=== PATIENT | female | born 1935 | race Caucasian/White ===

== ENCOUNTER → 2018-01-15 10:45 | Outpatient (CLI) | payer MEDICARE, OTHER, SELFPAY ==
[2018-01-15 12:43] LABS: Appearance Urine UA CLEAR; Bilirubin Urine UA NEGATIVE (NEGATIVE); Color Urine UA YELLOW; Glucose Urine UA NEGATIVE (Normal); Ketones Urine UA NEGATIVE (NEGATIVE); Leukocyte Esterase Urine UA TRACE (NEGATIVE); Nitrite Urine UA Negative (Negative); Occult Blood Urine UA 3+ (Negative); Protein Urine UA TRACE (Negative); Urobilinogen Urine UA 0.2 E.U./dL (0.2); pH Urine UA 6.5 (4.5-8.0)
[2018-01-15 13:06] LABS: Bacteria Urine Occasional (0-1); Culture Indicated Urine Specimen Cultured; RBC Urine 5-10/HPF (0-5/HPF); Squamous Epithelial Cell Urine 1-5 /HPF; WBC Urine 5-10/HPF (0-5/HPF)
[2018-01-15 13:07] LABS: Hyaline Casts Urine 0-1/LPF
== END ==
PROVIDERS: Visit Provider Internal Medicine
DX: R30.0 Dysuria (principal)
CPT/HCPCS: 81003; 81015; 87086

== ENCOUNTER → 2018-01-16 14:10 | Outpatient (CLI) | payer MEDICARE, OTHER, SELFPAY ==
[2018-01-16 16:00] LABS: Cholesterol 152 mg/dL (140-199); HDL Cholesterol 81 mg/dL (40-60); LDL Cholesterol Calculated 48 mg/dL (<100); Triglycerides 115 mg/dL (35-150)
== END ==
PROVIDERS: PCP Internal Medicine; Visit Provider Internal Medicine
DX: E78.00 Pure hypercholesterolemia, unspecified (principal)
CPT/HCPCS: 36415; 80061

== ENCOUNTER → 2018-01-23 13:24 | Outpatient (CLI) | payer MEDICARE, OTHER, SELFPAY ==
[2018-01-23 16:35] LABS: Bacteria Urine None Seen
[2018-01-23 16:45] LABS: Appearance Urine UA SL CLOUDY; Bilirubin Urine UA NEGATIVE (NEGATIVE); Color Urine UA RED; Glucose Urine UA NEGATIVE (Normal); Ketones Urine UA NEGATIVE (NEGATIVE); Leukocyte Esterase Urine UA TRACE (NEGATIVE); Nitrite Urine UA Negative (Negative); Occult Blood Urine UA 3+ (Negative); Protein Urine UA 2+ (Negative); Urobilinogen Urine UA 0.2 E.U./dL (0.2); pH Urine UA 6.5 (4.5-8.0)
[2018-01-23 16:49] LABS: Culture Indicated Urine Cult Not Indicated; RBC Urine >100/HPF (0-5/HPF); Squamous Epithelial Cell Urine 5-10 /HPF; WBC Urine 1-5/HPF (0-5/HPF)
== END ==
PROVIDERS: PCP Internal Medicine; Visit Provider Internal Medicine
DX: R31.9 Hematuria, unspecified (principal)
CPT/HCPCS: 81001

== ENCOUNTER → 2018-02-20 11:47 | Outpatient (CLI) | payer MEDICARE, OTHER, SELFPAY ==
[2018-02-20 12:55] LABS: Blood Urea Nitrogen 16 mg/dL (7-17); Estimated Glomerular Filt Rate 53.3 mL/min (>60)
== END ==
PROVIDERS: PCP Internal Medicine; Visit Provider Physician Assistant
DX: R31.0 Gross hematuria (principal)
CPT/HCPCS: 36415; 82565; 84520

== ENCOUNTER → 2018-02-27 11:31 | Outpatient (CLI) | payer MEDICARE, OTHER, SELFPAY ==
--- NOTE | 2018-02-27 | DI.CT.S_ITS ---
PROCEDURE: CT ABDOMEN PELVIS WO/W CON INDICATIONS: PAINLESS GROSS HEMATURIA TECHNIQUE: Optional 5 mm thick noncontrast images acquired from the diaphragm to the symphysis pubis. After the administration of intravenous contrast, 5 mm thick images acquired from the diaphragm to the symphysis pubis after a 10-minute delay. 2 mm thick coronal and sagittal reformats were then performed of the kidneys and ureters. For radiation dose reduction, the following was used: automated exposure control, adjustment of mA and/or kV according to patient size. COMPARISON: None. FINDINGS: Image quality: Excellent. Lung bases: Lung bases are clear. Heart size is normal. Urinary system: The kidneys are asymmetric in size, without hydronephrosis or nephrolithiasis on pre-contrast images but with a right kidney diminutive in size when compared to the normal size of the left kidney. Several renal cortical cysts are noted. No urothelial mass lesion involving either kidney is present.. No perinephric fat stranding. There is normal bilateral renal enhancement. Renal calyces appear normal in morphology when filled with contrast. Opacified portions of both ureters demonstrate normal caliber. Bladder wall thickness is normal. No calcified bladder stones. Other solid organs: Liver is normal in size and enhancement. Gallbladder contains at least one small centrally lucent calculus but no inflammation of the gallbladder or evidence of biliary obstruction is present.. Biliary system is non dilated. Pancreas enhances normally. Spleen is normal in size and enhancement. No adrenal nodules. The appearances of the ureters are normal bilaterally. Peritoneum and bowel: Bowel loops demonstrate normal wall thickness and caliber. No free fluid or air. Nodes and vessels: No retroperitoneal or mesenteric adenopathy by size criteria. Aorta and inferior vena cava are normal in size. Abdominal wall: No ventral hernias. Pelvis: No pathologic free pelvic fluid. No inguinal hernias are found. Note is made of a malignant appearing mass involving the right anterior lateral border with a region of mural thickening and increased enhancement when compared to the normal bladder wall elsewhere. This is present over a 5.9 cm AP dimension with a transverse dimension generally of 1.7 cm and a craniocaudad dimension of up to 6.8 cm. There is a margin of this mass that appears to have extended into the adjacent perivesicular, tracking to the right obturator internus musculature (please refer to series 3 image 159 where a preserved fat plane does not separate the mass from the anterior obturator internus musculature. On the right at the margin of the bifurcation of the inferior aspect of the right common iliac artery and vein there is a mildly prominent lymph node measuring up to 8 mm transverse and 1.3 cm AP with hyperemia when compared to the less enhancing pelvic musculature nearby (series 3 image 118) Bones: No suspicious bony lesions. No vertebral body compression fractures. IMPRESSION: 1. Malignant appearing mass lesion at the right anterolateral bladder wall measuring up to 5.9 x 6.8 x 1.7 cm. A smaller component of this mass appears to have invaded through the bladder wall and into the perivesicular extraperitoneal fat, progressing rightward to the inner border of the right obturator internus muscle anteriorly. 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 2. No distant metastatic disease is found that there is a single 8 x 13 mm lymph node that is hyperenhancing, located at the posterior border of the right common iliac artery and vein bifurcation, with enhancement above that expected for abnormal lymph node. Nuclear medicine PET CT scanning may be warranted to assist in establishing the presence of yoli metastatic disease. 3. Chronic atrophy of the right kidney which is diminutive in relationship to the normal appearance on the left. Dictated by: Jared Cantor M.D. on 02/27/2018 at 13:21 Approved by: Jared Cantor M.D. on 02/27/2018 at 13:37
== END ==
PROVIDERS: PCP Internal Medicine; Visit Provider Physician Assistant
DX: R31.0 Gross hematuria (principal); N32.9 Bladder disorder, unspecified; N26.1 Atrophy of kidney (terminal)
CPT/HCPCS: 74178; Q9967

== ENCOUNTER 2018-03-29 16:08 | Emergency (ER) | payer MEDICARE, OTHER, SELFPAY ==
[2018-03-29 16:15] VITALS: BP 124/80; PULSE 73; RESP 16; TEMP 35.8; O2SAT 99; BMI 20.7
--- NOTE | 2018-03-29 16:29 | ED_ITS ---
HPI - Female Genitourinary <RINA Mcdonnell - Last Filed: 03/29/18 22:23> General Chief complaint: Urogenital-Female Stated complaint: HAS BLADDER CANCER HAS PAIN/NOT PEEING WELL Time Seen by Provider: 03/29/18 16:28 Source: patient Mode of arrival: ambulatory Limitations: no limitations History of Present Illness HPI Narrative: 82-year-old female states has of bladder cancer and is currently awaiting surgery by Urology next week. She states that she has some bladder pain earlier today and has now resolved. She denies any burning with urination she denies any hematuria. Her symptoms have resolved since that started earlier today. She feels like she has inability to empty her bladder. Positive p.o. intake. No fevers or chills. She denies any other concerns or complaints. Related Data Home Medications Medication Instructions Recorded Confirmed aspirin 81 mg PO BID #0 03/20/11 03/29/18 atorvastatin 10 mg PO QPM 03/29/18 03/29/18 calcitriol 1 cap PO MOWEFR 03/29/18 03/29/18 diazepam 1 dose PO PRN PRN 03/29/18 03/29/18 Previous Rx's Medication Instructions Recorded amlodipine [Norvasc] 5 mg PO QDAY #90 tab 10/30/17 levothyroxine [Levoxyl] 0.088 mg PO QDAY #90 tab 10/30/17 metoprolol tartrate 50 mg PO BID #180 tab 10/30/17 hydrocodone-acetaminophen [[employer]] 1 tab PO Q4-6H PRN #10 tab 03/29/18 nitrofurantoin monohyd/m-cryst 100 mg PO Q12H #14 cap 03/29/18 [Macrobid] Allergies Allergy/AdvReac Type Severity Reaction Status Date / Time lisinopril [LISINOPRIL] Allergy Unknown Verified 01/16/18 13:30 Sulfa (Sulfonamide Allergy Unknown Verified 01/16/18 13:30 Antibiotics) [SULFA (SULFONAMIDE ANTIBIOTICS)] sertraline AdvReac Intermediate Diarrhea Uncoded 01/30/18 12:06 Review of Systems <RINA Mcdonnell - Last Filed: 03/29/18 22:23> Constitutional Denies chills, Denies fever(s), Denies lethargy and Denies weakness Eyes Denies change in vision, Denies eye discharge, Denies irritation and Denies loss of vision ENT Ears, Nose, Mouth, and Throat: Denies change in voice, Denies neck pain and Denies sore throat Cardiovascular Denies chest pain, Denies irregular heart rhythm, Denies lightheadedness, Denies palpitations, Denies dyspnea, Denies dyspnea on exertion and Denies orthopnea Respiratory Denies cough, Denies dyspnea, Denies dyspnea on exertion and Denies wheezing Gastrointestinal Gastrointestinal: Denies abdominal pain, Denies change in bowel habits, Denies diarrhea, Denies nausea and Denies vomiting Genitourinary Comments: Bladder pain Musculoskeletal Denies neck pain Integumentary/Breasts Denies pruritus, Denies erythema, Denies rash and Denies wounds Neurologic Denies confusion, Denies loss of vision and Denies weakness Psychiatric Denies anxiety, Denies confusion, Denies depression, Denies homicidal ideation and Denies suicidal ideation Endocrine Denies palpitations Hematologic/Lymphatic Denies easy bruising Allergic/Immunologic Denies wheezing Exam <RINA Mcdonnell - Last Filed: 03/29/18 22:23> Initial Vital Signs Initial Vital Signs: Vital Signs Temperature 96.5 F L 03/29/18 16:15 Pulse Rate 73 03/29/18 16:15 Respiratory Rate 16 03/29/18 16:15 Blood Pressure 124/80 H 03/29/18 16:15 Pulse Oximetry 99 03/29/18 16:15 Const General: cooperative and well developed Nutritional Appearance: well nourished Orientation: alert, awake, oriented x3 and not confused [facility] Mouth: oral mucosae normal and moist mucous membranes Eyes Conjunctivae: conjunctivae normal Sclera: sclerae normal Pupils: PERRL EOM: EOM intact bilaterally Resp Effort & Inspection: normal respiratory effort, able to speak in complete sentences, no respiratory distress and no use of accessory muscles Auscultation: clear to auscultation bilaterally, no rales, no rhonchi and no wheezes Cardio Rate: regular rate Rhythm: regular rhythm Heart Sounds: no click, no gallops, no murmurs and no rubs Pulses: normal peripheral pulses GI Inspection: non-distended Palpation: soft, no hepatosplenomegaly, No guarding, No pulsatile mass and No tender Auscultation: normal bowel sounds General: No CVA tenderness Skin General: no rashes or lesions noted, No jaundice and No petechiae Neuro General: alert, oriented x3, gait normal and no focal motor deficits Speech: speech normal <Christiano Beyer MD - Last Filed: 03/31/18 07:36> Initial Vital Signs Initial Vital Signs: Vital Signs Temperature 96.5 F L 03/29/18 16:15 Pulse Rate 73 03/29/18 16:15 Respiratory Rate 16 03/29/18 16:15 Blood Pressure 124/80 H 03/29/18 16:15 Pulse Oximetry 99 03/29/18 16:15 Course <RINA Mcdonnell - Last Filed: 03/29/18 22:23> Orders Ordered: Discontinued Medications Hydrocodone Bitart/Acetaminophen ([employer] 5/325) 1 tab PO NOW ONE Stop: 03/29/18 17:25 Last Admin: 03/29/18 17:33 Dose: 1 tab Vital Signs - 8 hr 03/29/18 16:15 03/29/18 17:58 Temperature 96.5 F L 98.0 F Pulse Rate 73 54 L Respiratory Rate 16 16 Blood Pressure 124/80 H Blood Pressure [Left Arm] 108/64 Pulse Oximetry 99 95 <Christiano Beyer MD - Last Filed: 03/31/18 07:36> Orders Ordered: Discontinued Medications Hydrocodone Bitart/Acetaminophen ([employer] 5/325) 1 tab PO NOW ONE Stop: 03/29/18 17:25 Last Admin: 03/29/18 17:33 Dose: 1 tab Vital Signs - 8 hr 03/29/18 16:15 03/29/18 17:58 Temperature 96.5 F L 98.0 F Pulse Rate 73 54 L Respiratory Rate 16 16 Blood Pressure 124/80 H Blood Pressure [Left Arm] 108/64 Pulse Oximetry 99 95 MDM - Female Genitourinary <RINA Mcdonnell - Last Filed: 03/29/18 22:23> Lab Data Lab Results 03/29/18 Range/Units 17:25 Urine RBC 1-5/hpf D (0-5/HPF) Urine WBC 30-100/hpf H (0-5/HPF) Ur Squamous Epith Cells 1-5 /hpf Urine Bacteria Moderate (10-30) H (None) Ur Culture Indicated? Specimen cultured Micro UA Comment Not Reportable MDM Narrative Medical decision making narrative: Bladder scan showed 200-300 mL inside the bladder. Patient was able to urinate and give urine sample. Urine sample shows that she has urinary tract infection. She is placed on Macrobid. She is to follow up with Urology next week as scheduled. Patient request pain medications to treat her bladder pain is secondary to bladder cancer. Small amount of [employer] is prescribed for pain. Return emergency room for any worsening symptoms. <Christiano Beyer MD - Last Filed: 03/31/18 07:36> Lab Data Lab Results 03/29/18 Range/Units 17:25 Urine RBC 1-5/hpf D (0-5/HPF) Urine WBC 30-100/hpf H (0-5/HPF) Ur Squamous Epith Cells 1-5 /hpf Urine Bacteria Moderate (10-30) H (None) Ur Culture Indicated? Specimen cultured Micro UA Comment Not Reportable Discharge Plan Departure Patient Disposition: Home Clinical Impression: Urinary tract infection Discharge Date/Time: 03/29/18 18:01 Interventions: ED Discharge Assessment Last Done: 03/29/18 18:01 Instructions: DI for Urinary Tract Infection (UTI) Activity Restrictions/Additional Instructions: Urinalysis indicates urinary tract infection. Urine placed on antibiotic called Macrobid use as directed. Follow up with Urology next week as scheduled. Return emergency room for any worsening symptoms. Small amount of [employer] is prescribed for bladder pain use as directed. No driving while on the [employer]. Return emergency room for any worsening symptoms. Prescriptions: New hydrocodone-acetaminophen [[employer]] 5-325 mg tablet 1 tab PO Q4-6H PRN (Reason: pain) Qty: 10 RF: 0 nitrofurantoin monohyd/m-cryst [Macrobid] 100 mg capsule 100 mg PO Q12H Qty: 14 RF: 0 No Action aspirin 81 MG tablet,delayed release (DR/EC) 81 mg PO BID Qty: 0 RF: 0 metoprolol tartrate 50 MG tablet 50 mg PO BID Qty: 180 RF: 3 amlodipine [Norvasc] 5 MG tablet 5 mg PO QDAY Qty: 90 RF: 3 levothyroxine [Levoxyl] 88 MCG tablet 0.088 mg PO QDAY Qty: 90 RF: 3 calcitriol 0.25 mcg capsule 1 cap PO MOWEFR RF: 0 diazepam 10 mg Tablet 1 dose PO PRN PRN (Reason: Anxiety) RF: 0 atorvastatin 10 mg tablet 10 mg PO QPM RF: 0 Referrals: Syd Frazier MD [Primary Care Provider] - <Christiano Beyer MD - Last Filed: 03/31/18 07:36> Sign Out Provider Sign Out Attestation: The PA/POSTAL CLERK functioned independently for the care of this pt, I was available, but not asked to participate in care. I am unable to determine appropriateness of management without personally examining the pt.
[2018-03-29] MEDS: HYDROCODONE/ACET 5/325 TABLET 1 TAB PO (17:33)
[2018-03-29 17:40] LABS: RBC Urine 1-5/HPF (0-5/HPF)
[2018-03-29 17:41] LABS: Bacteria Urine Moderate (10-30); Culture Indicated Urine Specimen Cultured; Squamous Epithelial Cell Urine 1-5 /HPF; WBC Urine 30-100/HPF (0-5/HPF)
[2018-03-29 17:58] VITALS: BP 108/64; PULSE 54; RESP 16; TEMP 36.7; O2SAT 95
== END 2018-03-29 18:01 | disposition home or self-care (01) ==
PROVIDERS: Emergency Provider Nurse Practitioner Family; PCP Internal Medicine
DX: N39.0 Urinary tract infection, site not specified (principal)
CPT/HCPCS: 51798; 81003; 81015; 87086; 99283

== ENCOUNTER → 2018-08-27 09:58 | Outpatient (CLI) | payer MEDICARE, OTHER, SELFPAY ==
--- NOTE | 2018-08-27 10:01 | DI.CT.S_ITS ---
PROCEDURE: CT CHEST ABD PEL WO CON INDICATIONS: Restaging bladder cancer TECHNIQUE: After the administration of oral contrast, 5 mm thick sections acquired from the lung apices to the symphysis pubis. 5 mm thick coronal and sagittal reformats acquired, with additional 7 mm coronal MIP reformats through the lungs. For radiation dose reduction, the following was used: automated exposure control, adjustment of mA and/or kV according to patient size. COMPARISON: [facility], CT, CT ABDOMEN PELVIS WO/W CON, 02/27/2018, 11:44. FINDINGS: Image quality: Excellent. CHEST: Lungs and pleura: Mild to moderate centrilobular emphysema is seen. 5 x 3 mm nodular density with mildly spiculated margin is seen in lateral aspect of right upper lobe series 4 image 20. Biapical scarring is seen. Faint 2 mm nodular density is noted in lateral aspect of right middle lobe series 4 image 27 faint 3 mm nodular density is seen in anterior aspect of left upper lobe series 4 image 22. Linear scarring/atelectasis are seen scattered in the periphery of bilateral upper lung ferrer. No acute pulmonary opacities. No pleural effusions or pneumothorax. Central and peripheral airways are patent are normal in caliber. Mediastinum: Heart size is normal. No pericardial effusion. No mediastinal adenopathy by CT size criteria. Thoracic aorta and central pulmonary arteries are normal in size. Esophagus is normal in caliber. There is a small hiatal hernia. Chest wall: No axillary or supraclavicular adenopathy by size criteria. Thyroid gland is within normal limits. ABDOMEN: Solid organs: Liver is normal in size. Gallbladder contains a small calcified stone. No gallbladder wall thickening or pericholecystic fluid.. Pancreas is normal in contours. Spleen is normal in size. No adrenal nodules. Left kidney is normal in size. Atrophic appearing right kidney is seen with suggestion of a 1.6 cm right renal cyst. No obstructing renal stone hydronephrosis. No perinephric fluid collection. Peritoneum and bowel: Small and large bowel loops are normal in caliber and wall thickness. No free fluid or air. Nodes and vessels: No retroperitoneal or mesenteric adenopathy by size criteria. Aorta and inferior vena cava are normal in size. Small lymph nodes are seen in the right lower quadrant mesentery measures up to 6 mm in short axis diameter. Miscellaneous: No ventral hernias. PELVIS: Genitourinary: Compared to previous study, there is interval increase in size of patient's known mass lesion involving right anterior lateral bladder wall, now measures up to 6.8 x 6.6 x 3 cm in its largest craniocaudal, AP and transverse dimensions compared to 6.8 x 5.9 x 1.7 cm in size on previous study. There is suggestion of small amount of central hypodensity and may indicate tumor necrosis. Mild wall thickening involving rest of urinary bladder is seen. There is suggestion of extension of the above-mentioned mass into adjacent perivesicular space with possible involvement of right obturator internus muscle unchanged from previous study. Miscellaneous: No inguinal hernias or adenopathy. Previously described prominent lymph nodes near bifurcation of the inferior right common iliac artery is again seen, now measures 7 x 15 mm in size compared to 8 x 13 mm in size on previous study. Bones: No suspicious bony lesions. No vertebral body compression fractures. Degenerative disc disease throughout lower thoracic and lumbar spine is seen. IMPRESSION: 1. 5 x 3 mm ill-defined nodular density with mildly spiculated margins involving lateral aspect of right upper lobe is seen concerning for a small metastatic lung nodule. Tiny 2 mm right middle lobe nodule and faint 3 mm nodular density in anterior aspect of left upper lobe. Scarring/atelectasis scattered in periphery of bilateral lung ferrer. No pleural effusion or pneumothorax. 2. Interval increase in size of patient's known lobulated malignant appearing right anterior lateral bladder wall mass now measures 6.8 x 6.6 x 3 cm in size with suggestion of small area of central tumor necrosis. There is perivesicular extension possibly involving right obturator internus muscle. 3. Mildly prominent right common iliac lymph node as above, not significantly changed from prior study. No other area of lymphadenopathy is seen in chest, abdomen or pelvis. 4. Cholelithiasis. No CT evidence of acute cholecystitis. Chronic appearing atrophic right kidney with right renal cyst. Dictated by: Thierry Perez M.D. on 08/27/2018 at 13:49 Approved by: Thierry Perez M.D. on 08/27/2018 at 14:09
== END ==
PROVIDERS: PCP Student in an Organized Health Care Education/Training Program
DX: C67.9 Malignant neoplasm of bladder, unspecified (principal); R91.8 Other nonspecific abnormal finding of lung field; K80.80 Other cholelithiasis without obstruction; N28.1 Cyst of kidney, acquired
CPT/HCPCS: 71250; 74176

== ENCOUNTER 2018-11-15 12:55 | Inpatient (IN) | payer MEDICARE, OTHER, SELFPAY ==
[2018-11-15] VITALS (11 sets, daily range): BP systolic 111–161; BP diastolic 40–101; PULSE 53–86; RESP 14–23; TEMP 36.3–36.7; O2SAT 96–100; BMI 19.1
--- NOTE | 2018-11-15 12:56 | DI.RAD.S_ITS ---
PROCEDURE: XR CHEST 1V INDICATIONS: word salad, concern for cva TECHNIQUE: One view of the chest was acquired. COMPARISON: [facility], , CHEST 1 VIEW, 04/11/2015, 2:57. FINDINGS: Surgical changes and devices: None. Lungs and pleura: Lungs are clear. No pleural effusions or pneumothorax. Mediastinum: Mediastinal contours appear normal. Heart size is normal. Bones and chest wall: Chronic left seventh and eighth rib fractures noted. No suspicious bony lesions. Overlying soft tissues appear unremarkable. IMPRESSION: No acute cardiopulmonary disease process. Dictated by: Stacie Jeter MD, PhD on 11/15/2018 at 13:21 Approved by: Stacie Jeter MD, PhD on 11/15/2018 at 13:23
--- NOTE | 2018-11-15 12:56 | DI.CT.S_ITS ---
PROCEDURE: CT HEAD/BRAIN WO CON INDICATIONS: word salad, possible tpa candidate CODE STROKE TECHNIQUE: Noncontrast 4.5 mm thick angled axial sections acquired from the foramen magnum to the vertex, with coronal and sagittal reformats. For radiation dose reduction, the following was used: automated exposure control, adjustment of mA and/or kV according to patient size. COMPARISON: None. FINDINGS: Image quality: Excellent. CSF spaces: Basal cisterns are patent. No extra-axial fluid collections. The ventricles are symmetric in size and shape. Brain: No intracranial bleeds or masses. There is cerebral volume loss for age, with resultant ventricular and sulcal prominence. There are periventricular and deep white matter chronic small vessel ischemic changes. There is intracranial internal carotid artery atherosclerosis. Skull and face: Calvarium and visualized facial bones appear intact, without suspicious lesions. Sinuses: Visualized sinuses and mastoids are clear. IMPRESSION: No CT evidence of acute intracranial pathology. Age-appropriate atrophy and mild to moderate periventricular white matter microangiopathic changes. Dictated by: Thierry Perez M.D. on 11/15/2018 at 13:08 Approved by: Thierry Perez M.D. on 11/15/2018 at 13:09
--- NOTE | 2018-11-15 12:57 | DI.CT.S_ITS ---
PROCEDURE: CT ANGIO HEAD AND NECK INDICATIONS: DIFFICULTY SPEAKING TECHNIQUE: Pre-contrast 4.5 mm thick sections acquired from the foramen magnum to the vertex. After the administration of intravenous contrast, 1 mm thick sections acquired from the aortic arch through the [place]. Post-contrast 4.5 mm thick sections then re-acquired from the foramen magnum to the vertex. 3-dimensional dkqjbah-omufpuhby-xblqovhegh (MIP) and/or volume rendering reformats were acquired of the central intracranial vasculature and neck separately. COMPARISON: None. FINDINGS: Image quality: Excellent. BRAIN: CSF spaces: Ventricles are normal in size and shape. Basal cisterns are patent. No extra-axial fluid collections. Brain: No midline shift. No intracranial bleeds or masses. Age-appropriate cerebral and cerebellar cortical atrophy and mild to moderate bilateral periventricular white matter chronic ischemic microangiopathic changes are seen. Romero-white matter interface appears intact. No area of abnormal contrast enhancement is noted. Skull and face: Calvarium and facial bones appear intact, without suspicious lesions. Orbits appear normal. Sinuses: Sinuses and mastoids are clear. HEAD CT ANGIOGRAPHY: Anterior circulation: Intracranial internal carotid arteries are normal in size and flow. The flow within the paired anterior cerebral arteries is normal and symmetric. The flow within the middle cerebral arteries is normal and symmetric. The anterior communicating artery is seen. No aneurysms are seen. Posterior circulation: Visualized portions of the vertebral arteries demonstrate normal caliber, and join to form a normal appearing basilar artery. Flow within the posterior cerebral arteries is normal and symmetric. No aneurysms are seen. NECK CT ANGIOGRAPHY: Carotid system: The great vessels demonstrate a conventional anatomy as they arise from the aortic arch. The origins of the common carotid arteries appear patent. The common carotid arteries demonstrate normal caliber and courses. The bifurcation regions are both widely patent. The internal carotid arteries demonstrate normal calibers and courses. Posterior circulation: The origins of the vertebral arteries both appear widely patent. The more superior extracranial portions of both vertebral arteries also demonstrate normal courses and calibers. They join to form a normal appearing basilar artery. Soft tissues: Visualized neck soft tissues demonstrate no suspicious abnormalities. Bones: No suspicious bony lesions. Visualized cervical spine appears normally aligned. IMPRESSION: 1. No CT evidence of acute intracranial pathology. No area of abnormal contrast enhancement. Age-appropriate atrophy and mild to moderate periventricular white matter microangiopathic changes. 2. No hemodynamically significant stenosis or aneurysm is seen in the intracranial circulation. 3. No hemodynamically significant stenosis is seen in bilateral neck arteries. Any quantitative measurements of stenosis were performed using NASCET criteria. Dictated by: Thierry Perez M.D. on 11/15/2018 at 13:36 Approved by: Thierry Perez M.D. on 11/15/2018 at 13:47
[2018-11-15 13:09] LABS: Add Manual Diff / Slide Review NO; Basophils Absolute Auto 100 /uL (0-100); Basophils Percent Auto 0.6 % (0-2); Eosinophils Absolute Auto 600 /uL (0-450); Eosinophils Percent Auto 5.2 % (2-4); Hematocrit 37.3 % (36-46); Hemoglobin 11.9 g/dL (12.0-16.0); Lymphocytes Absolute Auto 1600 /uL (1100-4500); Lymphocytes Percent Auto 13.4 % (25-40); Mean Corpuscular Hemoglobin 29.2 PG (26-34); Mean Corpuscular Volume 91.1 fL (80-100); Monocytes Absolute Auto 1000 /uL (0-900); Monocytes Percent Auto 8.7 % (3-14); Neutrophils Absolute Auto 8400 /uL (1500-7000); Neutrophils Percent Auto 72.1 % (50-75); Platelet Count 474 X10^3/uL (150-400); Red Blood Cell Count 4.09 X10^6/uL (4.0-5.2); Red Cell Distribution Width 14.8 % (11.6-14.8); White Blood Cell Count 11.7 X10^3/uL (4.5-11.0)
--- NOTE | 2018-11-15 13:15 | ED_ITS ---
HPI - Neuro Symptoms/Deficit General Chief Complaint: Neuro Symptoms/Deficit Stated Complaint: CVA Time Seen by Provider: 11/15/18 12:56 Source: patient and EMS Mode of arrival: EMS Limitations: no limitations History of Present Illness HPI Narrative: This is an 83-year-old female [facility] complaint of difficulty with speech/word salad and reading comprehension. Patient states that she was fine this morning, she did not notice any issues until she tried to read the newspaper and she did not understand the cartoons. She states that she was fine until then per EMS there were some workers at the house working on her roof and they noticed something seemed but were not sure, patient's friend came over. Patient states they were there at about 9:00 a.m. this morning and that was also per the report from EMS. Patient is having difficulty with some of her words particularly when she tries to read or repeat words back to you. She also has some trouble with comprehension, she had difficulty naming pictures on the stroke scale as well as some difficulty with the words and sentences. Patient denies any headache, she denies any vision change, she denies any chest pain, shortness of breath, abdominal pain or any nausea, vomiting GI or other urinary symptoms. she states she is being treated for bladder cancer, she takes blood pressure as well as cholesterol medication. She takes 81 mg aspirin which she states she took today. She also takes thyroid medication. On Anticoagulants: Yes (asa) Related Data Home Medications Medication Instructions Recorded Confirmed aspirin 81 mg PO DAILY #0 03/20/11 11/15/18 calcitriol 1 cap PO MOWEFR 03/29/18 11/15/18 Previous Rx's Medication Instructions Recorded atorvastatin 10 mg tablet 10 mg PO QPM #90 tab 10/03/18 levothyroxine 100 mcg tablet 100 mcg PO QDAY #90 tab 10/03/18 metoprolol tartrate 75 mg tablet 75 mg PO BID #180 tab 10/03/18 Allergies Allergy/AdvReac Type Severity Reaction Status Date / Time lisinopril [LISINOPRIL] Allergy Severe Swelling Verified 11/15/18 13:51 of Lip/Tongue/Throat Sulfa (Sulfonamide Allergy Intermediate Rash Verified 11/15/18 13:51 Antibiotics) [SULFA (SULFONAMIDE ANTIBIOTICS)] sertraline AdvReac Intermediate Diarrhea Verified 11/15/18 13:51 Review of Systems Review of Systems ROS Unobtainable: All systems reviewed & are unremarkable except as noted in HPI and below Constitutional Denies chills, Denies fever(s), Denies lethargy and Denies weakness ENT Ears, Nose, Mouth, and Throat: Denies dizziness Cardiovascular Denies chest pain, Denies syncope, Denies irregular heart rhythm, Denies lightheadedness, Denies palpitations, Denies dyspnea, Denies dyspnea on exertion and Denies orthopnea Respiratory Denies cough, Denies dyspnea, Denies dyspnea on exertion and Denies wheezing Gastrointestinal Gastrointestinal: Denies abdominal pain, Denies change in bowel habits, Denies diarrhea, Denies nausea and Denies vomiting Genitourinary Denies hematuria, Denies urinary frequency, Denies dysuria, Denies flank pain and Denies urinary urgency Musculoskeletal Denies abnormal gait, Denies muscle weakness, Denies numbness and Denies ting ling Integumentary/Breasts Denies rash Neurologic Denies abnormal movements, Reports abnormal speech, Denies abnormal gait, Denies confusion, Denies dizziness, Denies syncope, Denies focal weakness, Denies numbness, Denies other visual disturbances, Denies tingling and Denies weakness Psychiatric Denies confusion Endocrine Denies palpitations Allergic/Immunologic Denies wheezing FOR[facility]LY [facility] Medical History CAD (coronary artery disease) (Chronic 2013) Hypertension (Chronic) Drug-induced anaphylaxis (Resolved 2013) Kidney failure (Resolved 2014) Non-STEMI (non-ST elevated myocardial infarction) (Resolved 2013) Ovarian cancer (Resolved 2002) Thyroid cancer (Resolved 1997) Surgical History History of thyroidectomy (Resolved 1997) Status post hysterectomy with oophorectomy (Resolved 2002) Family History (Updated 05/06/18 @ 15:43 by Tricia Forrest) Other Breast cancer Ovarian cancer Social History Smoking Status: Current every day smoker alcohol intake: current Family History Other Breast cancer Ovarian cancer Social History (Updated 11/15/18 @ 13:25 by Princess C Mank, DO) household members: none Smoking Status: Current every day smoker alcohol intake: current substance use type: does not use Exam Narrative Exam Narrative: GEN: Thin, well-appearing elderly female, alert and oriented x 2, patient appears to be in mild distress. HEENT: Atraumatic, pupils are equal round reactive to light, extraocular movements are intact, nares are clear, TMs are clear with no fluid, there is no conjunctival pallor. Throat is clear without any exudates, erythema, tonsillar enlargement or uvular deviation, no facial droop. HEART: Regular rate and rhythm without murmur, clicks, rubs. pulses are equal in upper and lower extremities LUNGS:Lungs clear to auscultation, no wheezes, rales, crackles, chest moves symmetrically ABD:bowel sounds normal, soft, non-tender, no guarding, rebound, rigidity, no masses noted, no hepatosplenomegaly MSCL: Non-tender, no muscle atrophy, muscles strength 5/5 upper and lower extremities, full range of motion, normal gait NEURO:CN 2-12 intact, sensation normal, reflexes 2/4 upper and lower extremities. finger nose finger test normal on left, kept touching lips instead of nose on right, heel albert test normal, aphasia, dysarthria, difficulty with word-finding intermittently, patient also has difficulty with pictures and description of pictures on the stroke scale as well as reading some of the sentences. Initial Vital Signs Initial Vital Signs: Vital Signs Temperature 97.7 F 11/15/18 13:07 Pulse Rate 75 11/15/18 13:07 Respiratory Rate 23 11/15/18 13:07 Blood Pressure 149/72 H 11/15/18 13:07 Pulse Oximetry 100 11/15/18 13:07 Scores NIH Stroke Scale Level of Conciousness: Alert, keenly responsive Ask month/age: Answers neither question correctly, aphasic, stuporous, coma Open/close eyes, close hand: Performs both tasks correctly Best gaze horizontal: Normal Visual ferrer: No visual loss Facial palsy: Normal symetrical movement Left arm drift: No drift for full 10 sec Right arm drift: No drift for full 10 sec Left leg drift: No drift for full 10 sec Right leg drift: No drift for full 10 sec Limb ataxia: Present in one limb Sensory on face/arms/legs: Normal, no sensory loss Best language: Mild to moderate, slurs some words Dysarthria: Mild to mod,some slurring Extinction or inattention: No abnormality Total NIH Stroke scale score: 5 Course Orders Ordered: ED Orders 11/15/18 12:56 CT head/brain wo con Stat XR chest 1V Stat EKG-12 Lead Stat 11/15/18 12:57 CT angio head and neck Stat 11/15/18 13:05 Basic Metabolic Panel Stat Complete Blood Count AUTO DIFF Stat Partial Thromboplastin Time Stat Prothrombin Time INR Stat Troponin I Stat 11/15/18 14:28 Urine Drug Screen, Rapid Stat 11/15/18 14:35 Urine Culture Stat Urine Microscopic Stat 11/15/18 15:27 MR stroke Stat 11/15/18 15:42 Education, smoking cessation ONGOING 11/15/18 15:45 Consult to Discharge Planning Routine Consult to Occupational Therapy Evaluate & Treat Consult to Physical Therapy Evaluate & Treat Consult to Speech Therapy Evaluate & Treat 11/15/18 16:00 Hemoglobin A1C % Routine Lipid Panel Routine Magnesium Routine Acetaminophen (Tylenol) 650 mg PO Q6H PRN PRN Reason: As Needed for Fever/Mild Pain Calcium Carbonate (Tums) 1,000 mg PO Q4H PRN PRN Reason: Dyspepsia Heparin Sodium (Porcine) (Heparin) 5,000 unit SUBCUT BID RABIA Sodium Chloride (Normal Saline 0.9%) 1,000 mls @ 150 mls/hr IV CONT RABIA Last Infusion: 11/15/18 16:00 Dose: 0 mls/hr Admin: 11/15/18 13:24 Dose: 150 mls/hr Sodium Chloride (Normal Saline 0.9%) 1,000 mls @ 100 mls/hr IV CONT RABIA Last Admin: 11/15/18 16:19 Dose: 100 mls/hr Ondansetron HCl (Zofran) 4 mg IV Q8H PRN PRN Reason: Nausea And Vomiting Sennosides (Senna) 17.2 mg PO BEDTIME PRN PRN Reason: Constipation Discontinued Medications Aspirin (Aspirin Chew) 243 mg PO NOW ONE Stop: 11/15/18 13:18 Last Admin: 11/15/18 13:24 Dose: 243 mg Vital Signs - 8 hr 11/15/18 13:07 11/15/18 13:14 11/15/18 13:30 Temperature 97.7 F Pulse Rate 75 71 59 L Respiratory Rate 23 14 16 Blood Pressure 149/72 H Blood Pressure [Right Arm] 129/101 H 113/74 Pulse Oximetry 100 100 100 11/15/18 15:23 11/15/18 15:33 11/15/18 16:20 Temperature Pulse Rate 53 L 55 L 54 L Respiratory Rate 22 15 16 Blood Pressure Blood Pressure [Right Arm] 114/57 L 111/40 L 131/74 Pulse Oximetry 98 100 99 11/15/18 16:22 Temperature 97.3 F L Pulse Rate 86 Respiratory Rate 16 Blood Pressure 122/76 Blood Pressure [Right Arm] Pulse Oximetry 100 MDM - Neuro Symptoms/Deficit Lab Data Attestation: I reviewed the patient's lab results. Result diagrams: 11/15/18 13:05 11/15/18 13:05 Lab Results 11/15/18 11/15/18 11/15/18 Range/Units 13:05 13:05 13:05 WBC 11.7 H (4.5-11.0) X10^3/uL RBC 4.09 (4.0-5.2) X10^6/uL Hgb 11.9 L (12.0-16.0) g/dL Hct 37.3 (36-46) % MCV 91.1 (80-100) fL MCH 29.2 (26-34) PG MCHC 32.0 (30-36) % RDW 14.8 (11.6-14.8) % Plt Count 474 H (150-400) X10^3/uL Neut % (Auto) 72.1 (50-75) % Lymph % (Auto) 13.4 L (25-40) % [place] % (Auto) 8.7 (3-14) % Eos % (Auto) 5.2 H (2-4) % Baso % (Auto) 0.6 (0-2) % Neut # (Auto) 8400 H (9636-1255) /uL Lymph # (Auto) 1600 (7448-1878) /uL [place] # (Auto) 1000 H (0-900) /uL Eos # (Auto) 600 H (0-450) /uL Baso # (Auto) 100 (0-100) /uL PT 11.8 (10.1-12.7) SECONDS INR 1.0 (0.9-1.3) APTT 21 L (26.4-36.2) SECONDS Sodium 135 L (137-145) mmol/L Potassium 4.1 (3.4-5.1) mmol/L Chloride 99 (98-107) mmol/L Carbon Dioxide 26 (22-32) mmol/L BUN 18 H (7-17) mg/dL Creatinine 1.10 H (0.52-1.04) mg/dL Estimated GFR 47.7 L (>60) mL/min BUN/Creatinine Ratio 16.4 (6-22) Glucose 136 H (80-110) mg/dL Hemoglobin A1c (4.0-6.0) % Calcium 8.5 (8.4-10.2) mg/dL Magnesium (1.6-2.3) mg/dL Troponin I < 0.012 (0.01-0.034) ng/mL Triglycerides (35-150) mg/dL Cholesterol (140-199) mg/dL LDL Cholesterol, Calc (<100) mg/dL HDL Cholesterol (40-60) mg/dL Urine RBC (0-5/HPF) Urine WBC (0-5/HPF) Ur Squamous Epith Cells Amorphous Sediment Urine Bacteria (None) Urine Mucus (Negative) Ur Culture Indicated? Urine Opiates Screen (Negative) Ur Oxycodone Screen (Negative) Urine Methadone Screen (Negative) Ur Barbiturates Screen (Negative) U Tricyclic Antidepress (Negative) Ur Phencyclidine Scrn (Negative) Ur Amphetamines Screen (Negative) U Methamphetamines Scrn (Negative) Ur MDMA Scrn (Ecstasy) (Negative) U Benzodiazepines Scrn (Negative) Urine Cocaine Screen (Negative) U Marijuana (THC) Screen (Negative) 11/15/18 11/15/18 11/15/18 Range/Units 14:28 14:35 16:00 WBC (4.5-11.0) X10^3/uL RBC (4.0-5.2) X10^6/uL Hgb (12.0-16.0) g/dL Hct (36-46) % MCV (80-100) fL MCH (26-34) PG MCHC (30-36) % RDW (11.6-14.8) % Plt Count (150-400) X10^3/uL Neut % (Auto) (50-75) % Lymph % (Auto) (25-40) % [place] % (Auto) (3-14) % Eos % (Auto) (2-4) % Baso % (Auto) (0-2) % Neut # (Auto) (5191-1363) /uL Lymph # (Auto) (1275-3988) /uL [place] # (Auto) (0-900) /uL Eos # (Auto) (0-450) /uL Baso # (Auto) (0-100) /uL PT (10.1-12.7) SECONDS INR (0.9-1.3) APTT (26.4-36.2) SECONDS Sodium (137-145) mmol/L Potassium (3.4-5.1) mmol/L Chloride (98-107) mmol/L Carbon Dioxide (22-32) mmol/L BUN (7-17) mg/dL Creatinine (0.52-1.04) mg/dL Estimated GFR (>60) mL/min BUN/Creatinine Ratio (6-22) Glucose (80-110) mg/dL Hemoglobin A1c 5.6 (4.0-6.0) % Calcium (8.4-10.2) mg/dL Magnesium (1.6-2.3) mg/dL Troponin I (0.01-0.034) ng/mL Triglycerides (35-150) mg/dL Cholesterol (140-199) mg/dL LDL Cholesterol, Calc (<100) mg/dL HDL Cholesterol (40-60) mg/dL Urine RBC 1-5/hpf (0-5/HPF) Urine WBC >100/hpf H (0-5/HPF) Ur Squamous Epith Cells 0-1 /hpf Amorphous Sediment 1+ Urine Bacteria Moderate (10-30) H (None) Urine Mucus 2+ H (Negative) Ur Culture Indicated? Specimen cultured Urine Opiates Screen Negative (Negative) Ur Oxycodone Screen Negative (Negative) Urine Methadone Screen Negative (Negative) Ur Barbiturates Screen Negative (Negative) U Tricyclic Antidepress Negative (Negative) Ur Phencyclidine Scrn Negative (Negative) Ur Amphetamines Screen Negative (Negative) U Methamphetamines Scrn Negative (Negative) Ur MDMA Scrn (Ecstasy) Negative (Negative) U Benzodiazepines Scrn Positive H (Negative) Urine Cocaine Screen Negative (Negative) U Marijuana (THC) Screen Negative (Negative) 11/15/18 Range/Units 16:00 WBC (4.5-11.0) X10^3/uL RBC (4.0-5.2) X10^6/uL Hgb (12.0-16.0) g/dL Hct (36-46) % MCV (80-100) fL MCH (26-34) PG MCHC (30-36) % RDW (11.6-14.8) % Plt Count (150-400) X10^3/uL Neut % (Auto) (50-75) % Lymph % (Auto) (25-40) % [place] % (Auto) (3-14) % Eos % (Auto) (2-4) % Baso % (Auto) (0-2) % Neut # (Auto) (7858-6080) /uL Lymph # (Auto) (9744-8574) /uL [place] # (Auto) (0-900) /uL Eos # (Auto) (0-450) /uL Baso # (Auto) (0-100) /uL PT (10.1-12.7) SECONDS INR (0.9-1.3) APTT (26.4-36.2) SECONDS Sodium (137-145) mmol/L Potassium (3.4-5.1) mmol/L Chloride (98-107) mmol/L Carbon Dioxide (22-32) mmol/L BUN (7-17) mg/dL Creatinine (0.52-1.04) mg/dL Estimated GFR (>60) mL/min BUN/Creatinine Ratio (6-22) Glucose (80-110) mg/dL Hemoglobin A1c (4.0-6.0) % Calcium (8.4-10.2) mg/dL Magnesium 2.1 (1.6-2.3) mg/dL Troponin I (0.01-0.034) ng/mL Triglycerides 127 (35-150) mg/dL Cholesterol 137 L (140-199) mg/dL LDL Cholesterol, Calc 60 (<100) mg/dL HDL Cholesterol 52 (40-60) mg/dL Urine RBC (0-5/HPF) Urine WBC (0-5/HPF) Ur Squamous Epith Cells Amorphous Sediment Urine Bacteria (None) Urine Mucus (Negative) Ur Culture Indicated? Urine Opiates Screen (Negative) Ur Oxycodone Screen (Negative) Urine Methadone Screen (Negative) Ur Barbiturates Screen (Negative) U Tricyclic Antidepress (Negative) Ur Phencyclidine Scrn (Negative) Ur Amphetamines Screen (Negative) U Methamphetamines Scrn (Negative) Ur MDMA Scrn (Ecstasy) (Negative) U Benzodiazepines Scrn (Negative) Urine Cocaine Screen (Negative) U Marijuana (THC) Screen (Negative) Point of Care Testing Glucose POC 106 Urine Dip Bedside Urine Glucose Negative Bedside Urine Bilirubin - Negative Bedside Urine Ketone - Negative Urine Specific Ruby 1.010 Bedside Urine Occult Blood +++ Bedside Urine pH 7.0 Bedside Urine Protein + 30 Bedside Urine Urobilinogen - Negative Bedside Urine Nitrite - Negative Bedside Urine Leukocytes +++ [address] scan - head: Radiologist's impression: Isaac Mccarthy 83 F 1935 [place] [address] CT Scan Report Signed Patient: Isaac Mccarthy MMR#: [id number] : [id number]:[id number] Age/Sex: 83 / FDate of Service: 11/15/18 Loc: ED Accession Number: [id number] Procedure: CT head/brain wo con Ordering Provider: Princess Olguin D.O. PROCEDURE: CT HEAD/BRAIN WO CON INDICATIONS: word salad, possible tpa candidate CODE STROKE TECHNIQUE: Noncontrast 4.5 mm thick angled axial sections acquired from the foramen magnum to the vertex, with coronal and sagittal reformats. For radiation dose reduction, the following was used: automated exposure control, adjustment of mA and/or kV according to patient size. COMPARISON: None. FINDINGS: Image quality: Excellent. CSF spaces: Basal cisterns are patent. No extra-axial fluid collections. The ventricles are symmetric in size and shape. Brain: No intracranial bleeds or masses. There is cerebral volume loss for age, with resultant ventricular and sulcal prominence. There are periventricular and deep white matter chronic small vessel ischemic changes. There is intracranial internal carotid artery atherosclerosis. Skull and face: Calvarium and visualized facial bones appear intact, without suspicious lesions. Sinuses: Visualized sinuses and mastoids are clear. IMPRESSION: No CT evidence of acute intracranial pathology. Age-appropriate atrophy and mild to moderate periventricular white matter microangiopathic changes. Dictated by: Thierry Perez M.D. on 11/15/2018 at 13:08 Approved by: Thierry Perez M.D. on 11/15/2018 at 13:09 Angio head/neck: Radiologist's impression: Isaac Mccarthy 83 F [address] [address] [address] Scan Report Signed Patient: Isaac Mccarthy [facility]#: [id number] : [id number]:[id number] Age/Sex: 83 / FDate of Service: 11/15/18 Loc: ED Accession Number: [id number] Procedure: CT angio head and neck Ordering Provider: Princess Olguin D.O. PROCEDURE: CT ANGIO HEAD AND NECK INDICATIONS: DIFFICULTY SPEAKING TECHNIQUE: Pre-contrast 4.5 mm thick sections acquired from the foramen magnum to the vertex. After the administration of intravenous contrast, 1 mm thick sections acquired from the aortic arch through the [place] of [place]. Post-contrast 4.5 mm thick sections then re- acquired from the foramen magnum to the vertex. 3-dimensional maximum-intensity- projection (MIP) and/or volume rendering reformats were acquired of the central intracranial vasculature and neck separately. COMPARISON: None. FINDINGS: Image quality: Excellent. BRAIN: CSF spaces: Ventricles are normal in size and shape. Basal cisterns are patent. No extra-axial fluid collections. Brain: No midline shift. No intracranial bleeds or masses. Age-appropriate cerebral and cerebellar cortical atrophy and mild to moderate bilateral periventricular white matter chronic ischemic microangiopathic changes are seen. Romero-white matter interface appears intact. No area of abnormal contrast enhancement is noted. Skull and face: Calvarium and facial bones appear intact, without suspicious lesions. Orbits appear normal. Sinuses: Sinuses and mastoids are clear. HEAD CT ANGIOGRAPHY: Anterior circulation: Intracranial internal carotid arteries are normal in size and flow. The flow within the paired anterior cerebral arteries is normal and symmetric. The flow within the middle cerebral arteries is normal and symmetric. The anterior communicating artery is seen. No aneurysms are seen. Posterior circulation: Visualized portions of the vertebral arteries demonstrate normal caliber, and join to form a normal appearing basilar artery. Flow within the posterior cerebral arteries is normal and symmetric. No aneurysms are seen. NECK CT ANGIOGRAPHY: Carotid system: The great vessels demonstrate a conventional anatomy as they arise from the aortic arch. The origins of the common carotid arteries appear patent. The common carotid arteries demonstrate normal caliber and courses. The bifurcation regions are both widely patent. The internal carotid arteries demonstrate normal calibers and courses. Posterior circulation: The origins of the vertebral arteries both appear widely patent. The more superior extracranial portions of both vertebral arteries also demonstrate normal courses and calibers. They join to form a normal appearing basilar artery. Soft tissues: Visualized neck soft tissues demonstrate no suspicious abnormalities. Bones: No suspicious bony lesions. Visualized cervical spine appears normally aligned. IMPRESSION: 1. No CT evidence of acute intracranial pathology. No area of abnormal contrast enhancement. Age-appropriate atrophy and mild to moderate periventricular white matter microangiopathic changes. 2. No hemodynamically significant stenosis or aneurysm is seen in the intracranial circulation. 3. No hemodynamically significant stenosis is seen in bilateral neck arteries. Any quantitative measurements of stenosis were performed using NASCET criteria. Dictated by: Thierry Perez M.D. on 11/15/2018 at 13:36 Approved by: Thierry Perez M.D. on 11/15/2018 at 13:47 Chest x-ray: Radiologist's impression: Isaac Mccarthy 83 F 1935 [place] [address] XRay Report Signed Patient: Isaac Mccarthy [facility]#: [id number] : 1935cct:[id number] Age/Sex: 83 / FDate of Service: 11/15/18 Loc: ED Accession Number: [id number] Procedure: XR chest 1V Ordering Provider: Princess Olguin D.O. PROCEDURE: XR CHEST 1V INDICATIONS: word salad, concern for cva TECHNIQUE: One view of the chest was acquired. COMPARISON: [facility], , CHEST 1 VIEW, 04/11/2015, 2:57. FINDINGS: Surgical changes and devices: None. Lungs and pleura: Lungs are clear. No pleural effusions or pneumothorax. Mediastinum: Mediastinal contours appear normal. Heart size is normal. Bones and chest wall: Chronic left seventh and eighth rib fractures noted. No suspicious bony lesions. Overlying soft tissues appear unremarkable. IMPRESSION: No acute cardiopulmonary disease process. Dictated by: Stacie Jeter MD, PhD on 11/15/2018 at 13:21 Approved by: Stacie Jeter MD, PhD on 11/15/2018 at 13:23 ECG Data Attestation: I personally reviewed and interpreted this ECG as follows: Interpretation: Sinus rhythm rate of 69 P are 143 QRS 81 and QTC of 386. No ST elevation or depression. MDM Narrative Medical decision making narrative: Patient's timeline for onset is a little bit fuzzy and not clear. Per patient and EMS they are very deferring answers and patient is not able to really give me a good onset. I did speak with Neurology through tele Stroke they felt that tPA was not appropriate an 83-year-old female at the potentially the 4 and 1/2 hour milly with a unclear onset. We did discuss obtaining CTA which patient is at this time on if there is a large vessel occlusion for recontact. Patient only had 181 mg aspirin today so was given 3 additional. Lab work is pending, EKG shows no acute findings. Initial head CT was called back to be negative by Radiology. Chest x-ray does not show any acute process. CTA does not show any acute changes that would be appropriate for intervention. Patient's lab work shows a mild anemia which appears stable slightly elevated white count at 11.7, chemistry is 135, BUN slightly elevated 18 although this appears consistent with past visits and creatinine is 1.1 which also appears at baseline. Glucose is 136 serum and troponin is less than 0.012. The patient's urine shows some blood, +leukocyte esterase. Patient has known bladder cancer which may be from blood leukocyte esterase is unclear sent for urine culture. Updated patient and her daughter who is at bedside. Patient continues to have some aphasia and dysarthria in the room. Spoke with Dr. Juarez, accepts for CVA. Asks for inpatient. Discharge Plan Departure Patient Disposition: Admitted As Inpatient Clinical Impression: Acute CVA (cerebrovascular accident) Discharge Date/Time: 11/15/18 16:20 Interventions: ED Discharge Assessment Last Done: 11/15/18 16:06 Admit Date/Time: 11/15/18 15:39 Admit Provider: Cheri Juarez
--- NOTE | 2018-11-15 13:17 | PC.NURSE ---
CT Angio head
[2018-11-15 13:19] LABS: Prothrombin Time 11.8 SECONDS (10.1-12.7)
[2018-11-15 13:22] LABS: PTT Partial Thromboplastin Tim 21 SECONDS (26.4-36.2)
[2018-11-15 13:23] LABS: BUN Creatinine Ratio 16.4 (6-22); Blood Urea Nitrogen 18 mg/dL (7-17); Calcium 8.5 mg/dL (8.4-10.2); Carbon Dioxide 26 mmol/L (22-32); Chloride 99 mmol/L (98-107); Estimated Glomerular Filt Rate 47.7 mL/min (>60); Glucose 136 mg/dL (80-110); HEMOLYSIS < 15 (0-50); Potassium 4.1 mmol/L (3.4-5.1); Sodium 135 mmol/L (137-145)
[2018-11-15] MEDS: SODIUM CHLORIDE 0.9% 1,000 ML 150 ML IV (13:24)
[2018-11-15] MEDS: ASPIRIN 81 MG TAB 243 MG PO (13:24)
[2018-11-15 13:35] LABS: Troponin I < 0.012 ng/mL (0.01-0.034)
[2018-11-15 14:38] LABS: Urine Amphetamines Negative (Negative); Urine Barbiturates Negative (Negative); Urine Benzodiazepines Positive (Negative); Urine Cocaine Negative (Negative); Urine MDMA Negative (Negative); Urine Methadone Negative (Negative); Urine Methamphetamines Negative (Negative); Urine Morphine/Opi cutoff 2000 Negative (Negative); Urine Oxycodone Negative (Negative); Urine Phencyclidine Negative (Negative); Urine Tetrahydrocannabinol Negative (Negative); Urine Tricyclic Antidepressant Negative (Negative)
--- NOTE | 2018-11-15 14:47 | CM.SWNOTE ---
ED DOCUMENT SCANNER Note DOCUMENT SCANNER met briefly with both pt and dtr to check on coping and support needs. Pt is also an Oncology patient, followed by Dr. Downs. Pt appears alert, calm, still having residual difficulty with word finding and slow processing. She has no other complaints, and states that nothing abnormal occurred prior to noticing the changes in her mentation earlier today. Dtr is at bedside. Pt will have both PT/Speech consults prior to being cleared for discharge. No social work discharge needs identified at this time.
[2018-11-15 15:12] LABS: Amorphous Sediment Urine 1+; Bacteria Urine Moderate (10-30); Culture Indicated Urine Specimen Cultured; Mucus Urine 2+ (Negative); RBC Urine 1-5/HPF (0-5/HPF); Squamous Epithelial Cell Urine 0-1 /HPF; WBC Urine >100/HPF (0-5/HPF)
--- NOTE | 2018-11-15 15:27 | DI.MRI.S_ITS ---
PROCEDURE: MR STROKE Pre- and post-contrast brain MRI, non-contrast brain MR angiogram, pre- and postcontrast neck MR angiogram INDICATIONS: aphasia, dysarthria, ataxia finger TECHNIQUE: Brain: Noncontrast axial T1 spin echo, axial T2 fast spin echo, sagittal and axial FLAIR, coronal T2 fast spin echo, axial gradient echo, axial diffusion and ADC through the brain. After the administration of contrast, axial 3D VIBE of the cranial vasculature and brain. Brain MRA: Non-contrast 3-D time of flight MR angiogram, with multiple csfgqek-zpnjcqqkj-ejnokojmqi (MIP) reformats performed. Neck MRA: Axial and sagittal TruFISP through the neck. Coronal dynamic MR angiogram during administration of contrast in the arterial and venous phases, with 3-dimenstional gnweepb-runtezwsm-rhxoeqiwto (MIP) reformats constructed from subtraction images. COMPARISON: None. FINDINGS: Image quality: Excellent. BRAIN: CSF spaces: Ventricles are normal in size and shape. Basal cisterns are patent. No extra-axial fluid collections. Brain: No intracranial bleeds or mass effects. Scattered small white matter signal changes, probably represent chronic microvascular ischemic disease, versus statistically less likely demyelination or other infectious, inflammatory, neurodegenerative etiology, technically nonspecific. Acute left temporoparietal infarct. Brainstem appears normal. Normal intravascular flow voids are present. No abnormal intracranial enhancement. Skull and face: Calvarial marrow signal is normal. Orbits appear normal. Sinuses: Sinuses and mastoids are clear. BRAIN MR ANGIOGRAM: Anterior circulation: Intracranial internal carotid arteries are normal in size and enhancement. The flow within the paired anterior cerebral arteries is normal and symmetric. The flow within the middle cerebral arteries is normal and symmetric. The anterior communicating artery is seen. No stenoses, occlusions, or aneurysms. Posterior circulation: Dominant left vertebral artery. There is hypoplasia/diffuse narrowing of the distal right V4 segment. Normal appearing basilar artery. origin of the left posterior cerebral artery. The flow within the posterior cerebral arteries is normal and symmetric. No stenoses, occlusions, or aneurysms. NECK MR ANGIOGRAM: Carotids: Great vessels demonstrate a conventional anatomy as they arise from the aortic arch. High-grade stenosis at the origin of the right common carotid artery. The bifurcation regions appear normal bilaterally. The internal carotid arteries demonstrate normal course and caliber. Posterior circulation: The origins of the vertebral arteries are not well-visualized bilaterally although likely patent. The Dominant left vertebral artery. Narrowed appearance/hypoplasia of the distal right vertebral artery. Normal appearing basilar artery. Miscellaneous: Subclavian arteries appear patent. Pre-contrast images through the neck show no soft tissue abnormalities. IMPRESSION: BRAIN MRI: Acute left temporoparietal ischemia Diffuse small white matter signal changes, probably represent chronic microvascular ischemic disease, versus statistically less likely demyelination or other infectious, inflammatory, neurodegenerative etiology, technically nonspecific. BRAIN MR ANGIOGRAM: No focal ICA stenosis or occlusion NECK MR ANGIOGRAM: Dominant left vertebral artery. Narrowed appearance of the distal right vertebral artery could be hypoplasia versus atherosclerotic narrowing. High-grade focal stenosis at the origin of the right common carotid artery. Dictated by: Phil Carrasco M.D. on 11/16/2018 at 11:49 Approved by: Phil Carrasco M.D. on 11/16/2018 at 12:09
[2018-11-15 16:09] LABS: Cholesterol 137 mg/dL (140-199); HDL Cholesterol 52 mg/dL (40-60); LDL Cholesterol Calculated 60 mg/dL (<100); Magnesium 2.1 mg/dL (1.6-2.3); Triglycerides 127 mg/dL (35-150)
[2018-11-15 16:17] LABS: Hemoglobin A1C% w Est Avg Glu 5.6 % (4.0-6.0)
[2018-11-15] MEDS: SODIUM CHLORIDE 0.9% 1,000 ML 100 ML IV (16:19)
--- NOTE | 2018-11-15 18:53 | P.HP_ITS ---
History of Present Illness Date Patient Seen: 11/15/18 Chief complaint: CVA Narrative: Isaac Mccarthy is an 83-year-old female with a past medical history significant for hypertension, hyperlipidemia, current smoker, BRCA gene with previous ovarian cancer status post total hysterectomy with BSO and chemotherapy for 2 years at [facility] thought to be in remission, thyroid cancer status post thyroidectomy and radioiodine ablation, and current bladder cancer on immunotherapy who presented for abrupt onset word salad, trouble word finding and dysarthria. The patient reports she was in her normal state of health this morning when she was visiting with a friend and developed word salad, trouble word finding and dysarthria around 10:30 a.m. She called her daughter who called a friend to go to her house. Her friend called EMS around noon. The patient was seen in the ER and tele neuro evaluation performed. Patient deemed not a tPA candidate as onset of symptoms is somewhat unclear. The patient has no hist ory of CVA. She has had no other CVA symptoms including blurred vision/double vision, weakness, ataxia, facial droop except tripped. She continues to have some expressive aphasia/word-finding difficulty, dysarthria with slight slurring of speech and mild word salad at times. CTA head and neck did not demonstrate any acute pathology or significant stenosis. Patient was admitted for CVA and further management. Patient History Medical History (Updated 11/15/18 @ 20:01 by Cheri Juarez DO) Bladder cancer (Acute) Hyperlipidemia (Acute) Secondary hypothyroidism (Acute) Tobacco dependence (Acute) CAD (coronary artery disease) (Chronic 2013) Hypertension (Chronic) Drug-induced anaphylaxis (Resolved 2013) Kidney failure (Resolved 2014) Non-STEMI (non-ST elevated myocardial infarction) (Resolved 2013) Ovarian cancer (Resolved 2002) Thyroid cancer (Resolved 1997) Surgical History (Updated 11/15/18 @ 20:01 by Cheri Juarez DO) S/P appy (Acute) History of thyroidectomy (Resolved 1997) Status post hysterectomy with oophorectomy (Resolved 2002) Family History (Updated 11/15/18 @ 20:03 by Cheri Juarez DO) Mother Ovarian cancer Breast cancer Father Heart attack Daughter Breast cancer Daughter Breast cancer Social History (Updated 11/15/18 @ 13:25 by Princess C Mank, DO) household members: none Smoking Status: Current every day smoker alcohol intake: current substance use type: does not use Family & Social History Safety & Behavioral: Feels Safe in Current Yes Environment Been Physically Hurt or No Threatened By a Person Tobacco & Substance use: Smoking Status Current every day smoker, 6 cig/day. Pack year history 55+ years. alcohol intake current alcohol intake frequency a few times a week Substance Use Type does not use Meds Home Medications Medication Instructions Recorded Confirmed Type aspirin 81 mg PO DAILY #0 03/20/11 11/15/18 History calcitriol 1 cap PO MOWEFR 03/29/18 11/15/18 History atorvastatin 10 mg tablet 10 mg PO QPM #90 tab 10/03/18 11/15/18 Rx levothyroxine 100 mcg tablet 100 mcg PO QDAY #90 tab 10/03/18 11/15/18 Rx metoprolol tartrate 75 mg tablet 75 mg PO BID #180 tab 10/03/18 11/15/18 Rx Allergies Allergy/AdvReac Type Severity Reaction Status Date / Time lisinopril [LISINOPRIL] Allergy Severe Swelling Verified 11/15/18 13:51 of Lip/Tongue/Throat Sulfa (Sulfonamide Allergy Intermediate Rash Verified 11/15/18 13:51 Antibiotics) [SULFA (SULFONAMIDE ANTIBIOTICS)] sertraline AdvReac Intermediate Diarrhea Verified 11/15/18 13:51 Review of Systems Review of Systems A 10 system comprehensive review of systems was conducted with the patient and found to be negative except as above in the History of Present Illness. Exam Vital Signs (past 8 hours): - 11/15/18 13:07 11/15/18 13:14 11/15/18 13:30 Temperature 97.7 F Pulse Rate 75 71 59 L Respiratory Rate 23 14 16 Blood Pressure 149/72 H Blood Pressure [Right Arm] 129/101 H 113/74 Pulse Oximetry 100 100 100 11/15/18 15:23 11/15/18 15:33 11/15/18 16:20 Temperature Pulse Rate 53 L 55 L 54 L Respiratory Rate 22 15 16 Blood Pressure Blood Pressure [Right Arm] 114/57 L 111/40 L 131/74 Pulse Oximetry 98 100 99 11/15/18 16:22 Temperature 97.3 F L Pulse Rate 86 Respiratory Rate 16 Blood Pressure 122/76 Blood Pressure [Right Arm] Pulse Oximetry 100 Oxygen Delivery Method Room Air Narrative Exam Narrative: General: Elderly thin female lying in bed and in no acute distress, well- developed, well-nourished, appropriately interactive. HEENT: Normocephalic, atraumatic. External ears without defect. Pupils equal, round, and reactive to light. Anicteric sclerae, moist conjunctivae, and no lid lag. Oropharynx free of erythema and cobble stoning with moist mucosa. Neck: Supple with full range of motion. No jugular venous distension. No bruits. No lymphadenopathy or thyromegaly. Cardiovascular: Heart sounds distant but appears to be regular rate and rhythm without murmurs, rubs, or gallops appreciated Pulmonary: Clear to auscultation bilaterally without crackles, wheezes, or rhonchi. Normal respiratory effort with no use of accessory muscles. Abdomen: Soft, bowel sounds present, scaphoid, nontender, nondistended. No hepatosplenomegaly or masses appreciated. Extremities: No clubbing, cyanosis, or edema. Skin: Normal temperature, turgor, and texture; no rash, ulcers, or subcutaneous nodules appreciated. Neurological: Dysarthria, word finding difficulty/mild expressive aphasia, mild word salad, finger to nose demonstrated mild ataxia with right hand. Psychiatric: Normal mood and affect. Alert and oriented to person, place, and time. Objective Labs Result Diagrams: 11/15/18 13:05 11/15/18 13:05 Labs: Laboratory Results - last 24 hr 11/15/18 11/15/18 11/15/18 13:05 13:05 13:05 WBC 11.7 H RBC 4.09 Hgb 11.9 L Hct 37.3 MCV 91.1 MCH 29.2 MCHC 32.0 RDW 14.8 Plt Count 474 H Neut % (Auto) 72.1 Lymph % (Auto) 13.4 L [place] % (Auto) 8.7 Eos % (Auto) 5.2 H Baso % (Auto) 0.6 Neut # (Auto) 8400 H Lymph # (Auto) 1600 [place] # (Auto) 1000 H Eos # (Auto) 600 H Baso # (Auto) 100 PT 11.8 INR 1.0 APTT 21 L Sodium 135 L Potassium 4.1 Chloride 99 Carbon Dioxide 26 BUN 18 H Creatinine 1.10 H Estimated GFR 47.7 L BUN/Creatinine Ratio 16.4 Glucose 136 H Hemoglobin A1c Calcium 8.5 Magnesium Troponin I < 0.012 Triglycerides Cholesterol LDL Cholesterol, Calc HDL Cholesterol Urine RBC Urine WBC Ur Squamous Epith Cells Amorphous Sediment Urine Bacteria Urine Mucus Ur Culture Indicated? Urine Opiates Screen Ur Oxycodone Screen Urine Methadone Screen Ur Barbiturates Screen U Tricyclic Antidepress Ur Phencyclidine Scrn Ur Amphetamines Screen U Methamphetamines Scrn Ur MDMA Scrn (Ecstasy) U Benzodiazepines Scrn Urine Cocaine Screen U Marijuana (THC) Screen 11/15/18 11/15/18 11/15/18 14:28 14:35 16:00 WBC RBC Hgb Hct MCV MCH MCHC RDW Plt Count Neut % (Auto) Lymph % (Auto) [place] % (Auto) Eos % (Auto) Baso % (Auto) Neut # (Auto) Lymph # (Auto) [place] # (Auto) Eos # (Auto) Baso # (Auto) PT INR APTT Sodium Potassium Chloride Carbon Dioxide BUN Creatinine Estimated GFR BUN/Creatinine Ratio Glucose Hemoglobin A1c 5.6 Calcium Magnesium Troponin I Triglycerides Cholesterol LDL Cholesterol, Calc HDL Cholesterol Urine RBC 1-5/hpf Urine WBC >100/hpf H Ur Squamous Epith Cells 0-1 /hpf Amorphous Sediment 1+ Urine Bacteria Moderate (10-30) H Urine Mucus 2+ H Ur Culture Indicated? Specimen cultured Urine Opiates Screen Negative Ur Oxycodone Screen Negative Urine Methadone Screen Negative Ur Barbiturates Screen Negative U Tricyclic Antidepress Negative Ur Phencyclidine Scrn Negative Ur Amphetamines Screen Negative U Methamphetamines Scrn Negative Ur MDMA Scrn (Ecstasy) Negative U Benzodiazepines Scrn Positive H Urine Cocaine Screen Negative U Marijuana (THC) Screen Negative 11/15/18 16:00 WBC RBC Hgb Hct MCV MCH MCHC RDW Plt Count Neut % (Auto) Lymph % (Auto) [place] % (Auto) Eos % (Auto) Baso % (Auto) Neut # (Auto) Lymph # (Auto) [place] # (Auto) Eos # (Auto) Baso # (Auto) PT INR APTT Sodium Potassium Chloride Carbon Dioxide BUN Creatinine Estimated GFR BUN/Creatinine Ratio Glucose Hemoglobin A1c Calcium Magnesium 2.1 Troponin I Triglycerides 127 Cholesterol 137 L LDL Cholesterol, Calc 60 HDL Cholesterol 52 Urine RBC Urine WBC Ur Squamous Epith Cells Amorphous Sediment Urine Bacteria Urine Mucus Ur Culture Indicated? Urine Opiates Screen Ur Oxycodone Screen Urine Methadone Screen Ur Barbiturates Screen U Tricyclic Antidepress Ur Phencyclidine Scrn Ur Amphetamines Screen U Methamphetamines Scrn Ur MDMA Scrn (Ecstasy) U Benzodiazepines Scrn Urine Cocaine Screen U Marijuana (THC) Screen Assessment & Plan Assessment & Plan narrative: Isaac Mccarthy is an 83-year-old female with a past medical history significant for hypertension, hyperlipidemia, current smoker, BRCA gene with previous ovarian cancer status post total hysterectomy with BSO and chemotherapy for 2 years at [facility] thought to be in remission, thyroid cancer status post thyroidectomy and radioiodine ablation, and current bladder cancer on immunotherapy who presented for abrupt onset word salad, trouble word finding and dysarthria. 1. Acute CVA, present on admission. Active. -Patient presented with abrupt onset word salad, dysarthria and expressive aphasia. No other focal neurological deficits. -Patient has significant cardiovascular risk factors which include: Current smoker, hypertension, hyperlipidemia, several cancers and currently active bladder cancer, and family history. -Patient is on aspirin 81 mg daily. Continue aspirin 81 mg daily and added Plavix 75 mg daily. Increased atorvastatin from 10 mg to 40 mg daily at bedtime. No history of prior CVA or blood clots. -Initial NIH score 5. Patient not a tPA candidate as time of onset was unclear. Continue NIH score every 4 hours. -CTA head and neck did not demonstrate any significant stenosis or acute pathology. -Continue to monitor closely on telemetry. Patient reports history of palpitations for most of her life. -Allow for permissive hypertension. Ordered labetalol 10 mg every 4 hours for hypertension with SBP >220 and DBP > 110. -Continue IV fluids at 100 mL/hr to optimize cerebral perfusion. -Ordered PT/OT/ST evaluation and treatment, pending. -Ordered MR stroke protocol, pending. 2. Possible acute UTI, present on admission. Active. -Patient has history of recurrent UTI. Do not feel neurological symptoms are secondary to UTI. -Urinalysis grossly positive with urine culture pending. -Did not start empiric antibiotics pending identification and sensitivities. 3. Bladder cancer, chronic, present on admission. Presumed stable. -Patient followed by Dr. Downs and Dr. Zacarias of Oncology and Urology respectively. -Patient is currently on immunotherapy with Keytruda every 3 weeks just completed dose #8 on 11/13. 4. Hypertension, chronic, present on admission. Stable. -Hold blood pressure medication metoprolol tartrate 75 mg twice daily for first 24 hours to allow for permissive hypertension as above. -Ordered labetalol 10 mg every 4 hours for hypertension with SBP >220 and DBP> 110 as above. 5. Hyperlipidemia, chronic, present on admission. Stable. -Ordered lipid panel, pending. -Increased atorvastatin from 10 mg to 40 mg daily at bedtime as above. 6. Secondary hypothyroidism, chronic, present on admission. Stable. -Ordered TSH, pending. -Continue levothyroxine 100 mcg daily. 7. Tobacco dependence, present on admission. Active. -Counseled patient extensively on smoking cessation. -Will provide patient with Nicoderm patch if needed. She declined for now. DVT prophylaxis: Heparin and SCDs Code status: DNR/DNI Patient is admitted under inpatient status with expected length of stay greater than 2 midnights due to severity of presenting symptoms, risk of adverse event, and complexity of treatment plan.
--- NOTE | 2018-11-15 19:55 | PC.NURSE ---
Admission/Evening Shift Note- Patient arrived to room via stretcher form ER [id number]. Admission questions yessi, home medications reviews, and physical assessment done. Patient Oriented to bed and bed controls,room, bathroom, lights, menu, phone, and call dunaway/tv remote. Patient having some difficulty finding words and occasional word salad. Safety measures in place. call dunaway and phone within reach. bed alarm activated. Will continue to monitor.
[2018-11-15] MEDS: HEPARIN 5,000 UNIT/ML VIAL 5000 UNIT SUBCUT (20:11)
[2018-11-15] MEDS: SENNOSIDES 8.6 MG TABLET 17.2 MG PO (20:11)
[2018-11-15] MEDS: ATORVASTATIN 20 MG TABLET 40 MG PO (20:45)
[2018-11-16] VITALS (7 sets, daily range): BP systolic 125–147; BP diastolic 66–78; PULSE 60–78; RESP 14–17; TEMP 36.5–36.6; O2SAT 94–100
[2018-11-16] MEDS: SODIUM CHLORIDE 0.9% 1,000 ML 100 ML IV ×2 (02:55→14:39)
--- NOTE | 2018-11-16 04:50 | PC.NURSE ---
Shift note: Received pt from evening shift. Pt able to make needs know, uses call light appropriately, bed alarm on for safety, pt has mild slurring, occasional word salad, and word finding difficulties. NIH scale of 3, pt has no noted weakness or deficits to either side, limited to speech capabilities. Pt up to use toilet frequently during shift with incontinence of bladder and bowel when pt cannot get to toilet in time. Pt had 5 episodes of stooling in a 35 minute period that went from soft to watery per INSULATION BLOWER report. POLYETHYLENE COMBINER notified and stool sample ordered, INSULATION BLOWER notified of stool sample needs.
[2018-11-16] MEDS: LEVOTHYROXINE 100 MCG TABLET PO (06:01)
[2018-11-16 06:30] LABS: Add Manual Diff / Slide Review NO; Basophils Absolute Auto 100 /uL (0-100); Basophils Percent Auto 1.1 % (0-2); Eosinophils Absolute Auto 500 /uL (0-450); Eosinophils Percent Auto 6.1 % (2-4); Hematocrit 32.8 % (36-46); Hemoglobin 10.7 g/dL (12.0-16.0); Lymphocytes Absolute Auto 1200 /uL (1100-4500); Lymphocytes Percent Auto 13.9 % (25-40); Mean Corpuscular HGB Conc 32.5 % (30-36); Mean Corpuscular Hemoglobin 29.5 PG (26-34); Mean Corpuscular Volume 90.6 fL (80-100); Monocytes Absolute Auto 800 /uL (0-900); Monocytes Percent Auto 9.1 % (3-14); Neutrophils Absolute Auto 6000 /uL (1500-7000); Neutrophils Percent Auto 69.8 % (50-75); Platelet Count 412 X10^3/uL (150-400); Red Blood Cell Count 3.62 X10^6/uL (4.0-5.2); Red Cell Distribution Width 14.5 % (11.6-14.8); White Blood Cell Count 8.6 X10^3/uL (4.5-11.0)
[2018-11-16 07:04] LABS: Procalcitonin < 0.05 ng/mL (<0.5)
[2018-11-16 07:14] LABS: Thyroid Stimulating Hormone 1.74 uIU/mL (0.47-4.68)
--- NOTE | 2018-11-16 08:10 | PC.NURSE ---
Addendum entered by Katelin Navarro R.N. 11/16/18 14:54: Pt updated on POC and test results from Dr Lorenzo. one more night on tele and Pt will likely d/c in Am. No further stooling, smear to brief x2, not enough forsample. Original Note: Addendum entered by Katelin Navarro R.N. 11/16/18 12:45: Pt down to MRI, returned in w/c without complaints. Up to chair and Libbey from speech into evaluate Pt. Echo completed @ 1245. Up in bed for meal. Original Note: AM shift note Pt is a/o x4, making needs known, insistant of independence at home and expreses desire to work on d/c planning. Speech with slight slur, Pt takes a slight delay at times for word finding. Able to correct speech when misspeaking during assessment. Dim and clear lungs, Spo2 97% RA. BA active, calling appropriately. No stools so far this shift.
--- NOTE | 2018-11-16 09:57 | PM.PN.1 ---
Subjective Date Patient Seen: 11/16/18 Interval history: She is seen today to follow-up her hypothyroidism, aphasia, right carotid artery stenosis, left temporoparietal ischemia. Her MRI shows the area of stroke. She is already on Plavix and aspirin. She presented outside the tPA window. Her aphasia is much improved today. Speech therapy is coming in to work with her. Exam Vital Signs (past 8 hours): - 11/16/18 03:56 11/16/18 07:53 Temperature 97.7 F 97.9 F Pulse Rate 67 78 Respiratory Rate 16 16 Blood Pressure 147/78 H 125/66 Pulse Oximetry 99 99 Oxygen Delivery Method Room Air Oxygen Flow Rate 0 Narrative Exam Narrative: She is alert and oriented x3. She can communicate clearly with only occasional word searching. She tells me that she lives alone in her house but her daughter will be moving in with her soon. She is concerned about the contrast she may receive with the MRI scan. Heart is regular rate and rhythm without murmur. Lungs are clear to auscultation bilaterally. Extremities have no ankle edema. Babinski's are downgoing bilaterally. There is no lateralizing deficit. Cranial nerves 2-12 tested intact. balance and gait are not tested. Objective Imaging MRI - head: Radiologist's impression: IMPRESSION: BRAIN MRI: Acute left temporoparietal ischemia Diffuse small white matter signal changes, probably represent chronic microvascular ischemic disease, versus statistically less likely demyelination or other infectious, inflammatory, neurodegenerative etiology, technically nonspecific. BRAIN MR ANGIOGRAM: No focal ICA stenosis or occlusion NECK MR ANGIOGRAM: Dominant left vertebral artery. Narrowed appearance of the distal right vertebral artery could be hypoplasia versus atherosclerotic narrowing. High-grade focal stenosis at the origin of the right common carotid artery. Dictated by: Phil Carrasco M.D. on 11/16/2018 at 11:49 Labs Result Diagrams: 11/16/18 06:20 11/15/18 13:05 Labs: Laboratory Results - last 24 hr 11/15/18 11/15/18 11/15/18 13:05 13:05 13:05 WBC 11.7 H RBC 4.09 Hgb 11.9 L Hct 37.3 MCV 91.1 MCH 29.2 MCHC 32.0 RDW 14.8 Plt Count 474 H Neut % (Auto) 72.1 Lymph % (Auto) 13.4 L [place] % (Auto) 8.7 Eos % (Auto) 5.2 H Baso % (Auto) 0.6 Neut # (Auto) 8400 H Lymph # (Auto) 1600 [place] # (Auto) 1000 H Eos # (Auto) 600 H Baso # (Auto) 100 PT 11.8 INR 1.0 APTT 21 L Sodium 135 L Potassium 4.1 Chloride 99 Carbon Dioxide 26 BUN 18 H Creatinine 1.10 H Estimated GFR 47.7 L BUN/Creatinine Ratio 16.4 Glucose 136 H Hemoglobin A1c Calcium 8.5 Magnesium Troponin I < 0.012 Triglycerides Cholesterol LDL Cholesterol, Calc HDL Cholesterol Procalcitonin TSH Urine RBC Urine WBC Ur Squamous Epith Cells Amorphous Sediment Urine Bacteria Urine Mucus Ur Culture Indicated? Urine Opiates Screen Ur Oxycodone Screen Urine Methadone Screen Ur Barbiturates Screen U Tricyclic Antidepress Ur Phencyclidine Scrn Ur Amphetamines Screen U Methamphetamines Scrn Ur MDMA Scrn (Ecstasy) U Benzodiazepines Scrn Urine Cocaine Screen U Marijuana (THC) Screen 11/15/18 11/15/18 11/15/18 14:28 14:35 16:00 WBC RBC Hgb Hct MCV MCH MCHC RDW Plt Count Neut % (Auto) Lymph % (Auto) [place] % (Auto) Eos % (Auto) Baso % (Auto) Neut # (Auto) Lymph # (Auto) [place] # (Auto) Eos # (Auto) Baso # (Auto) PT INR APTT Sodium Potassium Chloride Carbon Dioxide BUN Creatinine Estimated GFR BUN/Creatinine Ratio Glucose Hemoglobin A1c 5.6 Calcium Magnesium Troponin I Triglycerides Cholesterol LDL Cholesterol, Calc HDL Cholesterol Procalcitonin TSH Urine RBC 1-5/hpf Urine WBC >100/hpf H Ur Squamous Epith Cells 0-1 /hpf Amorphous Sediment 1+ Urine Bacteria Moderate (10-30) H Urine Mucus 2+ H Ur Culture Indicated? Specimen cultured Urine Opiates Screen Negative Ur Oxycodone Screen Negative Urine Methadone Screen Negative Ur Barbiturates Screen Negative U Tricyclic Antidepress Negative Ur Phencyclidine Scrn Negative Ur Amphetamines Screen Negative U Methamphetamines Scrn Negative Ur MDMA Scrn (Ecstasy) Negative U Benzodiazepines Scrn Positive H Urine Cocaine Screen Negative U Marijuana (THC) Screen Negative 11/15/18 11/16/18 11/16/18 16:00 06:20 06:20 WBC 8.6 RBC 3.62 L Hgb 10.7 L Hct 32.8 L MCV 90.6 MCH 29.5 MCHC 32.5 RDW 14.5 Plt Count 412 H Neut % (Auto) 69.8 Lymph % (Auto) 13.9 L [place] % (Auto) 9.1 Eos % (Auto) 6.1 H Baso % (Auto) 1.1 Neut # (Auto) 6000 Lymph # (Auto) 1200 [place] # (Auto) 800 Eos # (Auto) 500 H Baso # (Auto) 100 PT INR APTT Sodium Potassium Chloride Carbon Dioxide BUN Creatinine Estimated GFR BUN/Creatinine Ratio Glucose Hemoglobin A1c Calcium Magnesium 2.1 Troponin I Triglycerides 127 Cholesterol 137 L LDL Cholesterol, Calc 60 HDL Cholesterol 52 Procalcitonin TSH 1.74 D Urine RBC Urine WBC Ur Squamous Epith Cells Amorphous Sediment Urine Bacteria Urine Mucus Ur Culture Indicated? Urine Opiates Screen Ur Oxycodone Screen Urine Methadone Screen Ur Barbiturates Screen U Tricyclic Antidepress Ur Phencyclidine Scrn Ur Amphetamines Screen U Methamphetamines Scrn Ur MDMA Scrn (Ecstasy) U Benzodiazepines Scrn Urine Cocaine Screen U Marijuana (THC) Screen 11/16/18 06:20 WBC RBC Hgb Hct MCV MCH MCHC RDW Plt Count Neut % (Auto) Lymph % (Auto) [place] % (Auto) Eos % (Auto) Baso % (Auto) Neut # (Auto) Lymph # (Auto) [place] # (Auto) Eos # (Auto) Baso # (Auto) PT INR APTT Sodium Potassium Chloride Carbon Dioxide BUN Creatinine Estimated GFR BUN/Creatinine Ratio Glucose Hemoglobin A1c Calcium Magnesium Troponin I Triglycerides Cholesterol LDL Cholesterol, Calc HDL Cholesterol Procalcitonin < 0.05 TSH Urine RBC Urine WBC Ur Squamous Epith Cells Amorphous Sediment Urine Bacteria Urine Mucus Ur Culture Indicated? Urine Opiates Screen Ur Oxycodone Screen Urine Methadone Screen Ur Barbiturates Screen U Tricyclic Antidepress Ur Phencyclidine Scrn Ur Amphetamines Screen U Methamphetamines Scrn Ur MDMA Scrn (Ecstasy) U Benzodiazepines Scrn Urine Cocaine Screen U Marijuana (THC) Screen Assessment & Plan Assessment & Plan narrative: Acute Left TemporoParietalCVA, present on admission. Active. -Patient presented with abrupt onset word salad, dysarthria and expressive aphasia. No other focal neurological deficits. -Patient has significant cardiovascular risk factors which include: Current smoker, hypertension, hyperlipidemia, several cancers and currently active bladder cancer, and family history. -Patient is on aspirin 81 mg daily. Continued aspirin 81 mg daily and added Plavix 75 mg daily on admission. Increased atorvastatin from 10 mg to 40 mg daily at bedtime. No history of prior CVA or blood clots. -Initial NIH score 5. Patient not a tPA candidate as time of onset was unclear. Continue NIH score every 4 hours. -CTA head and neck did not demonstrate any significant stenosis or acute pathology. MRI, however, did show high-grade stenosis at the right common carotid artery, not matching the location of the stroke on the left side. -Continue to monitor closely on telemetry without any reported a rhythm is so far. Patient reports history of palpitations for most of her life. -Allow for permissive hypertension. Labetalol 10 mg every 4 hours for hypertension with SBP >220 and DBP > 110. -Continue IV fluids at 100 mL/hr to optimize cerebral perfusion. -ST evaluation and treatment, pending. -echocardiogram pending Possible acute UTI, present on admission. Active. -Patient has history of recurrent UTI. Do not feel neurological symptoms are secondary to UTI. -Urinalysis grossly positive with urine culture pending. -Did not start empiric antibiotics pending identification and sensitivities for this probable asymptomatic bacteriuria. Right Carotid Stenosis -this is on the contralateral side to her stroke and is likely unrelated. -recommend vascular consult as an outpatient. Bladder cancer, chronic, present on admission. Presumed stable. -Patient followed by Dr. Downs and Dr. Zacarias of Oncology and Urology respectively. -Patient is currently on immunotherapy with Keytruda every 3 weeks just completed dose #8 on 11/13. Hypertension, chronic, present on admission. Stable. -Hold blood pressure medication metoprolol tartrate 75 mg twice daily for first 24 hours to allow for permissive hypertension as above. -Ordered labetalol 10 mg every 4 hours for hypertension with SBP >220 and DBP> 110 as above. Hyperlipidemia, chronic, present on admission. Stable. -Ordered lipid panel, pending. -Increased atorvastatin from 10 mg to 40 mg daily at bedtime as above. Secondary hypothyroidism, chronic, present on admission. Stable. -TSH normal at 1.74 -Continue levothyroxine 100 mcg daily. Tobacco dependence, present on admission. Active. -smoking cessation. -Will provide patient with Nicoderm patch if needed. She declines for now. DVT prophylaxis: Heparin and SCDs Code status: DNR/DNI Quality VTE Deep Vein Thrombosis/Pulmonary Embolism Present on Admission: No
--- NOTE | 2018-11-16 10:04 | DI.ECHO.S_ITS ---
[facility] +---------+ : : [address] [place] : : : : [id number] : : : : Phone: [phone]---------+ Echocardiogram Report + + :Name: JEANA YEBOAH Study Date: 11/16/2018 Height: 65 in : :[facility] Weight: 114 lb : : Gender: Female BSA: 1.6 m2 : :: 1935 Age: 83 yrs BP: 143/76 mmHg: :Reason For Study: CVA : :Ordering Physician: Eugenia : :Hospitalist Performed By: Deloris Connolly : :Referring: Verona TEMPLE E : + + Interpretation Summary The left ventricle is normal in size. The ejection fraction is estimated to be 55-60%. There is no LV thrombus. There has been no significant change in LV EF since the previous study. The right ventricle is normal in size and function. There is mild to moderate mitral regurgitation. Compared to the prior echo study, there has been an increase in the severity of mitral regurgitation. Mild atherosclerotic plaque(s) in the aortic arch. Procedure: A two-dimensional transthoracic echocardiogram with color flow and Doppler was performed. The study quality was technically adequate. Comparison is made with the echocardiogram of 04/11/2015. The patient was in normal sinus rhythm during the exam. Left Ventricle: The left ventricle is normal in size. Left ventricular wall thickness is normal. There is no ventricular septal defect visualized. There is no thrombus. The ejection fraction is estimated to be 55-60%. There has been no significant change since the previous study. There are no obvious focal wall motion abnormalities noted but poor endocardial definition reduces the sensitivity for the detection of such. Diastolic parameters suggest probable normal left ventricular diastolic function and normal filling pressures. Right Ventricle: The right ventricle is normal in size and function. Atria: The left atrium is moderately dilated. The left atrium has mildly increased in size since the prior echo exam. Right atrial size is normal. An artifact seen in RA. It was seen in 2015 as well. A prominent eustachian valve is noted. There is no Doppler evidence for an interatrial shunt. Mitral Valve: There is mild mitral annular calcification. There is mild to moderate mitral regurgitation. Compared to the prior echo study, there has been an increase in the severity of mitral regurgitation. Aortic Valve: The aortic valve is not well visualized. The aortic valve opens well. There is no aortic valve stenosis. No aortic regurgitation is present. Tricuspid Valve: The tricuspid valve is normal. There is trace tricuspid regurgitation. The right ventricular systolic pressure is estimated to be at least 26 mmHg based on an estimated right atrial pressure of 3 mm Hg. Pulmonic Valve: The pulmonic valve is not well visualized. Great Vessels: The aortic root is normal size. The ascending aorta is normal in size. The aortic arch could not be visualized. Mild atherosclerotic plaque (s) in the aortic arch. The IVC is of normal diameter and collapses greater than 50% with a sniff. This suggests a low right atrial pressure of 3 mm Hg. Pericardium/ Pleura There is no pericardial effusion. MMode/2D Measurements & Calculations LVIDd: 4.1 cm LVOT diam: 1.9 cm LVIDs: 2.6 cm Ao root diam: 3.0 cm FS: 38.4 % asc Aorta Diam: 2.9 cm EPSS: 0.45 cm IVSd: 0.57 cm LVPWd: 0.79 cm LV calixto. diameter/BSA (cm/m^2): 2.7 LV sys. diameter/BSA (cm/m^2): 1.6 LA A2 area: 19.8 cm2 RA long axis: 4.5 cm LA A4 area: 17.8 cm2 RA area: 12.8 cm2 LA length (vol): 4.1 cm RA vol: 30.7 ml LA vol: 72.4 ml RA : 19.7 ml/m2 LA vol index: 46.5 ml/m2 IVC diam: 1.5 cm RVD1 (basal): 3.8 cm RVD2 (mid): 2.6 cm Doppler Measurements & Calculations Ao V2 max: 105.3 cm/sec LVOT Max Palmer: 81.6 cm/sec Ao V2 mean: 70.6 cm/sec LV V1 max P.7 mmHg Ao max P.4 mmHg LV V1 VTI: 17.7 cm Ao mean P.2 mmHg JEAN(I,D): 1.9 cm2 Ao V2 VTI: 25.8 cm JEAN(V,D): 2.1 cm2 sev ratio: 0.69 JEAN indexed to BSA (cm^2/m^2): 1.2 MV E max palmer: 88.4 cm/sec TR max palmer: 239.8 cm/sec MV A max palmer: 75.2 cm/sec TR max P.0 mmHg MV E/A: 1.2 PA V2 max: 62.4 cm/sec Med Peak E' Palmer: 7.1 cm/sec PA V2 mean: 45.7 cm/sec E/E' med: 12.5 PA mean P.92 mmHg Lat Peak E' Palmer: 8.5 cm/sec PA Accel Time: 0.16 sec E/E' lat: 10.4 E/e' average: 11.4 MV dec time: 0.20 sec MV P1/2t: 60.2 msec MV P1/2t max palmer: 88.4 cm/sec SV(LVOT): 48.1 ml MVA(P1/2t): 3.7 cm2 Reading Physician:GABRIEL
[2018-11-16] MEDS: CLOPIDOGREL 75 MG TABLET PO (10:41)
[2018-11-16] MEDS: ASPIRIN EC 81 MG TABLET PO (10:41)
[2018-11-16] MEDS: HEPARIN 5,000 UNIT/ML VIAL 5000 UNIT SUBCUT ×2 (10:45→21:10)
--- NOTE | 2018-11-16 13:17 | ST.IPIE ---
Care Team Visit Care Team Role Provider Type Princess Olguin DO Emergency Provider Physician Specialty: Emergency Medicine Address: [address] [place] [address], [id number] Email: Cheri Juarez DO Admit Provider Physician Attending Provider Specialty: Internal Medicine Address: [address] [place] [address], [id number] Email: Current Diagnoses Cerebral infarction, unspecified (11/15/18) Past Medical History (Last Updated 11/15/18 @ 20:01 by Cheri Juarez DO) Bladder cancer (Acute Medical) Hyperlipidemia (Acute Medical) Secondary hypothyroidism (Acute Medical) Tobacco dependence (Acute Medical) CAD (coronary artery disease) (Chronic Medical 2013) Hypertension (Chronic Medical) Drug-induced anaphylaxis (Resolved Medical 2013) Lisinopril; angioedema Kidney failure (Resolved Medical 2014) CKD3 Non-STEMI (non-ST elevated myocardial infarction) (Resolved Medical 2013) Dr. Rascon; no angiogram Ovarian cancer (Resolved Medical 2002) Thyroid cancer (Resolved Medical 1997) ST IP Initial Evaulation Report COORDINATE MEASURING MACHINE OPERATOR Language Evaluation Start: 11/16/18 11:22 Freq: Status: Active Protocol: Document 11/16/18 11:22 [place] (Rec: 11/16/18 11:29 [place] [id number]) Language Evaluation Session Time Visit Start Time 11:25 Visit Stop Time 12:25 Total Visit Minutes 60 Visit Information Visit Number Initial Evaluation Referral Referring Physician Dr. Juarez Reason for Referral CVA Language Evaluation Assessment Type Speech & Language; Swallow Screening Past Medical History Patient History Isaac Mccarthy is an 83-year- old female who presented with abrupt onset word salad, dysarthria and expressive aphasia. No other focal neurological deficits. Initial NIH score 5. Patient was not a tPA candidate as time of onset was unclear. CTA head and neck did not demonstrate any significant stenosis or acute pathology. BRAIN MRI: Acute left temporoparietal ischemia. Hearing Hearing Level Normal Vision Vision Status Impaired Comments Wears prescription bifocals [place] Language Language(s) Spoken in the Home [place] Occupational Status Occupation Status Retired Previous Therapy Previous Speech-Language Therapy No Oral Motor Examination Oral Motor Exam Completed Yes Results Symmetrical features. Normal strength and ROM lips, cheeks and tongue. Reduced buccal and lingual coordination. Soft palate elevates upon phonation . Hyolaryngeal elevation/ excursion WFL via palpation. No complaints from pt or Nsg RE swallow function. Swallow screening performed with consecutive sips of thin liquid from straw and with dry cracker. No overt s/sx of oral or pharyngeal dysphagia were observed. Complete swallow evaluation not warranted at this time. Subjective Subjective The pt was awake, alert, lying in bed and visiting with her daughter upon COORDINATE MEASURING MACHINE OPERATOR arrival. She was agreeable to evaluation. Daughter did not stay for evaluation but did note that the pt's speech was much clearer today as compared to yesterday. The pt was assisted by Nsg to bathroom prior to start of eval, ambulating without direct assistance. Pt then positioned upright in chair for evaluation. - Informal Assessment Receptive Language Normal No: Mild impairment Expressive Language Normal No: Mild expressive aphasia Articulation Normal No: Mild apraxia of speech Cognition Normal DNT. Pt able to identify safety issues in [facility] picture Assessment Findings The pt presents with mild expressive/receptive aphasia and mild apraxia of speech. She is generally able to communicate wants, needs, and ideas and largely follows conversation appropriately. No dysarthria was observed. Apraxia of Speech: Characterized by articulatory groping, appears to be of greatest impact on the pt's ability to communicate. Additional motor planning difficulties observed in handwriting; great effort was required for the pt to print vs write in cursive, with inconsistent results and the pt stating, I just can't do it. Expressive Aphasia is characterized by semantic and phonemic paraphasias, likely impacted by apraxia of speech. No jargon or neologisms (i.e. , word salad) was observed. Pt exhibited mild word finding difficulties and good awareness of errors with attempts to self-correct. Written expression reflected similar errors as oral language production, with frequent phonemic substitutions and other misspellings. Written sentence task resulted in phrase listing vs complete sentence construction. Topic maintenance and conversational pragmatics (e.g., turn-taking ) are WNL. Receptive Aphasia: Moderate difficulty following moderately complex directions with need for repetition of instructions and/or demonstration, sometimes without follow-on success. She is able to follow simple 1- and 2-step directions and appropriately respond to most questions, including complex yes/no involving reasoning skills. Of note, the pt confuses left and right, which she reports is her baseline. Recommendations Outpatient Speech Therapy services are recommended for more thorough evaluation and treatment of aphasia and apraxia of speech if deficits do not resolve. The pt verbalized awareness of deficits and little concern of them, although she did attempt to self-correct in most opportunities throughout the evaluation, often successfully. She agreed to think about outpatient services. Information and exercises targeting oral motor planning, speech articulation, and word -recall skills were provided to the pt in writing for self- practice. Instructions were provided orally and in writing , and the pt verbalized understanding. - Receptive Language Yes/No Questions Skill Level WNL Following Directions - Verbal Skill Level Mildly Impaired Comments Reduced accuracy with increased length/complexity Auditory Comprehension Skill Level Mildly Impaired Reading Comprehension Skill Level WNL Comments Word, phrase and sentence level - Expressive Language Automatic Speech Skill Level WFL Object Naming Skill Level WNL Oral Expression Skill Level Mildly Impaired Written Expression Skill Level Mildly Impaired - Treatment Goals Short Term Goals The pt will perform oral motor exercises to increase motor planning and decrease symptoms of apraxia of speech. The pt will complete expressive/receptive language tasks to increase communication skills for medical and functional care. Imaging Technologist Goals The pt will demonstrate expressive and receptive communication skills adequate to communicate in her functional environment.
--- NOTE | 2018-11-16 13:30 | PT.IIE ---
Current Diagnoses Cerebral infarction, unspecified (11/15/18) Surgical History (Last Updated 11/15/18 @ 20:01 by Cheri Juarez DO) S/P appy (Acute) History of thyroidectomy (Resolved 1997) Status post hysterectomy with oophorectomy (Resolved 2002) Medical History (Last Updated 11/15/18 @ 20:01 by Cheri Juarez DO) Bladder cancer (Acute) Hyperlipidemia (Acute) Secondary hypothyroidism (Acute) Tobacco dependence (Acute) CAD (coronary artery disease) (Chronic 2013) Hypertension (Chronic) Drug-induced anaphylaxis (Resolved 2013) Kidney failure (Resolved 2014) Non-STEMI (non-ST elevated myocardial infarction) (Resolved 2013) Ovarian cancer (Resolved 2002) Thyroid cancer (Resolved 1997) Physical Therapy Inpatient Evaluation/Re-Eval M1 PT/OT-IP Prior Functional Status Start: 11/16/18 13:50 Freq: NEEDED Status: Active Protocol: Document 11/16/18 13:30 [facility] (Rec: 11/16/18 14:03 [facility] [id number]) Medical Review Prior Functional Status Medical History Reviewed Yes Mobility and Gait indep. ambulator without device, admits she does not ambulate very far Activities of Daily Living and IADL's mod. indep. I/ADLs with increased time Social History Household Members none Living Arrangements House Number of Floors (Floors) One Floor Number of Stairs To Enter/Railing? 1 small step up into home @ door Home Environment Standard Height Toilet Tub/Shower Additional Social History Comment Pt with onset of difficulty finding words, dysarthria, presented to ER. Unsure of time frame of symptoms, tPA not administered. Initial CTA negative. MRI showed acute L tempoparietal ischemia and high grade focal stenosis R common carotid artery. The following was taken from Dr. Juarez's H&P on 11/15/2018: past medical history significant for hypertension, hyperlipidemia, current smoker , BRCA gene with previous ovarian cancer status post total hysterectomy with BSO and chemotherapy for 2 years at [facility] thought to be in remission, thyroid cancer status post thyroidectomy and radioiodine ablation, and current bladder cancer on immunotherapy M2 PT-IP Current Condition Start: 11/16/18 13:50 Freq: NEEDED Status: Active Protocol: Document 11/16/18 13:30 [facility] (Rec: 11/16/18 14:03 [facility] [id number]) Physical Therapy Current Condition Current Condition Evaluation Date 11/16/18 Treatment Diagnosis CVA, activity tolerance M3 PT-IP Subjective Start: 11/16/18 13:50 Freq: NEEDED Status: Active Protocol: Document 11/16/18 13:30 [facility] (Rec: 11/16/18 14:03 [facility] [id number]) Subjective Physical Therapy Visit Type Type Initial Evaluation Visit Start Time 13:30 Visit Stop Time 13:50 Total Visit Minutes 20 Number of ENVELOPE [employer]ESS OPERATOR Visits 0 Physical Therapy Visit Comments Patient Comments pt states she feels steady on her feet. Patient Goals wants to go home today Therapy Pain Assessment Pain Present Pain Present Denied Pain M4 PT-IP Mobility and Gait Start: 11/16/18 13:50 Freq: NEEDED Status: Active Protocol: Document 11/16/18 13:30 [facility] (Rec: 11/16/18 14:03 [facility] [id number]) PT-Bed Mobility Assessment Supine to Sit Supine to Sit Independent Sit to Supine Sit to Supine Independent Scooting Scooting to Edge of Bed Independent PT-Transfer Assessment Sit to and From Stand Sit to and from Stand Independent Equipment Transfer Assistive Device None Transfers Transfer Destination Bed Toilet Transfer Technique Stand Step Pivot Transfer Ability Level of Assist Standby Assistance Gait Assessment Gait Gait Assistance Required: Standby Assistance Distance (Feet) 150 Assistive Devices Assistive Device None Gait Deviations General Gait Pattern Decreased Stride Length Narrow Based Gait Factors Limiting Gait Function Factors Limiting Gait Function Decreased Activity Tolerance Comments Gait Comments BP 151/78 prior to session; no c/o dizziness, lightheadedness, numbness. PT-Balance Assessment Sitting Balance and Reactions Static Sitting Balance Ability Good Dynamic Sitting Balance Ability Good Standing Balance and Reactions Static Standing Balance Ability Good Dynamic Standing Balance Ability Fair Device Used none Balance Tests Single Limb Standing unable Tandem Standing 5 sec each LE M5 PT-IP Objective Assessments Start: 11/16/18 13:50 Freq: NEEDED Status: Active Protocol: Document 11/16/18 13:30 [facility] (Rec: 11/16/18 14:03 [facility] [id number]) Orientation Orientation/Cognition Level of Alertness Alert Comments mild difficulty finding words but appropriate responses and quesions of 3+ word sentences Gross Range of Motion Lower Extremity ROM Assessment Within Functional Limits Strength Lower Extremity Strength Hip flexion 4/5 B Knee extension and flexion 4/5 B Ankle DF 5/5 Coordination Assessment Assessment Foot Tapping Test Normal Performance Heel on Wyatt Test Normal Performance Sensation Assessment Sensation Gross Sensation WNL M6 PT-IP Treatment Start: 11/16/18 13:50 Freq: NEEDED Status: Active Protocol: Document 11/16/18 13:30 [facility] (Rec: 11/16/18 14:03 [facility] [id number]) Physical Therapy Treatment Education Education Provided Safety M7 PT-IP Assessment and Plan Start: 11/16/18 13:50 Freq: NEEDED Status: Active Protocol: Document 11/16/18 13:30 [facility] (Rec: 11/16/18 14:03 [facility] [id number]) PT Summary Assessment and Plan Potential Rehabilitation Potential Good Status of Condition at Evaluation Evolving Summary Impairments Strength Balance Gait Activity Tolerance Assessment Summary Pt was able to ambulate 150 ft without an assistive device and SBA, daughter reports that the distance performed today is more than her usual ambulation status. Pt does have weakness in bilateral LEs , but equal bilaterally. Pt with occasional difficulty finding words, but is appropriate and able to speak in multiple word sentences. At this time, pt appears to be at her prior level of functional mobility per pt and daughter report. Pt is cleared from a functional mobility stand-point to d/c when medically stable. We will d/c acute physical therapy at this time, unless a change in status or worsening balance, strength, or safety with mobility. Frequency of Treatment Frequency Of Treatment Discharge Recommendations To Nursing Amount of Assist Needed Standby Assistance Discharge Recommendations PT Discharge Recommendations Home with Assistance Other Discharge Recommendations daughter to assist upon d/c; Speech Therapist recommended outpatient speech therapy.
--- NOTE | 2018-11-16 14:44 | OT.IP.EVAL ---
Current Diagnoses Cerebral infarction, unspecified (11/15/18) Past Medical History (Last Updated 11/15/18 @ 20:01 by Cheri Juarez DO) Bladder cancer (Acute) Hyperlipidemia (Acute) Secondary hypothyroidism (Acute) Tobacco dependence (Acute) CAD (coronary artery disease) (Chronic 2013) Hypertension (Chronic) Drug-induced anaphylaxis (Resolved 2013) Kidney failure (Resolved 2014) Non-STEMI (non-ST elevated myocardial infarction) (Resolved 2013) Ovarian cancer (Resolved 2002) Thyroid cancer (Resolved 1997) Surgical History (Last Updated 11/15/18 @ 20:01 by Cheri Juarez DO) S/P appy (Acute) History of thyroidectomy (Resolved 1997) Status post hysterectomy with oophorectomy (Resolved 2002) Occupational Therapy Inpatient Evaluation/Re-Eval M1 PT/OT-IP Prior Functional Status Start: 11/16/18 13:50 Freq: NEEDED Status: Active Protocol: Document 11/16/18 14:36 [facility] (Rec: 11/16/18 14:44 [facility] [id number]) Medical Review Prior Functional Status Medical History Reviewed Yes Mobility and Gait indep. ambulator without device, admits she does not ambulate very far Activities of Daily Living and IADL's mod. indep. I/ADLs with increased time Social History Household Members none Living Arrangements House Number of Floors (Floors) One Floor Number of Stairs To Enter/Railing? 1 small step up into home @ door Home Environment Standard Height Toilet Tub/Shower Employment Status Retired Additional Social History Comment Pt with onset of difficulty finding words, dysarthria, presented to ER. Unsure of time frame of symptoms, tPA not administered. Initial CTA negative. MRI showed acute L tempoparietal ischemia and high grade focal stenosis R common carotid artery. The following was taken from Dr. Juarez's H&P on 11/15/2018: past medical history significant for hypertension, hyperlipidemia, current smoker , BRCA gene with previous ovarian cancer status post total hysterectomy with BSO and chemotherapy for 2 years at [facility] thought to be in remission, thyroid cancer status post thyroidectomy and radioiodine ablation, and current bladder cancer on immunotherapy M2 OT-IP Current Condition Start: 11/16/18 14:35 Freq: Status: Active Protocol: Document 11/16/18 14:36 [facility] (Rec: 11/16/18 14:44 [facility] [id number]) Occupational Therapy Current Condition Current Condition Evaluation Date 11/16/18 Treatment Diagnosis CVA symptoms and UTI M3 OT- IP Subjective and Pain Start: 11/16/18 14:35 Freq: Status: Active Protocol: Document 11/16/18 14:36 [facility] (Rec: 11/16/18 14:44 [facility] [id number]) OT- Subjective Occupational Therapy Visit Type Type Initial Evaluation Visit Start Time 13:56 Visit Stop Time 14:15 Total Visit Minutes 19 Occupational Therapy Visit Comments Patient Comments I can do everything on my own. OT Pain Assessment Pain Present Pain Present Denied Pain M4 OT- IP ADL's Start: 11/16/18 14:35 Freq: Status: Active Protocol: Document 11/16/18 14:36 [facility] (Rec: 11/16/18 14:44 [facility] [id number]) OT [id number] General Evaluation Self-Feeding Ability Independent OT ADL-Grooming Comments OT Grooming Comments Declined to perform but no indications in session to suggest difficulty OT ADL-Oral Care Comments Oral Care Comments Declined to perform but no indications in session to suggest difficulty OT ADL-Dressing General Eval Lower Body Dressing Ability Independent Comments OT Dressing Comments Doffed and donned socks without difficulty OT ADL-Toileting General Evaluation Toileting Ability Independent Comments OT Toileting Comments Up to bathroom. No difficulty with transfer, pericare or clothing management M5 OT- IP IADL's Start: 11/16/18 14:35 Freq: Status: Active Protocol: Document 11/16/18 14:36 [facility] (Rec: 11/16/18 14:44 [facility] [email or web address]) OT-Instrumental Activities of Daily Living Deficits IADL Deficits Identified No Deficits Home Safety Awareness Awareness of Need for Assistance at Home Good Awareness Ability to Problem Solve Emergency Able to Problem Solve Situations Driving Driving Comments Pt states that she does drive but that she has started to limit her driving. M6 OT- IP Functional Cognition Start: 11/16/18 14:35 Freq: Status: Active Protocol: Document 11/16/18 14:36 [facility] (Rec: 11/16/18 14:44 [facility] [id number]) Cognitive Factors Limiting Selfcare Function Cognitive Ability Level of Alertness Alert Patient Orientation Name Age Birthday Month Date Year Day of Week Place Situation Attention Span Ability Capable of Focused Attention Ability to Follow Commands Able to Follow One Step Commands Memory Description No Deficits Noted Safety Awareness No Deficits Noted Problem Solving Ability No deficits Noted Executive Function Ability No Deficits Noted Abstract Thinking Ability No Deficits Noted Cognitive Comments Cognitive Assessment Comments Pt appears without deficit in this short session. Will defer to ST for more indepth cog assessment. OT- Vision and Hearing OT- Hearing Assessment OT- Hearing Assessment WFL OT- Vision Assessment Visual Acuity WFL Glasses All The Time Visual Attentiveness WFL Occular Pursuits WFL Visual Convergence WFL Visual Foster WFL Diplopia Absent Visual Spacial Neglect Not Applicable Vision Assessment Comments Pt wears bifocals M7 OT- IP Mobility and Balance Start: 11/16/18 14:35 Freq: Status: Active Protocol: Document 11/16/18 14:36 [facility] (Rec: 11/16/18 14:44 [facility] [email or web address]) OT- Bed Mobility Assessment Rolling Type of Rolling Roll to Right Level of Assistance Independent Supine to Sit Supine to Sit Assist Independent Scooting Scooting to Edge of Bed Independent OT-Transfer Assessment Sit to and From Stand Sit to and from Stand Independent Transfers Transfer Ability Independent Technique Transfer Destination Bed Chair Toilet Devices Transfer Assistive Devices Gait Belt OT- Gait Assessment Gait Gait Assistance Required: Independent OT- Balance Assessment Sitting Balance and Reactions Static Sitting Balance Ability Normal Dynamic Sitting Balance Ability Normal M8 OT- IP Objective Assessments Start: 11/16/18 14:35 Freq: Status: Active Protocol: Document 11/16/18 14:36 [facility] (Rec: 11/16/18 14:44 [facility] [email or web address]) OT Gross Range of Motion Upper Extremity Range of Motion Assessment Within Functional Limits OT Strength Upper Extremity Strength Assessment Within Functional Limits Comments Strength Comments grossly 4+ to 5/5 throughout upper extremity OT- Coordination Assessment Upper Extremity Finger to Nose Test Within Functional Limits Finger Tapping Test Within Functional Limits OT-Muscle Tone Assessment Muscle Tone WNL Yes OT Sensation Assessment Comments Summary Comments WFL Edema Edema Absent M9 OT- IP Assessment and Plan Start: 11/16/18 14:35 Freq: Status: Active Protocol: Document 11/16/18 14:36 [facility] (Rec: 11/16/18 14:44 [facility] [email or web address]) OT Summary Assessment and Plan Potential Rehabilitation Potential Excellent Analytic Complexity at Evaluation Low Summary Assessment Summary Pt presents at or close to her baseline for IND. No further OT needs. Frequency of Treatment Frequency Of Treatment Discharge Discharge Recommendations OT Discharge Recommendations Home Home Equipment Needs None at this time
--- NOTE | 2018-11-16 14:52 | CM.DANOTE ---
Patient is an 83 year old female who was admitted on 11/15/18 for CVA. Pt has M[place] and [place] for insurance and her PCP is not listed. EMR was reviewed. Per MD, pt having an MRI and an Echo today as well as ST/PT/OT to determine any d/c needs. Patient has current bladder cancer and is enrolled in Oncology with Dr. Downs and Urology with Dr. Zacarias. Pt continuing to have some expressive aphasia but her word salad from admit has much improved. Per RN, pt an active smoker and requesting to d/c home as soon as possible. Per ST, recommending outpt ST for aphasia but pt does not currently have any swallow concerns. Per PT/OT, recommending likely safe d/c home with assist and outpt therapy when stable. SW attempted bedside assessment a couple times but pt either off floor for MRI, getting Echo, or working with therapy and when SW met with pt she stated she is tired and agreeable to going home and would prefer if it were today but agreeable to staying until tomorrow. Pt does not anticipate any SW needs at d/c. Plan: SW to follow closely to confirm pt is still safe for d/c home tomorrow if medically stable. Pt preference is to go home as soon as possible. Oncology ELIESER Faustina met with pt briefly when pt was admitted to the hospital. KORI Ferreira Discharge Planning/Care Management CM Discharge Assessment Start: 11/16/18 14:48 Freq: Status: Active Protocol: Document 11/16/18 14:48 BF (Rec: 11/16/18 14:52 BF [id number]) Discharge Planning Assessment Assigned [employer] KORI Robert Advance Directives? No History Provided By Patient Family Member Medical Record Has Patient been admitted in last 30 No days? Prior Living Arrangements House Household Members none Type of transporation used prior to Relies on Others admit Independent with ADL's Yes Is patient alert and oriented? Yes Needs Assistance With Home Chores / Shopping Caregiver for Another No Comment Patient is active with Oncologist and Urologist Comment Likely home if stable tomorrow Barriers to Discharge No Discharge Plan Home Community Services Physical Therapy Speech Language Pathology Transportation Arrangement Family can likely provide transport at d/c. Referrals Initiated None needed Review Status In Process Please Provide Date Initial DC 11/16/18 Assessment Was Performed Next Review Type Continued Stay Review
--- NOTE | 2018-11-16 18:25 | PC.NURSE ---
Addendum entered by Angelina Stephens R.N. 11/16/18 21:54: Pt had relatively uneventful evening. Tele shows NSR per ICU staff. CBG = 133 per stroke protocal. NIH = 1 Pt hoping to discharge in am. Call light w/in reach/ bed alarm on for pt safety. Continue w/plan of care. Original Note: Pt resting at intervals. Denies discomfort or chest pain. HL LAC intact/patent LFA infusing NS @ 100cc/hr via pump w/o incidence. Tele showing SB per ICU staff. Call light w/in reach/bed alarm on for pt safety.
[2018-11-16] MEDS: ATORVASTATIN 20 MG TABLET 40 MG PO (21:11)
[2018-11-17] VITALS: BP 163/73; PULSE 73; RESP 21; TEMP 36.9; O2SAT 98
[2018-11-17] MEDS: SODIUM CHLORIDE 0.9% 1,000 ML 100 ML IV (00:38)
--- NOTE | 2018-11-17 00:55 | PC.NURSE ---
Addendum entered by Carrie Dykes R.N. 11/17/18 05:58: Earlier again refused to have NIH done. Has been up to bathroom several times and walks without noted difficulty. Speech is clear and denies any neuro deficits. BP improved at 125/66. Original Note: Patient is alert and oriented. Is [place] but has no hearing aids. Refused to have NIH done stating she had that done twice today and PT/ST told her she didn't need it. Attempted to explain rationale but patient continues to refuse. Denies any numbness/tingling, visual/hearing deficits and speech is clear and understandable. Breath sounds CTA with RA sat 98%. HRR with telemetry reading of SR. BP elevated at 163/73. Denies nausea. BT present and abdomen is soft. States she has urinary urgency but denies dysuria or frequency and has been continent of urine. Able to turn self in bed. SBA when up to bathroom for safety. Fall risk score is low. Denies pain.
[2018-11-17 04:15] VITALS: BP 125/66; PULSE 69; RESP 19; TEMP 37.1; O2SAT 100
[2018-11-17] MEDS: LEVOTHYROXINE 100 MCG TABLET PO (05:52)
[2018-11-17 07:00] VITALS: O2SAT 98
[2018-11-17 08:00] VITALS: BP 128/59; PULSE 72; RESP 18; TEMP 36.6; O2SAT 98
[2018-11-17] MEDS: ASPIRIN EC 81 MG TABLET PO (09:10)
[2018-11-17] MEDS: CLOPIDOGREL 75 MG TABLET PO (09:10)
[2018-11-17] MEDS: HEPARIN 5,000 UNIT/ML VIAL 5000 UNIT SUBCUT (09:11)
--- NOTE | 2018-11-17 10:41 | P.DS_ITS ---
History of Present Illness Date Patient Seen: 11/17/18 Chief complaint: CVA Narrative: Isaac Mccarthy is an 83-year-old female with a past medical history significant for hypertension, hyperlipidemia, current smoker, BRCA gene with previous ovarian cancer status post total hysterectomy with BSO and [facility] thought to be in remission, thyroid cancer status post thyroidectomy and radioiodine ablation, and current bladder cancer on immunotherapy who presented for abrupt onset word salad, trouble word finding and dysarthria. The patient reports she was in her normal state of health this morning when she was visiting with a friend and developed word salad, trouble word finding and dysarthria around 10:30 a.m. She called her daughter who called a friend to go to her house. Her friend called EMS around noon. The patient was seen in the ER and tele neuro evaluation performed. Patient deemed not a tPA candidate as onset of symptoms is somewhat unclear. The patient has no history of CVA. She has had no other CVA symptoms including blurred vision/double vision, weakness, ataxia, facial droop except tripped. She continues to have some expressive aphasia/word-finding difficulty, dysarthria with slight slurring of speech and mild word salad at times. CTA head and neck did not demonstrate any acute pathology or significant stenosis. Patient was admitted for CVA and further management. Discharge Providers Date of admission: 11/15/18 15:39 Discharge Date: 11/17/18 Consults: 11/15/18 15:45 Consult to Discharge Planning Routine Comment: Consult to Occupational Therapy Evaluate & Treat Comment: Physician Instructions: Evaluate and treat Consult to Physical Therapy Evaluate & Treat Comment: Physician Instructions: Evaluate and Treat Consult to Speech Therapy Evaluate & Treat Comment: CVA, word salad Physician Instructions: Evaluate and treat Discharge provider: Verona Lorenzo MD Summary Discharge Diagnosis: Acute Left TemporoParietalCVA, present on admission. Active. Possible acute UTI, present on admission. Active. Asymptomatic E.Coli Bacteriuria - 60,000 colonies - No treatment indicated Right Carotid Stenosis Bladder cancer, chronic, present on admission. Presumed stable. Hypertension, chronic, present on admission. Stable. Hyperlipidemia, chronic, present on admission. Stable. Secondary hypothyroidism, chronic, present on admission. Stable. Tobacco dependence, present on admission. Active. Hospital Course: Acute Left TemporoParietalCVA, present on admission. Active. -Patient presented with abrupt onset word salad, dysarthria and expressive aphasia. No other focal neurological deficits. -Patient has significant cardiovascular risk factors which include: Current smoker, hypertension, hyperlipidemia, several cancers and currently active bladder cancer, and family history. -Patient is on aspirin 81 mg daily. Continued aspirin 81 mg daily and added Plavix 75 mg daily on admission. Increased atorvastatin from 10 mg to 40 mg daily at bedtime. No history of prior CVA or blood clots. -Initial NIH score 5. Patient not a tPA candidate as time of onset was unclear. -CTA head and neck did not demonstrate any significant stenosis or acute pathology. MRI, however, did show high-grade stenosis at the right common carotid artery, not matching the location of the stroke on the left side. -Monitored closely on telemetry without any reported rhythm abnormality. Patient reports history of palpitations for most of her life. -Allowed for permissive hypertension. -Given IV fluids at 100 mL/hr to optimize cerebral perfusion. -ST evaluation and treatment, with recommendation to continue as an outpatient. -echocardiogram with moderate mitral regurgitation and EF 55-60%. Possible acute UTI, present on admission. Active. Asymptomatic E.Coli Bacteriuria - 60,000 colonies - No treatment indicated Right Carotid Stenosis -this is on the contralateral side to her stroke and is likely unrelated. -recommend vascular consult as an outpatient. Bladder cancer, chronic, present on admission. Presumed stable. -Patient followed by Dr. Downs and Dr. Zacarias of Oncology and Urology respectively. -Patient is currently on immunotherapy with Keytruda every 3 weeks just completed dose #8 on 11/13. Hypertension, chronic, present on admission. Stable. -Resume Metoprolol Hyperlipidemia, chronic, present on admission. Stable. -total cholesterol 137 with LDL 60. -Increased atorvastatin from 10 mg to 40 mg daily at bedtime as above. With those relatively low numbers consider repeating soon and possibly decreasing back to 10 mg. Secondary hypothyroidism, chronic, present on admission. Stable. -TSH normal at 1.74 -Continue levothyroxine 100 mcg daily. Tobacco dependence, present on admission. Active. -smoking cessation. -she says she will try to stop smoking, currently at 6 cigarettes per day. Total time today 45 minutes. Exam Vital Signs (past 8 hours): - 11/17/18 04:15 11/17/18 07:00 11/17/18 08:00 Temperature 98.7 F 97.8 F Pulse Rate 69 72 Respiratory Rate 19 18 Blood Pressure 125/66 128/59 L Pulse Oximetry 100 98 98 Oxygen Delivery Method Room Air Oxygen Flow Rate 0 Narrative Exam Narrative: She is alert and oriented x3. She is able to speak with me at a prolonged pace only occasionally lapsing into word searching. At 1 point she calls a pocket book a ?perf?. She has been less than agreeable about following up with outpatient speech therapy. Heart is regular rate and rhythm without murmur. Lungs are clear to auscultation bilaterally. Extremities no ankle edema. Neuro. Cranial nerves 2-12 tested intact. Motor function is 5/5 thr oughout. Balance and gait are normal. Word salad/word searching is very very minimal. Objective Labs Result Diagrams: 11/16/18 06:20 11/15/18 13:05 Discharge Plan Discharge Plan Patient Disposition: Home Discharge comment: Please note the new medicine of Plavix and the change in the dose of Lipitor. Please follow up with Dr. Andrade for possible neurological referral soon. Please stop smoking. Please follow up with the speech therapist at the hospital this week. Discharge Med Rec/Prescriptions Prescriptions: New atorvastatin [Lipitor] 20 mg Tablet 40 mg PO BEDTIME Qty: 30 RF: 0 clopidogrel 75 mg Tablet 75 mg PO DAILY Qty: 30 RF: 0 Continued aspirin 81 MG tablet,delayed release (DR/EC) 81 mg PO DAILY Qty: 0 RF: 0 levothyroxine 100 mcg tablet 100 mcg PO QDAY Qty: 90 RF: 3 metoprolol tartrate 75 mg tablet 75 mg PO BID Qty: 180 RF: 3 calcitriol 0.25 mcg capsule 1 cap PO MOWEFR RF: 0 Discontinued atorvastatin 10 mg tablet 10 mg PO QPM Qty: 90 RF: 3 Follow up/Referrals: Juanjo Andrade MD [Physician] - [facility],Speech Therapist, [facility] [Speech Therapist] - Provider Discharge Instructions Diet: Diet as Tolerated Other treatments: Speech Therapy referral. Visit Report/Discharge Packet Instructions: Ischemic Stroke, DI for Stroke-Ischemic, Atorvastatin, Clopidogrel Discharge Data Attending Provider: Cheri Juarez Admit Date/Time: 11/15/18 15:39 Discharges patient from system. Discharge Date/Time: 11/17/18 11:06 Quality VTE Deep Vein Thrombosis/Pulmonary Embolism Present on Admission: No
--- NOTE | 2018-11-17 10:41 | CM.DPC ---
Discharge orders received for patient. Met with patient at bedside. She confirms that her daughter will ppick her up. She denies any d/c needs or barrier to d/c. Plan: Home with daughter by private vehicle.
--- NOTE | 2018-11-17 11:05 | PC.NURSE ---
Went over dc instructions and medications with patient and patients daughter, questions answered. Pt aware to call PCP office tomorrow and schedule a follow up appt. Pt taken via wc to vehicle driven by daughter, patient had all belongings.
--- NOTE | 2018-11-18 09:20 | ONC.NAV ---
Description: T/C re: scheduling f/u with Dr. Downs following hospitalization Activity: Left message for pt's megarEla, re: appt. availability for pt to f/u with Dr. Downs this coming Sunday, 11/20 at 9:30am. Requested return call to confirm or decline.
== END 2018-11-17 11:06 | disposition home or self-care (01) | DRG 66 ==
LOC: ED 15:37 → AC 15:39
PROVIDERS: Admitting Provider Internal Medicine; Emergency Provider Emergency Medicine; Visit Provider Internal Medicine
DX: I63.512 Cerebral infarction due to unspecified occlusion or stenosis of left middle cerebral artery (principal); R47.01 Aphasia; R47.1 Dysarthria and anarthria; B96.20 Unspecified Escherichia coli [E. coli] as the cause of diseases classified elsewhere; I65.21 Occlusion and stenosis of right carotid artery; I10 Essential (primary) hypertension; E78.5 Hyperlipidemia, unspecified; F17.210 Nicotine dependence, cigarettes, uncomplicated; C67.9 Malignant neoplasm of bladder, unspecified; I25.10 Atherosclerotic heart disease of native coronary artery without angina pectoris; E89.0 Postprocedural hypothyroidism
CPT/HCPCS: 36415; 70450; 70496; 70498; 70553; 71045; 80048; 80053; 80061; 80305; 81003; 81015; 82962; 83036; 83735; 84145; 84443; 84484; 85025; 85610; 85730; 87077; 87086; 87186; 92523; 93005; 93306; 96360; 96361; 96413; 97162; 97165; 99214; 99283; 99285; 99291; J1644; J9271

== ENCOUNTER 2018-11-29 14:09 | Observation (INO) | payer MEDICARE, OTHER, SELFPAY ==
[2018-11-15 15:47] VITALS: BMI 19.1
[2018-11-29] VITALS (14 sets, daily range): BP systolic 70–116; BP diastolic 40–89; PULSE 54–76; RESP 15–28; TEMP 36.2–37.2; O2SAT 93–100; BMI 18.6
--- NOTE | 2018-11-29 15:01 | PC.NURSE ---
Patient has bladder CA, has had increase amount of bright red blood in urine for last 7-10 days. Has had watery diarrhea for atleast last week. Patinet pale and generally weak. Has had a couple falls over last two days. No acute injury from falls.
--- NOTE | 2018-11-29 15:24 | ED.WEAKNESS ---
HPI - Weakness General Chief complaint: Weakness Stated complaint: states she has bladder cancer,blood in urine Time Seen by Provider: 11/29/18 15:09 Source: patient, family (daughter) and EMS Mode of arrival: EMS Limitations: no limitations History of Present Illness HPI Narrative: This is an 83-year-old female who comes to the emergency department with complaint of weakness patient states she has been feeling increasingly weak. She has had hematuria and clots in her urine for about a week and a half. She has no bladder cancer, she is seeing Dr. desirae grewal for immunotherapy. She denies any lightheadedness or syncope she denies any chest pain or pressure, no shortness of breath. she denies any nausea or vomiting. she has had loose stools intermittently with occasional stool incontinence and occasional urine leakage. Patient states she had 2 falls last night while trying to get out of bed. She lives alone at home. Patient does take an aspirin 81 mg as well as Plavix. This is because she had a stroke or TIA about 3 weeks ago. States all of her symptoms have resolved. She is on medicine for hypertension, dyslipidemia as well as hypothyroid. She has been taking Macrobid for about 3 and half days. She has had her thyroid removed as well as a hysterectomy because of the BRCA gene. Dr. Hutchins is her primary care Related Data Home Medications Medication Instructions Recorded Confirmed aspirin 81 mg PO DAILY #0 03/20/11 11/29/18 nitrofurantoin monohyd/m-cryst 100 mg PO BIDX7 11/26/18 11/29/18 [Macrobid] levothyroxine 100 mcg PO DAILY 11/29/18 11/29/18 metoprolol tartrate 75 mg PO BID 11/29/18 11/29/18 Previous Rx's Medication Instructions Recorded atorvastatin [Lipitor] 40 mg PO BEDTIME #30 tab 11/20/18 clopidogrel 75 mg PO DAILY #30 tab 11/20/18 calcitriol 0.25 mcg capsule 0.25 mcg PO MOWEFR #36 cap 11/21/18 Allergies Allergy/AdvReac Type Severity Reaction Status Date / Time lisinopril [LISINOPRIL] Allergy Severe Swelling Verified 11/15/18 13:51 of Lip/Tongue/Throat Sulfa (Sulfonamide Allergy Intermediate Rash Verified 11/15/18 13:51 Antibiotics) [SULFA (SULFONAMIDE ANTIBIOTICS)] sertraline AdvReac Intermediate Diarrhea Verified 11/15/18 13:51 Review of Systems Review of Systems ROS Unobtainable: All systems reviewed & are unremarkable except as noted in HPI and below Constitutional Denies body ache(s), Denies chills, Denies excessive sweating, Reports fatigue, Denies fever(s), Reports frequent falls, Denies headache(s), Reports lethargy, Reports poor appetite and Reports weakness ENT Ears, Nose, Mouth, and Throat: Denies headache(s) and Denies nasal congestion Cardiovascular Denies chest pain, Denies diaphoresis, Denies syncope, Denies edema, Denies irregular heart rhythm, Denies lightheadedness, Denies palpitations, Denies dyspnea, Denies dyspnea on exertion and Denies orthopnea Respiratory Denies change in phlegm color, Denies chest congestion, Denies hemoptysis, Denies dyspnea, Denies dyspnea on exertion and Denies wheezing Gastrointestinal Gastrointestinal: Denies abdominal pain, Denies change in bowel habits, Reports fecal incontinence (Occasionally small amount), Denies diarrhea, Denies nausea and Denies vomiting Genitourinary Reports as per HPI, Reports hematuria, Reports urinary frequency, Denies dysuria, Reports urinary incontinence, Denies urinary hesitancy and Denies urinary urgency Musculoskeletal Denies back pain Neurologic Denies syncope, Reports frequent falls, Denies headache(s) and Reports weakness Endocrine Denies excessive sweating, Reports fatigue and Denies palpitations Allergic/Immunologic Denies wheezing [facility] Medical History Bladder cancer (Acute) Hyperlipidemia (Acute) Secondary hypothyroidism (Acute) Tobacco dependence (Acute) CAD (coronary artery disease) (Chronic 2013) Hypertension (Chronic) Drug-induced anaphylaxis (Resolved 2013) Kidney failure (Resolved 2014) Non-STEMI (non-ST elevated myocardial infarction) (Resolved 2013) Ovarian cancer (Resolved 2002) Thyroid cancer (Resolved 1997) Surgical History S/P appy (Acute) History of thyroidectomy (Resolved 1997) Status post hysterectomy with oophorectomy (Resolved 2002) Family History (Updated 11/15/18 @ 20:03 by Cheri Juarez DO) Mother Ovarian cancer Breast cancer Father Heart attack Daughter Breast cancer Daughter Breast cancer Social History (Updated 11/15/18 @ 13:25 by Princess Olguin DO) household members: none Smoking Status: Current every day smoker alcohol intake: current substance use type: does not use Family History Mother Ovarian cancer Breast cancer Father Heart attack Daughter Breast cancer Daughter Breast cancer Social History household members: none Smoking Status: Current every day smoker alcohol intake: current substance use type: does not use Exam Narrative Exam Narrative: GENERAL: Alert and oriented x three, thin female in mild distress. Patient is lying flat. She does appear pale. HEENT: Head normocephalic, atraumatic, EOMI, pupils reactive, positive for pale conjunctiva bilaterally, face symmetric, moist mucous membranes NECK: Supple, full range of motion CARDIOVASCULAR: Bradycardic but Regular rhythm without murmurs, rubs or gallops. RESPIRATORY: Breath sounds equal bilaterally, no wheezes rales or rhonchi. No crackles. No tachypnea or accessory muscle use. ABDOMEN: Soft, nontender. Normoactive bowel sounds all 4 quadrants. No guarding or rebound, rigidity, no mass : No CVA tenderness EXTREMITIES: Normal range of motion, no clubbing or edema. Neurovascularly intact NEUROLOGICAL: Cranial nerves II through XII grossly intact. Moving all extremities SKIN: Warm, dry, no petechiae, no rashes or lesions. Initial Vital Signs Initial Vital Signs: Vital Signs Pulse Rate 71 11/29/18 14:10 Respiratory Rate 16 11/29/18 14:10 Blood Pressure 81/57 L 11/29/18 14:10 Pulse Oximetry 99 11/29/18 14:10 Course Orders Ordered: ED Orders 11/29/18 14:00 Complete Blood Count AUTO DIFF Stat Comprehensive Metabolic Panel Stat Packed Cells Stat Partial Thromboplastin Time Stat Prothrombin Time INR Stat Troponin & CK Cardiac Panel Stat Type and Screen Stat 11/29/18 15:25 EKG-12 Lead Stat 11/29/18 15:41 Lactate (Lactic Acid) Stat 11/29/18 16:23 CT kidney ureter bladder (KUB) Stat Discontinued Medications Sodium Chloride (Normal Saline 0.9%) 1,000 mls @ 1,000 mls/hr IV BOLUS ONE Stop: 11/29/18 16:59 Last Infusion: 11/29/18 17:12 Dose: 0 mls/hr Admin: 11/29/18 16:00 Dose: 1,000 mls/hr Vital Signs - 8 hr 11/29/18 14:10 11/29/18 14:19 11/29/18 15:00 Temperature 97.2 F L Pulse Rate 71 67 54 L Respiratory Rate 16 16 23 Blood Pressure 81/57 L Blood Pressure [Left Arm] 70/49 L 80/43 L Pulse Oximetry 99 98 98 11/29/18 15:03 11/29/18 15:30 11/29/18 16:49 Temperature 98.1 F Pulse Rate 55 L 57 L 76 Respiratory Rate 23 18 25 H Blood Pressure 108/89 Blood Pressure [Left Arm] 80/43 L 85/45 L Pulse Oximetry 99 100 11/29/18 17:06 11/29/18 17:15 11/29/18 17:30 Temperature 97.7 F 97.7 F 97.4 F L Pulse Rate 58 L 59 L 59 L Respiratory Rate 24 21 20 Blood Pressure 81/41 L 88/44 L 110/53 L Blood Pressure [Left Arm] Pulse Oximetry 11/29/18 18:08 11/29/18 18:30 11/29/18 19:00 Temperature 97.7 F Pulse Rate 63 61 61 Respiratory Rate 28 H 24 26 H Blood Pressure 96/40 L Blood Pressure [Left Arm] 101/50 L 110/47 L Pulse Oximetry 100 100 11/29/18 19:30 Temperature Pulse Rate 60 Respiratory Rate 28 H Blood Pressure Blood Pressure [Left Arm] 105/76 Pulse Oximetry 98 MDM - Weakness Lab Data Attestation: I reviewed the patient's lab results. Result diagrams: 11/29/18 14:00 11/29/18 14:00 Lab Results 11/29/18 11/29/18 11/29/18 Range/Units 14:00 14:00 14:00 WBC 6.5 (4.5-11.0) X10^3/uL RBC 3.10 L (4.0-5.2) X10^6/uL Hgb 9.3 L (12.0-16.0) g/dL Hct 27.9 L (36-46) % MCV 89.8 (80-100) fL MCH 29.8 (26-34) PG MCHC 33.2 (30-36) % RDW 15.5 H (11.6-14.8) % Plt Count 337 (150-400) X10^3/uL Neut % (Auto) 80.0 H (50-75) % Lymph % (Auto) 9.0 L (25-40) % Wharton % (Auto) 9.8 (3-14) % Eos % (Auto) 0.3 L (2-4) % Baso % (Auto) 0.9 (0-2) % Neut # (Auto) 5200 (1345-7016) /uL Lymph # (Auto) 600 L (4224-8724) /uL Wharton # (Auto) 600 (0-900) /uL Eos # (Auto) 0 (0-450) /uL Baso # (Auto) 100 (0-100) /uL PT 11.6 (10.1-12.7) SECONDS INR 1.0 (0.9-1.3) APTT 22 L (26.4-36.2) SECONDS Sodium 128 L (137-145) mmol/L Potassium 3.8 (3.4-5.1) mmol/L Chloride 94 L (98-107) mmol/L Carbon Dioxide 22 (22-32) mmol/L BUN 38 H (7-17) mg/dL Creatinine 1.70 H (0.52-1.04) mg/dL Estimated GFR 28.8 L (>60) mL/min BUN/Creatinine Ratio 22.4 H (6-22) Glucose 114 H (80-110) mg/dL Lactate (0.7-2.1) mmol/L Calcium 7.7 L (8.4-10.2) mg/dL Total Bilirubin 0.7 (0.2-1.3) mg/dL AST 283 H (14-36) IU/L ALT 154 H (9-52) IU/L Alkaline Phosphatase 588 H (38-126) U/L Total Creatine Kinase 150 H (30-135) U/L CK-MB (CK-2) 1.14 (<2.37) ng/mL CK-MB (CK-2) Rel Index 0.8 L (1.5-5.0) % Troponin I 0.043 H (0.01-0.034) ng/mL Total Protein 6.9 (6.3-8.2) g/dL Albumin 3.5 (3.5-5.0) g/dL Globulin 3.4 (1.7-4.1) g/dL Albumin/Globulin Ratio 1.0 (1.0-2.8) Blood Type Antibody Screen Crossmatch 11/29/18 11/29/18 Range/Units 14:00 15:41 WBC (4.5-11.0) X10^3/uL RBC (4.0-5.2) X10^6/uL Hgb (12.0-16.0) g/dL Hct (36-46) % MCV (80-100) fL MCH (26-34) PG MCHC (30-36) % RDW (11.6-14.8) % Plt Count (150-400) X10^3/uL Neut % (Auto) (50-75) % Lymph % (Auto) (25-40) % Wharton % (Auto) (3-14) % Eos % (Auto) (2-4) % Baso % (Auto) (0-2) % Neut # (Auto) (8006-7818) /uL Lymph # (Auto) (8087-6231) /uL Wharton # (Auto) (0-900) /uL Eos # (Auto) (0-450) /uL Baso # (Auto) (0-100) /uL PT (10.1-12.7) SECONDS INR (0.9-1.3) APTT (26.4-36.2) SECONDS Sodium (137-145) mmol/L Potassium (3.4-5.1) mmol/L Chloride (98-107) mmol/L Carbon Dioxide (22-32) mmol/L BUN (7-17) mg/dL Creatinine (0.52-1.04) mg/dL Estimated GFR (>60) mL/min BUN/Creatinine Ratio (6-22) Glucose (80-110) mg/dL Lactate 0.9 (0.7-2.1) mmol/L Calcium (8.4-10.2) mg/dL Total Bilirubin (0.2-1.3) mg/dL AST (14-36) IU/L ALT (9-52) IU/L Alkaline Phosphatase (38-126) U/L Total Creatine Kinase (30-135) U/L CK-MB (CK-2) (<2.37) ng/mL CK-MB (CK-2) Rel Index (1.5-5.0) % Troponin I (0.01-0.034) ng/mL Total Protein (6.3-8.2) g/dL Albumin (3.5-5.0) g/dL Globulin (1.7-4.1) g/dL Albumin/Globulin Ratio (1.0-2.8) Blood Type O Positive Antibody Screen Negative Crossmatch See Detail Point of Care Testing Stool Occult Blood Negative Imaging Data CT scan - abdomen: Radiologist's impression: Isaac Mccarthy 83 [address] [place] [address] CT Scan Report Signed Patient: Isaac Mccarthy MMR#: [id number] : [id number]:[id number] Age/Sex: 83 / FDate of Service: 11/29/18 Loc: ED Accession Number: [id number] Procedure: CT kidney ureter bladder (KUB) Ordering Provider: Princess Olguin D.O. PROCEDURE: CT KIDNEY URETER BLADDER (KUB) INDICATIONS: hematuria, symptomatic anemia TECHNIQUE: Noncontrast 5 mm thick sections acquired from the diaphragms to the symphysis. 5 mm thick coronal and sagittal reformats were then performed. For radiation dose reduction, the following was used: automated exposure control, adjustment of mA and/or kV according to patient size. COMPARISON: None. FINDINGS: Image quality: Excellent. Lung bases: Lung bases are clear. Heart size is normal. Urinary system: The kidneys are asymmetric in size, diminutive on the right and normal in size on the left without hydronephrosis or nephrolithiasis bilaterally. What appears to be a 2 cm cyst is seen at the posterior cortex of the right mid kidney. No perinephric fat stranding. Both ureters appear non-dilated throughout their expected courses. Bladder wall thickness on the left is normal; no calcified bladder stones. 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 Lobulated extension into the fatty soft tissues of the space of Retzius is seen anteriorly on the right, and the obturator internus muscle is abnormally thickened and infiltrated by direct spread tapering from anteriorly to posteriorly best seen centered on series 2 image 66. This mass extends inferiorly towards the internal urethral origin. There is a faint degree of dystrophic calcification along the lumenal border of the mass. Other solid organs: Liver is normal in size. Gallbladder contains a small calcified gallstone.. Pancreas is normal in contours. Spleen is normal in size. No adrenal nodules. Peritoneum and bowel: Unenhanced bowel loops demonstrate normal wall thickness and caliber. No free fluid or air. Nodes and vessels: No retroperitoneal or mesenteric adenopathy by size criteria. Aorta and inferior vena cava are normal in caliber. Abdominal wall: No ventral hernias. Pelvis: No free pelvic fluid. No inguinal hernias or adenopathy. Bones: No suspicious bony lesions. No vertebral body compression fractures. IMPRESSION: Large malignant appearing invasive bladder mass centered to the right of midline, anterolaterally, invading into the adjacent right lateral lower pelvic wall, and approaching the internal urethral orifice. The gallbladder contains a small calcified gallstone but shows no evidence of acute cholecystitis or biliary obstruction. Dictated by: Jared Cantor M.D. on 11/29/2018 at 16:49 Approved by: Jared Cantor M.D. on 11/29/2018 at 16:56 ECG Data Attestation: I personally reviewed and interpreted this ECG as follows: Interpretation: Sinus bradycardia rate of 54 RI interval 158 QRS 80 QTC of 423. No ST elevation or depression. [facility] Narrative Medical decision making narrative: Patient comes in with complaint of hematuria, she feels weak. Some hypotensive. Initially given fluids, hemoglobin was noted to be decreased in the range of 9. She has been slowly decreasing over several months with an drop from 10-9 over the last week and a half. Patient has no bladder cancer, she has a large bladder mass which she is aware of. This is likely the source of her hematuria. I spoke with Urology as well as Dr. Triana who is covering for her urology group with Dr. Zacarias. [place] recommended Clarke and irrigation, Dr. Triana recommends no Clarke as he suspects that this will all cause an increase in bleeding especially if she is able to urinate. Patient is not having any other symptoms at this time, no dizziness, no chest pain, no shortness of breath. she has continued to be hypotensive. Her labs show multiple abnormalities. Neither service recommended surgery at this time. She is on aspirin and Plavix secondary to a CVA that occurred 3 weeks ago. Patient is asking to stay here locally but we do not have Urology. And if patient continues to have bleed or worsening hypotension and would need surgical intervention we do not have this available. Patient is currently receiving blood. [facility] does not have any beds. Patient is adamant that she does not wish to be transferred. Spoke with her daughters who were both at bedside as well as the patient. They state that she has terminal, she is aware of this. She does not want resuscitation and is DNR/DNI. We discussed that if she continued to bleed we can give some additional blood but would not continue offered indeterminate amount of time. We would not do pressors or medications to increase her blood pressure. Patient and family states that is is fine, they state they have been told that they cannot have surgery because she would from the anesthesia any way. Re-contacted and spoke with Chuckie Coleman NP who is taking over for Dr. redman and updated him on this and they accept for observation. Discharge Plan Departure Patient Disposition: Admitted as Observation Clinical Impression: Hypotension, Bladder cancer, Anemia Discharge Date/Time: 11/29/18 19:41 Interventions: ED Discharge Assessment Last Done: 11/29/18 19:37 Admit Date/Time: 11/29/18 19:31 Admit Provider: Satish Coleman
[2018-11-29 15:37] LABS: Add Manual Diff / Slide Review NO; Basophils Absolute Auto 100 /uL (0-100); Basophils Percent Auto 0.9 % (0-2); Eosinophils Absolute Auto 0 /uL (0-450); Eosinophils Percent Auto 0.3 % (2-4); Hematocrit 27.9 % (36-46); Hemoglobin 9.3 g/dL (12.0-16.0); Lymphocytes Absolute Auto 600 /uL (1100-4500); Mean Corpuscular HGB Conc 33.2 % (30-36); Mean Corpuscular Hemoglobin 29.8 PG (26-34); Mean Corpuscular Volume 89.8 fL (80-100); Monocytes Absolute Auto 600 /uL (0-900); Monocytes Percent Auto 9.8 % (3-14); Neutrophils Absolute Auto 5200 /uL (1500-7000); Platelet Count 337 X10^3/uL (150-400); Prothrombin Time 11.6 SECONDS (10.1-12.7); Red Cell Distribution Width 15.5 % (11.6-14.8); White Blood Cell Count 6.5 X10^3/uL (4.5-11.0)
[2018-11-29 15:39] LABS: PTT Partial Thromboplastin Tim 22 SECONDS (26.4-36.2)
[2018-11-29 15:41] LABS: Alanine Aminotransferase 154 IU/L (9-52); Albumin 3.5 g/dL (3.5-5.0); Alkaline Phosphatase 588 U/L (38-126); Aspartate Aminotransferase 283 IU/L (14-36); BUN Creatinine Ratio 22.4 (6-22); Bilirubin Total 0.7 mg/dL (0.2-1.3); Blood Urea Nitrogen 38 mg/dL (7-17); Calcium 7.7 mg/dL (8.4-10.2); Carbon Dioxide 22 mmol/L (22-32); Chloride 94 mmol/L (98-107); Creatine Kinase 150 U/L (30-135); Estimated Glomerular Filt Rate 28.8 mL/min (>60); Globulin 3.4 g/dL (1.7-4.1); Glucose 114 mg/dL (80-110); Potassium 3.8 mmol/L (3.4-5.1); Sodium 128 mmol/L (137-145); Total Protein 6.9 g/dL (6.3-8.2)
[2018-11-29 15:52] LABS: Troponin I 0.043 ng/mL (0.01-0.034)
[2018-11-29 15:55] LABS: Lactate (Lactic Acid) 0.9 mmol/L (0.7-2.1)
[2018-11-29 15:56] LABS: CKMB % Relative Index 0.8 % (1.5-5.0); Creatine Kinase MB 1.14 ng/mL (<2.37); HEMOLYSIS 50 (0-50)
[2018-11-29] MEDS: SODIUM CHLORIDE 0.9% 1,000 ML 1000 ML IV (16:00)
--- NOTE | 2018-11-29 16:05 | ED_ITS ---
HPI - Weakness General Chief complaint: Weakness Stated complaint: states she has bladder cancer,blood in urine Time Seen by Provider: 11/29/18 15:09 Source: patient, family (daughter) and EMS Mode of arrival: EMS Limitations: no limitations History of Present Illness HPI Narrative: This is an 83-year-old female who comes to the emergency department with complaint of weakness patient states she has been feeling in creasingly weak. She has had hematuria and clots in her urine for about a week and a half. She has no bladder cancer, she is seeing Dr. desirae grewal for immunotherapy. She denies any lightheadedness or syncope she denies any chest pain or pressure, no shortness of breath. she denies any nausea or vomiting. she has had loose stools intermittently with occasional stool incontinence and occasional urine leakage. Patient states she had 2 falls last night while trying to get out of bed. She lives alone at home. Patient does take an aspirin 81 mg as well as Plavix. This is because she had a stroke or TIA about 3 weeks ago. States all of her symptoms have resolved. She is on medicine for hypertension, dyslipidemia as well as hypothyroid. She has been taking Macrobid for about 3 and half days. She has had her thyroid removed as well as a hysterectomy because of the BRCA gene. Dr. Hutchins is her primary care Related Data Home Medications Medication Instructions Recorded Confirmed aspirin 81 mg PO DAILY #0 03/20/11 11/29/18 nitrofurantoin monohyd/m-cryst 100 mg PO BIDX7 11/26/18 11/29/18 [Macrobid] levothyroxine 100 mcg PO DAILY 11/29/18 11/29/18 metoprolol tartrate 75 mg PO BID 11/29/18 11/29/18 Previous Rx's Medication Instructions Recorded atorvastatin [Lipitor] 40 mg PO BEDTIME #30 tab 11/20/18 clopidogrel 75 mg PO DAILY #30 tab 11/20/18 calcitriol 0.25 mcg capsule 0.25 mcg PO MOWEFR #36 cap 11/21/18 Allergies Allergy/AdvReac Type Severity Reaction Status Date / Time lisinopril [LISINOPRIL] Allergy Severe Swelling Verified 11/15/18 13:51 of Lip/Tongue/Throat Sulfa (Sulfonamide Allergy Intermediate Rash Verified 11/15/18 13:51 Antibiotics) [SULFA (SULFONAMIDE ANTIBIOTICS)] sertraline AdvReac Intermediate Diarrhea Verified 11/15/18 13:51 Review of Systems Review of Systems ROS Unobtainable: All systems reviewed & are unremarkable except as noted in HPI and below Constitutional Denies body ache(s), Denies chills, Denies excessive sweating, Reports fatigue, Denies fever(s), Reports frequent falls, Denies headache(s), Reports lethargy, Reports poor appetite and Reports weakness ENT Ears, Nose, Mouth, and Throat: Denies headache(s) and Denies nasal congestion Cardiovascular Denies chest pain, Denies diaphoresis, Denies syncope, Denies edema, Denies irregular heart rhythm, Denies lightheadedness, Denies palpitations, Denies dyspnea, Denies dyspnea on exertion and Denies orthopnea Respiratory Denies change in phlegm color, Denies chest congestion, Denies hemoptysis, Denies dyspnea, Denies dyspnea on exertion and Denies wheezing Gastrointestinal Gastrointestinal: Denies abdominal pain, Denies change in bowel habits, Reports fecal incontinence (Occasionally small amount), Denies diarrhea, Denies nausea and Denies vomiting Genitourinary Reports as per HPI, Reports hematuria, Reports urinary frequency, Denies dysuria, Reports urinary incontinence, Denies urinary hesitancy and Denies urinary urgency Musculoskeletal Denies back pain Neurologic Denies syncope, Reports frequent falls, Denies headache(s) and Reports weakness Endocrine Denies excessive sweating, Reports fatigue and Denies palpitations Allergic/Immunologic Denies wheezing [facility] Medical History Bladder cancer (Acute) Hyperlipidemia (Acute) Secondary hypothyroidism (Acute) Tobacco dependence (Acute) CAD (coronary artery disease) (Chronic 2013) Hypertension (Chronic) Drug-induced anaphylaxis (Resolved 2013) Kidney failure (Resolved 2014) Non-STEMI (non-ST elevated myocardial infarction) (Resolved 2013) Ovarian cancer (Resolved 2002) Thyroid cancer (Resolved 1997) Surgical History S/P appy (Acute) History of thyroidectomy (Resolved 1997) Status post hysterectomy with oophorectomy (Resolved 2002) Family History (Updated 11/15/18 @ 20:03 by Cheri Juarez DO) Mother Ovarian cancer Breast cancer Father Heart attack Daughter Breast cancer Daughter Breast cancer Social History (Updated 11/15/18 @ 13:25 by Princess Olguin DO) household members: none Smoking Status: Current every day smoker alcohol intake: current substance use type: does not use Family History Mother Ovarian cancer Breast cancer Father Heart attack Daughter Breast cancer Daughter Breast cancer Social History household members: none Smoking Status: Current every day smoker alcohol intake: current substance use type: does not use Exam Narrative Exam Narrative: GENERAL: Alert and oriented x three, thin female in mild distress. Patient is lying flat. She does appear pale. HEENT: Head normocephalic, atraumatic, EOMI, pupils reactive, positive for pale conjunctiva bilaterally, face symmetric, moist mucous membranes NECK: Supple, full range of motion CARDIOVASCULAR: Bradycardic but Regular rhythm without murmurs, rubs or gallops. RESPIRATORY: Breath sounds equal bilaterally, no wheezes rales or rhonchi. No crackles. No tachypnea or accessory muscle use. ABDOMEN: Soft, nontender. Normoactive bowel sounds all 4 quadrants. No guarding or rebound, rigidity, no mass : No CVA tenderness EXTREMITIES: Normal range of motion, no clubbing or edema. Neurovascularly intact NEUROLOGICAL: Cranial nerves II through XII grossly intact. Moving all extremities SKIN: Warm, dry, no petechiae, no rashes or lesions. Initial Vital Signs Initial Vital Signs: Vital Signs Pulse Rate 71 11/29/18 14:10 Respiratory Rate 16 11/29/18 14:10 Blood Pressure 81/57 L 11/29/18 14:10 Pulse Oximetry 99 11/29/18 14:10 Course Orders Ordered: ED Orders 11/29/18 14:00 Complete Blood Count AUTO DIFF Stat Comprehensive Metabolic Panel Stat Packed Cells Stat Partial Thromboplastin Time Stat Prothrombin Time INR Stat Troponin & CK Cardiac Panel Stat Type and Screen Stat 11/29/18 15:25 EKG-12 Lead Stat 11/29/18 15:41 Lactate (Lactic Acid) Stat 11/29/18 16:23 CT kidney ureter bladder (KUB) Stat Discontinued Medications Sodium Chloride (Normal Saline 0.9%) 1,000 mls @ 1,000 mls/hr IV BOLUS ONE Stop: 11/29/18 16:59 Last Infusion: 11/29/18 17:12 Dose: 0 mls/hr Admin: 11/29/18 16:00 Dose: 1,000 mls/hr Vital Signs - 8 hr 11/29/18 14:10 11/29/18 14:19 11/29/18 15:00 Temperature 97.2 F L Pulse Rate 71 67 54 L Respiratory Rate 16 16 23 Blood Pressure 81/57 L Blood Pressure [Left Arm] 70/49 L 80/43 L Pulse Oximetry 99 98 98 11/29/18 15:03 11/29/18 15:30 11/29/18 16:49 Temperature 98.1 F Pulse Rate 55 L 57 L 76 Respiratory Rate 23 18 25 H Blood Pressure 108/89 Blood Pressure [Left Arm] 80/43 L 85/45 L Pulse Oximetry 99 100 11/29/18 17:06 11/29/18 17:15 11/29/18 17:30 Temperature 97.7 F 97.7 F 97.4 F L Pulse Rate 58 L 59 L 59 L Respiratory Rate 24 21 20 Blood Pressure 81/41 L 88/44 L 110/53 L Blood Pressure [Left Arm] Pulse Oximetry 11/29/18 18:08 11/29/18 18:30 11/29/18 19:00 Temperature 97.7 F Pulse Rate 63 61 61 Respiratory Rate 28 H 24 26 H Blood Pressure 96/40 L Blood Pressure [Left Arm] 101/50 L 110/47 L Pulse Oximetry 100 100 11/29/18 19:30 Temperature Pulse Rate 60 Respiratory Rate 28 H Blood Pressure Blood Pressure [Left Arm] 105/76 Pulse Oximetry 98 MDM - Weakness Lab Data Attestation: I reviewed the patient's lab results. Result diagrams: 11/29/18 14:00 11/29/18 14:00 Lab Results 11/29/18 11/29/18 11/29/18 Range/Units 14:00 14:00 14:00 WBC 6.5 (4.5-11.0) X10^3/uL RBC 3.10 L (4.0-5.2) X10^6/uL Hgb 9.3 L (12.0-16.0) g/dL Hct 27.9 L (36-46) % MCV 89.8 (80-100) fL MCH 29.8 (26-34) PG MCHC 33.2 (30-36) % RDW 15.5 H (11.6-14.8) % Plt Count 337 (150-400) X10^3/uL Neut % (Auto) 80.0 H (50-75) % Lymph % (Auto) 9.0 L (25-40) % [place] % (Auto) 9.8 (3-14) % Eos % (Auto) 0.3 L (2-4) % Baso % (Auto) 0.9 (0-2) % Neut # (Auto) 5200 (4862-7521) /uL Lymph # (Auto) 600 L (5056-8885) /uL [place] # (Auto) 600 (0-900) /uL Eos # (Auto) 0 (0-450) /uL Baso # (Auto) 100 (0-100) /uL PT 11.6 (10.1-12.7) SECONDS INR 1.0 (0.9-1.3) APTT 22 L (26.4-36.2) SECONDS Sodium 128 L (137-145) mmol/L Potassium 3.8 (3.4-5.1) mmol/L Chloride 94 L (98-107) mmol/L Carbon Dioxide 22 (22-32) mmol/L BUN 38 H (7-17) mg/dL Creatinine 1.70 H (0.52-1.04) mg/dL Estimated GFR 28.8 L (>60) mL/min BUN/Creatinine Ratio 22.4 H (6-22) Glucose 114 H (80-110) mg/dL Lactate (0.7-2.1) mmol/L Calcium 7.7 L (8.4-10.2) mg/dL Total Bilirubin 0.7 (0.2-1.3) mg/dL AST 283 H (14-36) IU/L ALT 154 H (9-52) IU/L Alkaline Phosphatase 588 H (38-126) U/L Total Creatine Kinase 150 H (30-135) U/L CK-MB (CK-2) 1.14 (<2.37) ng/mL CK-MB (CK-2) Rel Index 0.8 L (1.5-5.0) % Troponin I 0.043 H (0.01-0.034) ng/mL Total Protein 6.9 (6.3-8.2) g/dL Albumin 3.5 (3.5-5.0) g/dL Globulin 3.4 (1.7-4.1) g/dL Albumin/Globulin Ratio 1.0 (1.0-2.8) Blood Type Antibody Screen Crossmatch 11/29/18 11/29/18 Range/Units 14:00 15:41 WBC (4.5-11.0) X10^3/uL RBC (4.0-5.2) X10^6/uL Hgb (12.0-16.0) g/dL Hct (36-46) % MCV (80-100) fL MCH (26-34) PG MCHC (30-36) % RDW (11.6-14.8) % Plt Count (150-400) X10^3/uL Neut % (Auto) (50-75) % Lymph % (Auto) (25-40) % [place] % (Auto) (3-14) % Eos % (Auto) (2-4) % Baso % (Auto) (0-2) % Neut # (Auto) (4498-2355) /uL Lymph # (Auto) (3894-7645) /uL [place] # (Auto) (0-900) /uL Eos # (Auto) (0-450) /uL Baso # (Auto) (0-100) /uL PT (10.1-12.7) SECONDS INR (0.9-1.3) APTT (26.4-36.2) SECONDS Sodium (137-145) mmol/L Potassium (3.4-5.1) mmol/L Chloride (98-107) mmol/L Carbon Dioxide (22-32) mmol/L BUN (7-17) mg/dL Creatinine (0.52-1.04) mg/dL Estimated GFR (>60) mL/min BUN/Creatinine Ratio (6-22) Glucose (80-110) mg/dL Lactate 0.9 (0.7-2.1) mmol/L Calcium (8.4-10.2) mg/dL Total Bilirubin (0.2-1.3) mg/dL AST (14-36) IU/L ALT (9-52) IU/L Alkaline Phosphatase (38-126) U/L Total Creatine Kinase (30-135) U/L CK-MB (CK-2) (<2.37) ng/mL CK-MB (CK-2) Rel Index (1.5-5.0) % Troponin I (0.01-0.034) ng/mL Total Protein (6.3-8.2) g/dL Albumin (3.5-5.0) g/dL Globulin (1.7-4.1) g/dL Albumin/Globulin Ratio (1.0-2.8) Blood Type O Positive Antibody Screen Negative Crossmatch See Detail Point of Care Testing Stool Occult Blood Negative Imaging Data CT scan - abdomen: Radiologist's impression: Isaac Mccarthy 83 F 1935 [place] [address] CT Scan Report Signed Patient: Isaac Mccarthy MMR#: [id number] : 1935cct:[id number] Age/Sex: 83 / FDate of Service: 11/29/18 Loc: ED Accession Number: [id number] Procedure: CT kidney ureter bladder (KUB) Ordering Provider: Pricness Olguin D.O. PROCEDURE: CT KIDNEY URETER BLADDER (KUB) INDICATIONS: hematuria, symptomatic anemia TECHNIQUE: Noncontrast 5 mm thick sections acquired from the diaphragms to the symphysis. 5 mm thick coronal and sagittal reformats were then performed. For radiation dose reduction, the following was used: automated exposure control, adjustment of mA and/or kV according to patient size. COMPARISON: None. FINDINGS: Image quality: Excellent. Lung bases: Lung bases are clear. Heart size is normal. Urinary system: The kidneys are asymmetric in size, diminutive on the right and normal in size on the left without hydronephrosis or nephrolithiasis bilaterally. What appears to be a 2 cm cyst is seen at the posterior cortex of the right mid kidney. No perinephric fat stranding. Both ureters appear non-dilated throughout their expected courses. Bladder wall thickness on the left is normal; no calcified bladder stones. 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 Lobulated extension into the fatty soft tissues of the space of Retzius is seen anteriorly on the right, and the obturator internus muscle is abnormally thickened and infiltrated by direct spread tapering from anteriorly to posteriorly best seen centered on series 2 image 66. This mass extends inferiorly towards the internal urethral origin. There is a faint degree of dystrophic calcification along the lumenal border of the mass. Other solid organs: Liver is normal in size. Gallbladder contains a small calcified gallstone.. Pancreas is normal in contours. Spleen is normal in size. No adrenal nodules. Peritoneum and bowel: Unenhanced bowel loops demonstrate normal wall thickness and caliber. No free fluid or air. Nodes and vessels: No retroperitoneal or mesenteric adenopathy by size criteria. Aorta and inferior vena cava are normal in caliber. Abdominal wall: No ventral hernias. Pelvis: No free pelvic fluid. No inguinal hernias or adenopathy. Bones: No suspicious bony lesions. No vertebral body compression fractures. IMPRESSION: Large malignant appearing invasive bladder mass centered to the right of midline, anterolaterally, invading into the adjacent right lateral lower pelvic wall, and approaching the internal urethral orifice. The gallbladder contains a small calcified gallstone but shows no evidence of acute cholecystitis or biliary obstruction. Dictated by: Jared Cantor M.D. on 11/29/2018 at 16:49 Approved by: Jared Cantor M.D. on 11/29/2018 at 16:56 ECG Data Attestation: I personally reviewed and interpreted this ECG as follows: Interpretation: Sinus bradycardia rate of 54 MA interval 158 QRS 80 QTC of 423. No ST elevation or depression. MDM Narrative Medical decision making narrative: Patient comes in with complaint of hematuria, she feels weak. Some hypotensive. Initially given fluids, hemoglobin was noted to be decreased in the range of 9. She has been slowly decreasing over several months with an drop from 10-9 over the last week and a half. Patient has no bladder cancer, she has a large bladder mass which she is aware of. This is likely the source of her hematuria. I spoke with Urology as well as Dr. Triana who is covering for her urology group with Dr. Zacarias. [place] recommended Clarke and irrigation, Dr. Triana recommends no Clarke as he suspects that this will all cause an increase in bleeding especially if she is able to urinate. Patient is not having any other symptoms at this time, no dizziness, no chest pain, no shortness of breath. she has continued to be hypotensive. Her labs show multiple abnormalities. Neither service recommended surgery at this time. She is on aspirin and Plavix secondary to a CVA that occurred 3 weeks ago. Patient is asking to stay here locally but we do not have Urology. And if patient continues to have bleed or worsening hypotension and would need surgical intervention we do not have this available. Patient is c urrently receiving blood. [facility] does not have any beds. Patient is adamant that she does not wish to be transferred. Spoke with her daughters who were both at bedside as well as the patient. They state that she has terminal, she is aware of this. She does not want resuscitation and is DNR/DNI. We discussed that if she continued to bleed we can give some additional blood but would not continue offered indeterminate amount of time. We would not do pressors or medications to increa se her blood pressure. Patient and family states that is is fine, they state they have been told that they cannot have surgery because she would from the anesthesia any way. Re-contacted and spoke with Chuckie Coleman NP who is taking over for Dr. redman and updated him on this and they accept for observation. Discharge Plan Departure Patient Disposition: Admitted as Observation Clinical Impression: Hypotension, Bladder cancer, Anemia Discharge Date/Time: 11/29/18 19:41 Interventions: ED Discharge Assessment Last Done: 11/29/18 19:37 Admit Date/Time: 11/29/18 19:31 Admit Provider: Satish Coleman
--- NOTE | 2018-11-29 16:23 | DI.CT.S_ITS ---
PROCEDURE: CT KIDNEY URETER BLADDER (KUB) INDICATIONS: hematuria, symptomatic anemia TECHNIQUE: Noncontrast 5 mm thick sections acquired from the diaphragms to the symphysis. 5 mm thick coronal and sagittal reformats were then performed. For radiation dose reduction, the following was used: automated exposure control, adjustment of mA and/or kV according to patient size. COMPARISON: None. FINDINGS: Image quality: Excellent. Lung bases: Lung bases are clear. Heart size is normal. Urinary system: The kidneys are asymmetric in size, diminutive on the right and normal in size on the left without hydronephrosis or nephrolithiasis bilaterally. What appears to be a 2 cm cyst is seen at the posterior cortex of the right mid kidney. No perinephric fat stranding. Both ureters appear non-dilated throughout their expected courses. Bladder wall thickness on the left is normal; no calcified bladder stones. 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 Lobulated extension into the fatty soft tissues of the space of Retzius is seen anteriorly on the right, and the obturator internus muscle is abnormally thickened and infiltrated by direct spread tapering from anteriorly to posteriorly best seen centered on series 2 image 66. This mass extends inferiorly towards the internal urethral origin. There is a faint degree of dystrophic calcification along the lumenal border of the mass. Other solid organs: Liver is normal in size. Gallbladder contains a small calcified gallstone.. Pancreas is normal in contours. Spleen is normal in size. No adrenal nodules. Peritoneum and bowel: Unenhanced bowel loops demonstrate normal wall thickness and caliber. No free fluid or air. Nodes and vessels: No retroperitoneal or mesenteric adenopathy by size criteria. Aorta and inferior vena cava are normal in caliber. Abdominal wall: No ventral hernias. Pelvis: No free pelvic fluid. No inguinal hernias or adenopathy. Bones: No suspicious bony lesions. No vertebral body compression fractures. IMPRESSION: Large malignant appearing invasive bladder mass centered to the right of midline, anterolaterally, invading into the adjacent right lateral lower pelvic wall, and approaching the internal urethral orifice. The gallbladder contains a small calcified gallstone but shows no evidence of acute cholecystitis or biliary obstruction. Dictated by: Jared Cantor M.D. on 11/29/2018 at 16:49 Approved by: Jared Cantor M.D. on 11/29/2018 at 16:56
--- NOTE | 2018-11-29 21:49 | PM.HP.1 ---
History of Present Illness Date Patient Seen: 11/29/18 Time Patient Seen: 21:11 Chief complaint: states she has bladder cancer,blood in urine Narrative: Isaac Mccarthy is an 83-year-old female with a past medical history of hypertension, hyperlipidemia, current smoker and chronic kidney disease stage 3. She is BRCA mutation with previous ovarian cancer status post total hysterectomy with BSO and chemotherapy for 2 years at [facility] thought to be in remission, thyroid cancer status post thyroidectomy and radioiodine ablation, and current bladder cancer evaluated at [facility] and is on immunotherapy for [address] Reddy. She presents with to the emergency department complaints of generalized weakness, blood and clots in her urine. Patient was admitted to the hospital on 11/15/2018 and discharged on 11/17/2018 following an abrupt onset of neurologic symptoms including word salad. The patient was found to temporal parietal CVA and was started on aspirin and Plavix. Following initiation dual anti-platelet therapy patient developed hematuria that she describes as intermittent but has been worse over the last few days but hands she has had no hematuria today. The patient has been told that her bladder cancer is terminal but she has several years to live. She also reports that she will be started on chemotherapy. Patient denies complaints of pain has had no recent cold or flu symptoms. She denies headaches or dizziness and has no visual changes or difficulty swallowing. She reports no complaints of chest pain endorses long history of palpitations. She reports no shortness of breath but has mild dyspnea on exertion she relates to lack of exercise. She denies abdominal pain, nausea vomiting. She does report several days of loose diarrhea. She denies urgency frequency or burning on urination. She reports no complaints back or joint pains. On CT scan today the lesion is found to measure 10.6 cm x 4.8 cm x 9.1 cm laying right midline of bladder invading the lateral pelvic wall. CT can further defines no hydronephrosis, kidney stones or dilated ureters. CBC obtained in the ER finds hemoglobin of 9.3 and hematocrit of 27.7. She had a previous hemoglobin of 10.7 on 11/16/2018. The patient did receive 1 unit of blood started in the emergency department. The patient is admitted for further evaluation and treatment is requesting not to be transferred and does not desire any aggressive treatment and has declared herself to be do not resuscitate. Patient History Medical History Bladder cancer (Acute) Hyperlipidemia (Acute) Secondary hypothyroidism (Acute) Tobacco dependence (Acute) CAD (coronary artery disease) (Chronic 2013) Hypertension (Chronic) Drug-induced anaphylaxis (Resolved 2013) Kidney failure (Resolved 2014) Non-STEMI (non-ST elevated myocardial infarction) (Resolved 2013) Ovarian cancer (Resolved 2002) Thyroid cancer (Resolved 1997) Surgical History S/P appy (Acute) History of thyroidectomy (Resolved 1997) Status post hysterectomy with oophorectomy (Resolved 2002) Family History Mother Ovarian cancer Breast cancer Father Heart attack Daughter Breast cancer Daughter Breast cancer Social History household members: none Smoking Status: Current every day smoker alcohol intake: current substance use type: does not use Family & Social History Family History Mother Ovarian cancer Breast cancer Father Heart attack Daughter Breast cancer Daughter Breast cancer Social History: household members none Prior Living Arrangements House Safety & Behavioral: Feels Safe in Current Yes Environment Been Physically Hurt or No Threatened By a Person Suicidal Ideation Description None Suicide Plan Description No Plan Tobacco & Substance use: Tobacco type cigarettes Smoking Status Current every day smoker alcohol intake current alcohol intake frequency a few times a week Substance Use Type does not use Meds Home Medications Medication Instructions Recorded Confirmed Type aspirin 81 mg PO DAILY #0 03/20/11 11/29/18 History atorvastatin [Lipitor] 40 mg PO BEDTIME #30 tab 11/20/18 11/29/18 Rx clopidogrel 75 mg PO DAILY #30 tab 11/20/18 11/29/18 Rx calcitriol 0.25 mcg capsule 0.25 mcg PO MOWEFR #36 cap 11/21/18 11/29/18 Rx nitrofurantoin monohyd/m-cryst 100 mg PO BIDX7 11/26/18 11/29/18 History [Macrobid] levothyroxine 100 mcg PO DAILY 11/29/18 11/29/18 History metoprolol tartrate 75 mg PO BID 11/29/18 11/29/18 History Allergies Allergy/AdvReac Type Severity Reaction Status Date / Time lisinopril [LISINOPRIL] Allergy Severe Swelling Verified 11/15/18 13:51 of Lip/Tongue/Throat Sulfa (Sulfonamide Allergy Intermediate Rash Verified 11/15/18 13:51 Antibiotics) [SULFA (SULFONAMIDE ANTIBIOTICS)] sertraline AdvReac Intermediate Diarrhea Verified 11/15/18 13:51 Exam Vital Signs (past 8 hours): - 11/29/18 14:10 11/29/18 14:19 11/29/18 15:00 Temperature 97.2 F L Pulse Rate 71 67 54 L Respiratory Rate 16 16 23 Blood Pressure 81/57 L Blood Pressure [Left Arm] 70/49 L 80/43 L Pulse Oximetry 99 98 98 11/29/18 15:03 11/29/18 15:30 11/29/18 16:49 Temperature 98.1 F Pulse Rate 55 L 57 L 76 Respiratory Rate 23 18 25 H Blood Pressure 108/89 Blood Pressure [Left Arm] 80/43 L 85/45 L Pulse Oximetry 99 100 11/29/18 17:06 11/29/18 17:15 11/29/18 17:30 Temperature 97.7 F 97.7 F 97.4 F L Pulse Rate 58 L 59 L 59 L Respiratory Rate 24 21 20 Blood Pressure 81/41 L 88/44 L 110/53 L Blood Pressure [Left Arm] Pulse Oximetry 11/29/18 18:08 11/29/18 18:30 11/29/18 19:00 Temperature 97.7 F Pulse Rate 63 61 61 Respiratory Rate 28 H 24 26 H Blood Pressure 96/40 L Blood Pressure [Left Arm] 101/50 L 110/47 L Pulse Oximetry 100 100 11/29/18 19:30 11/29/18 19:50 Temperature 98.9 F Pulse Rate 60 68 Respiratory Rate 28 H 15 Blood Pressure 116/69 Blood Pressure [Left Arm] 105/76 Pulse Oximetry 98 93 Oxygen Delivery Method Room Air Narrative Exam Narrative: GENERAL APPEARANCE: well developed, well nourished, in no acute distress. HEAD: Normocephalic, atraumatic, no scalp lesions. EYES: pupils equal, round, reactive to light and accommodation, sclera non-icteric, extraocular movement intact without nystagmus . EARS: normal external structures, no ear pain NOSE: sinuses non tender to percussion, no rhinorrhea ORAL CAVITY: mucosa moist without lesions or exudate, patient has own dentition, palate normal, tongue in midline. THROAT: no erythema, no exudate, pharynx normal, uvula midline. NECK/THYROID: Well-healed low anterior transverse surgical scar, neck supple, no jugular venous distention, no carotid bruit, trachea midline. LYMPH NODES: no cervical or supraclavicular lymphadenopathy. SKIN: warm and dry, no suspicious lesions, no rashes, good turgor. HEART: regular rate and rhythm, S1-S2, 1/6 systolic murmur, rubs, gallops, brisk capillary refill, no edema LUNGS: clear to auscultation bilaterally, no coarseness crackles or wheezing, no cough present CHEST: Symmetrical movement, no accessory muscle use, no pain to AP and lateral compression. ABDOMEN: Soft, no distention, no epigastric or abdominal tenderness on palpation, no guarding or peritoneal signs, no organomegaly or palpable mass, no flank or suprapubic tenderness BACK: Normal curvature, nontender to palpation EXTREMITIES: moves all extremities, strength is 5/5 and symmetrical, well perfused. NEUROLOGIC: AAO x4, no focal neurologic deficits, cranial nerves II-XII grossly intact , motor strength normal upper and lower extremities, sensory exam intact to light touch, hearing grossly normal to speech. PSYCH: alert, cognitive function intact, thought is linear with brisk response, good eye contact, stable mood with congruent affect Objective Labs Result Diagrams: 11/29/18 14:00 11/29/18 14:00 Labs: Laboratory Results - last 24 hr 11/29/18 11/29/18 11/29/18 14:00 14:00 14:00 WBC 6.5 RBC 3.10 L Hgb 9.3 L Hct 27.9 L MCV 89.8 MCH 29.8 MCHC 33.2 RDW 15.5 H Plt Count 337 Neut % (Auto) 80.0 H Lymph % (Auto) 9.0 L Patrick % (Auto) 9.8 Eos % (Auto) 0.3 L Baso % (Auto) 0.9 Neut # (Auto) 5200 Lymph # (Auto) 600 L Patrick # (Auto) 600 Eos # (Auto) 0 Baso # (Auto) 100 PT 11.6 INR 1.0 APTT 22 L Sodium 128 L Potassium 3.8 Chloride 94 L Carbon Dioxide 22 BUN 38 H Creatinine 1.70 H Estimated GFR 28.8 L BUN/Creatinine Ratio 22.4 H Glucose 114 H Lactate Calcium 7.7 L Total Bilirubin 0.7 AST 283 H ALT 154 H Alkaline Phosphatase 588 H Total Creatine Kinase 150 H CK-MB (CK-2) 1.14 CK-MB (CK-2) Rel Index 0.8 L Troponin I 0.043 H Total Protein 6.9 Albumin 3.5 Globulin 3.4 Albumin/Globulin Ratio 1.0 Blood Type Antibody Screen Crossmatch 11/29/18 11/29/18 14:00 15:41 WBC RBC Hgb Hct MCV MCH MCHC RDW Plt Count Neut % (Auto) Lymph % (Auto) Patrick % (Auto) Eos % (Auto) Baso % (Auto) Neut # (Auto) Lymph # (Auto) Patrick # (Auto) Eos # (Auto) Baso # (Auto) PT INR APTT Sodium Potassium Chloride Carbon Dioxide BUN Creatinine Estimated GFR BUN/Creatinine Ratio Glucose Lactate 0.9 Calcium Total Bilirubin AST ALT Alkaline Phosphatase Total Creatine Kinase CK-MB (CK-2) CK-MB (CK-2) Rel Index Troponin I Total Protein Albumin Globulin Albumin/Globulin Ratio Blood Type O Positive Antibody Screen Negative Crossmatch See Detail Assessment & Plan Assessment & Plan narrative: This is an 83-year-old female who is status post CVA 2 weeks ago started on aspirin and Plavix who developed hematuria with a history of bladder cancer. 1. Hematuria with blood clots, not present on admission -patient with episodic hematuria and passing blood clots since starting on DAPT for CVA -patient reports passing no bloody urine or clots today, note by Dr. Downs on 11/20/2018 notes no complaints of hematuria, no hematuria noted by nursing staff. -hemoglobin on 11/16/2017 was 10.7 down to 9.3 today -patient was transfused 1 unit of packed red blood cells in the ER, 2nd unit is canceled -previous urinalysis found E.Coli Bacteriuria - 60,000 colonies, patient was asymptomatic at the time. -patient started on nitrofurantoin 100 mg twice daily by Oncology on 11/26/2018 which is discontinued related to acute on chronic CKD with a GFR of 28.4 -will recheck urinalysis -will check CBC in the morning 2. History of Left Temporal Parietal CVA, chronic, stable -Patient presented with abrupt onset word salad, dysarthria and expressive aphasia on 11/15/2018. On examination today the patient has no focal neurological deficits. -Patient has significant cardiovascular risk factors which include: Current smoker, hypertension, hyperlipidemia, several cancers and currently active bladder cancer, and family history. -MRI demonstrated high-grade stenosis at the right common carotid artery, not matching the location of the stroke on the left side. -echocardiogram completed on prior visit with moderate mitral regurgitation and EF 55-60%. -discussed risks versus benefits of dual platelet therapy versus aspirin alone. Continue aspirin 81 mg daily, will hold Plavix and continue atorvastatin from 40 mg daily at bedtime. -vascular consult recommended for right carotid stenosis, unknown status of follow-up. 3. Bladder cancer, present on admission, active -Patient followed by Dr. Downs and Dr. Zacarias of Oncology and Urology respectively. -Patient is currently on immunotherapy with Keytruda, patient has completed 8 weeks of therapy -per patient report will be starting chemotherapy 4. Acute on chronic renal failure, present on admission -patient reports no urinary symptoms but does endorse decreased oral fluid intake -on 11/15/2018 BUN was 18 with a creatinine of 1.1, EGFR was 47.7. Today she has a BUN of 38 with a creatinine up to 1.7 with an EGFR of 28.8. - the patient is also hyponatremic with for the same period her sodium went from 135 to 128 -the patient on exam appears dehydrated, will gently rehydrate with normal saline at 75 cc/hour. -will recheck chemistries in the morning 5. Elevated LFTs, present on admission, acute -patient reports complaints of diarrhea for last several days -liver function tests checked on 11/13/2018 revealed AST of 18, ALT 17, alkaline phosphatase of 133 and a total bilirubin of 0.4. Repeat testing today finds an AST of 283, ALT of 154, alkaline phosphatase of 588 and bilirubin of 0.7 -patient denies complaints of abdominal pain or nausea. -will obtain acute hepatitis panel as well as GI panel. -will obtain abdominal ultrasound of the right upper quadrant 6. Hypertension, chronic, present on admission. Active -patient initially hypotensive in the emergency department responsive to fluid bolus -patient also received 1 unit packed red cells -acceptable blood pressure 116/69. -no complaints of chest pain positive reports of palpitations will continue metoprolol 75 mg twice daily 7. Hyperlipidemia, chronic, present on admission. Presumed stable. -total cholesterol 137 with LDL 60. -Increased atorvastatin from 10 mg to 40 mg daily at bedtime as above. With those relatively low numbers consider repeating soon and possibly decreasing back to 10 mg. 8. Secondary hypothyroidism, chronic, present on admission. Stable. -TSH on last admission was normal at 1.74 -Continue levothyroxine 100 mcg daily. 9. Tobacco dependence, present on admission. Active. -smoking cessation greater than 3 minutes less than 10 minute discussion. -she says she will try to stop smoking, currently at 2 cigarettes per day. The patient is admitted to the hospital due to severity of symptoms and risk for complications. She will be admitted observation status with expected length stay less than 2 midnights. Time Spent With Patient Time with patient: 25 - 35 minutes Scores GCS Aubrey coma scale eye opening: Spontaneous [place] coma scale verbal response: Orientated [place] coma scale motor response: Obey commands [place] coma scale total score: 15 NIHSS Level of Conciousness: Alert, keenly responsive Ask month/age: Answers both questions correctly. Open/close eyes, close hand: Performs both tasks correctly Best gaze horizontal: Normal Visual ferrer: No visual loss Facial palsy: Normal symetrical movement Left arm drift: No drift for full 10 sec Right arm drift: No drift for full 10 sec Left leg drift: No drift for full 10 sec Right leg drift: No drift for full 10 sec Limb ataxia: Absent Sensory on face/arms/legs: Normal, no sensory loss Best language: No aphasia, normal Dysarthria: Normal Extinction or inattention: No abnormality Total NIH Stroke scale score: 0
[2018-11-29] MEDS: ATORVASTATIN 20 MG TABLET 40 MG PO (22:57)
[2018-11-29] MEDS: METOPROLOL IR 50 MG TABLET 75 MG PO (22:57)
[2018-11-29] MEDS: SODIUM CHLORIDE 0.9% 1,000 ML 75 ML IV (22:58)
--- NOTE | 2018-11-29 23:01 | PC.NURSE ---
admission/evening shift note- Patient arrived to room via srtretcher from ER. Patient able to scoot self from stretcher to bed. Patient alert and oriented and able to make needs known to staff. Patient pleasent, calm, and cooperative with care. Admission questiohns done, home medications reviewed, and physical assessment completed. Safety measures in place. patient agrees to call for assistance. bed alarm activated. call dunaway and phone within reach. will continue to monitor.
[2018-11-30 00:14] VITALS: O2SAT 93
[2018-11-30 00:45] VITALS: BP 93/42; PULSE 59; RESP 16; TEMP 36.3; O2SAT 98
[2018-11-30 01:35] VITALS: BP 99/41
--- NOTE | 2018-11-30 01:55 | PC.NURSE ---
Pt is alert and oriented. Tends to be hypotensive this am. 98/59, 93/42, 99/41, continuing to monitoring. Denies pain, lung sounds clear.
[2018-11-30 06:00] VITALS: BP 114/51; PULSE 62; RESP 16; TEMP 36.7; O2SAT 96
[2018-11-30 06:08] LABS: Hematocrit 29.1 % (36-46); Hemoglobin 9.7 g/dL (12.0-16.0); Mean Corpuscular HGB Conc 33.4 % (30-36); Mean Corpuscular Hemoglobin 29.8 PG (26-34); Mean Corpuscular Volume 89.2 fL (80-100); Platelet Count 278 X10^3/uL (150-400); Red Blood Cell Count 3.26 X10^6/uL (4.0-5.2); Red Cell Distribution Width 15.4 % (11.6-14.8); White Blood Cell Count 5.7 X10^3/uL (4.5-11.0)
[2018-11-30 06:21] LABS: Add Manual Diff / Slide Review YES; BUN Creatinine Ratio 21.4 (6-22); Blood Urea Nitrogen 30 mg/dL (7-17); Calcium 7.2 mg/dL (8.4-10.2); Carbon Dioxide 19 mmol/L (22-32); Chloride 104 mmol/L (98-107); Estimated Glomerular Filt Rate 36.1 mL/min (>60); Glucose 87 mg/dL (80-110); HEMOLYSIS < 15 (0-50); Magnesium 2.2 mg/dL (1.6-2.3); Potassium 3.5 mmol/L (3.4-5.1); Sodium 133 mmol/L (137-145)
[2018-11-30 06:24] LABS: Appearance Urine UA CLOUDY; Bilirubin Urine UA NEGATIVE (NEGATIVE); Glucose Urine UA NEGATIVE (Negative); Ketones Urine UA NEGATIVE (NEGATIVE); Leukocyte Esterase Urine UA 3+ (NEGATIVE); Nitrite Urine UA NEGATIVE (Negative); Occult Blood Urine UA 3+ (Negative); Protein Urine UA 2+ (Negative); Specific Gravity Urine UA 1.015 (1.000-1.035); pH Urine UA 7.5 (4.5-8.0)
[2018-11-30 06:26] LABS: Color Urine UA BROWN
[2018-11-30 06:36] LABS: Bacteria Urine Many (>30); RBC Urine >100/HPF (0-5/HPF); WBC Urine >100/HPF (0-5/HPF)
[2018-11-30 06:37] LABS: Culture Indicated Urine Specimen Cultured; Squamous Epithelial Cell Urine 0-1 /HPF (0-5/HPF)
[2018-11-30 06:50] LABS: Neutrophils Absolute Manual 4161 /uL (3000-5900); Total Cells Counted 100
[2018-11-30 06:53] LABS: Acanthocytes 1+
[2018-11-30 07:00] VITALS: O2SAT 96
[2018-11-30 08:48] VITALS: BP 93/38; PULSE 59; RESP 16; TEMP 36.9; O2SAT 96
[2018-11-30] MEDS: ASPIRIN EC 81 MG TABLET PO (09:04)
[2018-11-30] MEDS: LEVOTHYROXINE 100 MCG TABLET PO (09:04)
--- NOTE | 2018-11-30 09:12 | PC.NURSE ---
Am shift Pt is up to BR with PT, loose stool mixed with hematuria. Unable to obtain sample. PT is working with Pt who let Dr Lorenzo know in rounds, she is d/c ready today. Weakness improved, not resolved. SBA. IVF infusing.
--- NOTE | 2018-11-30 10:09 | PT.IIE ---
Surgical History (Last Reviewed 11/29/18 @ 22:25 by RINA Self) S/P appy (Acute) History of thyroidectomy (Resolved 1997) Status post hysterectomy with oophorectomy (Resolved 2002) Medical History (Last Reviewed 11/29/18 @ 22:25 by RINA Self) Bladder cancer (Acute) Hyperlipidemia (Acute) Secondary hypothyroidism (Acute) Tobacco dependence (Acute) CAD (coronary artery disease) (Chronic 2013) Hypertension (Chronic) Drug-induced anaphylaxis (Resolved 2013) Kidney failure (Resolved 2014) Non-STEMI (non-ST elevated myocardial infarction) (Resolved 2013) Ovarian cancer (Resolved 2002) Thyroid cancer (Resolved 1997) Physical Therapy Inpatient Evaluation/Re-Eval M1 PT/OT-IP Prior Functional Status Start: 11/30/18 09:36 Freq: NEEDED Status: Active Protocol: Document 11/30/18 09:44 NFW (Rec: 11/30/18 10:09 NFW [id number]) Medical Review Prior Functional Status Medical History Reviewed Yes Mobility and Gait Ambulates with no assistive devices. Activities of Daily Living and IADL's Independent with all ADL's, does light cooking, drives to her doctor's appointments and to the [employer]. Has a time clerk once a month and has assist with yardwork. Daughter does her grocery shopping. Social History Household Members none Living Arrangements House Number of Floors (Floors) One Floor Number of Stairs To Enter/Railing? One step, no railing. 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 She is having friends in the next couple of weeks install grab bars in her shower. She does have a bench that she can put into her shower as well. Patient's daughter from [place] will be staying with her over the next week or as long as needed. She also has a daughter that lives in [facility] and a son in [place] [facility]. M2 PT-IP Current Condition Start: 11/30/18 09:36 Freq: NEEDED Status: Active Protocol: Document 11/30/18 09:44 NFW (Rec: 11/30/18 10:09 NFW [id number]) Physical Therapy Current Condition Current Condition Evaluation Date 11/30/18 Treatment Diagnosis Generalized Weakness Onset Date 11/29/18 Weight Bearing Status Weight Bearing Status Full Weight Bearing M3 PT-IP Subjective Start: 11/30/18 09:36 Freq: NEEDED Status: Active Protocol: Document 11/30/18 09:44 NFW (Rec: 11/30/18 10:09 [facility] [id number]) Subjective Physical Therapy Visit Type Type Initial Evaluation Visit Start Time 09:00 Visit Stop Time 09:40 Total Visit Minutes 40 Number of CARDIOVASCULAR OPERATING ROOM NURSE Visits 0 Physical Therapy Visit Comments Patient Comments Patient pleasant, answers all questions appropriately. Anxious to return to her home. Patient Goals To return to her home. Daughter will be staying with patient for at least a week or as long as needed. Therapy Pain Assessment Pain When Pain Assessed After Treatment Pain Present Pain Present Denied Pain M4 PT-IP Mobility and Gait Start: 11/30/18 09:36 Freq: NEEDED Status: Active Protocol: Document 11/30/18 09:44 NFW (Rec: 11/30/18 10:09 W [id number]) PT-Bed Mobility Assessment Rolling Type of Rolling Bilateral Level of Assist Independent Supine to Sit Supine to Sit Independent Sit to Supine Sit to Supine Independent Scooting Scooting to Edge of Bed Independent Scooting Up and Down in Bed Independent PT-Transfer Assessment Sit to and From Stand Sit to and from Stand Independent Equipment Transfer Assistive Device Gait Belt Orthotic/Prosthetic Devices or Brace: No Transfers Transfer Destination Bed Chair Toilet Transfer Technique Stand Step Pivot Transfer Ability Level of Assist Standby Assistance Gait Assessment Gait Gait Assistance Required: Standby Assistance Distance (Feet) 80 Assistive Devices Assistive Device Gait Belt Gait Deviations General Gait Pattern Within Normal Limits Decreased Stride Length Comments Gait Comments In general, patient's gait stable. Able to sidestep, walk backwards with SBA. Follows directions well. Stair Climbing Assessment Comments Stair Climbing Comments Did not test on stair climbing but had patient step over objects as she has a threshold to step over to get into the shower. Stable with testing. PT-Balance Assessment Sitting Balance and Reactions Static Sitting Balance Ability Normal Dynamic Sitting Balance Ability Normal Standing Balance and Reactions Static Standing Balance Ability Normal Dynamic Standing Balance Ability Normal Comments Other Balance Tests/Deviations/Treatment Challenged in all directions : in standing - did excellent. Standing partial squats - no difficulty. Overhead reach and forward reaching - no difficulty. M5 PT-IP Objective Assessments Start: 11/30/18 09:36 Freq: NEEDED Status: Active Protocol: Document 11/30/18 09:44 NFW (Rec: 11/30/18 10:09 NFW [id number]) Orientation Orientation/Cognition Level of Alertness Alert Orientation Name Age Date Day of Week Place Situation Language Function Ability No Deficits Noted Safety Awareness Understands Safety Issues Memory Description No Deficits Noted Gross Range of Motion Upper Extremity ROM Assessment Within Functional Limits Lower Extremity ROM Assessment Within Functional Limits Strength Upper Extremity Strength Assessment Within Functional Limits Lower Extremity Strength Assessment Within Functional Limits Muscle Tone Muscle Tone WNL Yes M6 PT-IP Treatment Start: 11/30/18 09:36 Freq: NEEDED Status: Active Protocol: Document 11/30/18 09:44 NFW (Rec: 11/30/18 10:09 NFW [id number]) Physical Therapy Treatment Education Education Provided Precautions Safety M7 PT-IP Assessment and Plan Start: 11/30/18 09:36 Freq: NEEDED Status: Active Protocol: Document 11/30/18 09:44 NFW (Rec: 11/30/18 10:09 NFW [id number]) PT Summary Assessment and Plan Potential Rehabilitation Potential Excellent Status of Condition at Evaluation Stable Summary Impairments Strength Progress Towards Goals Progressing Toward Goals Assessment Summary Patient states that upon admission she felt generalized weakness. That weakness is no longer noted. She performed all tasks without difficulty. She is ready to be discharged home. Goals Bed Mobility Goal Independent Transfer Goal Independent Gait Goal Independent Days to Meet Goals 1 Frequency of Treatment Frequency Of Treatment Discharge Recommendations To Nursing Amount of Assist Needed Standby Assistance Discharge Recommendations PT Discharge Recommendations Home with Assistance Other Discharge Recommendations Patient's daugther will be with patient for at least a week.
--- NOTE | 2018-11-30 10:18 | P.DS_ITS ---
History of Present Illness Date Patient Seen: 11/30/18 Time Patient Seen: 10:18 Chief complaint: states she has bladder cancer,blood in urine Narrative: Isaac Mccarthy is an 83-year-old female with a past medical history of hypertension, hyperlipidemia, current smoker and chronic kidney disease stage 3. She is BRCA mutation with previous ovarian cancer status post total hysterectomy with BSO and chemotherapy for 2 years at [facility] thought to be in remission, thyroid cancer status post thyroidectomy and radioiodine ablation, and current bladder cancer evaluated at [facility] and is on immunotherapy for [address] Reddy. She presents with to the emergency department complaints of generalized weakness, blood and clots in her urine. Patient was admitted to the hospital on 11/15/2018 and discharged on 11/17/2018 following an abrupt onset of neurologic symptoms including word salad. The patient was found to temporal parietal CVA and was started on aspir in and Plavix. Following initiation dual anti-platelet therapy patient developed hematuria that she describes as intermittent but has been worse over the last few days but hands she has had no hematuria today. The patient has been told that her bladder cancer is terminal but she has several years to live. She also reports that she will be started on chemotherapy. Patient denies complaints of pain has had no recent cold or flu symptoms. She denies headaches or dizziness and has no visual changes or difficulty swallowing. She reports no complaints of chest pain endorses long history of palpitations. She reports no shortness of breath but has mild dyspnea on exertion she relates to lack of exercise. She denies abdominal pain, nausea vomiting. She does report several days of loose diarrhea. She denies urgency frequency or burning on urination. She reports no complaints back or joint pains. On CT scan today the lesion is found to measure 10.6 cm x 4.8 cm x 9.1 cm laying right midline of bladder invading the lateral pelvic wall. CT can further defines no hydronephrosis, kidney stones or dilated ureters. CBC obtained in the ER finds hemoglobin of 9.3 and hematocrit of 27.7. She had a previous hemoglobin of 10.7 on 11/16/2018. The patient did receive 1 unit of blood started in the emergency department. The patient is admitted for further evaluation and treatment is re questing not to be transferred and does not desire any aggressive treatment and has declared herself to be do not resuscitate. Discharge Providers Date of admission: 11/29/18 19:31 Discharge Date: 11/30/18 Consults: 11/29/18 20:20 Consult to Dietitian, Adult Routine Comment: Reason For Exam: weight loss 11/29/18 21:42 Consult to Discharge Planning Routine Comment: 11/30/18 08:13 Consult to Physical Therapy Evaluate & Treat Comment: weakness, eval for d/c home alone Physician Instructions: Evaluate and Treat Discharge provider: Verona Lorenzo MD Summary Discharge Diagnosis: 1. Hematuria with blood clots 2. History of Left Temporal Parietal CVA 3. Bladder cancer 4. Acute on chronic renal failure 5. Elevated LFTs 6. Hypertension 7. Hyperlipidemia 8. Secondary hypothyroidism 9. Tobacco dependence 10. Acute on Chronic Anemia Hospital Course: 1. Hematuria with blood clots, present on admission -patient with episodic hematuria and passing blood clots since starting on Plavix and Aspirin for CVA -patient reports passing bloody urine and clots today, note by Dr. Downs on 11/20/2018 notes no complaints of hematuria, no hematuria noted by nursing staff. -hemoglobin on 11/16/2017 was 10.7 down to 9.3 today -begin daily ferrous sulfate and vitamin C to correct the iron deficiency. -patient was transfused 1 unit of packed red blood cells in the ER, 2nd unit is canceled -previous urinalysis found E.Coli Bacteriuria - 60,000 colonies, patient was asymptomatic at the time. -patient started on nitrofurantoin 100 mg twice daily by Oncology on 11/26/2018 which is discontinued related to acute on chronic CKD with a GFR of 28.4 -hemoglobin 9.7 today -urinalysis shows 3+ leukocytes, greater than 100 WBCs and greater than 100 RBCs. Since she is having no gross hematuria, and also no UTI symptoms we will defer treatment until culture result is available. She will be following up with Dr. Andrade and/or Dr. Downs soon. 2. History of Left Temporal Parietal CVA, chronic, stable -Patient presented with abrupt onset word salad, dysarthria and expressive aphasia on 11/15/2018. On examination today the patient has no focal neurological deficits. -Patient has significant cardiovascular risk factors which include: Current smoker, hypertension, hyperlipidemia, several cancers and currently active bladder cancer, and family history. -MRI demonstrated high-grade stenosis at the right common carotid artery, not matching the location of the stroke on the left side. -echocardiogram completed on prior visit with moderate mitral regurgitation and EF 55-60%. -discussed risks versus benefits of dual platelet therapy versus aspirin alone. Continue aspirin 81 mg daily, will stop Plavix and stop atorvastatin due to the rising LFT. -vascular consult recommended for right carotid stenosis, unknown status of follow-up. 3. Bladder cancer, present on admission, active -Patient followed by Dr. Downs and Dr. Zacarias of Oncology and Urology respectively. -Patient is currently on immunotherapy with Keytruda, patient has completed 8 weeks of therapy -per patient report will be starting chemotherapy -she expects to see Dr. Downs on December 13. 4. Acute on chronic renal failure, present on admission -patient reports no urinary symptoms but does endorse decreased oral fluid intake -on 11/15/2018 BUN was 18 with a creatinine of 1.1, EGFR was 47.7. Today she has a BUN of 30 with a creatinine down to 1.4. - the patient is also hyponatremic with for the same period her sodium went from 135 to 128 and then today to 133 5. Elevated LFTs, present on admission, acute -patient reports complaints of diarrhea for last several days but denies it today -liver function tests checked on 11/13/2018 revealed AST of 18, ALT 17, alkaline phosphatase of 133 and a total bilirubin of 0.4. Repeat testing yesterday finds an AST of 283, ALT of 154, alkaline phosphatase of 588 and bilirubin of 0.7 -patient denies complaints of abdominal pain or nausea. -pending acute hepatitis panel as well as GI panel to be followed up with Dr. Andrade soon -normal liver appearance on CT scan from yesterday. 6. Hypertension, chronic, present on admission. Active -patient initially hypotensive in the emergency department responsive to fluid bolus -patient also received 1 unit packed red cells -acceptable blood pressure 116/69. -will continue metoprolol 75 mg twice daily 7. Hyperlipidemia, chronic, present on admission. Presumed stable. -total cholesterol 137 with LDL 60. -explained to her and to her family that the current plan will be to hold the Lipitor until she sees Dr. Andrade and has her liver function tests rechecked. 8. Secondary hypothyroidism, chronic, present on admission. Stable. -TSH on last admission was normal at 1.74 -Continue levothyroxine 100 mcg daily. 9. Tobacco dependence, present on admission. Active. -smoking cessation greater than 3 minutes less than 10 minute discussion yesterday on admission. -she says she will try to stop smoking, currently at 2 cigarettes per day Exam Vital Signs (past 8 hours): - 11/30/18 06:00 11/30/18 07:00 11/30/18 08:48 Temperature 98.0 F 98.5 F Pulse Rate 62 59 L Respiratory Rate 16 16 Blood Pressure 114/51 L 93/38 L Pulse Oximetry 96 96 96 Oxygen Delivery Method Room Air Oxygen Flow Rate 0 Narrative Exam Narrative: She is alert and oriented x3. No apparent distress. heart is regular rate and rhythm without murmur. Lungs are clear to auscultation bilaterally. Abdomen is soft, nontender, no organomegaly. Bowel sounds are active. Extremities have no ankle edema. Objective Labs Result Diagrams: 11/30/18 05:44 11/30/18 05:44 Labs: Laboratory Results - last 24 hr 11/29/18 11/29/18 11/29/18 14:00 14:00 14:00 WBC 6.5 RBC 3.10 L Hgb 9.3 L Hct 27.9 L MCV 89.8 MCH 29.8 MCHC 33.2 RDW 15.5 H Plt Count 337 Neut % (Auto) 80.0 H Lymph % (Auto) 9.0 L [place] % (Auto) 9.8 Eos % (Auto) 0.3 L Baso % (Auto) 0.9 Neut # (Auto) 5200 Lymph # (Auto) 600 L [place] # (Auto) 600 Eos # (Auto) 0 Baso # (Auto) 100 Total Counted Seg Neutrophils % Band Neutrophils % Lymphocytes % (Manual) Monocytes % (Manual) Eosinophils % (Manual) Basophils % (Manual) Metamyelocytes % Neutrophils # (Manual) RBC Morphology Acanthocytes (Spur) PT 11.6 INR 1.0 APTT 22 L Sodium 128 L Potassium 3.8 Chloride 94 L Carbon Dioxide 22 BUN 38 H Creatinine 1.70 H Estimated GFR 28.8 L BUN/Creatinine Ratio 22.4 H Glucose 114 H Lactate Calcium 7.7 L Magnesium Total Bilirubin 0.7 AST 283 H ALT 154 H Alkaline Phosphatase 588 H Total Creatine Kinase 150 H CK-MB (CK-2) 1.14 CK-MB (CK-2) Rel Index 0.8 L Troponin I 0.043 H Total Protein 6.9 Albumin 3.5 Globulin 3.4 Albumin/Globulin Ratio 1.0 Urine Color Urine Appearance Urine pH Ur Specific Fate Urine Protein Urine Glucose (UA) Urine Ketones Urine Occult Blood Urine Nitrate Urine Bilirubin Urine Urobilinogen Ur Leukocyte Esterase Urine RBC Urine WBC Ur Squamous Epith Cells Urine Bacteria Ur Culture Indicated? Blood Type Antibody Screen Crossmatch 11/29/18 11/29/18 11/30/18 14:00 15:41 05:35 WBC RBC Hgb Hct MCV MCH MCHC RDW Plt Count Neut % (Auto) Lymph % (Auto) [place] % (Auto) Eos % (Auto) Baso % (Auto) Neut # (Auto) Lymph # (Auto) [place] # (Auto) Eos # (Auto) Baso # (Auto) Total Counted Seg Neutrophils % Band Neutrophils % Lymphocytes % (Manual) Monocytes % (Manual) Eosinophils % (Manual) Basophils % (Manual) Metamyelocytes % Neutrophils # (Manual) RBC Morphology Acanthocytes (Spur) PT INR APTT Sodium Potassium Chloride Carbon Dioxide BUN Creatinine Estimated GFR BUN/Creatinine Ratio Glucose Lactate 0.9 Calcium Magnesium Total Bilirubin AST ALT Alkaline Phosphatase Total Creatine Kinase CK-MB (CK-2) CK-MB (CK-2) Rel Index Troponin I Total Protein Albumin Globulin Albumin/Globulin Ratio Urine Color Brown Urine Appearance Cloudy Urine pH 7.5 Ur Specific Fate 1.015 Urine Protein 2+ H Urine Glucose (UA) Negative Urine Ketones Negative Urine Occult Blood 3+ H Urine Nitrate Negative Urine Bilirubin Negative Urine Urobilinogen 1.0 Ur Leukocyte Esterase 3+ H Urine RBC >100/hpf H Urine WBC >100/hpf H Ur Squamous Epith Cells 0-1 /hpf Urine Bacteria Many (>30) H Ur Culture Indicated? Specimen cultured Blood Type O Positive Antibody Screen Negative Crossmatch See Detail 11/30/18 11/30/18 05:44 05:44 WBC 5.7 RBC 3.26 L Hgb 9.7 L Hct 29.1 L MCV 89.2 MCH 29.8 MCHC 33.4 RDW 15.4 H Plt Count 278 Neut % (Auto) Not Reportable Lymph % (Auto) Not Reportable [place] % (Auto) Not Reportable Eos % (Auto) Not Reportable Baso % (Auto) Not Reportable Neut # (Auto) Lymph # (Auto) Not Reportable [place] # (Auto) Not Reportable Eos # (Auto) Baso # (Auto) Not Reportable Total Counted 100 Seg Neutrophils % 71.0 H Band Neutrophils % 2.0 L Lymphocytes % (Manual) 9.0 L Monocytes % (Manual) 15.0 H Eosinophils % (Manual) 1.0 L Basophils % (Manual) 1.0 Metamyelocytes % 1.0 H Neutrophils # (Manual) 4161 RBC Morphology See below Acanthocytes (Spur) 1+ H PT INR APTT Sodium 133 L Potassium 3.5 Chloride 104 Carbon Dioxide 19 L BUN 30 H Creatinine 1.40 H Estimated GFR 36.1 L BUN/Creatinine Ratio 21.4 Glucose 87 Lactate Calcium 7.2 L Magnesium 2.2 Total Bilirubin AST ALT Alkaline Phosphatase Total Creatine Kinase CK-MB (CK-2) CK-MB (CK-2) Rel Index Troponin I Total Protein Albumin Globulin Albumin/Globulin Ratio Urine Color Urine Appearance Urine pH Ur Specific Fate Urine Protein Urine Glucose (UA) Urine Ketones Urine Occult Blood Urine Nitrate Urine Bilirubin Urine Urobilinogen Ur Leukocyte Esterase Urine RBC Urine WBC Ur Squamous Epith Cells Urine Bacteria Ur Culture Indicated? Blood Type Antibody Screen Crossmatch Discharge Plan Discharge Plan Patient Disposition: Home Discharge comment: Please be sure to see Dr. Andrade soon to follow up your Liver tests and Hepatitis testing, and also the Anemia and bladder tumor bleeding. Do not take the Plavix again. Do not take the Lipitor (Atorvastatin) again until your liver blood test is rechecked and your doctor reviews it. Discharge Med Rec/Prescriptions Prescriptions: New ascorbic acid (vitamin C) [Vitamin C] 250 mg tablet 250 mg PO DAILY Qty: 30 RF: 0 ferrous sulfate 325 mg (65 mg iron) tablet 325 mg PO DAILY Qty: 30 RF: 0 Continued aspirin 81 MG tablet,delayed release (DR/EC) 81 mg PO DAILY Qty: 0 RF: 0 calcitriol 0.25 mcg capsule 0.25 mcg PO MOWEFR Qty: 36 RF: 1 nitrofurantoin monohyd/m-cryst [Macrobid] 100 mg Capsule 100 mg PO [id number] RF: 0 metoprolol tartrate 50 mg tablet See Rx Instructions .ROUTE .COMPLEX RF: 0 levothyroxine 100 mcg tablet 100 mcg PO DAILY RF: 0 Discontinued clopidogrel 75 mg Tablet 75 mg PO DAILY Qty: 30 RF: 0 atorvastatin [Lipitor] 20 mg Tablet 40 mg PO BEDTIME Qty: 30 RF: 0 Follow up/Referrals: Juanjo Andrade MD [Physician] - 12/06/18 Visit Report/Discharge Packet Instructions: Iron, Vitamin C (Ascorbic Acid), Fatigue (Alternative Therapy), Anemia, Metoprolol (By mouth) Discharge Data Attending Provider: Satish Coleman Admit Date/Time: 11/29/18 19:31
--- NOTE | 2018-11-30 11:47 | CM.IDA ---
Addendum entered by KORI Whittaker 11/30/18 12:09: DC order now in place by Dr Lorenzo. Cleared by PT for return home w/family. Original Note: Initial DCP Assessment Note: Pt is an 83 yo resident [facility], presents w/ generalized weakness, blood clots in her urine w/current dx of bladder cancer. PCP: Dr Juanjo Andrade Payer: Medicare/[facility] According to PT Eval: Independent with all ADL's, does light cooking, drives to her doctor's appointments and to the [employer]. Has a professor of latin american studies once a month and has assist with yardwork. Daughter does her grocery shopping. 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 She is having friends in the next couple of weeks install grab bars in her shower. She does have a bench that she can put into her shower as well. Patient's daughter from [place] will be staying with her over the next week or as long as needed. She also has a daughter that lives in [facility] and a son in [facility]. Met w/pt and explained role. Pt confirms all information stated above and is eager to return home today. She denies any barriers to safe return home w/family to assist. KORI Whittaker Discharge Planning/Care Management CM Discharge Assessment Start: 11/30/18 11:45 Freq: Status: Active Protocol: Document 11/30/18 11:45 MITESH (Rec: 11/30/18 11:47 [id number]) Discharge Planning Assessment Assigned Consulting Project Director KORI Rea DPOA/Assigned Designee Name Toya and Braeden Bowles dtr and SHAREE Contact Information Toya, home Advance Directives? No Advance Directives on File No History Provided By Patient Medical Record Prior Living Arrangements House Household Members none Type of transporation used prior to Drives own vehicle admit Independent with ADL's Yes Is patient alert and oriented? Yes Barriers to Discharge No Discharge Plan Home Transportation Arrangement Family can provide transport at d/c. Referrals Initiated None needed Whiteboard Updated in Patient Room with Yes name and ext. # of Consulting Project Director Review Status In Process
[2018-12-03 08:45] LABS: Hepatitis A Antibody IgM NONREACTIVE (NONREACTIVE); Hepatitis Acute Panel Interp 0.05; Hepatitis B Core Antibody IgM NONREACTIVE (NONREACTIVE); Hepatitis B Surface Antigen NONREACTIVE (NONREACTIVE); Hepatitis C Antibody NONREACTIVE
--- NOTE | 2019-01-20 15:12 | PC.NURSE ---
Late entry- Sodium chloride 0.9% infusion stopped 11/30 1205 when IV was dc'd prior to patient's discharge from hospital.
== END 2018-11-30 12:07 | disposition home or self-care (01) ==
LOC: ED 18:26 → AC 19:33
PROVIDERS: Admitting Provider Nurse Practitioner Adult Health; Emergency Provider Emergency Medicine; Visit Provider Nurse Practitioner Adult Health
DX: R31.9 Hematuria, unspecified (principal); R53.1 Weakness; E78.5 Hyperlipidemia, unspecified; E03.9 Hypothyroidism, unspecified; I25.10 Atherosclerotic heart disease of native coronary artery without angina pectoris; F17.210 Nicotine dependence, cigarettes, uncomplicated; C67.9 Malignant neoplasm of bladder, unspecified; I25.2 Old myocardial infarction; N18.3 Chronic kidney disease, stage 3 (moderate); I12.9 Hypertensive chronic kidney disease with stage 1 through stage 4 chronic kidney disease, or unspecified chronic kidney disease; Z86.73 Personal history of transient ischemic attack (TIA), and cerebral infarction without residual deficits; Z79.01 Long term (current) use of anticoagulants; D64.9 Anemia, unspecified
CPT/HCPCS: 36415; 36430; 36591; 74176; 80048; 80053; 80074; 81001; 82272; 82550; 82553; 83605; 83735; 84484; 85025; 85610; 85730; 86850; 86900; 86901; 87077; 87086; 87186; 93005; 93010; 94762; 96360; 96361; 97161; 99284; 99285; G0378; P9016

== ENCOUNTER → 2018-12-06 10:51 | Outpatient (CLI) | payer MEDICARE, OTHER, SELFPAY ==
[2018-11-29 20:18] VITALS: BMI 18.6
[2018-12-04 10:58] VITALS: BMI 18.6
--- NOTE | 2018-12-06 11:02 | DI.CT.S_ITS ---
PROCEDURE: CT CHEST ABD PEL WO CON INDICATIONS: f/u bladder cancer TECHNIQUE: After the administration of oral contrast, 5 mm thick sections acquired from the lung apices to the symphysis pubis. 5 mm thick coronal and sagittal reformats acquired, with additional 7 mm coronal MIP reformats through the lungs. For radiation dose reduction, the following was used: automated exposure control, adjustment of mA and/or kV according to patient size. COMPARISON: Located Within [facility], CT, CT KIDNEY URETER BLADDER (KUB), 11/29/2018, 16:28. Located Within [facility], CT, CT CHEST ABD PEL WO CON, 08/27/2018, 10:45. FINDINGS: Image quality: Excellent. CHEST: Lungs and pleura: No acute pulmonary opacities. A 5 x 3 mm mildly spiculated nodular lesion at the lateral right upper lobe near the apex has not enlarged from August of this year. At the lung bases no pulmonary nodules are seen. No pleural effusions or pneumothorax. Central and peripheral airways are patent are normal in caliber. Mediastinum: Heart size is normal. No pericardial effusion. No mediastinal adenopathy by CT size criteria. Thoracic aorta and central pulmonary arteries are normal in size. Esophagus is normal in caliber. No hiatal hernia. Chest wall: No axillary or supraclavicular adenopathy by size criteria. Thyroid gland poorly seen due to absence of intravenous contrast. ABDOMEN: Solid organs: Liver is normal in size. Gallbladder contains a small calcified stone within the contracted gallbladder lumen. This was previously present. Pancreas is normal in contours. Spleen is normal in size. No adrenal nodules. The kidneys are asymmetric in size, atrophic on the right, without hydronephrosis or nephrolithiasis. Peritoneum and bowel: Small and large bowel loops are normal in caliber and wall thickness. No free fluid or air. Nodes and vessels: No retroperitoneal or mesenteric adenopathy by size criteria. Aorta and inferior vena cava are normal in size. Miscellaneous: No ventral hernias. PELVIS: Genitourinary: Bladder wall thickness on the left is normal but the large lobulated mass, invasive into the right lateral lower pelvic sidewall is again seen and has not improved or worsened appreciably. Several areas of dystrophic calcification along the lumenal border of the bladder mass are again seen. Overall the bladder mass dimensions are approximately 8.6 cm AP, 4.3 cm craniocaudad, and at least 11 cm along the curving course of this mass from the bladder inferior margin near the midline to the upper bladder wall midline after coursing along the right lateral bladder wall.. Miscellaneous: No inguinal hernias or adenopathy. Bones: No suspicious bony lesions. No vertebral body compression fractures. IMPRESSION: 1. 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 Spiculated mass remains stable in appearance over time at the right apex laterally, but continued followup attention to this area is recommended given the relatively high risk for lung carcinoma in this patient. This is considered not likely to represent a metastatic lesion related to the bladder mass. 2. Through the chest, abdomen and pelvis no adenopathy is seen. 3. Large lobulated mass lesion involving the right lateral bladder wall extending from the superior midline to the inferior midline having approximate dimensions of 8.6 x 4.3 x 11.0 cm. This invades the right lateral pelvic sidewall, as has been previously the case, without definite improvement or worsening from the prior study earlier this year. Dictated by: Jared Cantor M.D. on 12/06/2018 at 13:34 Approved by: Jared Cantor M.D. on 12/06/2018 at 13:49
[2018-12-06 11:43] LABS: Add Manual Diff / Slide Review NO; Basophils Absolute Auto 100 /uL (0-100); Basophils Percent Auto 1.3 % (0-2); Eosinophils Absolute Auto 200 /uL (0-450); Eosinophils Percent Auto 2.5 % (2-4); Hematocrit 32.2 % (36-46); Hemoglobin 10.8 g/dL (12.0-16.0); Lymphocytes Absolute Auto 1100 /uL (1100-4500); Lymphocytes Percent Auto 11.5 % (25-40); Mean Corpuscular HGB Conc 33.5 % (30-36); Mean Corpuscular Hemoglobin 29.7 PG (26-34); Mean Corpuscular Volume 88.6 fL (80-100); Monocytes Absolute Auto 1200 /uL (0-900); Monocytes Percent Auto 11.9 % (3-14); Neutrophils Absolute Auto 7100 /uL (1500-7000); Neutrophils Percent Auto 72.8 % (50-75); Platelet Count 538 X10^3/uL (150-400); Red Blood Cell Count 3.63 X10^6/uL (4.0-5.2); Red Cell Distribution Width 15.6 % (11.6-14.8); White Blood Cell Count 9.8 X10^3/uL (4.5-11.0)
[2018-12-06 11:56] LABS: Alanine Aminotransferase 36 IU/L (9-52); Albumin 3.2 g/dL (3.5-5.0); Albumin Globulin Ratio 1.1 (1.0-2.8); Alkaline Phosphatase 285 U/L (38-126); Aspartate Aminotransferase 18 IU/L (14-36); BUN Creatinine Ratio 17.3 (6-22); Bilirubin Total 0.4 mg/dL (0.2-1.3); Blood Urea Nitrogen 19 mg/dL (7-17); Calcium 8.8 mg/dL (8.4-10.2); Carbon Dioxide 25 mmol/L (22-32); Chloride 104 mmol/L (98-107); Estimated Glomerular Filt Rate 47.7 mL/min (>60); Glucose 107 mg/dL (80-110); HEMOLYSIS < 15 (0-50); Potassium 4.9 mmol/L (3.4-5.1); Sodium 138 mmol/L (137-145); Total Protein 6.2 g/dL (6.3-8.2)
== END ==
DX: C67.9 Malignant neoplasm of bladder, unspecified (principal); J43.9 Emphysema, unspecified; R91.8 Other nonspecific abnormal finding of lung field; K80.20 Calculus of gallbladder without cholecystitis without obstruction
CPT/HCPCS: 36415; 71250; 74176; 80053; 85025

== ENCOUNTER 2018-12-24 09:37 | Day surgery (SDC) | payer MEDICARE, OTHER, SELFPAY ==
[2018-12-04 10:58] VITALS: BMI 18.6
[2018-12-11 10:52] VITALS: BMI 18.8
[2018-12-24] VITALS (8 sets, daily range): BP systolic 114–133; BP diastolic 64–79; PULSE 60–110; RESP 12–15; TEMP 36–36.6; O2SAT 96–99; BMI 18.8
--- NOTE | 2018-12-24 06:00 | DI.RAD.S_ITS ---
PROCEDURE: XR CHEST 1V INDICATIONS: s/p port TECHNIQUE: One view of the chest was acquired. COMPARISON: Located Within [facility], , XR CHEST 1V, 11/15/2018, 13:11. FINDINGS: Surgical changes and devices: Right chest port with the tip projecting in the mid SVC. Lungs and pleura: Lungs are clear. No pleural effusions or pneumothorax. Mediastinum: Mediastinal contours appear normal. Heart size is normal. Bones and chest wall: No suspicious bony lesions. Multiple chronic appearing left rib fractures. Overlying soft tissues appear unremarkable. IMPRESSION: No pneumothorax. No acute disease. Right chest port as above. Dictated by: Phil Carrasco M.D. on 12/24/2018 at 13:23 Approved by: Phil Carrasco M.D. on 12/24/2018 at 13:24
[2018-12-24] MEDS: LACTATED RINGERS 1,000 ML 42 ML IV (10:12)
--- NOTE | 2018-12-24 11:12 | PM.PREOP ---
Pre-operative Note Interval Note History & Physical reviewed/Exam performed by Physician: Yes Changes to H&P: No
[2018-12-24] MEDS: CEFAZOLIN 2 GM/100 ML FROZ.PIGGY IV (11:45)
[2018-12-24] MEDS: LIDOCAINE 1% 30 ML INJ INJ (12:07)
[2018-12-24] MEDS: BUPIVACAINE 0.25% W/ EPI (PF) 10 ML VIAL INJ (12:07)
--- NOTE | 2018-12-24 13:03 | SUR.PHASEII ---
pt arrived to phase II via stretcher. pt sitting up in bed, arousable to voice when spoken to. pt surgical site observed to be c/d/i. cold compress over site. pt denies any pain/discomfort or nausea at this time. bed in lowest position and call light given to pt. pt appears comfortable at this time, awaiting arrival of pt daughter.
--- NOTE | 2018-12-24 14:09 | PM.OP.1 ---
Operative Date/Time/Diagnoses Date of procedure: 12/24/18 Time of procedure: 14:09 Pre-op diagnosis: Bladder cancer Post-op diagnosis: same Procedure & Clinicians Procedure: 1. Port-a-cath placement using fluoroscopic guidance 2. Ultrasound guided access of right internal jugular vein Same procedure as scheduled: Yes Indications: Patient with bladder cancer and need for chemotherapy. Benefits, alternatives, and risks including bleeding, infection, damage to nearby structures, failure of procedure, and need for other procedures including chest tubes were discussed with the patient. Patient voiced understanding and wish to proceed. This procedure has been fully reviewed with the patient and written informed consent has been obtained. She had a remote port on her right side and we will try to place in the same scar but she understands we may have to go to the other side. Surgeon: Dimple Tabler Click Yes if Unassisted: Yes Anesthesia Type: General Operative Notes Findings: good position, flushes and draws readily Closure Type: primary Specimen(s): none sent Prosthetic devices, grafts, tissues, transplants, or devices: power port Estimated Blood Loss (mL): 5 Procedure in detail: The patient was taken to the operating room and placed in the on the operating table in supine position. Anesthesia was induced without complications. The right neck and chest was prepped and draped in the usual sterile fashion. Using ultrasound guidance, the right internal jugular vein was accessed with an 18 gauge access needle. The guidewire was then placed through the needle and advanced under fluoroscopic guidance. Using an 11 blade scalpel, a small incision was made in the skin over the needle and the needle was removed. At this point, we turned our attention to creation of a subcutaneous pocket for the port. This was done over the deltopectoral groove on the right chest. The catheter was then attached to the tunneling device and this was tunneled from the port site to the access site. The tunneling device was removed. The sheath and inner dilator were placed over the guidewire and advanced under fluoroscopic guidance. The wire was removed. The catheter was then placed in the sheath and advanced under fluoroscopic guidance until it appeared to sit near the atriocaval junction. The sheath was then removed. The catheter was then attached to the port and secured into place. Two 0-Ethibond sutures were placed through the deep subcutaneous tissues and the port sat nicely in place in the subcutaneous pocket. One last picture was taken with fluoroscopy which showed the catheter to be in good position above the atriocaval junction. The catheter was checked to ensure that it flushes and draws readily. It is heparin-locked. 3-0 vicryl was used to reapproximate the deep subcutaenous tissues in an interrupted fashion. The skin was closed using 4-0 monocryl in a running subcuticular fashion. The area was cleaned and dried. Skin glue was placed over the incision and the access site. The patient tolerated the procedure well. The patient was awakened and extubated and taken to the PACU in stable condition. All counts were correct at the end of the procedure. Complications: none Condition: stable Disposition: PACU Plan for aftercare: CXR in PACU prior to discharge
== END 2018-12-24 13:26 | disposition home or self-care (01) ==
PROVIDERS: Visit Provider Surgery
PROC: (CPT 36561; principal; 2018-12-24 11:15)
DX: C67.9 Malignant neoplasm of bladder, unspecified (principal); Z45.2 Encounter for adjustment and management of vascular access device; E78.5 Hyperlipidemia, unspecified; F17.210 Nicotine dependence, cigarettes, uncomplicated; I25.10 Atherosclerotic heart disease of native coronary artery without angina pectoris; I10 Essential (primary) hypertension; I25.2 Old myocardial infarction
CPT/HCPCS: 36561; 71045; 76000; C1788; J0690; J1642; J2405; J2704; J3010

== ENCOUNTER 2019-01-04 10:11 | Emergency (ER) | payer MEDICARE, OTHER, SELFPAY ==
[2018-12-04 10:58] VITALS: BMI 18.6
[2019-01-04] VITALS (9 sets, daily range): BP systolic 102–122; BP diastolic 46–76; PULSE 62–122; RESP 11–22; TEMP 36.1; O2SAT 98–100
--- NOTE | 2019-01-04 11:12 | ED_ITS ---
HPI - Nausea/Vomiting/Diarrhea General Chief complaint: Nausea/Vomiting/Diarrhea Stated complaint: diarrhea x few days can't eat Time Seen by Provider: 01/04/19 10:42 Source: patient Mode of arrival: ambulatory Limitations: no limitations History of Present Illness HPI Narrative: Patient is an 83-year-old female presenting with diarrhea. He has a recent diagnosis of bladder cancer requiring chemotherapy. She had her 1st chemotherapy last week and her 2nd 1 this week. At which point she started having explosive watery diarrhea. She denies any pain nausea or vomiting. However she has only had a he said toast and a small amount of soup. She says it comes out within 20 minutes. She is drinking water. She denies any fever MD complaint: diarrhea Description of Diarrhea: none Related Data Home Medications Medication Instructions Recorded Confirmed aspirin 81 mg PO DAILY #0 03/20/11 01/04/19 levothyroxine 100 mcg PO DAILY 11/29/18 01/04/19 Previous Rx's Medication Instructions Recorded calcitriol 0.25 mcg capsule 0.25 mcg PO MOWEFR #36 cap 11/21/18 ascorbic acid (vitamin C) [Vitamin 250 mg PO DAILY #30 tab 11/30/18 C] ferrous sulfate 325 mg PO DAILY #30 tab 11/30/18 Allergies Allergy/AdvReac Type Severity Reaction Status Date / Time lisinopril [LISINOPRIL] Allergy Severe Swelling Verified 01/04/19 10:21 of Lip/Tongue/Throat Sulfa (Sulfonamide Allergy Intermediate Rash Verified 01/04/19 10:21 Antibiotics) [SULFA (SULFONAMIDE ANTIBIOTICS)] sertraline AdvReac Intermediate Diarrhea Verified 01/04/19 10:21 Review of Systems Review of Systems GENERAL: Denies chills, fatigue, malaise, fever, sweats, travel HEENT: Denies sinus pain, ear pain, sore throat, difficulty swallowing, neck pain RESPIRATORY: Denies dyspnea, cough, wheezing, hemoptysis, sputum. CARDIOVASCULAR: Denies chest pain, palpitations, orthopnea, edema GASTROINTESTINAL: see HPI : Denies dysuria, frequency, incontinence, hematuria, urinary retention, flank pain. MUSCULOSKELETAL: Denies weakness, joint pain, or bony pain SKIN: No rash, no erythema, no pruritus NEUROLOGIC: Denies weakness, dizziness, headache, numbness, change in speech, confusion PSYCHIATRIC: No concerning psychosocial issues. 12 point review of systems is negative except for those stated above and HPI [facility] Medical History BRCA positive (Acute) Bladder cancer (Acute) CVA (cerebral vascular accident) (Acute) Hyperlipidemia (Acute) Secondary hypothyroidism (Acute) Tobacco dependence (Acute) CAD (coronary artery disease) (Chronic 2013) Hypertension (Chronic) Drug-induced anaphylaxis (Resolved 2013) Kidney failure (Resolved 2014) Non-STEMI (non-ST elevated myocardial infarction) (Resolved 2013) Ovarian cancer (Resolved 2002) Thyroid cancer (Resolved 1997) Surgical History S/P appy (Acute) History of thyroidectomy (Resolved 1997) Status post hysterectomy with oophorectomy (Resolved 2002) Family History Mother Ovarian cancer Breast cancer Father Heart attack Daughter Breast cancer Daughter Breast cancer Social History household members: none Smoking Status: Current every day smoker alcohol intake: current substance use type: does not use Family History Mother Ovarian cancer Breast cancer Father Heart attack Daughter Breast cancer Daughter Breast cancer Social History household members: none Smoking Status: Current every day smoker alcohol intake: current substance use type: does not use Exam Initial Vital Signs Initial Vital Signs: Vital Signs Temperature 96.9 F L 01/04/19 10:15 Pulse Rate 122 H 01/04/19 10:15 Respiratory Rate 22 01/04/19 10:15 Pulse Oximetry 99 01/04/19 10:15 GENERAL: Weak elderly female and in no acute distress. HEENT: Head atraumatic,EOMI, pupils reactive, face symmetric, dry mucous membranes CARDIOVASCULAR: Regular rate and rhythm without murmurs, rubs or gallops. RESPIRATORY: Breath sounds equal bilaterally, no wheezes rales or rhonchi. ABDOMEN: Soft, nontender. Normoactive bowel sounds all 4 quadrants. No guarding or rebound. EXTREMITIES: Normal range of motion, no clubbing or edema. Neurovascularly intact NEUROLOGICAL: Alert and oriented x4.Normal gait and speech. Cranial nerves II through XII grossly intact. SKIN: Warm, dry, no laceration, no petechiae, no rashes or lesions. Course Orders Ordered: ED Orders 01/04/19 10:33 EKG-12 Lead Stat 01/04/19 11:20 Complete Blood Count AUTO DIFF Stat Comprehensive Metabolic Panel Stat Lactate (Lactic Acid) Stat Lipase Stat Partial Thromboplastin Time Stat Prothrombin Time INR Stat 01/04/19 13:05 GI Panel (Film Array) Stat Urine Culture Stat Urine Microscopic Stat Discontinued Medications Heparin Sodium (Porcine) (Heparin Lock Port) 500 unit IV PRN PRN PRN Reason: Flush Last Admin: 01/04/19 15:07 Dose: 500 unit Sodium Chloride (Normal Saline 0.9%) 1,000 mls @ 1,000 mls/hr IV BOLUS ONE Stop: 01/04/19 11:46 Last Infusion: 01/04/19 12:42 Dose: 0 mls/hr Admin: 01/04/19 11:32 Dose: 1,000 mls/hr Vital Signs - 8 hr 01/04/19 10:15 01/04/19 10:35 01/04/19 10:44 Temperature 96.9 F L 96.9 F L Pulse Rate 122 H 105 H 105 H Respiratory Rate 22 15 15 Blood Pressure Blood Pressure [Left Arm] 113/67 Pulse Oximetry 99 100 100 01/04/19 11:00 01/04/19 11:34 01/04/19 13:00 Temperature Pulse Rate 84 67 69 Respiratory Rate 14 14 13 Blood Pressure Blood Pressure [Left Arm] 107/65 121/53 L 102/46 L Pulse Oximetry 98 98 100 01/04/19 13:30 01/04/19 14:00 01/04/19 14:42 Temperature Pulse Rate 64 62 62 Respiratory Rate 12 11 L 12 Blood Pressure 122/57 L Blood Pressure [Left Arm] 121/65 122/76 Pulse Oximetry 100 100 100 MDM - Nausea/Vomiting/Diarrhea Lab Data Attestation: I reviewed the patient's lab results. Result diagrams: 01/04/19 11:20 01/04/19 11:20 Lab Results 01/04/19 01/04/19 01/04/19 Range/Units 11:20 11:20 11:20 WBC 5.0 (4.5-11.0) X10^3/uL RBC 3.43 L (4.0-5.2) X10^6/uL Hgb 10.4 L (12.0-16.0) g/dL Hct 31.1 L (36-46) % MCV 90.7 (80-100) fL MCH 30.2 (26-34) PG MCHC 33.3 (30-36) % RDW 18.1 H (11.6-14.8) % Plt Count 413 H (150-400) X10^3/uL Neut % (Auto) 83.7 H (50-75) % Lymph % (Auto) 8.9 L (25-40) % [place] % (Auto) 1.6 L (3-14) % Eos % (Auto) 5.1 H (2-4) % Baso % (Auto) 0.7 (0-2) % Neut # (Auto) 4200 (1623-9434) /uL Lymph # (Auto) 400 L (8754-5175) /uL [place] # (Auto) 100 (0-900) /uL Eos # (Auto) 300 (0-450) /uL Baso # (Auto) 0 (0-100) /uL PT 11.8 (10.1-12.7) SECONDS INR 1.0 (0.9-1.3) APTT 25 L D (26.4-36.2) SECONDS Sodium 129 L (137-145) mmol/L Potassium 4.3 (3.4-5.1) mmol/L Chloride 97 L (98-107) mmol/L Carbon Dioxide 23 (22-32) mmol/L BUN 22 H (7-17) mg/dL Creatinine 1.00 (0.52-1.04) mg/dL Estimated GFR 53.2 L (>60) mL/min BUN/Creatinine Ratio 22.0 (6-22) Glucose 108 (80-110) mg/dL Lactate (0.7-2.1) mmol/L Calcium 8.5 (8.4-10.2) mg/dL Total Bilirubin 0.6 (0.2-1.3) mg/dL AST 21 (14-36) IU/L ALT 16 (9-52) IU/L Alkaline Phosphatase 107 (38-126) U/L Total Protein 6.3 (6.3-8.2) g/dL Albumin 3.3 L (3.5-5.0) g/dL Globulin 3.0 (1.7-4.1) g/dL Albumin/Globulin Ratio 1.1 (1.0-2.8) Lipase 19 L (23-300) U/L Urine RBC (0-5/HPF) Urine WBC (0-5/HPF) Ur Squamous Epith Cells (0-5/HPF) Urine Bacteria (None) Ur Culture Indicated? Stl C. cayetanensis PCR (Not Detect) Stool Rotavirus (PCR) (Not Detect) Stool Adenovirus (PCR) (Not Detect) Stool Astrovirus (PCR) (Not Detect) Stool Cryptosporidium PCR (Not Detect) Stl E.coli Shiga Tox PCR (Not Detect) St Sh/Enteroin Ecoli PCR (Not Detect) Stool E coli O157 PCR Stl Enterotoxigenic E PCR (Not Detect) Stool EPEC (PCR) (Not Detect) Stl E. histolytica PCR (Not Detect) Stool Giardia Lamblia PCR (Not Detect) Stool Sapovirus (PCR) (Not Detect) Stl P. shigelloides PCR (Not Detect) St Y.enterocolitica PCR (Not Detect) Stool Vibrio (PCR) (Not Detect) Stl Vibrio cholerae PCR (Not Detect) Stl Enteroaggr Ecoli PCR (Not Detect) Stl Norovirus GI/GII PCR (Not Detect) Campylobacter (PCR) (Not Detect) C. difficile Tox (PCR) (Not Detect) Salmonella (PCR) (Not Detect) 01/04/19 01/04/19 01/04/19 Range/Units 11:20 13:05 13:05 WBC (4.5-11.0) X10^3/uL RBC (4.0-5.2) X10^6/uL Hgb (12.0-16.0) g/dL Hct (36-46) % MCV (80-100) fL MCH (26-34) PG MCHC (30-36) % RDW (11.6-14.8) % Plt Count (150-400) X10^3/uL Neut % (Auto) (50-75) % Lymph % (Auto) (25-40) % [place] % (Auto) (3-14) % Eos % (Auto) (2-4) % Baso % (Auto) (0-2) % Neut # (Auto) (1383-8891) /uL Lymph # (Auto) (5248-0706) /uL [place] # (Auto) (0-900) /uL Eos # (Auto) (0-450) /uL Baso # (Auto) (0-100) /uL PT (10.1-12.7) SECONDS INR (0.9-1.3) APTT (26.4-36.2) SECONDS Sodium (137-145) mmol/L Potassium (3.4-5.1) mmol/L Chloride (98-107) mmol/L Carbon Dioxide (22-32) mmol/L BUN (7-17) mg/dL Creatinine (0.52-1.04) mg/dL Estimated GFR (>60) mL/min BUN/Creatinine Ratio (6-22) Glucose (80-110) mg/dL Lactate 0.8 (0.7-2.1) mmol/L Calcium (8.4-10.2) mg/dL Total Bilirubin (0.2-1.3) mg/dL AST (14-36) IU/L ALT (9-52) IU/L Alkaline Phosphatase (38-126) U/L Total Protein (6.3-8.2) g/dL Albumin (3.5-5.0) g/dL Globulin (1.7-4.1) g/dL Albumin/Globulin Ratio (1.0-2.8) Lipase (23-300) U/L Urine RBC 10-30/hpf H (0-5/HPF) Urine WBC 5-10/hpf H (0-5/HPF) Ur Squamous Epith Cells 0-1 /hpf (0-5/HPF) Urine Bacteria Few (2-10) H (None) Ur Culture Indicated? Specimen cultured Stl C. cayetanensis PCR Not detected (Not Detect) Stool Rotavirus (PCR) Not detected (Not Detect) Stool Adenovirus (PCR) Not detected (Not Detect) Stool Astrovirus (PCR) Not detected (Not Detect) Stool Cryptosporidium PCR Not detected (Not Detect) Stl E.coli Shiga Tox PCR Not detected (Not Detect) St Sh/Enteroin Ecoli PCR Not detected (Not Detect) Stool E coli O157 PCR Not Reportable Stl Enterotoxigenic E PCR Not detected (Not Detect) Stool EPEC (PCR) Not detected (Not Detect) Stl E. histolytica PCR Not detected (Not Detect) Stool Giardia Lamblia PCR Not detected (Not Detect) Stool Sapovirus (PCR) Not detected (Not Detect) Stl P. shigelloides PCR Not detected (Not Detect) St Y.enterocolitica PCR Not detected (Not Detect) Stool Vibrio (PCR) Not detected (Not Detect) Stl Vibrio cholerae PCR Not detected (Not Detect) Stl Enteroaggr Ecoli PCR Not detected (Not Detect) Stl Norovirus GI/GII PCR Not detected (Not Detect) Campylobacter (PCR) Not detected (Not Detect) C. difficile Tox (PCR) Not detected (Not Detect) Salmonella (PCR) Not detected (Not Detect) Urine Dip Bedside Urine Glucose Negative Bedside Urine Bilirubin - Negative Bedside Urine Ketone - Negative Urine Specific [place] 1.015 Bedside Urine Occult Blood +++ Bedside Urine pH 6.0 Bedside Urine Protein +/- 15 Bedside Urine Urobilinogen - Negative Bedside Urine Nitrite - Negative Bedside Urine Leukocytes ++ 125 Esterase MDM Narrative Medical decision making narrative: Patient actually did have 1 episode of diarrhea while in the ED. Is noninfectious. She has no fever no vomiting. At this time I think diarrhea is likely from chemotherapy. She did take Imodium earlier in the day it seems to be helping some. Discharge Plan Departure Patient Disposition: Home Clinical Impression: Diarrhea Qualifiers: Diarrhea type: unspecified type Qualified Code(s): R19.7 - Diarrhea, unspecified Discharge Date/Time: 01/04/19 15:14 Interventions: ED Discharge Assessment Last Done: 01/04/19 14:42 Instructions: Diarrhea, DI for Dehydration -- Adult Activity Restrictions/Additional Instructions: 1) You have been diagnosed with diarrhea Diarrhea is likely from chemotherapy. Her stool culture is pending 2) What to do: Drink frequent but small amounts of fluids. I recommend Gatorade or a Gatorade-like product, as it has small amounts of sugar and salts that improve fluid retention. 3) Take medications as directed 4) Follow up with your primary care provider in 2-3 days 5) Return to ER if you should have any new or worsening symptoms such as, unable to hold down fluids, weakness on for few Prescriptions: No Action aspirin 81 MG tablet,delayed release (DR/EC) 81 mg PO DAILY Qty: 0 RF: 0 calcitriol 0.25 mcg capsule 0.25 mcg PO MOWEFR Qty: 36 RF: 1 levothyroxine 100 mcg tablet 100 mcg PO DAILY RF: 0 ascorbic acid (vitamin C) [Vitamin C] 250 mg tablet 250 mg PO DAILY Qty: 30 RF: 0 ferrous sulfate 325 mg (65 mg iron) tablet 325 mg PO DAILY Qty: 30 RF: 0 Referrals: Juanjo Andrade MD [Primary Care Provider] -
[2019-01-04] MEDS: SODIUM CHLORIDE 0.9% 1,000 ML 1000 ML IV (11:32)
[2019-01-04 11:33] LABS: Add Manual Diff / Slide Review NO; Basophils Absolute Auto 0 /uL (0-100); Basophils Percent Auto 0.7 % (0-2); Eosinophils Absolute Auto 300 /uL (0-450); Eosinophils Percent Auto 5.1 % (2-4); Hematocrit 31.1 % (36-46); Hemoglobin 10.4 g/dL (12.0-16.0); Lymphocytes Absolute Auto 400 /uL (1100-4500); Lymphocytes Percent Auto 8.9 % (25-40); Mean Corpuscular HGB Conc 33.3 % (30-36); Mean Corpuscular Hemoglobin 30.2 PG (26-34); Mean Corpuscular Volume 90.7 fL (80-100); Monocytes Absolute Auto 100 /uL (0-900); Monocytes Percent Auto 1.6 % (3-14); Neutrophils Absolute Auto 4200 /uL (1500-7000); Neutrophils Percent Auto 83.7 % (50-75); Platelet Count 413 X10^3/uL (150-400); Red Blood Cell Count 3.43 X10^6/uL (4.0-5.2); Red Cell Distribution Width 18.1 % (11.6-14.8)
[2019-01-04 11:42] LABS: Prothrombin Time 11.8 SECONDS (10.1-12.7)
[2019-01-04 11:44] LABS: PTT Partial Thromboplastin Tim 25 SECONDS (26.4-36.2)
[2019-01-04 11:45] LABS: Alanine Aminotransferase 16 IU/L (9-52); Albumin 3.3 g/dL (3.5-5.0); Albumin Globulin Ratio 1.1 (1.0-2.8); Alkaline Phosphatase 107 U/L (38-126); Aspartate Aminotransferase 21 IU/L (14-36); Bilirubin Total 0.6 mg/dL (0.2-1.3); Blood Urea Nitrogen 22 mg/dL (7-17); Calcium 8.5 mg/dL (8.4-10.2); Carbon Dioxide 23 mmol/L (22-32); Chloride 97 mmol/L (98-107); Estimated Glomerular Filt Rate 53.2 mL/min (>60); Glucose 108 mg/dL (80-110); HEMOLYSIS < 15 (0-50); Lactate (Lactic Acid) 0.8 mmol/L (0.7-2.1); Lipase 19 U/L (23-300); Potassium 4.3 mmol/L (3.4-5.1); Sodium 129 mmol/L (137-145); Total Protein 6.3 g/dL (6.3-8.2)
[2019-01-04 13:25] LABS: Bacteria Urine Few (2-10); Culture Indicated Urine Specimen Cultured; RBC Urine 10-30/HPF (0-5/HPF); Squamous Epithelial Cell Urine 0-1 /HPF (0-5/HPF); WBC Urine 5-10/HPF (0-5/HPF)
[2019-01-04 14:30] LABS: Adenovirus F 40/41 Not Detected (Not Detect); Astrovirus Not Detected (Not Detect); Campylobacter Not Detected (Not Detect); Clostridium difficile toxin AB Not Detected (Not Detect); Cryptosporidium Not Detected (Not Detect); Cyclospora cayetanensis Not Detected (Not Detect); Entamoeba histolytica Not Detected (Not Detect); Enteroaggregative E.coli Not Detected (Not Detect); Enteropathogenic E.coli Not Detected (Not Detect); Enterotoxigenic E.coli It/st Not Detected (Not Detect); Giardia lamblia Not Detected (Not Detect); Norovirus GI/GII Not Detected (Not Detect); Plesiomonsa shigelloides Not Detected (Not Detect); Rotavirus A Not Detected (Not Detect); Salmonella Not Detected (Not Detect); Sapovirus Not Detected (Not Detect); Shiga-like toxin-prod E.coli Not Detected (Not Detect); Shigella/Enteroinvasive E.coli Not Detected (Not Detect); Vibrio Not Detected (Not Detect); Vibrio cholerae Not Detected (Not Detect); Yersinia enterocolitica Not Detected (Not Detect)
== END 2019-01-04 15:14 | disposition home or self-care (01) ==
PROVIDERS: Emergency Provider Emergency Medicine; PCP Student in an Organized Health Care Education/Training Program
DX: R19.7 Diarrhea, unspecified (principal); R00.0 Tachycardia, unspecified; C67.9 Malignant neoplasm of bladder, unspecified; Z92.21 Personal history of antineoplastic chemotherapy
CPT/HCPCS: 36591; 80053; 81003; 81015; 83605; 83690; 85025; 85610; 85730; 87077; 87086; 87186; 87507; 93005; 93010; 96361; 96374; 99284; J1642

== ENCOUNTER 2019-01-21 10:21 | Emergency (ER) | payer MEDICARE, OTHER, SELFPAY ==
[2018-12-04 10:58] VITALS: BMI 18.6
[2019-01-21] VITALS (20 sets, daily range): BP systolic 57–110; BP diastolic 28–70; PULSE 62–203; RESP 12–27; TEMP 36.1; O2SAT 93–99; BMI 18.3
[2019-01-21] MEDS: SODIUM CHLORIDE 0.9% 1,000 ML 1000 ML IV (10:26)
--- NOTE | 2019-01-21 10:29 | DI.RAD.S_ITS ---
PROCEDURE: XR CHEST 1V INDICATIONS: SOB TECHNIQUE: One view of the chest was acquired. COMPARISON: [facility], CR, XR CHEST 1V, 11/15/2018, 13:11. [facility], CT, CT CHEST ABD PEL WO CON, 12/06/2018, 11:28. [facility], CR, XR CHEST 1V, 12/24/2018, 12:37. FINDINGS: Surgical changes and devices: There is a right IJ central line with the tip in the superior vena cava. Lungs and pleura: Lungs are clear. No pleural effusions or pneumothorax. Mediastinum: Mediastinal contours appear normal. Heart size is normal. Bones and chest wall: No suspicious bony lesions. Overlying soft tissues appear unremarkable. Multiple old left rib fractures are noted. IMPRESSION: No acute cardiopulmonary disease. Dictated by: Ravi Christopher M.D. on 01/21/2019 at 11:46 Approved by: Ravi Christopher M.D. on 01/21/2019 at 11:48
[2019-01-21] MEDS: dilTIAZem 5 MG/ML SDV 10 MG IV (10:33)
--- NOTE | 2019-01-21 10:45 | ED.ARRPALP ---
HPI - Arrhythmia/Palpitations General Chief Complaint: Arrhythmia/Palpitations Stated Complaint: palpitations/Heart rate of 215+ Time Seen by Provider: 01/21/19 10:23 Source: patient and family Mode of arrival: ambulatory Limitations: no limitations History of Present Illness HPI narrative: 83F with hx of bladder CA [facility] and was having port accessed when she noted rapid heart rate. Vital signs noted heart rate in the 200 with a blood pressure in the 50s or 60s. Patient had yet to receive her chemotherapy and was brought to us for evaluation. She does have a history of palpitations and is not anticoagulated. She complains of a bit of weakness and shortness of breath as well as bladder pain. She has had no fever or chills. She denies nausea, vomiting or diarrhea. MD complaint: rapid heart beat, heart racing and palpitations Onset (ago): minute(s) Duration: constant Severity: severe Context: occurred during rest Related Data Home Medications Medication Instructions Recorded Confirmed aspirin 81 mg PO DAILY #0 03/20/11 01/21/19 levothyroxine 100 mcg PO DAILY 11/29/18 01/21/19 diazepam 10 mg PO BEDTIME PRN 01/21/19 01/21/19 Previous Rx's Medication Instructions Recorded calcitriol 0.25 mcg capsule 0.25 mcg PO MOWEFR #36 cap 11/21/18 ascorbic acid (vitamin C) [Vitamin 250 mg PO DAILY #30 tab 11/30/18 C] ferrous sulfate 325 mg PO DAILY #30 tab 11/30/18 Allergies Allergy/AdvReac Type Severity Reaction Status Date / Time lisinopril [LISINOPRIL] Allergy Severe Swelling Verified 01/21/19 10:27 of Lip/Tongue/Throat Sulfa (Sulfonamide Allergy Intermediate Rash Verified 01/21/19 10:27 Antibiotics) [SULFA (SULFONAMIDE ANTIBIOTICS)] sertraline AdvReac Intermediate Diarrhea Verified 01/21/19 10:27 Review of Systems Constitutional Denies chills, Denies fever(s), Denies lethargy and Reports weakness Eyes Denies change in vision, Denies eye discharge, Denies irritation and Denies loss of vision ENT Ears, Nose, Mouth, and Throat: Denies change in voice, Denies neck pain and Denies sore throat Cardiovascular Denies chest pain, Denies irregular heart rhythm, Reports lightheadedness, Reports palpitations, Reports dyspnea, Reports dyspnea on exertion and Denies orthopnea Respiratory Denies cough, Reports dyspnea, Reports dyspnea on exertion and Denies wheezing Gastrointestinal Gastrointestinal: Denies abdominal pain, Denies change in bowel habits, Denies diarrhea, Denies nausea and Denies vomiting Genitourinary Denies hematuria, Denies flank pain, Denies urinary incontinence and Denies urinary urgency Musculoskeletal Denies neck pain Integumentary/Breasts Denies pruritus, Denies erythema, Denies rash and Denies wounds Neurologic Denies confusion, Denies loss of vision and Reports weakness Psychiatric Denies anxiety, Denies confusion, Denies depression, Denies homicidal ideation and Denies suicidal ideation Endocrine Reports palpitations Hematologic/Lymphatic Denies easy bruising Allergic/Immunologic Denies wheezing PFSH Medical History BRCA positive (Acute) Bladder cancer (Acute) CVA (cerebral vascular accident) (Acute) Hyperlipidemia (Acute) Secondary hypothyroidism (Acute) Tobacco dependence (Acute) CAD (coronary artery disease) (Chronic 2013) Hypertension (Chronic) Drug-induced anaphylaxis (Resolved 2013) Kidney failure (Resolved 2014) Non-STEMI (non-ST elevated myocardial infarction) (Resolved 2013) Ovarian cancer (Resolved 2002) Thyroid cancer (Resolved 1997) Surgical History S/P appy (Acute) History of thyroidectomy (Resolved 1997) Status post hysterectomy with oophorectomy (Resolved 2002) Family History Mother Ovarian cancer Breast cancer Father Heart attack Daughter Breast cancer Daughter Breast cancer Social History household members: none Smoking Status: Current every day smoker alcohol intake: current substance use type: does not use Family History Mother Ovarian cancer Breast cancer Father Heart attack Daughter Breast cancer Daughter Breast cancer Social History household members: none Smoking Status: Current every day smoker alcohol intake: current substance use type: does not use Exam Narrative Exam Narrative: GENERAL: Frail elderly female, 83-year-old, obviously in significant distress HEAD: Atraumatic. Normocephalic. No temporal or scalp tenderness. EYES: Pupils equal round and reactive. Extraocular motions intact. No scleral icterus. No injection or drainage. ENT: Nose without bleeding, purulent drainage or septal hematoma. Throat without erythema, tonsillar hypertrophy or exudate. Uvula midline. Airway patent. NECK: Trachea midline. No JVD or lymphadenopathy. Supple, nontender, no meningeal signs. CARDIOVASCULAR: Tachycardic and regular rhythm without murmurs, gallops, or rubs. RESPIRATORY: Clear to auscultation. Breath sounds equal bilaterally. No wheezes, rales, or rhonchi. GASTROINTESTINAL: Abdomen soft, non-tender, nondistended. No hepato-splenomegaly, or palpable masses. No guarding. EXTREMITIES: No clubbing, cyanosis, or edema. No joint tenderness, effusion, or edema noted. BACK: Nontender without deformity or crepitance. No flank tenderness. NEURO: AOx3. SKIN: No rash or erythema. Initial Vital Signs Initial Vital Signs: Vital Signs Pulse Rate 200 H 01/21/19 10:23 Respiratory Rate 22 01/21/19 10:23 Blood Pressure 58/41 L 01/21/19 10:23 Pulse Oximetry 98 01/21/19 10:23 Course Orders Ordered: ED Orders 01/21/19 10:05 Basic Metabolic Panel Stat Complete Blood Count AUTO DIFF Stat Magnesium Stat T4 Total Thyroxine Stat Thyroid Stimulating Hormone Stat Troponin & CK Cardiac Panel Stat 01/21/19 10:29 XR chest 1V Stat 01/21/19 10:47 EKG-12 Lead Stat Discontinued Medications Acetaminophen (Tylenol) 650 mg PO NOW ONE Stop: 01/21/19 11:14 Last Admin: 01/21/19 10:50 Dose: 650 mg Diltiazem HCl (Cardizem) 10 mg IV NOW ONE Stop: 01/21/19 10:30 Last Admin: 01/21/19 10:33 Dose: 10 mg Heparin Sodium (Porcine) (Heparin Lock Port) 500 unit IV PRN PRN PRN Reason: Flush Last Admin: 01/21/19 12:41 Dose: 500 unit Sodium Chloride (Normal Saline 0.9%) 1,000 mls @ 150 mls/hr IV CONT RABIA Last Infusion: 01/21/19 12:27 Dose: 0 mls/hr Infusion: 01/21/19 11:20 Dose: 500 mls/hr Infusion: 01/21/19 10:36 Dose: 150 mls/hr Admin: 01/21/19 10:26 Dose: 1,000 mls/hr Ibuprofen (Advil) 400 mg PO NOW ONE Stop: 01/21/19 11:17 Last Admin: 01/21/19 11:20 Dose: 400 mg Reevaluation(s) Reevaluation #1: Cardizem 10 mg IVP given and heart rate dropped into the 80s and 90s with resultant increase in blood pressure to the 90s. Patient feels better. New rhythm is noted to be normal sinus Reevaluation #2: patient is able to ambulate without any difficulty Time: 12:48 Vital Signs - 8 hr 01/21/19 11:08 01/21/19 11:30 01/21/19 11:49 Pulse Rate 92 H 82 70 Respiratory Rate 19 21 18 Blood Pressure [Left Arm] 91/51 L 90/49 L 94/54 L Pulse Oximetry 96 98 98 01/21/19 12:07 01/21/19 12:16 01/21/19 12:28 Pulse Rate 66 62 72 Respiratory Rate 21 20 12 Blood Pressure [Left Arm] 99/56 L 96/54 L 110/70 Pulse Oximetry 99 99 99 MDM - Arrhythmia/Palpitations Lab Data Result diagrams: 01/21/19 10:05 01/21/19 10:05 Lab Results 01/21/19 01/21/19 01/21/19 Range/Units 10:05 10:05 10:05 WBC 13.0 H (4.5-11.0) X10^3/uL RBC 3.52 L (4.0-5.2) X10^6/uL Hgb 10.6 L (12.0-16.0) g/dL Hct 32.4 L (36-46) % MCV 92.2 (80-100) fL MCH 30.2 (26-34) PG MCHC 32.7 (30-36) % RDW 19.0 H (11.6-14.8) % Plt Count 530 H (150-400) X10^3/uL Neut % (Auto) Not Reportable Lymph % (Auto) Not Reportable [place] % (Auto) Not Reportable Eos % (Auto) Not Reportable Baso % (Auto) Not Reportable Lymph # (Auto) Not Reportable [place] # (Auto) Not Reportable Baso # (Auto) Not Reportable Total Counted 100 Seg Neutrophils % 73.0 H (38-70) % Band Neutrophils % 2.0 L (3-7) % Lymphocytes % (Manual) 10.0 L (25-45) % Monocytes % (Manual) 6.0 (2-11) % Eosinophils % (Manual) 6.0 H (2-4) % Basophils % (Manual) 2.0 H (0-1) % Myelocytes % 1.0 H (-0) % Neutrophils # (Manual) 9750 H (0711-6258) /uL Platelet Estimate Increased on smear RBC Morphology See below Hypochromasia 1+ H Poikilocytosis 1+ H Anisocytosis 1+ H Macrocytosis 1+ H Sodium 133 L (137-145) mmol/L Potassium 4.1 (3.4-5.1) mmol/L Chloride 100 (98-107) mmol/L Carbon Dioxide 19 L (22-32) mmol/L BUN 23 H (7-17) mg/dL Creatinine 1.00 (0.52-1.04) mg/dL Estimated GFR 53.2 L (>60) mL/min BUN/Creatinine Ratio 23.0 H (6-22) Glucose 162 H (80-110) mg/dL Calcium 8.2 L (8.4-10.2) mg/dL Magnesium 1.6 (1.6-2.3) mg/dL Total Creatine Kinase < 20 L (30-135) U/L CK-MB (CK-2) TNP CK-MB (CK-2) Rel Index TNP Troponin I 0.039 H (0.01-0.034) ng/mL TSH 8.89 H (0.47-4.68) uIU/mL Thyroxine (T4) (5.5-11.0) ug/dL 01/21/19 Range/Units 10:05 WBC (4.5-11.0) X10^3/uL RBC (4.0-5.2) X10^6/uL Hgb (12.0-16.0) g/dL Hct (36-46) % MCV (80-100) fL MCH (26-34) PG MCHC (30-36) % RDW (11.6-14.8) % Plt Count (150-400) X10^3/uL Neut % (Auto) Lymph % (Auto) [place] % (Auto) Eos % (Auto) Baso % (Auto) Lymph # (Auto) [place] # (Auto) Baso # (Auto) Total Counted Seg Neutrophils % (38-70) % Band Neutrophils % (3-7) % Lymphocytes % (Manual) (25-45) % Monocytes % (Manual) (2-11) % Eosinophils % (Manual) (2-4) % Basophils % (Manual) (0-1) % Myelocytes % (-0) % Neutrophils # (Manual) (2588-6407) /uL Platelet Estimate RBC Morphology Hypochromasia Poikilocytosis Anisocytosis Macrocytosis Sodium (137-145) mmol/L Potassium (3.4-5.1) mmol/L Chloride (98-107) mmol/L Carbon Dioxide (22-32) mmol/L BUN (7-17) mg/dL Creatinine (0.52-1.04) mg/dL Estimated GFR (>60) mL/min BUN/Creatinine Ratio (6-22) Glucose (80-110) mg/dL Calcium (8.4-10.2) mg/dL Magnesium (1.6-2.3) mg/dL Total Creatine Kinase (30-135) U/L CK-MB (CK-2) CK-MB (CK-2) Rel Index Troponin I (0.01-0.034) ng/mL TSH (0.47-4.68) uIU/mL Thyroxine (T4) 12.20 H (5.5-11.0) ug/dL ECG Data Attestation: I personally reviewed and interpreted this ECG as follows: Interpretation: EKG 1: SVT versus rapid AFib with minor ST depressions EKG 2: EKG is normal sinus rhythm rate [ 97] and free of any signs of ischemia or ectopy. No ST segmental elevation or depression. No T wave inversions MDM Narrative Medical decision making narrative: 83-year-old female with extensive medical history presents from Oncology with abnormal vitals and dizziness, weakness and some shortness of breath. She is found to be in SVT at a rate of 200 and initial blood pressure in the 60s. She was given Cardizem 10 mg which brought her heart rate down into the 80s and then she spontaneously converted into a sinus rhythm. Soon thereafter her blood pressure was up to the 90s and low 100s the patient was completely asymptomatic at that point time. Her labs were stable for her, she was evaluated for few hours and felt back to her normal period she was able to ambulate to the department without any difficulty. She was given return precautions and both her and her daughter had understanding of these precautions as evidenced by their ability to verbalize them back to me. Discharge Plan Departure Patient Disposition: Home Clinical Impression: SVT (supraventricular tachycardia) Discharge Date/Time: 01/21/19 12:49 Interventions: ED Discharge Assessment Last Done: 01/21/19 12:47 Instructions: Arrhythmias Activity Restrictions/Additional Instructions: *You have been diagnosed with [acute SVT, resolved] *What to do: * continue to take medications as directed *Follow up with your primary care provider in 2-3 days, call for an appointment. Let them know you were seen in the Emergency Department and that we ask that you be seen in follow up *Return to ER if you should have any new, worsening or concerning symptoms, such as [ ] Prescriptions: No Action aspirin 81 MG tablet,delayed release (DR/EC) 81 mg PO DAILY Qty: 0 RF: 0 calcitriol 0.25 mcg capsule 0.25 mcg PO MOWEFR Qty: 36 RF: 1 diazepam 10 mg tablet 10 mg PO BEDTIME PRN (Reason: Anxiety) RF: 0 levothyroxine 100 mcg tablet 100 mcg PO DAILY RF: 0 ascorbic acid (vitamin C) [Vitamin C] 250 mg tablet 250 mg PO DAILY Qty: 30 RF: 0 ferrous sulfate 325 mg (65 mg iron) tablet 325 mg PO DAILY Qty: 30 RF: 0 Referrals: Juanjo Andrade MD [Physician] -
--- NOTE | 2019-01-21 10:46 | PC.NURSE ---
EKG performed at [facility] @ 1010 & 1012 used in ED.
[2019-01-21] MEDS: ACETAMINOPHEN 325 MG TABLET 650 MG PO (10:50)
[2019-01-21 11:13] LABS: Add Manual Diff / Slide Review YES; Hematocrit 32.4 % (36-46); Hemoglobin 10.6 g/dL (12.0-16.0); Mean Corpuscular HGB Conc 32.7 % (30-36); Mean Corpuscular Hemoglobin 30.2 PG (26-34); Mean Corpuscular Volume 92.2 fL (80-100); Platelet Count 530 X10^3/uL (150-400); Red Blood Cell Count 3.52 X10^6/uL (4.0-5.2)
[2019-01-21 11:19] LABS: Neutrophils Absolute Manual 9750 /uL (3000-5900); Total Cells Counted 100
[2019-01-21] MEDS: IBUPROFEN 400 MG TABLET PO (11:20)
[2019-01-21 11:21] LABS: Anisocytosis 1+; Hypochromasia 1+; Macrocytosis 1+; Poikilocytosis 1+
[2019-01-21 11:22] LABS: Platelet Estimate Increased on smear
[2019-01-21 11:28] LABS: Blood Urea Nitrogen 23 mg/dL (7-17); Calcium 8.2 mg/dL (8.4-10.2); Carbon Dioxide 19 mmol/L (22-32); Chloride 100 mmol/L (98-107); Creatine Kinase < 20 U/L (30-135); Estimated Glomerular Filt Rate 53.2 mL/min (>60); Glucose 162 mg/dL (80-110); HEMOLYSIS < 15 (0-50); Magnesium 1.6 mg/dL (1.6-2.3); Potassium 4.1 mmol/L (3.4-5.1); Sodium 133 mmol/L (137-145)
[2019-01-21 11:40] LABS: Troponin I 0.039 ng/mL (0.01-0.034)
[2019-01-21 11:59] LABS: Thyroid Stimulating Hormone 8.89 uIU/mL (0.47-4.68)
--- NOTE | 2019-01-21 12:35 | PC.NURSE ---
Called oncology to coordinate follow up. Left message w/ triage phone. Asked to call us back or call dtr / pt.
== END 2019-01-21 12:49 | disposition home or self-care (01) ==
PROVIDERS: Emergency Provider Emergency Medicine
DX: I47.1 Supraventricular tachycardia (principal); C67.9 Malignant neoplasm of bladder, unspecified; R19.7 Diarrhea, unspecified
CPT/HCPCS: 36591; 36592; 71045; 80048; 80053; 82550; 83735; 84436; 84443; 84484; 85025; 93005; 96361; 96374; 99285; 99291; J1642

== ENCOUNTER → 2019-01-30 15:57 | Outpatient (CLI) | payer MEDICARE, OTHER, SELFPAY ==
[2018-12-04 10:58] VITALS: BMI 18.6
[2019-01-30 16:34] LABS: Free T3, Triiodothyronine Free 2.36 pg/mL (2.77-5.27); T4 Total Thyroxine 9.13 ug/dL (5.5-11.0)
== END ==
PROVIDERS: Visit Provider Student in an Organized Health Care Education/Training Program
DX: E03.9 Hypothyroidism, unspecified (principal)
CPT/HCPCS: 84436; 84481

== ENCOUNTER → 2019-03-03 11:51 | Outpatient (CLI) | payer MEDICARE, OTHER, SELFPAY ==
[2018-12-04 10:58] VITALS: BMI 18.6
--- NOTE | 2019-03-03 12:06 | DI.CT.S_ITS ---
PROCEDURE: CT CHEST ABD PEL WO CON INDICATIONS: follow up bladder cancer TECHNIQUE: After the administration of oral contrast, 5 mm thick sections acquired from the lung apices to the symphysis pubis. 5 mm thick coronal and sagittal reformats acquired, with additional 7 mm coronal MIP reformats through the lungs. For radiation dose reduction, the following was used: automated exposure control, adjustment of mA and/or kV according to patient size. COMPARISON: [facility], CT, CT CHEST ABD PEL WO CON, 12/06/2018, 11:28. [facility], CT, CT CHEST ABD PEL WO CON, 08/27/2018, 10:45. FINDINGS: Image quality: Limited by absence of intravenous contrast. CHEST: Lungs and pleura: No acute pulmonary opacities. There is centrilobular emphysema as has been previously the case and also a sub-solid area of lung radiodensity at the lateral right upper lobe (series 3 image 86) that has been previously documented, measures up to 1 cm, and has not changed in morphology over time from 08/27/18. No pleural effusions or pneumothorax. Central and peripheral airways are patent are normal in caliber. Mediastinum: Heart size is normal. No pericardial effusion. No mediastinal adenopathy by CT size criteria. Thoracic aorta and central pulmonary arteries are normal in size. Esophagus is normal in caliber. No hiatal hernia. Chest wall: No axillary or supraclavicular adenopathy by size criteria. Thyroid gland is not well-seen. ABDOMEN: Solid organs: Liver is normal in size. Gallbladder appears normal except for a small dependent layering gallstone within the gallbladder lumen.. Pancreas is normal in contours. Spleen is normal in size. No adrenal nodules. Both kidneys are again seen to be asymmetric in size, relatively atrophic on the right, without hydronephrosis or nephrolithiasis. Peritoneum and bowel: Small and large bowel loops are normal in caliber and wall thickness. No free fluid or air. Nodes and vessels: No retroperitoneal or mesenteric adenopathy by size criteria. Aorta and inferior vena cava are normal in size. Miscellaneous: No ventral hernias. PELVIS: Genitourinary: Bladder wall thickness is unchanged with loculated thickening along the right lateral and right anterolateral wall of bladder, as has been previously the case. There is a small amount of dystrophic calcification along the surface of the lobulated mass in this area, which is nonobstructed. There is associated treat his internists thickening from direct invasion by the mass on the right. At the axial level of the upper aspect of the symphysis pubis the mass has not definitely changed and does not appear to impinge upon the urethral outflow from the bladder lumen.. Miscellaneous: No inguinal hernias or adenopathy. Bones: No suspicious bony lesions. No vertebral body compression fractures. IMPRESSION: 1. Considering differences in technique the study appears stable over time. Quality of visualization is somewhat limited by the absence of both oral and intravenous contrast which reduces the ability to detect small changes in the bladder mass which is directly invasive into the adjacent pelvic sidewall on the right inferiorly. 2. The lobulated bladder mass invades the adjacent ontrast internus musculature, to an equivalent in degree as that previously present. 3. There is a focus of subtle solid airspace disease focally present within the right upper lobe with indistinct margination but without definite change in size over time, and no solid pulmonary nodules have developed that would indicate definite underlying metastatic disease within the lungs. Rather, this could represent a low-grade primary bronchogenic carcinoma coincidentally found. Followup attention to this structure over time is recommended. Note is made of centrilobular emphysema and presumed long-standing smoking history. 4. Incidental note is made of a small calcified gallstone within the posterior gallbladder lumen. Note also is made of a low rectal region anastomotic staple line, indicating likelihood of prior colon carcinoma. Dictated by: Jared Cantor M.D. on 03/03/2019 at 14:25 Approved by: Jared Cantor M.D. on 03/03/2019 at 14:52
== END ==
DX: Z08 Encounter for follow-up examination after completed treatment for malignant neoplasm (principal); C67.9 Malignant neoplasm of bladder, unspecified; K80.20 Calculus of gallbladder without cholecystitis without obstruction
CPT/HCPCS: 71250; 74176

== ENCOUNTER 2019-05-04 11:56 | Observation (INO) | payer MEDICARE, OTHER, SELFPAY ==
[2018-12-04 10:58] VITALS: BMI 18.6
[2019-05-04] VITALS (10 sets, daily range): BP systolic 76–119; BP diastolic 37–74; PULSE 55–204; RESP 14–24; TEMP 35.9–36.6; O2SAT 94–100; BMI 18.6
[2019-05-04] MEDS: dilTIAZem 5 MG/ML SDV 10 MG IV (12:15)
[2019-05-04] MEDS: ADENOSINE 6 MG/2 ML VIAL IV (12:22)
--- NOTE | 2019-05-04 12:30 | PC.NURSE ---
Pt was found to be in rapid HR upon arrival. Dr Evans at bedside. Defibrillator pads placed on pt. 1215-10 mg cardizem given. HR went from 200 to 170's 1222-6 mg adenosine given. HR went from 170's to 100's BP increased to 130's/60's. Pt's color appears pink now.
--- NOTE | 2019-05-04 12:32 | DI.CT.S_ITS ---
PROCEDURE: CT CHEST ABD PEL W CON INDICATIONS: severe abdomen pain, nausea, history of bladder cancer TECHNIQUE: After the administration of oral and intravenous contrast, 5 mm thick sections acquired from the lung apices to the symphysis. 5 mm coronal and sagittal reformats were performed, with additional 7 mm coronal MIP reformats through the lungs. For radiation dose reduction, the following was used: automated exposure control, adjustment of mA and/or kV according to patient size. COMPARISON: [facility], CT, CT ABDOMEN PELVIS WO/W CON, 02/27/2018, 11:44. [facility], CT, CT CHEST ABD PEL WO CON, 08/27/2018, 10:45. [facility], CT, CT CHEST ABD PEL WO CON, 12/06/2018, 11:28. [facility], CT, CT CHEST ABD PEL WO CON, 03/03/2019, 12:01. FINDINGS: Image quality: Excellent. CHEST: Lungs and pleura: Within the right upper lobe, there are 2 sub-solid irregular nodules redemonstrated on series 7 images 71 and 76 measuring up to approximately 0.8 and 0.6 cm, respectively, which have progressively slightly increased in size compared to the prior studies dating back to 08/27/18. More posteriorly within the right upper lobe, there is a linear nodule measuring approximately 0.5 cm which is new from the prior study. In the left upper lobe, there is a small nodule on image 42 measuring approximately 0.3 cm which appears similar in size to the prior studies. There are mild centrilobular emphysematous changes. No pleural effusions or pneumothorax. Central and peripheral airways appear patent and normal in caliber. Mediastinum: Heart size is normal. No pericardial effusion. There is a right chest wall subclavian Port-A-Cath with the tip extending into the superior vena cava. No mediastinal or hilar adenopathy by size criteria. Thoracic aorta and central pulmonary arteries are normal in size. Esophagus is normal in caliber. No hiatal hernia. Chest wall: No axillary or supraclavicular adenopathy by size criteria. ABDOMEN: Irregular organs: Evaluation of the liver demonstrates no focal hepatic lesions. There is a gallstone in the region of the gallbladder neck without gallbladder wall thickening or pericholecystic fluid. Biliary system is non dilated. Pancreas enhances normally. Spleen is normal in size and enhancement. No adrenal nodules. The kidneys demonstrate no hydronephrosis. An atrophic left kidney with multiple cysts is redemonstrated. Peritoneum and bowel: Small bowel loops demonstrate normal wall thickness and caliber. There are bowel sutures in the transverse and rectosigmoid colon. There is mild segmental wall thickening in the proximal ascending colon. There is colonic diverticulosis without acute diverticulitis. There are small bowel loops which are in proximity to the right pelvic mass without definite invasion. No free fluid or air. Nodes and vessels: No retroperitoneal or mesenteric adenopathy by size criteria. Aorta and inferior vena cava are normal in size. Miscellaneous: No ventral hernias. PELVIS: Genitourinary: There is a lobulated heterogeneously enhancing mass around the right wall of the bladder which is similar in size to the most recent prior study but is progressively increased in size compared to older exams. This measures approximately 8.9 cm in craniocaudal dimension by 9.6 cm in transverse dimension by 9.2 cm in anteroposterior extent. There is an adjacent satellite component anterior to the left aspect of the bladder measuring up to 1.5 x 1.6 x 1.6 cm which is new compared to the prior studies. The mass again demonstrates lateral extension with invasion of the right pelvic sidewall musculature and extension through the obturator ring. This includes invasion of the right obturator internus and the right adductor muscles. The mass demonstrates hypoattenuating internal areas of necrosis. There is extension along the osseous structures of the right hemipelvis without definite bony destruction. Miscellaneous: No inguinal hernias or adenopathy. Bones: No suspicious bony lesions. No vertebral body compression fractures. IMPRESSION: 1. Lobulated necrotic right bladder mass consistent with history of bladder cancer redemonstrated with associated right pelvic sidewall invasion including extension to the obturator ring. The mass demonstrates progressive increase in size and extension compared to the prior studies. No evidence of associated bowel obstruction, hydronephrosis, or vascular occlusion. 2. Mild segmental wall thickening in the proximal ascending colon suggestive of a mild colitis. 3. Cholelithiasis without acute cholecystitis. 4. Progressive increase in size of 2 small irregular sub-solid nodules in the right upper lobe. 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 Recommend continued attention on followup. 5. New small nodule more inferiorly in the right upper lobe is nonspecific and may reflect atelectasis or mild infectious or inflammatory process. Recommend attention followup. Dictated by: Fuad Elizondo M.D. on 05/04/2019 at 12:48 Approved by: Fuad Elizondo M.D. on 05/04/2019 at 13:09
[2019-05-04 12:48] LABS: INR 1.1 (0.9-1.3); Prothrombin Time 12.6 SECONDS (10.1-12.7)
[2019-05-04] MEDS: HYDROMORPHONE 0.5 MG INJ IV ×2 (12:53→13:36)
[2019-05-04] MEDS: ONDANSETRON 4 MG/2 ML INJ IV (12:53)
[2019-05-04 12:58] LABS: Albumin 3.7 g/dL (3.5-5.0); Albumin Globulin Ratio 1.1 (1.0-2.8); Alkaline Phosphatase 178 U/L (38-126); Aspartate Aminotransferase 21 IU/L (14-36); BUN Creatinine Ratio 16.9 (6-22); Bilirubin Total 0.4 mg/dL (0.2-1.3); Blood Urea Nitrogen 27 mg/dL (7-17); Calcium 9.4 mg/dL (8.4-10.2); Carbon Dioxide 18 mmol/L (22-32); Chloride 100 mmol/L (98-107); Creatine Kinase 20 U/L (30-135); Estimated Glomerular Filt Rate 30.9 mL/min (>60); Globulin 3.5 g/dL (1.7-4.1); Glucose 183 mg/dL (80-110); HEMOLYSIS < 15 (0-50); Magnesium 1.9 mg/dL (1.6-2.3); Potassium 4.6 mmol/L (3.4-5.1); Sodium 137 mmol/L (137-145); Total Protein 7.2 g/dL (6.3-8.2)
[2019-05-04 13:00] LABS: Alanine Aminotransferase < 6 IU/L (9-52)
[2019-05-04 13:08] LABS: Troponin I < 0.012 ng/mL (0.01-0.034)
[2019-05-04 13:11] LABS: Add Manual Diff / Slide Review NO; Basophils Absolute Auto 100 /uL (0-100); Basophils Percent Auto 1.3 % (0-2); Eosinophils Absolute Auto 500 /uL (0-450); Eosinophils Percent Auto 4.7 % (2-4); Hematocrit 30.4 % (36-46); Hemoglobin 9.7 g/dL (12.0-16.0); Lymphocytes Absolute Auto 2100 /uL (1100-4500); Lymphocytes Percent Auto 19.3 % (25-40); Mean Corpuscular HGB Conc 31.9 % (30-36); Mean Corpuscular Hemoglobin 28.5 PG (26-34); Mean Corpuscular Volume 89.4 fL (80-100); Monocytes Absolute Auto 2300 /uL (0-900); Monocytes Percent Auto 20.7 % (3-14); Neutrophils Absolute Auto 6000 /uL (1500-7000); Platelet Count 747 X10^3/uL (150-400)
[2019-05-04] MEDS: SODIUM CHLORIDE 0.9% 1,000 ML 125 ML IV (13:22)
--- NOTE | 2019-05-04 13:23 | PC.NURSE ---
bolus 500ml , then 125ml hr per dr laboy.
--- NOTE | 2019-05-04 14:46 | ED_ITS ---
HPI - Arrhythmia/Palpitations General Chief Complaint: Arrhythmia/Palpitations Stated Complaint: Bladder pain, hx bladder cancer Time Seen by Provider: 05/04/19 12:01 Source: EMS Mode of arrival: EMS Limitations: no limitations History of Present Illness HPI narrative: 83-year-old female nonsmoker with locally advanced bladder cancer being treated with chemotherapy presents by EMS with a chief complaint of significant weakness over the past few days poor appetite and severe bladder pain. She denies any fever chills nor chest pain or cough. She has had a very poor appetite and admits to persistent nausea. She denies any dysuria, frequency or urgency. She denies any diarrhea but has been a bit constipated. On arrival patient had a heart rate over 200 with a blood pressure in the 70s. Patient denies any palpitations or chest pain. Onset (ago): day(s) Duration: constant Severity: moderate Context: occurred during rest Related Data Home Medications Medication Instructions Recorded Confirmed levothyroxine 100 mcg PO DAILY 11/29/18 05/04/19 cholecalciferol (vitamin D3) PO 3XW 03/11/19 [Vitamin D3] acetaminophen [Tylenol Extra 500 mg PO BEDTIME PRN 05/04/19 05/04/19 Strength] diazepam 10 mg PO BEDTIME PRN 05/04/19 05/04/19 Allergies Allergy/AdvReac Type Severity Reaction Status Date / Time lisinopril [LISINOPRIL] Allergy Severe Swelling Verified 01/30/19 15:29 of Lip/Tongue/Throat Sulfa (Sulfonamide Allergy Intermediate Rash Verified 01/30/19 15:29 Antibiotics) [SULFA (SULFONAMIDE ANTIBIOTICS)] sertraline AdvReac Intermediate Diarrhea Verified 01/30/19 15:29 Review of Systems Review of Systems ROS Unobtainable: All systems reviewed & are unremarkable except as noted in HPI and below Constitutional Constitutional: Denies chills, Denies fatigue, Denies fever(s), Denies frequent falls, Denies lethargy, Reports malaise and Reports weakness Eyes Eyes: Denies change in vision, Denies eye discharge, Denies irritation and Denies loss of vision ENT Ears, Nose, Mouth, and Throat: Denies change in voice, Denies dizziness, Denies neck pain, Denies sore throat and Denies throat swelling Cardiovascular Cardiovascular: Denies chest pain, Denies irregular heart rhythm, Denies lightheadedness, Denies palpitations, Denies dyspnea, Denies dyspnea on exertion and Denies orthopnea Respiratory Respiratory: Denies cough, Denies dyspnea, Denies dyspnea on exertion and Denies wheezing Gastrointestinal Gastrointestinal: Reports abdominal pain, Denies change in bowel habits, Denies diarrhea, Denies nausea and Denies vomiting Genitourinary Genitourinary: Denies hematuria, Denies flank pain, Denies urinary incontinence and Denies urinary urgency Musculoskeletal Musculoskeletal: Denies back pain, Denies muscle weakness, Denies neck pain, Denies numbness and Denies tingling Integumentary/Breasts Skin/Breast: Denies pruritus, Denies erythema, Denies rash and Denies wounds Neurologic Neurologic: Denies behavioral changes, Denies confusion, Denies dizziness, Denies frequent falls, Denies loss of vision, Denies numbness, Denies tingling and Reports weakness Psychiatric Psychiatric: Denies anxiety, Denies behavioral changes, Denies confusion, Denies depression, Denies homicidal ideation and Denies suicidal ideation Endocrine Endocrine: Denies fatigue, Denies flushing and Denies palpitations Hematologic/Lymphatic Hematologic/Lymphatic: Denies easy bruising Allergic/Immunologic Allergic/Immunologic: Denies urticaria, Denies throat swelling and Denies wheezing [facility] Medical History Bladder cancer (Acute) BRCA positive (Acute) CAD (coronary artery disease) (Chronic 2013) CVA (cerebral vascular accident) (Acute) Drug-induced anaphylaxis (Resolved 2013) Hyperlipidemia (Acute) Hypertension (Chronic) Kidney failure (Resolved 2014) Non-STEMI (non-ST elevated myocardial infarction) (Resolved 2013) Ovarian cancer (Resolved 2002) Secondary hypothyroidism (Acute) Thyroid cancer (Resolved 1997) Tobacco dependence (Acute) Surgical History History of thyroidectomy (Resolved 1997) S/P appy (Acute) Status post hysterectomy with oophorectomy (Resolved 2002) Family History Mother Ovarian cancer Breast cancer Father Heart attack Daughter Breast cancer Daughter Breast cancer Social History household members: none Smoking Status: Current every day smoker alcohol intake: current substance use type: does not use Family History Mother Ovarian cancer Breast cancer Father Heart attack Daughter Breast cancer Daughter Breast cancer Social History household members: none Smoking Status: Current every day smoker alcohol intake: current substance use type: does not use Exam Narrative Exam Narrative: GENERAL: [83] year old patient appears older than stated age. Chronically ill, temporal wasting, underway, in severe distress. HEAD: Temporal wasting Atraumatic. Normocephalic. EYES: Pupils equal round and reactive. Extraocular motions intact. No scleral icterus. No injection or drainage. ENT: Dry mucous members Nose without bleeding, purulent drainage. Throat without erythema, tonsillar hypertrophy or exudate. Airway patent. NECK: Trachea midline. Non tender CARDIOVASCULAR: Tachycardic but regular rhythm without murmurs, gallops, or rubs. RESPIRATORY: Clear to auscultation. Breath sounds equal bilaterally. No wheezes, rales, or rhonchi. GASTROINTESTINAL: Abdomen soft, non-tender, nondistended. EXTREMITIES: No edema or joint tenderness. BACK: Nontender without deformity or crepitance. No flank tenderness. NEURO: AOx3. SKIN: Pale and diaphoretic No rash or erythema of visible areas Initial Vital Signs Initial Vital Signs: Vital Signs Temperature 97.9 F 05/04/19 12:00 Pulse Rate 204 H 05/04/19 12:00 Respiratory Rate 24 05/04/19 12:00 Blood Pressure 76/38 L 05/04/19 12:00 Pulse Oximetry 98 05/04/19 12:00 Course Course Course Narrative: Initial EKG notes supraventricular tachycardia with a rate of about 220. No improvement with modified valsalva. Patient slowed just a bit with cardizem 10mg and eventually converted with adenosine 6mg. Follow up EKG notes normal sinus rhythm. BP improves to 130s, patient color improves but no change in overall feeling of weakness Orders Ordered: ED Orders 05/04/19 12:00 Complete Blood Count AUTO DIFF Stat Comprehensive Metabolic Panel Stat Magnesium Stat Prothrombin Time INR Stat Troponin & CK Cardiac Panel Stat 05/04/19 12:28 Urinalysis and Microscopic Stat 05/04/19 12:32 CT chest abd pel w con Stat Acetaminophen (Tylenol) 650 mg PO Q6HR PRN PRN Reason: As Needed for Fever/Mild Pain Hydrocodone Bitart/Acetaminophen ([place] 5/325) 1 tab PO Q4HR PRN PRN Reason: Pain, Moderate (4-6) Hydrocodone Bitart/Acetaminophen ([place] 5/325) 2 tab PO Q4HR PRN PRN Reason: Pain, Severe (7-10) Enoxaparin Sodium (Lovenox) 40 mg SUBCUT DAILY [facility] Sodium Chloride (Normal Saline 0.9%) 1,000 mls @ 100 mls/hr IV CONT RABIA Levothyroxine Sodium (Synthroid) 100 mcg PO DAILY [facility] Metoprolol Tartrate (Lopressor) 12.5 mg PO BID [facility] Polyethylene Glycol (Miralax) 17 gm PO DAILY RABIA Sennosides (Senna) 17.2 mg PO BEDTIME RABIA Discontinued Medications Adenosine (Adenocard) 6 mg IV NOW ONE Stop: 05/04/19 12:38 Last Admin: 05/04/19 12:22 Dose: 6 mg Documented by: CAROL Diltiazem HCl (Cardizem) 10 mg IV NOW ONE Stop: 05/04/19 12:37 Last Admin: 05/04/19 12:15 Dose: 10 mg Documented by: CAROL Hydromorphone HCl (Dilaudid) 0.5 mg IV NOW ONE Stop: 05/04/19 12:28 Last Admin: 05/04/19 12:53 Dose: 0.5 mg Documented by: MEISENMalachi Hydromorphone HCl (Dilaudid) 0.5 mg IV NOW ONE Stop: 05/04/19 13:34 Last Admin: 05/04/19 13:36 Dose: 0.5 mg Documented by: MEISENB Hydromorphone HCl (Dilaudid) 0.5 mg IV NOW ONE Stop: 05/04/19 13:44 Last Admin: 05/04/19 17:05 Dose: Not Given Documented by: MEISENMalachi Sodium Chloride (Normal Saline 0.9%) 1,000 mls @ 125 mls/hr IV CONT RABIA Last Infusion: 05/04/19 14:34 Dose: 125 mls/hr Documented by: CLEMENTESENMalachi Infusion: 05/04/19 13:23 Dose: 1,000 mls/hr Documented by: Admin: 05/04/19 13:22 Dose: 125 mls/hr Documented by: JOHNNY Ondansetron HCl (Zofran) 4 mg IV NOW ONE Stop: 05/04/19 12:33 Last Admin: 05/04/19 12:53 Dose: 4 mg Documented by: JOHNNY Reevaluation(s) Reevaluation #1: Patient has had a L and a half, almost 2 L of fluid and remains orthostatic positive with a heart rate bumping nearly 30 beats upon standing. She is very weak and fails an ambulation trial. Vital Signs Vital signs: Vital Signs - 8 hr 05/04/19 12:00 05/04/19 12:56 05/04/19 13:39 Temperature 97.9 F Pulse Rate 204 H 99 H 78 Pulse Rate [Orthostatic Lying] Pulse Rate [Orthostatic Sitting] Pulse Rate [Orthostatic Standing] Respiratory Rate 24 20 15 Blood Pressure 76/38 L Blood Pressure [Orthostatic Lying] Blood Pressure [Orthostatic Sitting] Blood Pressure [Orthostatic Standing] Blood Pressure [Right Arm] 110/53 L 112/37 L Pulse Oximetry 98 100 99 05/04/19 14:00 05/04/19 14:52 05/04/19 15:26 Temperature Pulse Rate 73 66 Pulse Rate [Orthostatic Lying] 59 L Pulse Rate [Orthostatic Sitting] 65 Pulse Rate [Orthostatic Standing] 80 Respiratory Rate 24 15 Blood Pressure Blood Pressure [Orthostatic Lying] 97/49 L Blood Pressure [Orthostatic Sitting] 115/40 L Blood Pressure [Orthostatic Standing] 107/49 L Blood Pressure [Right Arm] 102/44 L 99/74 Pulse Oximetry 96 100 05/04/19 16:07 Temperature Pulse Rate 55 L Pulse Rate [Orthostatic Lying] Pulse Rate [Orthostatic Sitting] Pulse Rate [Orthostatic Standing] Respiratory Rate Blood Pressure Blood Pressure [Orthostatic Lying] Blood Pressure [Orthostatic Sitting] Blood Pressure [Orthostatic Standing] Blood Pressure [Right Arm] 93/43 L Pulse Oximetry 94 MDM - Arrhythmia/Palpitations Lab Data Result diagrams: 05/04/19 12:00 05/04/19 12:00 Labs: Lab Results 05/04/19 05/04/19 05/04/19 Range/Units 12:00 12:00 12:00 WBC 11.0 (4.5-11.0) X10^3/uL RBC 3.40 L (4.0-5.2) X10^6/uL Hgb 9.7 L (12.0-16.0) g/dL Hct 30.4 L (36-46) % MCV 89.4 (80-100) fL MCH 28.5 (26-34) PG MCHC 31.9 (30-36) % RDW 19.0 H (11.6-14.8) % Plt Count 747 H (150-400) X10^3/uL Neut % (Auto) 54.0 (50-75) % Lymph % (Auto) 19.3 L (25-40) % [place] % (Auto) 20.7 H (3-14) % Eos % (Auto) 4.7 H (2-4) % Baso % (Auto) 1.3 (0-2) % Neut # (Auto) 6000 (3006-5403) /uL Lymph # (Auto) 2100 (0198-7070) /uL [place] # (Auto) 2300 H (0-900) /uL Eos # (Auto) 500 H (0-450) /uL Baso # (Auto) 100 (0-100) /uL PT 12.6 (10.1-12.7) SECONDS INR 1.1 (0.9-1.3) Sodium 137 (137-145) mmol/L Potassium 4.6 (3.4-5.1) mmol/L Chloride 100 (98-107) mmol/L Carbon Dioxide 18 L (22-32) mmol/L BUN 27 H (7-17) mg/dL Creatinine 1.60 H (0.52-1.04) mg/dL Estimated GFR 30.9 L (>60) mL/min BUN/Creatinine Ratio 16.9 (6-22) Glucose 183 H (80-110) mg/dL Calcium 9.4 (8.4-10.2) mg/dL Magnesium 1.9 (1.6-2.3) mg/dL Total Bilirubin 0.4 (0.2-1.3) mg/dL AST 21 (14-36) IU/L ALT < 6 L (9-52) IU/L Alkaline Phosphatase 178 H (38-126) U/L Total Creatine Kinase 20 L (30-135) U/L CK-MB (CK-2) TNP CK-MB (CK-2) Rel Index TNP Troponin I < 0.012 (0.01-0.034) ng/mL Total Protein 7.2 (6.3-8.2) g/dL Albumin 3.7 (3.5-5.0) g/dL Globulin 3.5 (1.7-4.1) g/dL Albumin/Globulin Ratio 1.1 (1.0-2.8) Discharge Plan Departure Patient Disposition: Admitted As Inpatient Clinical Impression: Acute dehydration, Acute kidney injury Fatigue Qualifiers: Fatigue type: unspecified Qualified Code(s): R53.83 - Other fatigue Discharge Date/Time: 05/04/19 17:04 Admit Date/Time: 05/04/19 16:15 Admit Provider: Satish Cueto
--- NOTE | 2019-05-04 18:10 | P.HP_ITS ---
History of Present Illness History of Present Illness Date Patient Seen: 05/04/19 Time Patient Seen: 18:10 Chief complaint: Bladder pain, hx bladder cancer Narrative: Ms. Mccarthy is an 83 y/o F with PMH of locally advanced bladder cancer, hypothyroidism (secondary to thyroidectomy), BRCA + and previous episodes of SVT who presented to the emergency room with 1 week of worsening fatigue but primarily for lower abdominal pain that was uncontrolled with her home dosing of medications. She states this morning she woke up with on tolerable, severe lower abdominal pain that was sharp in nature and nonradiating consistent with prior pain from her bladder cancer. This morning she took 2 hydrocodone pills which did not alleviate her symptoms and she called EMS. She states she has had some difficulty with straining to urinate, but denies dysuria or urinary frequency. She denies any fevers or chills, nausea, vomiting, chest pain, palpitations, shortness of breath, lower extremity edema. She reports a decrease in p.o. intake due to loss of appetite over the past week. She admits to constipation requiring a suppository every other day, she does not take an ything oral to try and alleviate this. She usually has diarrhea after her chemotherapy, but reports her last session 2 weeks ago and over the past week has had constipation requiring the suppository mentioned above. In the ED she presented with a heart rate over 200 which was due to a supraventricular tachycardia and she was hypotensive, they attempted vagal maneuvers which did not help but the rhythm a beta and with adenosine 6 mg x1. She then received 10 mg of IV diltiazem and her repeat EKG showed sinus tachycardia at a rate of 100. She further received pain medications and a few L of bolus IV fluid. The patient reports prior episodes of SVT which have been going on her whole life. Additional labs revealed a creatinine of 1.6 from a baseline of around 1, negative troponin, CO2 of 18. CT scan of the abdomen showed an increasing bladder mass that is necrotic, mild ascending colonic wall thickening consistent with colitis, cholelithiasis, and increasing lung masses. Patient History Medical History Bladder cancer (Acute) BRCA positive (Acute) CAD (coronary artery disease) (Chronic 2013) CVA (cerebral vascular accident) (Acute) Drug-induced anaphylaxis (Resolved 2013) Hyperlipidemia (Acute) Hypertension (Chronic) Kidney failure (Resolved 2014) Non-STEMI (non-ST elevated myocardial infarction) (Resolved 2013) Ovarian cancer (Resolved 2002) Secondary hypothyroidism (Acute) Thyroid cancer (Resolved 1997) Tobacco dependence (Acute) Surgical History History of thyroidectomy (Resolved 1997) S/P appy (Acute) Status post hysterectomy with oophorectomy (Resolved 2002) Family History Mother Ovarian cancer Breast cancer Father Heart attack Daughter Breast cancer Daughter Breast cancer Social History household members: none Smoking Status: Current every day smoker alcohol intake: current substance use type: does not use Family & Social History Family History Mother Ovarian cancer Breast cancer Father Heart attack Daughter Breast cancer Daughter Breast cancer Social History: household members none Prior Living Arrangements House Safety & Behavioral: Feels Safe in Current Yes Environment Suicidal Ideation Description None Tobacco & Substance use: Tobacco type cigarettes Smoking Status Current every day smoker alcohol intake current alcohol intake frequency 0-2 drinks per day Substance Use Type does not use Meds Home Medications and Allergies Home Medications Medication Instructions Recorded Confirmed Type levothyroxine 100 mcg PO DAILY 11/29/18 05/04/19 History cholecalciferol (vitamin D3) PO 3XW 03/11/19 History [Vitamin D3] acetaminophen [Tylenol Extra 500 mg PO BEDTIME PRN 05/04/19 05/04/19 History Strength] diazepam 10 mg PO BEDTIME PRN 05/04/19 05/04/19 History Allergies Allergy/AdvReac Type Severity Reaction Status Date / Time lisinopril [LISINOPRIL] Allergy Severe Swelling Verified 01/30/19 15:29 of Lip/Tongue/Throat Sulfa (Sulfonamide Allergy Intermediate Rash Verified 01/30/19 15:29 Antibiotics) [SULFA (SULFONAMIDE ANTIBIOTICS)] sertraline AdvReac Intermediate Diarrhea Verified 01/30/19 15:29 Review of Systems Review of Systems Narrative: All other systems reviewed with the patient and are negative unless otherwise stated. Exam Vital Signs (past 8 hours): - 05/04/19 12:00 05/04/19 12:56 05/04/19 13:39 Temperature 97.9 F Pulse Rate 204 H 99 H 78 Pulse Rate [Orthostatic Lying] Pulse Rate [Orthostatic Sitting] Pulse Rate [Orthostatic Standing] Respiratory Rate 24 20 15 Blood Pressure 76/38 L Blood Pressure [Orthostatic Lying] Blood Pressure [Orthostatic Sitting] Blood Pressure [Orthostatic Standing] Blood Pressure [Right Arm] 110/53 L 112/37 L Pulse Oximetry 98 100 99 05/04/19 14:00 05/04/19 14:52 05/04/19 15:26 Temperature Pulse Rate 73 66 Pulse Rate [Orthostatic Lying] 59 L Pulse Rate [Orthostatic Sitting] 65 Pulse Rate [Orthostatic Standing] 80 Respiratory Rate 24 15 Blood Pressure Blood Pressure [Orthostatic Lying] 97/49 L Blood Pressure [Orthostatic Sitting] 115/40 L Blood Pressure [Orthostatic Standing] 107/49 L Blood Pressure [Right Arm] 102/44 L 99/74 Pulse Oximetry 96 100 05/04/19 16:07 05/04/19 17:41 Temperature 96.7 F L Pulse Rate 55 L 69 Pulse Rate [Orthostatic Lying] Pulse Rate [Orthostatic Sitting] Pulse Rate [Orthostatic Standing] Respiratory Rate 18 Blood Pressure 119/65 Blood Pressure [Orthostatic Lying] Blood Pressure [Orthostatic Sitting] Blood Pressure [Orthostatic Standing] Blood Pressure [Right Arm] 93/43 L Pulse Oximetry 94 95 Oxygen Delivery Method Nasal Cannula Oxygen Flow Rate 2 Narrative Exam Narrative: GENERAL APPEARANCE: Chronically ill appearing, pale, pleasant female in no acute distress. SKIN: Inspection of the skin reveals no rashes, ulcerations or petechiae. HEENT: Dry mucous membranes, EOMI. NECK: Supple and symmetric. There was no thyroid enlargement, and no tenderness, or masses were felt. CHEST: Normal AP diameter and normal contour without any kyphoscoliosis. LUNGS: Auscultation of the lungs revealed no rhonchi and some mild expiratory wh eezes diffusely. CARDIOVASCULAR: There was a regular rate and rhythm without any murmurs, gallops, rubs. Peripheral pulses were 2+ and symmetric. ABDOMEN: Soft and nontender with normal bowel sounds. No ascites was noted. MUSCULOSKELETAL: There was no tenderness or effusions noted. Muscle strength and tone were normal. EXTREMITIES: No cyanosis, clubbing or edema. NEUROLOGIC: Alert and oriented x 3. Normal affect. Strength is +5/5 in the Upper Extremities and Lower Extremities Bilaterally. Sensation to touch was normal. Objective Labs Result Diagrams: 05/04/19 12:00 05/04/19 12:00 Labs: Laboratory Results - last 24 hr 05/04/19 05/04/19 05/04/19 12:00 12:00 12:00 WBC 11.0 RBC 3.40 L Hgb 9.7 L Hct 30.4 L MCV 89.4 MCH 28.5 MCHC 31.9 RDW 19.0 H Plt Count 747 H Neut % (Auto) 54.0 Lymph % (Auto) 19.3 L [place] % (Auto) 20.7 H Eos % (Auto) 4.7 H Baso % (Auto) 1.3 Neut # (Auto) 6000 Lymph # (Auto) 2100 [place] # (Auto) 2300 H Eos # (Auto) 500 H Baso # (Auto) 100 PT 12.6 INR 1.1 Sodium 137 Potassium 4.6 Chloride 100 Carbon Dioxide 18 L BUN 27 H Creatinine 1.60 H Estimated GFR 30.9 L BUN/Creatinine Ratio 16.9 Glucose 183 H Calcium 9.4 Magnesium 1.9 Total Bilirubin 0.4 AST 21 ALT < 6 L Alkaline Phosphatase 178 H Total Creatine Kinase 20 L CK-MB (CK-2) TNP CK-MB (CK-2) Rel Index TNP Troponin I < 0.012 Total Protein 7.2 Albumin 3.7 Globulin 3.5 Albumin/Globulin Ratio 1.1 Assessment & Plan Assessment & Plan narrative: Ms. Mccarthy is an 83 y/o F with PMH of locally advanced bladder cancer, hypothyroidism (secondary to thyroidectomy), BRCA + and previous episodes of SVT who presented to the emergency room with 1 week of worsening fatigue but primarily for lower abdominal pain that was uncontrolled with her home dosing of medications. In the emergency room she was noted to be in supraventricular tachycardia with a rate of 200 which improved after adenosine and IV diltiazem, she remains currently in normal sinus rhythm but did have a mild bump in her creatinine to 1.6 so she is admitted under observation status for SIXTO. 1. Acute on chronic renal failure - history of CKD 3, baseline Cr 1.0 approxim ately, today with Cr of 1.6. Likely secondary to decreased p.o. intake at home which is likely due to progression of her malignancy. This could also be secondary to the episode of SVT and decreased perfusion during the tachyarrhythmia. Patient also admits to recently taking Aleve for worsening pa in. - continue IVF NS @ 100 cc per hour for now. Stop tomorrow AM and encourage PO intake. - Supraventricular tachycardia management as noted below - trend Cr - avoid NSAIDs or other nephrotoxic medications - no apparent infection but UA was ordered, will check 2. Supraventricular tachycardia, acute, present on admission, now resolved - patient has prior admissions for this, does not look like she has had an event monitor. She would require outpatient monitoring for this, however she is reluctant to see a cigar packer and grader at this time given her locally advanced bladder cancer and its progression. She was previously on metoprolol this was likely discontinued for low blood pressure based on history taking with the patient -patient's blood pressure has normalized, will start low-dose metoprolol at 12.5 mg b.i.d. - continue tele 3. Locally advanced bladder cancer- follows with Dr. Downs here. she is BRCA +. past treatment of 9 doses of Keytruda, Paclitaxel x4 cycles. - continue home pain regimen - will work on bowel regimen - patient was scheduled to restart her chemotherapy on 05/06, will speak with oncology tomorrow when her oncologist returns to the office (Dr. Downs). 4. abdominal pain - likely secondary to progression of bladder cancer as seen on CT imaging. differential includes constipation given patient history but there is not a profound amount of stool in her colon on imaging. - pain control with hydrocodone / acetaminophen, 1 pill for moderate, 2 pills for severe pain. - oral senna, miralax 5. generalized weakness - likely related to progression of bladder cancer and decreased PO intake. - PT evaluation Code: DNR DVT: Lovenox Dispo: Admit as observation. anticipate discharge for tomorrow.
[2019-05-04] MEDS: SODIUM CHLORIDE 0.9% 1,000 ML 100 ML IV (19:00)
[2019-05-04 20:21] LABS: Appearance Urine UA CLEAR; Bilirubin Urine UA NEGATIVE (NEGATIVE); Color Urine UA YELLOW; Glucose Urine UA NEGATIVE (Negative); Ketones Urine UA NEGATIVE (NEGATIVE); Leukocyte Esterase Urine UA TRACE (NEGATIVE); Nitrite Urine UA NEGATIVE (Negative); Occult Blood Urine UA 2+ (Negative); Protein Urine UA TRACE (Negative); Specific Gravity Urine UA <=1.005 (1.000-1.035); Urobilinogen Urine UA 0.2 E.U./dL (0.2)
[2019-05-04 20:27] LABS: Amorphous Sediment Urine 1+; Bacteria Urine Few (2-10); Culture Indicated Urine Specimen Cultured; RBC Urine 1-5/HPF (0-5/HPF); Squamous Epithelial Cell Urine 0-1 /HPF (0-5/HPF); WBC Urine 10-30/HPF (0-5/HPF)
[2019-05-04] MEDS: SENNOSIDES 8.6 MG TABLET 17.2 MG PO (21:23)
[2019-05-05] MEDS: CEFTRIAXONE 1 GM/50 ML FROZ.PIGGY IV (00:16)
--- NOTE | 2019-05-05 01:10 | PC.NURSE ---
Pt requesting home med diazepam to help sleep. Per RINA Coleman give melatonin 6mg instead. Pt refused
[2019-05-05 03:25] VITALS: BP 126/79; PULSE 78; RESP 14; TEMP 36.4; O2SAT 99
[2019-05-05] MEDS: HYDROMORPHONE 0.5 MG INJ IV (03:31)
[2019-05-05] MEDS: SODIUM CHLORIDE 0.9% 1,000 ML 100 ML IV (03:31)
[2019-05-05 05:54] LABS: Add Manual Diff / Slide Review NO; Basophils Absolute Auto 100 /uL (0-100); Eosinophils Absolute Auto 700 /uL (0-450); Eosinophils Percent Auto 9.6 % (2-4); Hematocrit 26.3 % (36-46); Hemoglobin 8.6 g/dL (12.0-16.0); Lymphocytes Absolute Auto 1500 /uL (1100-4500); Lymphocytes Percent Auto 21.6 % (25-40); Mean Corpuscular HGB Conc 32.5 % (30-36); Mean Corpuscular Hemoglobin 28.4 PG (26-34); Mean Corpuscular Volume 87.6 fL (80-100); Monocytes Absolute Auto 1300 /uL (0-900); Monocytes Percent Auto 18.3 % (3-14); Neutrophils Absolute Auto 3400 /uL (1500-7000); Neutrophils Percent Auto 48.5 % (50-75); Platelet Count 551 X10^3/uL (150-400); Red Blood Cell Count 3.01 X10^6/uL (4.0-5.2)
[2019-05-05 06:10] LABS: BUN Creatinine Ratio 18.5 (6-22); Blood Urea Nitrogen 24 mg/dL (7-17); Calcium 7.7 mg/dL (8.4-10.2); Carbon Dioxide 21 mmol/L (22-32); Chloride 105 mmol/L (98-107); Estimated Glomerular Filt Rate 39.3 mL/min (>60); Glucose 88 mg/dL (80-110); HEMOLYSIS < 15 (0-50); Magnesium 1.7 mg/dL (1.6-2.3); Potassium 4.1 mmol/L (3.4-5.1); Sodium 136 mmol/L (137-145)
[2019-05-05 06:27] LABS: Free T4, Direct Thyroxine 1.56 ng/dL (0.78-2.19)
[2019-05-05 07:00] VITALS: BP 111/54; PULSE 59; RESP 15; TEMP 35.9; O2SAT 98
[2019-05-05] MEDS: METOPROLOL IR 25 MG TABLET 12.5 MG PO (08:29)
[2019-05-05] MEDS: LEVOTHYROXINE 100 MCG TABLET PO (08:30)
[2019-05-05] MEDS: HYDROCODONE/ACET 5/325 TABLET 1 TAB PO (08:31)
[2019-05-05] MEDS: POLYETHYLENE GLYCOL 3350 17 GM POWD.PACK PO (08:31)
[2019-05-05] MEDS: ENOXAPARIN 40 MG/0.4 ML SYRINGE SUBCUT (08:31)
[2019-05-05 11:00] VITALS: BP 112/61; PULSE 56; RESP 15; TEMP 36.1; O2SAT 99
[2019-05-05 11:14] VITALS: BMI 17.8
--- NOTE | 2019-05-05 11:21 | DIET.PN ---
Dietary Progress Note Assessment: 83y F referred to nutrition for 7% wt loss in 3mo (moderate PCM) r/t bladder px c hx bladder Ca, UTI, hx of CKD3 Pt reports recent taste changes (things are too salty or too sweet), also reduced appetite and thirst for 2mo. Has 3 children sharing care and cooking meals for her c weekly shifts. Has Ensure at home but unsure if she wants to drink it. HT:165.1cm WT: 48.5kg (was 52kg on 01/04/19 per [facility] records) UBW: 60kg (2y ago) BMI: 17.8 (severe) Labs:hgb 8.6 (L), GFR 39.3 (L) MNA: 7 malnourished Mariano: 19 Nutrition Diagnosis: Acute Moderate PCM r/t altered metabolism of nutrients and dx (progression of bladder Ca c lung masses) aeb <75% EER for 3mo, 7% wt loss in 3 mo, 86% IBW, BMI 17.8 (severe for age), and moderate subcutaneous fat losses c saggy skin indicating rapid wt loss. Interventions: Encouraged drinking one Ensure/d to help c low appetite and support PRO/kcal needs r/t PCM in addition to meals/snacks. Discussed ways to increase hydration including flavored beverages, soups, watermelon. Discussed including PRO at each meal, eating it first in the case of early satiety. Recc ONS Ensure enlive c dinner (HS) to supply 44% PRO and 25% kcals. Diet Order: HH EER: 1400kcal, 45g PRO (0.9g/kg renal/elder/cancer), 1.2L fluids (25cc/kg) Monitoring/Evaluations: I&Os
--- NOTE | 2019-05-05 11:40 | CM.DANOTE ---
Addendum entered by Priscilla Gibson 05/05/19 14:22: Spoke with ONC/PLANT TECHNICIAN/CONTROL ROOM OPERATOR Faustina she reports that ONC will manage and take care of HH when patient appropriate to do so. Therefore, anticipate home when medically stable. P: Home. Notify ONC/Faustina of discharge ext# [phone]. No CM involvement for d/c planning needed. ONC/PLANT TECHNICIAN/CONTROL ROOM OPERATOR managing d/c plan and coordination of arrangements. KORI Cruz Original Note: DCP/Assessment: Reviewed chart. Patient is a 83yr old female admitted to [facility] with complaints of bladder pain. Patient with h/o bladder CA. PCP is Dr. Andrade. ONC is Dr. Downs. Primary payor is 1)Medicare 2)[facility]. Met with patient explained CM/SW role. Patient reports that she hopes to discharge home today. Patient actively being treated for bladder CA at [facility]. PLANT TECHNICIAN/CONTROL ROOM OPERATOR notified ONC/PLANT TECHNICIAN/CONTROL ROOM OPERATOR Faustina of patient's hospitalization. Patient does not anticipate any d/c planning needs. Patient reports that she does not use any DME and has family rotating weeks with her in the home during chemotherapy treatment. Patient has 3 children helping out: Chanel, Ela, and Jace. P: Therapy evaluation pending. Home when stable. KORI Cruz Discharge Planning/Care Management Advanced directive, confirm from FAMILY Start: 05/04/19 17:46 Freq: Q24H Status: Active Protocol: Document 05/04/19 17:46 LDV (Rec: 05/04/19 19:54 LDV [id number]) Advance Directive, confirm on record Time 18:00 Person contacted pt Copy received No CM Discharge Assessment Start: 05/05/19 11:18 Freq: Status: Active Protocol: Document 05/05/19 11:23 KJS (Rec: 05/05/19 11:40 KJS [id number]) Discharge Planning Assessment Assigned Mandarin Tutor KORI Cruz Contact Information Braeden Bowles (family) Advance Directives? Yes: Chanel (daughter) DNR Advance Directives on File No History Provided By Patient,Medical Record Prior Living Arrangements House Household Members none Comment Drives at baseline but not currently due to chemotherapy. Independent with ADL's Yes Is patient alert and oriented? Yes Caregiver for Another No Barriers to Discharge No Discharge Plan Home Transportation Arrangement Family can provide transport at d/c. Referrals Initiated None needed Whiteboard Updated in Patient Room with Yes name and ext. # of Mandarin Tutor Review Status In Process Next Review Type Continued Stay Review
--- NOTE | 2019-05-05 13:15 | PT.IIE ---
Surgical History (Last Reviewed 05/04/19 @ 15:07 by Yimi Evans DO) History of thyroidectomy (Resolved 1997) S/P appy (Acute) Status post hysterectomy with oophorectomy (Resolved 2002) Medical History (Last Reviewed 05/04/19 @ 15:07 by Yimi Evans DO) Bladder cancer (Acute) BRCA positive (Acute) CAD (coronary artery disease) (Chronic 2013) CVA (cerebral vascular accident) (Acute) Drug-induced anaphylaxis (Resolved 2013) Hyperlipidemia (Acute) Hypertension (Chronic) Kidney failure (Resolved 2014) Non-STEMI (non-ST elevated myocardial infarction) (Resolved 2013) Ovarian cancer (Resolved 2002) Secondary hypothyroidism (Acute) Thyroid cancer (Resolved 1997) Tobacco dependence (Acute) Physical Therapy Inpatient Evaluation/Re-Eval M3 PT-IP Subjective Start: 05/05/19 08:12 Freq: NEEDED Status: Active Protocol: Document 05/05/19 13:15 RS (Rec: 05/05/19 15:56 RS [email or web address]) Subjective Physical Therapy Visit Type Type Initial Evaluation Visit Start Time 13:00 Visit Stop Time 13:15 Total Visit Minutes 15 Physical Therapy Visit Comments Patient Comments Pt reports feeling ready to go home, has no complaints. Patient Goals go home today Therapy Pain Assessment Pain When Pain Assessed At Rest Pain Present Pain Present Denied Pain M4 PT-IP Mobility and Gait Start: 05/05/19 08:12 Freq: NEEDED Status: Active Protocol: Document 05/05/19 13:15 RS (Rec: 05/05/19 15:56 RS [email or web address]) PT-Bed Mobility Assessment Rolling Level of Assist Independent Supine to Sit Supine to Sit Independent Sit to Supine Sit to Supine Independent Scooting Scooting to Edge of Bed Independent PT-Transfer Assessment Sit to and From Stand Sit to and from Stand Independent Equipment Transfer Assistive Device None Transfers Transfer Destination Bed,Chair Transfer Technique Stand Step Pivot Transfer Ability Level of Assist Independent Gait Assessment Gait Gait Assistance Required: Independent Assistive Devices Assistive Device None Gait Deviations General Gait Pattern Within Normal Limits PT-Balance Assessment Sitting Balance and Reactions Static Sitting Balance Ability Normal Dynamic Sitting Balance Ability Normal Standing Balance and Reactions Static Standing Balance Ability Normal Dynamic Standing Balance Ability Good Device Used none M5 PT-IP Objective Assessments Start: 05/05/19 08:12 Freq: NEEDED Status: Active Protocol: Document 05/05/19 13:15 RS (Rec: 05/05/19 15:56 RS [email or web address]) Orientation Orientation/Cognition Level of Alertness Alert Orientation Name,Age,Birthday,Month,Date, Year,Day of Week,Place, Situation Language Function Ability No Deficits Noted Safety Awareness Understands Safety Issues Memory Description No Deficits Noted Gross Range of Motion Upper Extremity ROM Assessment Within Functional Limits Lower Extremity ROM Assessment Within Functional Limits Strength Upper Extremity Strength Assessment Within Functional Limits Lower Extremity Strength Assessment Within Functional Limits M7 PT-IP Assessment and Plan Start: 05/05/19 08:12 Freq: NEEDED Status: Active Protocol: Document 05/05/19 13:15 RS (Rec: 05/05/19 15:56 RS [email or web address]) PT Summary Assessment and Plan Potential Rehabilitation Potential Good Status of Condition at Evaluation Stable Summary Impairments Activity Tolerance Progress Towards Goals Safe For Discharge Assessment Summary Pt presents with gross deconditioning but is functioning at her reported baseline. Pt also has multiple family members involved in her care at home. Pt is slow but steady on her feet and is safe to discharge home once medically ready with same level of assist as prior. No further acute PT is indicated at this time, will sign off. Goals Bed Mobility Goal Independent Transfer Goal Independent Gait Goal Independent Frequency of Treatment Frequency Of Treatment Discharge Recommendations To Nursing Amount of Assist Needed Standby Assistance Discharge Recommendations PT Discharge Recommendations Home with Assistance
--- NOTE | 2019-05-05 14:32 | P.DS_ITS ---
History of Present Illness History of Present Illness Chief complaint: Bladder pain, hx bladder cancer Narrative: Ms. Mccarthy is an 83 y/o F with PMH of locally advanced bladder cancer, hypothyroidism (secondary to thyroidectomy), BRCA + and previous episodes of SVT who presented to the emergency room with 1 week of worsening fatigue but primarily for lower abdominal pain that was uncontrolled with her home dosing of medications. She states this morning she woke up with on tolerable, severe lower abdominal pain that was sharp in nature and nonradiating consistent with prior pain from her bladder cancer. This morning she took 2 hydrocodone pills which did not alleviate her symptoms and she called EMS. She states she has had some difficulty with straining to urinate, but denies dysuria or urinary frequency. She denies any fevers or chills, nausea, vomiting, chest pain, palpitations, shortness of breath, lower extremity edema. She reports a decrease in p.o. intake due to loss of appetite over the past week. She admits to constipation requiring a suppository every other day, she does not take any thing oral to try and alleviate this. She usually has diarrhea after her chemotherapy, but reports her last session 2 weeks ago and over the past week has had constipation requiring the suppository mentioned above. In the ED she presented with a heart rate over 200 which was due to a supraventricular tachycardia and she was hypotensive, they attempted vagal maneuvers which did not help but the rhythm a beta and with adenosine 6 mg x1. She then received 10 mg of IV diltiazem and her repeat EKG showed sinus tachycardia at a rate of 100. She further received pain medications and a few L of bolus IV fluid. The patient reports prior episodes of SVT which have been going on her whole life. Additional labs revealed a creatinine of 1.6 from a baseline of around 1, negative troponin, CO2 of 18. CT scan of the abdomen showed an increasing bladder mass that is necrotic, mild ascending colonic wall thickening consistent with colitis, cholelithiasis, and increasing lung masses. Discharge Providers Provider Date of admission: 05/04/19 16:15 Discharge Date: 05/05/19 Primary care physician: Juanjo Anrdade MD Consults: 05/04/19 17:45 Consult to Dietitian, Adult Routine Comment: Reason For Exam: Weight loss, > 15 lbs 05/04/19 18:25 Consult to Physical Therapy Evaluate & Treat Comment: Physician Instructions: Evaluate and Treat Discharge provider: Satish Cueto DO Summary Hospital Course Discharge Diagnosis: 1. Acute on chronic renal failure, CKD 3, improved 2. Supraventricular tachycardia, acute, present on admission, now resolved 3. Locally advanced bladder cancer, chronic 4. abdominal pain, chronic, improved 5. generalized weakness, present on admission, improved Hospital Course: Ms. Mccarthy is an 83 y/o F with PMH of locally advanced bladder cancer, hypothyroidism (secondary to thyroidectomy), BRCA + and previous episodes of SVT who presented to the emergency room with 1 week of worsening fatigue but primarily for lower abdominal pain that was uncontrolled with her home dosing of medications. In the emergency room she was noted to be in supraventricular tachycardia with a rate of 200 which improved after adenosine and IV diltiazem, she remains currently in normal sinus rhythm but did have a mild bump in her creatinine to 1.6 so she was admitted under observation status for SIXTO. With fluids patient's creatinine improved to 1.3, and she was feeling well so she was discharged home the following day. 1. Acute on chronic renal failure - history of CKD 3, baseline Cr 1.0 approximately, admission Cr of 1.6. Likely secondary to decreased p.o. intake at home which is likely due to progression of her malignancy. This could also be secondary to the episode of SVT and decreased perfusion during the tachyarrhythmia. Patient also admits to recently taking Aleve for worsening pain. Patient's creatinine improved to 1.3 the following morning, and she was stable for discharge home. - avoid NSAIDs or other nephrotoxic medications -patient did complain of urinary frequency, UA was positive but culture was negative. I have sent her a prescription for an oral cephalosporin for 6 days to complete outpatient therapy. 2. Supraventricular tachycardia, acute, present on admission, now resolved - patient has prior admissions for this, does not look like she has had an event monitor. She would require outpatient monitoring for this, however she is reluctant to see a pottery decoration designer at this time given her locally advanced bladder cancer and its progression. She was previously on metoprolol this was likely discontinued for low blood pressure based on history taking with the patient -patient had no further events while inpatient -have started metoprolol 12.5 mg b.i.d., to continue at home 3. Locally advanced bladder cancer- follows with Dr. Downs here. she is BRCA +. past treatment of 9 doses of Keytruda, Paclitaxel x4 cycles. - continue home pain regimen -patient was given a prescription for senna and MiraLax to help with constipation - patient was scheduled to restart her chemotherapy on 05/06, this will likely be delayed per her oncologist Dr. Downs. 4. abdominal pain - likely secondary to progression of bladder cancer as seen on CT imaging. differential includes constipation given patient history but there is not a profound amount of stool in her colon on imaging. - pain control with hydrocodone / acetaminophen, 7 day prescription provided. - oral senna, miralax as noted above 5. generalized weakness - likely related to progression of bladder cancer and decreased PO intake. - PT evaluation completed. Status at Discharge Cognitive/behavioral status at discharge: oriented Overall status at discharge: patient is back to baseline Exam Vital Signs (past 8 hours): - 05/05/19 07:00 05/05/19 11:00 Temperature 96.7 F L 97.0 F L Pulse Rate 59 L 56 L Respiratory Rate 15 15 Blood Pressure 111/54 L 112/61 Pulse Oximetry 98 99 Oxygen Delivery Method Room Air Oxygen Flow Rate 0 Narrative Exam Narrative: GENERAL APPEARANCE: Chronically ill appearing, pale, pleasant female in no acute distress. SKIN: Inspection of the skin reveals no rashes, ulcerations or petechiae. HEENT: Dry mucous membranes, EOMI. NECK: Supple and symmetric. There was no thyroid enlargement, and no tenderness, or masses were felt. CHEST: Normal AP diameter and normal contour without any kyphoscoliosis. LUNGS: Auscultation of the lungs revealed no rhonchi and some mild expiratory wheezes diffusely. CARDIOVASCULAR: There was a regular rate and rhythm without any murmurs, gallops, rubs. Peripheral pulses were 2+ and symmetric. ABDOMEN: Soft and nontender with normal bowel sounds. No ascites was noted. MUSCULOSKELETAL: There was no tenderness or effusions noted. Muscle strength and tone were normal. EXTREMITIES: No cyanosis, clubbing or edema. NEUROLOGIC: Alert and oriented x 3. Normal affect. Strength is +5/5 in the Upper Extremities and Lower Extremities Bilaterally. Sensation to touch was normal. Objective Labs Result Diagrams: 05/05/19 05:35 05/05/19 05:35 Labs: Laboratory Results - last 24 hr 05/04/19 05/05/1905/05/19 20:00 05:35 05:35 WBC 7.0 RBC 3.01 L Hgb 8.6 L Hct 26.3 L MCV 87.6 MCH 28.4 MCHC 32.5 RDW 19.0 H Plt Count 551 H Neut % (Auto) 48.5 L Lymph % (Auto) 21.6 L [place] % (Auto) 18.3 H Eos % (Auto) 9.6 H Baso % (Auto) 2.0 Neut # (Auto) 3400 Lymph # (Auto) 1500 [place] # (Auto) 1300 H Eos # (Auto) 700 H Baso # (Auto) 100 Sodium 136 L Potassium 4.1 Chloride 105 Carbon Dioxide 21 L BUN 24 H Creatinine 1.30 H Estimated GFR 39.3 L BUN/Creatinine Ratio 18.5 Glucose 88 Calcium 7.7 L Magnesium 1.7 Free T4 Urine Color Yellow Urine Appearance Clear Urine pH 6.0 Ur Specific [place] <=1.005 Urine Protein Trace H Urine Glucose (UA) Negative Urine Ketones Negative Urine Occult Blood 2+ H Urine Nitrate Negative Urine Bilirubin Negative Urine Urobilinogen 0.2 Ur Leukocyte Esterase Trace H Urine RBC 1-5/hpf D Urine WBC 10-30/hpf H Ur Squamous Epith Cells 0-1 /hpf Amorphous Sediment 1+ Urine Bacteria Few (2-10) H Ur Culture Indicated? Specimen cultured 05/05/19 05:35 WBC RBC Hgb Hct MCV MCH MCHC RDW Plt Count Neut % (Auto) Lymph % (Auto) [place] % (Auto) Eos % (Auto) Baso % (Auto) Neut # (Auto) Lymph # (Auto) [place] # (Auto) Eos # (Auto) Baso # (Auto) Sodium Potassium Chloride Carbon Dioxide BUN Creatinine Estimated GFR BUN/Creatinine Ratio Glucose Calcium Magnesium Free T4 1.56 Urine Color Urine Appearance Urine pH Ur Specific [place] Urine Protein Urine Glucose (UA) Urine Ketones Urine Occult Blood Urine Nitrate Urine Bilirubin Urine Urobilinogen Ur Leukocyte Esterase Urine RBC Urine WBC Ur Squamous Epith Cells Amorphous Sediment Urine Bacteria Ur Culture Indicated? Discharge Plan Discharge Plan Patient Disposition: Home Discharge comment: You were admitted to the hospital with a urinary tract infection and weakness. You are being prescribed an antibiotic which you should take for 6 more days. I have also sent you a prescription for pain medication, and for a bowel regimen at home. Please follow up with Dr. Downs regarding when your next chemotherapy should be. You were started on a low-dose medication to try and prevent the fast heart rate that you had when you were admitted. Discharge Med Rec/Prescriptions Prescriptions: New sennosides [senna] 8.6 mg Tablet 17.2 mg PO BEDTIME 30 Days Qty: 60 RF: 0 polyethylene glycol 3350 17 gram Powder In Packet 17 gm PO DAILY 30 Days Qty: 30 RF: 0 hydrocodone-acetaminophen 5-325 mg Tablet 1 tab PO Q4HR PRN (Reason: Pain, Moderate (4-6)) 7 Days Qty: 40 RF: 0 metoprolol tartrate 25 mg Tablet 12.5 mg PO BID 30 Days Qty: 30 RF: 0 cefdinir 300 mg capsule 300 mg PO BID 6 Days Qty: 12 RF: 0 Continued cholecalciferol (vitamin D3) [Vitamin D3] 1,000 unit Capsule 0 unit PO 3XW RF: 0 acetaminophen [Tylenol Extra Strength] 500 mg Tablet 500 mg PO BEDTIME PRN (Reason: Pain (Scale Score 1-3)) RF: 0 diazepam 10 mg tablet 10 mg PO BEDTIME PRN (Reason: Anxiety) RF: 0 calcitriol 0.25 mcg capsule 0.25 mcg PO MOWEFR RF: 0 levothyroxine 100 mcg tablet 100 mcg PO DAILY RF: 0 Follow up/Referrals: Juanjo Andrade MD [Primary Care Provider] - Provider Discharge Instructions Activity: As tolerated Visit Report/Discharge Packet Instructions: DI for Prescription Opioid Use Discharge Data Primary Care Provider: Juanjo Andrade Attending Provider: Satish Cueto Admit Date/Time: 05/04/19 16:15
[2019-05-05 15:00] VITALS: BP 143/76; PULSE 61; RESP 14; TEMP 35.8; O2SAT 91
--- NOTE | 2019-05-05 16:56 | PC.NURSE ---
1545: Patient discharged home in stable condition. Patient verbalized understanding of discharge instructions, discussed importance of F/U with PMD and new prescription meds. Home via private vehicle accompanied by family.
== END 2019-05-05 15:45 | disposition home or self-care (01) ==
LOC: ED 14:40 → AC 16:15
PROVIDERS: Admitting Provider Internal Medicine; Emergency Provider Emergency Medicine; PCP Student in an Organized Health Care Education/Training Program; Visit Provider Internal Medicine
DX: N17.9 Acute kidney failure, unspecified (principal); I49.9 Cardiac arrhythmia, unspecified; C67.9 Malignant neoplasm of bladder, unspecified; R53.1 Weakness; I47.1 Supraventricular tachycardia; N18.3 Chronic kidney disease, stage 3 (moderate); R10.9 Unspecified abdominal pain
CPT/HCPCS: 36415; 71260; 74177; 80048; 80053; 81001; 82550; 83735; 84439; 84484; 85025; 85610; 87086; 93005; 93010; 96361; 96365; 96366; 96372; 96375; 96376; 97161; 99285; 99291; G0378; J0153; J1170; J1650; J2405; Q9967

== ENCOUNTER 2019-05-07 12:11 | Observation (INO) | payer MEDICARE, OTHER, SELFPAY ==
[2019-05-07] VITALS (21 sets, daily range): BP systolic 73–146; BP diastolic 49–76; PULSE 50–210; RESP 9–50; TEMP 36.2; O2SAT 97–100; BMI 19.8
[2019-05-07] MEDS: SODIUM CHLORIDE 0.9% 1,000 ML 1000 ML IV (12:10)
[2019-05-07] MEDS: ADENOSINE 6 MG/2 ML VIAL 12 MG IV (12:19)
[2019-05-07] MEDS: ETOMIDATE 2 MG/ML 10 ML VIAL 5 MG IV (12:25)
--- NOTE | 2019-05-07 12:32 | PC.NURSE ---
1210: pt arrived symptomatic SVT HR 210, EMS obtained IV access x 2, 6mg adenosine given followed by 12mg in field without success. pt placed on finisher cold rolling and portable monitor, pads applied. crash cart at side. pt with suction at O2 at bedside. RT in room for EKG. IVF infusing. 1218: HR 208, another 12mg adenosine given without success, BP 146/76 RR 22 100% RA. 1225: BP 87/63, etomidate 5mg given. 150J cardioversion HR 203. 200J cardioversion HR 175 1227: 200J cardioversion HR 122 1229: BP 76/59 [address] Estrella on phone with cardio. 1234: BP 82/64 MAP [address], RT at bedside with BVM for assisted support s/p etomidate 1239: Lab in to draw BP 83/62. Plan is for Amiodarone 150mg over 30 min per cardio. pharmacy aware. HR 191
--- NOTE | 2019-05-07 12:36 | ED_ITS ---
HPI - Arrhythmia/Palpitations General Chief Complaint: Chest Pain Time Seen by Provider: 05/07/19 12:27 Source: EMS and old records reviewed Mode of arrival: EMS Limitations: no limitations History of Present Illness HPI narrative: Patient an 83-year-old female past medical history of advanced bladder cancer presenting with SVT. She received 6 mg and 12 mg by EMS. She briefly converts and then immediately goes back into SVT. She was actually here and evaluated on 05/04/2019 for the same. She spontaneously converted with small amount of diltiazem and was admitted overnight for observation. She was discharged home on metoprolol. She continues to be in SVT in the emergency department. She overall does not feel well and complains of pain in her bladder. MD complaint: rapid heart beat Duration: constant Arrhythmia history: SVT Related Data Home Medications Medication Instructions Recorded Confirmed levothyroxine 100 mcg PO DAILY 11/29/18 05/07/19 cholecalciferol (vitamin D3) 0 unit PO 3XW 03/11/19 05/07/19 [Vitamin D3] acetaminophen [Tylenol Extra 500 mg PO BEDTIME PRN 05/04/19 05/07/19 Strength] diazepam 10 mg PO BEDTIME PRN 05/04/19 05/07/19 calcitriol 0.25 mcg PO MOWEFR 05/05/19 05/07/19 Previous Rx's Medication Instructions Recorded cefdinir 300 mg PO BID 6 Days #12 cap 05/05/19 hydrocodone-acetaminophen 1 tab PO Q4HR PRN 7 Days #40 tab 05/05/19 metoprolol tartrate 12.5 mg PO BID 30 Days #30 tab 05/05/19 polyethylene glycol 3350 17 gm PO DAILY 30 Days #30 each 05/05/19 sennosides [senna] 17.2 mg PO BEDTIME 30 Days #60 tab 05/05/19 Allergies Allergy/AdvReac Type Severity Reaction Status Date / Time lisinopril [LISINOPRIL] Allergy Severe Swelling Verified 01/30/19 15:29 of Lip/Tongue/Throat Sulfa (Sulfonamide Allergy Intermediate Rash Verified 01/30/19 15:29 Antibiotics) [SULFA (SULFONAMIDE ANTIBIOTICS)] sertraline AdvReac Intermediate Diarrhea Verified 01/30/19 15:29 Review of Systems Review of Systems ROS Unobtainable: All systems reviewed & are unremarkable except as noted in HPI and below Constitutional Constitutional: Denies chills, Reports fatigue, Denies fever(s), Denies frequent falls and Reports poor appetite Eyes Eyes: Denies blurry vision and Denies diplopia ENT Ears, Nose, Mouth, and Throat: Denies change in voice, Denies dizziness, Denies neck pain and Denies sore throat Cardiovascular Cardiovascular: Reports as per HPI, Denies dyspnea and Denies dyspnea on exertion Respiratory Respiratory: Denies cough, Denies dyspnea, Denies dyspnea on exertion and Denies wheezing Gastrointestinal Gastrointestinal: Reports abdominal pain, Denies nausea and Denies vomiting Genitourinary Genitourinary: Denies hematuria, Denies flank pain, Denies urinary incontinence and Denies urinary urgency Musculoskeletal Musculoskeletal: Denies neck pain and Denies numbness Integumentary/Breasts Skin/Breast: Denies pruritus, Denies erythema, Denies rash and Denies wounds Neurologic Neurologic: Denies behavioral changes, Denies confusion, Denies dizziness, Denies frequent falls and Denies numbness Psychiatric Psychiatric: Denies behavioral changes and Denies confusion Endocrine Endocrine: Reports fatigue Allergic/Immunologic Allergic/Immunologic: Denies wheezing PFSH Medical History Bladder cancer (Acute) BRCA positive (Acute) CAD (coronary artery disease) (Chronic 2013) CVA (cerebral vascular accident) (Acute) Drug-induced anaphylaxis (Resolved 2013) Hyperlipidemia (Acute) Hypertension (Chronic) Kidney failure (Resolved 2014) Non-STEMI (non-ST elevated myocardial infarction) (Resolved 2013) Ovarian cancer (Resolved 2002) Secondary hypothyroidism (Acute) Thyroid cancer (Resolved 1997) Tobacco dependence (Acute) Surgical History History of thyroidectomy (Resolved 1997) S/P appy (Acute) Status post hysterectomy with oophorectomy (Resolved 2002) Family History Mother Ovarian cancer Breast cancer Father Heart attack Daughter Breast cancer Daughter Breast cancer Social History household members: none Smoking Status: Current every day smoker alcohol intake: current substance use type: does not use Family History Mother Ovarian cancer Breast cancer Father Heart attack Daughter Breast cancer Daughter Breast cancer Social History household members: none Smoking Status: Current every day smoker alcohol intake: current substance use type: does not use Exam Initial Vital Signs Initial Vital Signs: Vital Signs Pulse Rate 210 H 05/07/19 12:10 Respiratory Rate 22 05/07/19 12:10 Blood Pressure 90/59 L 05/07/19 12:10 Pulse Oximetry 100 05/07/19 12:10 GENERAL: Chronically-ill weak appearing elderly female and in no acute distress. HEENT: Head atraumatic,EOMI, pupils reactive, face symmetric, moist mucous membranes CARDIOVASCULAR: Tachycardic regular RESPIRATORY: Breath sounds equal bilaterally, no wheezes rales or rhonchi. ABDOMEN: Soft, tender suprapubically. Normoactive bowel sounds all 4 quadrants. No guarding or rebound. EXTREMITIES: Normal range of motion, no clubbing or edema. Neurovascularly intact NEUROLOGICAL: Alert and oriented x4.Cranial nerves II through XII grossly intact. SKIN: Warm, dry, no laceration, no petechiae, no rashes or lesions. Procedures Cardioversion Consent Signed: No Indication: Emergent hypotensive. Patient did give verbal consent Cardiac rhythm prior to cardioversion: SVT rate over 200 Stability: Unstable Number of attempts (shocks): 3 Joules used: 150 (x1) and 200 (x2) Cardiac rhythm post-cardioversion: SVT Additional Comments: Patient briefly converted to sinus rhythm and immediately went back into SVT Procedural Sedation Patient Age: Patient is 5yrs or older Consent signed: No Time out performed: Yes Indication: cardioversion ASA Class: I Mallampati Airway Classification: Class I Preparation: mash filter operator applied, pulse oximeter, capnometry used and supplemental O2 applied IV Etomidate dose (mg): 5 Course Orders Ordered: ED Orders 05/07/19 12:37 XR chest 1V Stat 05/07/19 12:42 B Type Natriuretic Peptide Stat Complete Blood Count AUTO DIFF Stat Comprehensive Metabolic Panel Stat Lipase Stat Partial Thromboplastin Time Stat Prothrombin Time INR Stat Troponin & CK Cardiac Panel Stat 05/07/19 13:04 EKG-12 Lead Stat Sodium Chloride (Normal Saline 0.9%) 1,000 mls @ 1,000 mls/hr IV CONT RABIA Last Infusion: 05/07/19 13:10 Dose: 0 mls/hr Documented by: Admin: 05/07/19 12:10 Dose: 1,000 mls/hr Documented by: RADHA Amiodarone HCl/Dextrose (Nexterone) 360 mg in 200 mls @ 33.333 mls/hr IV NOW ONE; Protocol Stop: 05/07/19 19:11 Last Titration: 05/07/19 17:40 Dose: 28 mls/hr Documented by: Titration: 05/07/19 15:05 Dose: 28 mls/hr Documented by: Admin: 05/07/19 13:26 Dose: 33.33 mls/hr Documented by: RADHA Discontinued Medications Adenosine (Adenocard) 12 mg IV NOW ONE Stop: 05/07/19 12:20 Last Admin: 05/07/19 12:19 Dose: 12 mg Documented by: RADHA Diltiazem HCl (Cardizem) 10 mg IV NOW ONE Stop: 05/07/19 12:28 Last Admin: 05/07/19 12:50 Dose: Not Given Documented by: RADHA Etomidate (Amidate) 5 mg IV NOW ONE Stop: 05/07/19 12:26 Last Admin: 05/07/19 12:25 Dose: 5 mg Documented by: RADHA Hydromorphone HCl (Dilaudid) 0.5 mg IV NOW ONE Stop: 05/07/19 12:56 Last Admin: 05/07/19 13:09 Dose: 0.5 mg Documented by: RADHA Hydromorphone HCl (Dilaudid) 1 mg IV NOW ONE Stop: 05/07/19 13:39 Last Admin: 05/07/19 13:46 Dose: 1 mg Documented by: RADHA Amiodarone HCl/Dextrose (Nexterone) 150 mg in 100 mls @ 200 mls/hr IV NOW ONE; Protocol Stop: 05/07/19 13:06 Last Infusion: 05/07/19 13:20 Dose: 0 mls/hr Documented by: Admin: 05/07/19 12:47 Dose: 200 mls/hr Documented by: RADHA Consultations Consultation #1: [email or web address], cardiology updated pain symptoms EKGs have been sent to him. Recommends amiodarone bolus 150 mg over 30 minutes at than 24 hour drip of amiodarone and discharge with p.o. amiodarone. Time: 12:36 Vital Signs Vital signs: Vital Signs - 8 hr 05/07/19 12:10 05/07/19 12:19 05/07/19 12:20 Temperature Pulse Rate 201 H 208 H 132 H Respiratory Rate 23 20 20 Blood Pressure 90/59 L Blood Pressure [Left Arm] 146/76 H Blood Pressure [Right Arm] 90/59 L Pulse Oximetry 100 100 05/07/19 12:25 05/07/19 12:30 05/07/19 12:34 Temperature Pulse Rate 203 H 181 H 195 H Respiratory Rate 20 21 22 Blood Pressure Blood Pressure [Left Arm] 87/63 L 73/58 L 82/64 L Blood Pressure [Right Arm] 82/64 L Pulse Oximetry 100 100 100 05/07/19 12:40 05/07/19 13:14 05/07/19 13:15 Temperature 97.2 F L Pulse Rate 98 H 76 77 Respiratory Rate 16 20 18 Blood Pressure Blood Pressure [Left Arm] 98/68 118/75 119/63 Blood Pressure [Right Arm] Pulse Oximetry 100 99 100 05/07/19 14:04 05/07/19 15:01 Temperature Pulse Rate 67 57 L Respiratory Rate 16 16 Blood Pressure Blood Pressure [Left Arm] 114/72 101/59 L Blood Pressure [Right Arm] Pulse Oximetry 100 100 MDM - Arrhythmia/Palpitations Lab Data Attestation: I reviewed the patient's lab results. Result diagrams: 05/07/19 12:42 05/07/19 12:42 Labs: Lab Results 05/07/19 05/07/19 05/07/19 Range/Units 12:42 12:42 12:42 WBC 10.6 (4.5-11.0) X10^3/uL RBC 3.00 L (4.0-5.2) X10^6/uL Hgb 8.4 L (12.0-16.0) g/dL Hct 26.4 L (36-46) % MCV 87.8 (80-100) fL MCH 28.0 (26-34) PG MCHC 31.8 (30-36) % RDW 18.9 H (11.6-14.8) % Plt Count 525 H (150-400) X10^3/uL Neut % (Auto) 75.8 H (50-75) % Lymph % (Auto) 9.6 L (25-40) % [place] % (Auto) 11.7 (3-14) % Eos % (Auto) 1.8 L (2-4) % Baso % (Auto) 1.1 (0-2) % Neut # (Auto) 8000 H (3216-0065) /uL Lymph # (Auto) 1000 L (9641-0077) /uL [place] # (Auto) 1200 H (0-900) /uL Eos # (Auto) 200 (0-450) /uL Baso # (Auto) 100 (0-100) /uL PT 13.1 H (10.1-12.7) SECONDS INR 1.1 (0.9-1.3) APTT 29 D (26.4-36.2) SECONDS Sodium 134 L (137-145) mmol/L Potassium 3.7 (3.4-5.1) mmol/L Chloride 103 (98-107) mmol/L Carbon Dioxide 16 L (22-32) mmol/L BUN 15 (7-17) mg/dL Creatinine 1.10 H (0.52-1.04) mg/dL Estimated GFR 47.7 L (>60) mL/min BUN/Creatinine Ratio 13.6 (6-22) Glucose 151 H (80-110) mg/dL Calcium 7.8 L (8.4-10.2) mg/dL Total Bilirubin 0.3 (0.2-1.3) mg/dL AST 16 (14-36) IU/L ALT 8 L (9-52) IU/L Alkaline Phosphatase 131 H (38-126) U/L Total Creatine Kinase 45 (30-135) U/L CK-MB (CK-2) TNP CK-MB (CK-2) Rel Index TNP Troponin I 0.030 (0.01-0.034) ng/mL B-Natriuretic Peptide 381 H (<100) Total Protein 5.9 L (6.3-8.2) g/dL Albumin 2.9 L (3.5-5.0) g/dL Globulin 3.0 (1.7-4.1) g/dL Albumin/Globulin Ratio 1.0 (1.0-2.8) Lipase 16 L (23-300) U/L Point of Care Testing Test Results Not applicable Imaging Data Chest x-ray: Radiologist's impression: PROCEDURE: XR CHEST 1V INDICATIONS: chest pain TECHNIQUE: One view of the chest was acquired. COMPARISON: [facility], CR, XR CHEST 1V, 01/21/2019, 10:34. FINDINGS: Surgical changes and devices: Right-sided central line catheter is identified with the tip overlying the mid superior vena cava, unchanged. Lungs and pleura: Lungs are clear. No pleural effusions or pneumothorax. Mediastinum: Mediastinal contours appear normal. Heart size is normal. There is aortic atherosclerosis. Bones and chest wall: No suspicious bony lesions. Left lateral rib fractures are unchanged since the prior study and demonstrate varying degrees of healing. No definite new fractures are evident. Overlying soft tissues appear unremarkable. IMPRESSION: No acute cardiopulmonary process is evident. Dictated by: Regulo Lama M.D. on 05/07/2019 at 12:11 Approved by: Regulo Lama M.D. on 05/07/2019 at 12:1 ECG Data Attestation: I personally reviewed and interpreted this ECG as follows: Prior ECG tracings: available for review Interpretation: SVT MDM Narrative Medical decision making narrative: Patient arrived an SVT and hypotensive she had already received 2 doses of amiodarone. She was given a 3rd dose of 12 mg amiodarone. She briefly converted into sinus rhythm to a heart rate into the 120s and immediately went right back up in 2 heart rate over 200. At that time the patient's blood pressure continues to be with a systolic in the 80s and she is unstable. Patient requesting to be ?knocked out she verbally agrees to a cardioversion. 3 attempts of cardioversion is she would briefly confer and immediately return into SVT. After discussion with Cardiology decision for amiodarone drip and slow bolus of 150 mg. Patient responded really well to the amiodarone. Her heart rate slowed and converted in under 30 minutes. Cardio recommended continuous IV amiodarone and likely discharge home on amiodarone. SVT thought to be due to stress of chemotherapy and cancer. Patient had a CT chest abdomen pelvis 2 days ago no acute findings were found. She did have some kidney issues, family requesting that she not receive any more CAT scans. At this time I do not think is indicated. She is not hypoxic at all believe her to have a PE she did have a CT of her chest a few days ago which did not show any large pulmonary emboli. Dr. redman updated on patient's symptoms test results agrees with admission. Critical Care Time Critical Care Time Critical Care Time: Yes Total Critical Care Time: 60 Attestation: The high probability of a clinically significant, sudden or life threatening deterioration of the [cardiovascular] system(s) required my full and direct attention, intervention and personal management. The aggregate critical care time was 60 minutes. This time is in addition to time spent performing reported procedures but includes the following: [x] Data Review and interpretation [x] Patient assessment and monitoring of vital signs [x] Documentation [x] Medication orders and management Discharge Plan Departure Patient Disposition: Admitted as Observation Clinical Impression: Sustained SVT Admit Date/Time: 05/07/19 15:07 Admit Provider: Cheri Juarez
[2019-05-07] MEDS: AMIODARONE 150 MG/100 ML PIGGYBACK 200 MG IV (12:47)
--- NOTE | 2019-05-07 12:52 | PC.NURSE ---
1244: CXR obtained 1252: Amiodarone infusing at this time, HR 88/56 MAP 71 remains HR 164, 100% RA. Pt awake and alert and speaking to RN and MD. reports she is having bladder pain. pt with h/o bladder CA. being bladder scanned at this time by SABRINA Kamara.
--- NOTE | 2019-05-07 13:03 | PC.NURSE ---
1300: pt remains on Amiodarone gtt. Pt converted to NSR 80's BP 122/60. RT called for repeat EKG. family at bedside.
[2019-05-07] MEDS: HYDROMORPHONE 0.5 MG INJ IV (13:09)
[2019-05-07] MEDS: AMIODARONE 360 MG/200 ML PIGGYBACK 33.33 MG IV (13:26)
--- NOTE | 2019-05-07 13:33 | PC.NURSE ---
18G IV placed by medics in RAC infiltrated and removed. RUC port to be accessed as 2nd IV access
[2019-05-07 13:42] LABS: Blood Urea Nitrogen 15 mg/dL (7-17); Carbon Dioxide 16 mmol/L (22-32); Chloride 103 mmol/L (98-107); Creatine Kinase 45 U/L (30-135); Hematocrit 26.4 % (36-46); Hemoglobin 8.4 g/dL (12.0-16.0); Mean Corpuscular HGB Conc 31.8 % (30-36); Mean Corpuscular Volume 87.8 fL (80-100); Platelet Count 525 X10^3/uL (150-400); Potassium 3.7 mmol/L (3.4-5.1); Red Cell Distribution Width 18.9 % (11.6-14.8); Sodium 134 mmol/L (137-145); White Blood Cell Count 10.6 X10^3/uL (4.5-11.0)
[2019-05-07 13:43] LABS: Add Manual Diff / Slide Review NO; Alanine Aminotransferase 8 IU/L (9-52); Albumin 2.9 g/dL (3.5-5.0); Alkaline Phosphatase 131 U/L (38-126); Aspartate Aminotransferase 16 IU/L (14-36); BUN Creatinine Ratio 13.6 (6-22); Basophils Absolute Auto 100 /uL (0-100); Basophils Percent Auto 1.1 % (0-2); Bilirubin Total 0.3 mg/dL (0.2-1.3); Calcium 7.8 mg/dL (8.4-10.2); Eosinophils Absolute Auto 200 /uL (0-450); Eosinophils Percent Auto 1.8 % (2-4); Estimated Glomerular Filt Rate 47.7 mL/min (>60); Glucose 151 mg/dL (80-110); Lymphocytes Absolute Auto 1000 /uL (1100-4500); Lymphocytes Percent Auto 9.6 % (25-40); Monocytes Absolute Auto 1200 /uL (0-900); Monocytes Percent Auto 11.7 % (3-14); Neutrophils Absolute Auto 8000 /uL (1500-7000); Neutrophils Percent Auto 75.8 % (50-75); Prothrombin Time 13.1 SECONDS (10.1-12.7); Total Protein 5.9 g/dL (6.3-8.2)
[2019-05-07 13:44] LABS: INR 1.1 (0.9-1.3); PTT Partial Thromboplastin Tim 29 SECONDS (26.4-36.2)
[2019-05-07] MEDS: HYDROMORPHONE 1 MG INJ IV (13:46)
[2019-05-07 13:56] LABS: Lipase 16 U/L (23-300)
[2019-05-07 13:58] LABS: B Type Natriuretic Peptide 381 (<100)
--- NOTE | 2019-05-07 14:03 | PC.NURSE ---
1403: Port accessed per protocol. Chest CT cancelled. pt unable to tolerate IV contrast due to CKD. Reports pain improvement s/p 2nd dose dilaudid. Pt resting eyes closed. Amiodarone gtt infusing per EMR. family at side. needs met at this time. will continue to monitor
--- NOTE | 2019-05-07 15:05 | PC.NURSE ---
Addendum entered by Adriana Bruce R.N. 05/07/19 15:52: Ammended for pt going to ICU not Acute Care. Being held in ED at this time due to low bed status. Pt and family advised of plan of care and agreeable. Original Note: Pt HR noted to be decreasing to 56-58 bpm SBrady. aware. Advised by Dr Estrella to slow rate of Amiodarone infusion. Rate decreased from 33.3 mL/hr to 28mL/hr. Resting eyes closed. reports comfortable. Advised she will be transported to Acute Care shortly.
--- NOTE | 2019-05-07 16:45 | PC.NURSE ---
Pt's HR noted to drop to 49-50 bpm. MD aware. No new orders at this time to decrease gtt rate. BP 103/56 MAP 67. Pt resting in NAD and asymptomatic. will continue to monitor
--- NOTE | 2019-05-07 18:52 | PC.NURSE ---
0905- Paged and spoke with Dr. Juarez regarding patient heart rate of 46. Patient is on Amiodarone gtt from the Emergency department. Rate was decreased in Emergency to 28cc due to bradycardia. Patient is even more bradycardic now. Rate decreased to 16cc. Will monitor.
[2019-05-07] MEDS: SODIUM CHLORIDE 0.9% 1,000 ML 100 ML IV (22:18)
[2019-05-07] MEDS: HEPARIN 5,000 UNIT/ML VIAL 5000 UNIT SUBCUT (22:20)
--- NOTE | 2019-05-07 22:58 | P.HP_ITS ---
History of Present Illness History of Present Illness Date Patient Seen: 05/07/19 Time Patient Seen: 21:30 Chief complaint: CP Narrative: Ms. Mccarthy is an 83 y/o F with PMH of locally advanced bladder cancer, hypothyroidism (secondary to thyroidectomy), BRCA + and previous episodes of SVT who presented to the emergency room with 1 week of worsening fatigue. She states she has been treated for a UTI, and had some difficulty with straining to urinate, but denies dysuria or urinary frequency. She denies any fevers or chills, nausea, vomiting, chest pain, palpitations, shortness of breath, lower extremity edema. She reports a decrease in p.o. intake due to loss of appetite over the past week. She admits to constipation requiring a suppository every other day, and prefers to take Colace 100 mg p.o. b.i.d.. She usually has diarrhea after her chemotherapy, but reports her last session 2 weeks ago and over the past week has had constipation requiring the suppository mentioned above. She was admitted to the inpatient unit for SVT with a heart rate over 200 she was hypotensive, she was immediately started on a amiodarone drip. When the patient was discharged a week ago her metoprolol dose had been reduced to 12.5 mg p.o. b.i.d.. Patient states that she stopped taking this after taking 1 dose of this, asking why she needed to take it. Patient denies fevers or chills, difficulty swallowing, chest pain, shortness of breath but does endorse being profoundly fatigued, dysuria but is continuing a course of oral antibiotics for UTI, does have chronic pain secondary to the bladder cancer and chemotherapy, patient denies any rashes or lesions but is alopecic, denies numbing or tingling. Patient History Medical History Bladder cancer (Acute) BRCA positive (Acute) CAD (coronary artery disease) (Chronic 2013) CVA (cerebral vascular accident) (Acute) Drug-induced anaphylaxis (Resolved 2013) Hyperlipidemia (Acute) Hypertension (Chronic) Kidney failure (Resolved 2014) Non-STEMI (non-ST elevated myocardial infarction) (Resolved 2013) Ovarian cancer (Resolved 2002) Secondary hypothyroidism (Acute) Thyroid cancer (Resolved 1997) Tobacco dependence (Acute) Surgical History History of thyroidectomy (Resolved 1997) S/P appy (Acute) Status post hysterectomy with oophorectomy (Resolved 2002) Family History Mother Ovarian cancer Breast cancer Father Heart attack Daughter Breast cancer Daughter Breast cancer Social History household members: none Smoking Status: Current every day smoker alcohol intake: current substance use type: does not use Family & Social History Family History Mother Ovarian cancer Breast cancer Father Heart attack Daughter Breast cancer Daughter Breast cancer Social History: household members none Prior Living Arrangements House Safety & Behavioral: Feels Safe in Current Yes Environment Been Physically Hurt or No Threatened By a Person Suicidal Ideation Description None Suicide Plan Description No Plan Tobacco & Substance use: Tobacco type cigarettes, 6-7 per day Smoking Status Current every day smoker alcohol intake current alcohol intake frequency 2 Martini drinks per day Substance Use Type does not use Meds Home Medications and Allergies Home Medications Medication Instructions Recorded Confirmed Type levothyroxine 100 mcg PO DAILY 11/29/18 05/07/19 History cholecalciferol (vitamin D3) 0 unit PO 3XW 03/11/19 05/07/19 History [Vitamin D3] acetaminophen [Tylenol Extra 500 mg PO BEDTIME PRN 05/04/19 05/07/19 History Strength] diazepam 10 mg PO BEDTIME PRN 05/04/19 05/07/19 History calcitriol 0.25 mcg PO MOWEFR 05/05/19 05/07/19 History cefdinir 300 mg PO BID 6 Days #12 cap 05/05/19 05/07/19 Rx hydrocodone-acetaminophen 1 tab PO Q4HR PRN 7 Days #40 tab 05/05/19 05/07/19 Rx metoprolol tartrate 12.5 mg PO BID 30 Days #30 tab 05/05/19 05/07/19 Rx polyethylene glycol 3350 17 gm PO DAILY 30 Days #30 each 05/05/19 05/07/19 Rx sennosides [senna] 17.2 mg PO BEDTIME 30 Days #60 tab 05/05/19 05/07/19 Rx Allergies Allergy/AdvReac Type Severity Reaction Status Date / Time lisinopril [LISINOPRIL] Allergy Severe Swelling Verified 01/30/19 15:29 of Lip/Tongue/Throat Sulfa (Sulfonamide Allergy Intermediate Rash Verified 01/30/19 15:29 Antibiotics) [SULFA (SULFONAMIDE ANTIBIOTICS)] sertraline AdvReac Intermediate Diarrhea Verified 01/30/19 15:29 Review of Systems Review of Systems ROS Unobtainable: All systems reviewed & are unremarkable except as noted in HPI and below Exam Vital Signs (past 8 hours): - 05/07/19 15:01 05/07/19 15:51 05/07/19 16:15 Pulse Rate 57 L 57 L 52 L Respiratory Rate 16 13 9 L Blood Pressure Blood Pressure [Left Arm] 101/59 L Blood Pressure [Right Arm] 109/68 109/50 L Pulse Oximetry 100 100 100 05/07/19 16:30 05/07/19 17:45 05/07/19 17:55 Pulse Rate 51 L 53 L 50 L Respiratory Rate 9 L 21 Blood Pressure 130/58 L 123/54 L Blood Pressure [Left Arm] Blood Pressure [Right Arm] 123/60 Pulse Oximetry 99 97 05/07/19 18:00 05/07/19 19:00 05/07/19 20:00 Pulse Rate 56 L 53 L Respiratory Rate 50 H 13 Blood Pressure 120/61 138/66 102/49 L Blood Pressure [Left Arm] Blood Pressure [Right Arm] Pulse Oximetry 05/07/19 21:00 05/07/19 22:00 Pulse Rate 55 L 55 L Respiratory Rate Blood Pressure 118/71 123/63 Blood Pressure [Left Arm] Blood Pressure [Right Arm] Pulse Oximetry Oxygen Delivery Method Room Air Narrative Exam Narrative: Gen: Alert, oriented, cachectic appearing 83 y.o. female, appears chronically ill HEENT: normocephalic, atraumatic, conjunctiva clear, sclera non-icteric, oral mucosa pink and moist Neck: supple, full ROM Resp: Lungs CTA, non-labored breathing CV: RRR, no murmur or rubs Abd: soft, non-tender, normoactive BTs Skin: Alopecic, no lesions or rashes, dry and intact Neuro: Alert and oriented X 4 w/no focal deficits Extremities: moves all 4 extremities, is ambulatory, negative Roslyn?s sign Psyche: normal mood and affect. Objective Labs Result Diagrams: 05/07/19 12:42 05/07/19 12:42 Labs: Laboratory Results - last 24 hr 05/07/19 05/07/19 05/07/19 12:42 12:42 12:42 WBC 10.6 RBC 3.00 L Hgb 8.4 L Hct 26.4 L MCV 87.8 MCH 28.0 MCHC 31.8 RDW 18.9 H Plt Count 525 H Neut % (Auto) 75.8 H Lymph % (Auto) 9.6 L Butts % (Auto) 11.7 Eos % (Auto) 1.8 L Baso % (Auto) 1.1 Neut # (Auto) 8000 H Lymph # (Auto) 1000 L Butts # (Auto) 1200 H Eos # (Auto) 200 Baso # (Auto) 100 PT 13.1 H INR 1.1 APTT 29 D Sodium 134 L Potassium 3.7 Chloride 103 Carbon Dioxide 16 L BUN 15 Creatinine 1.10 H Estimated GFR 47.7 L BUN/Creatinine Ratio 13.6 Glucose 151 H Calcium 7.8 L Total Bilirubin 0.3 AST 16 ALT 8 L Alkaline Phosphatase 131 H Total Creatine Kinase 45 CK-MB (CK-2) TNP CK-MB (CK-2) Rel Index TNP Troponin I 0.030 B-Natriuretic Peptide 381 H Total Protein 5.9 L Albumin 2.9 L Globulin 3.0 Albumin/Globulin Ratio 1.0 Lipase 16 L Assessment & Plan Assessment & Plan narrative: Dennise mccarthy is an 83-year-old female with advanced bladder cancer who is admitted to the ICU on an amiodarone drip to assist in managing her SVT. 1. Supraventricular tachycardia, acute, present on admission * Amiodarone drip was continued discontinued at approximately 2200 due to her heart rate dropping into the 40s * When I saw the patient her heart rate was 68 * She will resume metoprolol immediate release 12.5 mg p.o. b.i.d. in the morn ing if her blood pressure can support this. * 2. Locally advanced bladder cancer, chronic, present on admission * Patient is followed by Dr. Reddy and will be contacted in the morning to inform him of her admission. * Past treatment of 9 doses of Keytruda, Paclitaxel x4 cycles. * continue home pain medication regimen * Patient will continue Colace 100 mg p.o. b.i.d. which was her previous home dose 3. History of CKD stage 3 * Baseline creatinine is 1.0, today it is 1.10 * Avoid nephrotoxic medications 3. Hypothyroidism due to thyroidectomy, chronic, present on admission * She will continue her home dose of levothyroxine 100 mcg p.o. daily 4. Current tobacco use, chronic, present on admission * Patient states that she was told she had 2 years to live and does not intend or have an interest in quitting smoking. Daughter states the patient has not been smoking much as of late. Patient is admitted to the inpatient ICU as her stay is anticipated to exceed 2 midnights. FEN: IV normal saline at 100 mL/hour, regular diet, chemistries in the am. VTE Prophylaxis: Heparin 5000 units b.i.d. due to patient's current renal status. The patient is at high risk for either a DVT or pulmonary embolism due to her current malignancy status Disposition: Unknown at this time, likely home Code status: DNR/DNI Admission time: 55 minutes Meds reconciled: Yes Quality VTE Deep Vein Thrombosis/Pulmonary Embolism Present on Admission: No
[2019-05-08] VITALS: BP 119/55; PULSE 51; RESP 20; TEMP 35.9; O2SAT 97
--- NOTE | 2019-05-08 00:10 | PC.NURSE ---
Veterinary Medicine Teacher Note: 0000: Awake, resting in bed with HOB slightly elevated. Pt denies pain or discomfort at this time. Portacath needle in rt chest Portacath is intact, with dressing cdi, and no redness, swelling or drainage at site; NS is infusing at 100cc/hr. Pt is in sinus bradycardia with a rate of 55 at this time.
[2019-05-08 01:00] VITALS: BP 134/57; PULSE 51; RESP 12; O2SAT 93
[2019-05-08 04:00] VITALS: BP 163/78; PULSE 67; RESP 10; TEMP 36.4; O2SAT 99
[2019-05-08] MEDS: SODIUM CHLORIDE 0.9% 1,000 ML 100 ML IV (06:22)
[2019-05-08 07:46] VITALS: BP 143/60; PULSE 65; RESP 10; TEMP 36.6; O2SAT 98
[2019-05-08 08:56] LABS: Add Manual Diff / Slide Review NO; Basophils Absolute Auto 100 /uL (0-100); Basophils Percent Auto 1.7 % (0-2); Eosinophils Absolute Auto 600 /uL (0-450); Eosinophils Percent Auto 6.8 % (2-4); Hemoglobin 8.7 g/dL (12.0-16.0); Lymphocytes Absolute Auto 900 /uL (1100-4500); Mean Corpuscular HGB Conc 32.1 % (30-36); Mean Corpuscular Hemoglobin 28.2 PG (26-34); Mean Corpuscular Volume 87.7 fL (80-100); Monocytes Absolute Auto 1000 /uL (0-900); Monocytes Percent Auto 11.8 % (3-14); Neutrophils Absolute Auto 5800 /uL (1500-7000); Neutrophils Percent Auto 68.7 % (50-75); Platelet Count 485 X10^3/uL (150-400); Red Blood Cell Count 3.07 X10^6/uL (4.0-5.2); Red Cell Distribution Width 18.2 % (11.6-14.8); White Blood Cell Count 8.5 X10^3/uL (4.5-11.0)
[2019-05-08] MEDS: CEFDINIR 300 MG CAPSULE PO (09:01)
[2019-05-08] MEDS: LEVOTHYROXINE 100 MCG TABLET PO (09:01)
[2019-05-08] MEDS: DOCUSATE 100 MG CAPSULE PO (09:01)
[2019-05-08] MEDS: HEPARIN 5,000 UNIT/ML VIAL 5000 UNIT SUBCUT (09:01)
[2019-05-08 09:07] LABS: BUN Creatinine Ratio 14.4 (6-22); Blood Urea Nitrogen 13 mg/dL (7-17); Calcium 7.8 mg/dL (8.4-10.2); Carbon Dioxide 20 mmol/L (22-32); Chloride 106 mmol/L (98-107); Estimated Glomerular Filt Rate > 60.0 mL/min (>60); Glucose 85 mg/dL (80-110); HEMOLYSIS < 15 (0-50); Magnesium 1.5 mg/dL (1.6-2.3); Potassium 3.8 mmol/L (3.4-5.1); Sodium 136 mmol/L (137-145)
--- NOTE | 2019-05-08 09:11 | DIET.PN ---
Dietary Progress Note Assessment: 83y F readmitted for SVT 2d s/p dc. Pt referred to nutrition for 7% wt loss in 3mo (moderate PCM) r/t bladder px c hx bladder Ca, UTI, hx of CKD3 though GFR today shows >60. Pt reports recent taste changes (things are too salty or too sweet), also reduced appetite and thirst for 2mo. Has 3 children sharing care and cooking meals for her c weekly shifts. Has Ensure at home but unsure if she wants to drink it. HT:165.1cm WT: 48.5kg (was 52kg on 01/04/19 per [facility] records) UBW: 60kg (2y ago) BMI: 17.8 (severe) Labs:hgb 8.7 (L), GFR >60 MNA: 7 malnourished Mariano: 19 Nutrition Diagnosis: Acute Moderate PCM r/t altered metabolism of nutrients and dx (progression of bladder Ca c lung masses) aeb <75% EER for 3mo, 7% wt loss in 3 mo, 86% IBW, BMI 17.8 (severe for age), and moderate subcutaneous fat losses c saggy skin indicating rapid wt loss. Interventions: Encouraged drinking three Ensure/d to help c low appetite and support PRO/kcal needs r/t PCM in addition to meals/snacks. Discussed ways to increase hydration including flavored beverages, soups, watermelon. Discussed including PRO at each meal, eating it first in the case of early satiety. Recc ONS Ensure enlive tid to supply 100% PRO and 75% kcals. Diet Order: EER: 1400kcal, 60g PRO (1.2g/kg elder/cancer), 1.2L fluids (25cc/kg) Monitoring/Evaluations: I&Os
[2019-05-08 09:13] LABS: HEMOLYSIS < 15 (0-50); Iron < 10 ug/dL (37-170)
[2019-05-08 09:24] LABS: Percent Iron Saturation 5 % (15-50); Total Iron Binding Capacity 215 ug/dL (265-497); Transferrin 159 mg/dL (206-381)
[2019-05-08] MEDS: AMIODARONE 100 MG TABLET 50 MG PO (11:52)
[2019-05-08] MEDS: MAGNESIUM CHLORIDE 64 MG TABLET 128 MG PO (11:55)
--- NOTE | 2019-05-08 12:15 | P.DS_ITS ---
History of Present Illness History of Present Illness Date Patient Seen: 05/07/19 Chief complaint: CP Narrative: Written by Kandice FLYNN: Ms. Mccarthy is an 83 y/o F with PMH of locally advanced bladder cancer, hypothyroidism (secondary to thyroidectomy), BRCA + and previous episodes of SVT who presented to the emergency room with 1 week of worsening fatigue. She states she has been treated for a UTI, and had some difficulty with straining to urinate, but denies dysuria or urinary frequency. She denies any fevers or chills, nausea, vomiting, chest pain, palpitations, shortness of breath, lower extremity edema. She reports a decrease in p.o. intake due to loss of appetite over the past week. She admits to constipation requiring a suppository every other day, and prefers to take Colace 100 mg p.o. b.i.d.. She usually has diarrhea after her chemotherapy, but reports her last session 2 weeks ago and over the past week has had constipation requiring the suppository mentioned above. She was admitted to the inpatient unit for SVT with a heart rate over 200 she was hypotensive, she was immediately started on a amiodarone drip. When the patient was discharged a week ago her metoprolol dose had been reduced to 12.5 mg p.o. b.i.d.. Patient states that she stopped taking this after taking 1 dose of this, asking why she needed to take it. Patient denies fevers or chills, difficulty swallowing, chest pain, shortness of breath but does endorse being profoundly fatigued, dysuria but is continuing a course of oral antibiotics for UTI, does have chronic pain secondary to the bladder cancer and chemotherapy, patient denies any rashes or lesions but is al opecic, denies numbing or tingling. Discharge Providers Provider Date of admission: 05/07/19 15:07 Discharge Date: 05/08/19 Primary care physician: Juanjo Andrade MD Consults: 05/07/19 19:09 Consult to Dietitian, Adult Routine Comment: need supplements Reason For Exam: weight loss due to bladder cancer Discharge provider: Cheri Juarez DO Summary Hospital Course Discharge Diagnosis: 1. Supraventricular tachycardia, acute, present on admission. Resolved. 2. Locally advanced bladder cancer, chronic, present on admission. Presumed stable. 3. History of CKD stage 3, present on admission. Stable. 4. Secondary hypothyroidism status post thyroidectomy, chronic, present on admission. Stable. 5. Tobacco dependence, chronic, present on admission. Stable. Hospital Course: Dennise mccarthy is an 83-year-old female with advanced bladder cancer who is admitted to the ICU on an amiodarone drip to assist in managing her SVT. 1. Supraventricular tachycardia, acute, present on admission. Resolved. -Patient presented with SVT thought to be secondary to stopping use of beta jose juan, dehydration and stress of cancerous process. -No signs or symptoms of infection. Chest xray without acute cardiopulmonary process. No leukocytosis. -Patient received adenosine in route with EMS and in ED with brief resolution. Patient was cardioverted x 3 with also transient resolution. call center rn pickle pumper, Dr. Mohamud, recommended Amiodarone loading dose over 30 minuted and gtt then discharge on PO amiodarone. Patient converted quickly to SR. -Continued amiodarone gtt for which dose was lowered due to bradycardia with HR in high 40's. Discharged on low dose amiodarone 50 mg daily per cardiology. Metoprolol discontinued. -Continued IV fluids until adequately hydrated then discontinued. 2. Locally advanced bladder cancer, chronic, present on admission. Presumed stable. -Followed by Dr. Downs of oncology outpatient. Receiving immunotherapy with Keytruda (has received 9 doses) and Paclitaxel x 4 cycles. -Continued home pain medication regimen and bowel regimen. 3. History of CKD stage 3, present on admission. Stable. -Baseline creatinine is 1.0 and close to baseline with creatinine of 1.10 on admission. -Avoided nephrotoxic medications and optimized renal perfusion. -Continued to monitor renal function daily. 4. Secondary hypothyroidism status post thyroidectomy, chronic, present on admission. Stable. -Continued home levothyroxine 100 mcg daily. 5. Tobacco dependence, chronic, present on admission. Stable. -Patient states that she was told she had 2 years to live and does not intend or have an interest in quitting smoking. Daughter states the patient has not been smoking much as of late. Exam Vital Signs (past 8 hours): - 05/08/19 07:46 Temperature 98 F Pulse Rate 65 Respiratory Rate 10 L Blood Pressure 143/60 H Pulse Oximetry 98 Oxygen Delivery Method Room Air Narrative Exam Narrative: General: Elderly female lying in bed and in no acute distress, thin and frail, appropriately interactive. HEENT: Normocephalic, atraumatic. External ears without defect. Pupils equal, round, and reactive to light. Anicteric sclerae, moist conjunctivae, and no lid lag. Oropharynx free of erythema and cobble stoning with moist mucosa. Neck: Supple with full range of motion. No jugular venous distension. No lymph adenopathy or thyromegaly. Cardiovascular: Regular rate and rhythm without murmurs, rubs, or gallops appreciated. Pulmonary: Clear to auscultation bilaterally without crackles, wheezes, or rhonchi. Normal respiratory effort with no use of accessory muscles. Abdomen: Soft, bowel sounds present, nontender, nondistended. No hepatosplenomegaly or masses appreciated. Extremities: No clubbing, cyanosis, or edema. Skin: Normal temperature, turgor, and texture; no rash, ulcers, or subcutaneous nodules appreciated. Neurological: Cranial nerves grossly intact. Psychiatric: Mildy depressed mood and normal affect. Alert and oriented to person, place, and time. Objective Labs Result Diagrams: 05/08/19 08:45 05/08/19 08:45 Labs: Laboratory Results - last 24 hr 05/07/19 05/07/19 05/07/19 12:42 12:42 12:42 WBC 10.6 RBC 3.00 L Hgb 8.4 L Hct 26.4 L MCV 87.8 MCH 28.0 MCHC 31.8 RDW 18.9 H Plt Count 525 H Neut % (Auto) 75.8 H Lymph % (Auto) 9.6 L Chambers % (Auto) 11.7 Eos % (Auto) 1.8 L Baso % (Auto) 1.1 Neut # (Auto) 8000 H Lymph # (Auto) 1000 L Chambers # (Auto) 1200 H Eos # (Auto) 200 Baso # (Auto) 100 PT 13.1 H INR 1.1 APTT 29 D Sodium 134 L Potassium 3.7 Chloride 103 Carbon Dioxide 16 L BUN 15 Creatinine 1.10 H Estimated GFR 47.7 L BUN/Creatinine Ratio 13.6 Glucose 151 H Calcium 7.8 L Magnesium Iron TIBC % Saturation Transferrin Total Bilirubin 0.3 AST 16 ALT 8 L Alkaline Phosphatase 131 H Total Creatine Kinase 45 CK-MB (CK-2) TNP CK-MB (CK-2) Rel Index TNP Troponin I 0.030 B-Natriuretic Peptide 381 H Total Protein 5.9 L Albumin 2.9 L Globulin 3.0 Albumin/Globulin Ratio 1.0 Lipase 16 L Nasal Screen MRSA (PCR) 05/07/19 05/08/19 05/08/19 19:20 08:45 08:45 WBC 8.5 RBC 3.07 L Hgb 8.7 L Hct 27.0 L MCV 87.7 MCH 28.2 MCHC 32.1 RDW 18.2 H Plt Count 485 H Neut % (Auto) 68.7 Lymph % (Auto) 11.0 L Chambers % (Auto) 11.8 Eos % (Auto) 6.8 H Baso % (Auto) 1.7 Neut # (Auto) 5800 Lymph # (Auto) 900 L Chambers # (Auto) 1000 H Eos # (Auto) 600 H Baso # (Auto) 100 PT INR APTT Sodium 136 L Potassium 3.8 Chloride 106 Carbon Dioxide 20 L BUN 13 Creatinine 0.90 Estimated GFR > 60.0 BUN/Creatinine Ratio 14.4 Glucose 85 Calcium 7.8 L Magnesium 1.5 L Iron TIBC % Saturation Transferrin Total Bilirubin AST ALT Alkaline Phosphatase Total Creatine Kinase CK-MB (CK-2) CK-MB (CK-2) Rel Index Troponin I B-Natriuretic Peptide Total Protein Albumin Globulin Albumin/Globulin Ratio Lipase Nasal Screen MRSA (PCR) Negative for mrsa 05/08/19 08:45 WBC RBC Hgb Hct MCV MCH MCHC RDW Plt Count Neut % (Auto) Lymph % (Auto) Chambers % (Auto) Eos % (Auto) Baso % (Auto) Neut # (Auto) Lymph # (Auto) Chambers # (Auto) Eos # (Auto) Baso # (Auto) PT INR APTT Sodium Potassium Chloride Carbon Dioxide BUN Creatinine Estimated GFR BUN/Creatinine Ratio Glucose Calcium Magnesium Iron < 10 L TIBC 215 L % Saturation 5 L Transferrin 159 L Total Bilirubin AST ALT Alkaline Phosphatase Total Creatine Kinase CK-MB (CK-2) CK-MB (CK-2) Rel Index Troponin I B-Natriuretic Peptide Total Protein Albumin Globulin Albumin/Globulin Ratio Lipase Nasal Screen MRSA (PCR) Discharge Plan Discharge Plan Patient Disposition: Home Discharge comment: You are being discharged home. You have been prescribed amiodarone 50 mg daily to avoid your heart arrhythmia called supraventricular tachycardia. Please be sure to take this medication daily. Your metoprolol has been discontinued. You also have iron deficiency anemia and recommend iron supplementation with vitamin-C which helps with iron absorption. Iron may be constipating, therefore, recommend Colace (stool softener) 100 mg twice daily to help avoid this. Please follow-up with your primary care provider in the next 1 week regarding your hospitalization. Please follow-up with Dr. Downs at your scheduled appointment. Discharge Med Rec/Prescriptions Prescriptions: New amiodarone [Pacerone] 100 mg Tablet 50 mg PO DAILY Qty: 30 RF: 0 ferrous gluconate 324 mg (38 mg iron) tablet 324 mg PO DAILY Qty: 30 RF: 0 ascorbic acid (vitamin C) 500 mg tablet 500 mg PO DAILY Qty: 30 RF: 0 Continued cholecalciferol (vitamin D3) [Vitamin D3] 1,000 unit Capsule 0 unit PO 3XW RF: 0 acetaminophen [Tylenol Extra Strength] 500 mg Tablet 500 mg PO BEDTIME PRN (Reason: Pain (Scale Score 1-3)) RF: 0 diazepam 10 mg tablet 10 mg PO BEDTIME PRN (Reason: Anxiety) RF: 0 sennosides [senna] 8.6 mg Tablet 17.2 mg PO BEDTIME 30 Days Qty: 60 RF: 0 polyethylene glycol 3350 17 gram Powder In Packet 17 gm PO DAILY 30 Days Qty: 30 RF: 0 hydrocodone-acetaminophen 5-325 mg Tablet 1 tab PO Q4HR PRN (Reason: Pain, Moderate (4-6)) 7 Days Qty: 40 RF: 0 levothyroxine 100 mcg tablet 100 mcg PO DAILY RF: 0 Discontinued metoprolol tartrate 25 mg Tablet 12.5 mg PO BID 30 Days Qty: 30 RF: 0 No Action calcitriol 0.25 mcg capsule 0.25 mcg PO MOWEFR Qty: 36 RF: 1 Follow up/Referrals: Juanjo Andrade MD [Primary Care Provider] - 1 Week Provider Discharge Instructions Diet: Diet as Tolerated, Low-fat, Low-sodium and Low-cholesterol Activity: Activity as tolerated with forward wheeled walker Visit Report/Discharge Packet Instructions: Paroxysmal Supraventricular Tachycardia, Amiodarone (By mouth) Visit Report Forms: Stroke Signs & Symptoms Discharge Data Primary Care Provider: Juanjo Andrade Attending Provider: Cheri Juarez Admit Date/Time: 05/07/19 15:07 Discharges patient from system. Discharge Date/Time: 05/08/19 13:45 Quality VTE Deep Vein Thrombosis/Pulmonary Embolism Present on Admission: No
--- NOTE | 2019-05-08 13:49 | PC.NURSE ---
Pt dc'd to home per Dr. Juarez's order at 1345. Prior to d/c, d/c packet, education on disease process, medication (dose/route/time/indication/side effects) were discussed with the pt and her dtr and son. Pt states she is going to make her own f/u appt. She states she is only going to deal with Dr. Downs and will schedule and appt with him independently. Dtr and son at bedside aware of need. Instructed pt/fam to merchandise pickup/receiving associate rx at pharmacy. All verbalize understanding. Pt transferred independently to w/c and was escorted to POV by INSPECTION MACHINE TENDER in no acute distress. All belongings sent with pt.
--- NOTE | 2019-05-08 15:08 | CM.IDA ---
Initial DCP Assessment Note: Dr Juarez has DC pt today, home w/family and close outpt f/u w/ Dr Downs. Reviewed chart and confirmed w/pt and staff the following remained accurate from DCP Assessment done 05.05.19 by KORI Gibson: Reviewed chart. Patient is a 83yr old female admitted to [facility] with complaints of bladder pain. Patient with h/o bladder CA. PCP is Dr. Andrade. ONC is Dr. Downs. Primary payor is 1)Medicare 2)[facility]. Patient reports that she hopes to discharge home today. Patient actively being treated for bladder CA at [facility]. Patient does not anticipate any d/c planning needs. Patient reports that she does not use any DME and has family rotating weeks with her in the home during chemotherapy treatment. Patient has 3 children helping out: Chanel, Ela, and Jace. P: Home today w/family via pov and outpt f/u, Onc KORI Weems following for resource coordination at [facility]. KORI Whittaker
== END 2019-05-08 13:45 | disposition home or self-care (01) ==
LOC: ED 14:29 → ICU 05-08 06:43 → AC 05-08 11:20 → ICU 05-08 11:20
PROVIDERS: Admitting Provider Internal Medicine; Emergency Provider Emergency Medicine; PCP Student in an Organized Health Care Education/Training Program; Visit Provider Internal Medicine
DX: I47.1 Supraventricular tachycardia (principal); R07.9 Chest pain, unspecified; C67.9 Malignant neoplasm of bladder, unspecified; N18.3 Chronic kidney disease, stage 3 (moderate); E03.9 Hypothyroidism, unspecified; D50.9 Iron deficiency anemia, unspecified; F17.210 Nicotine dependence, cigarettes, uncomplicated
CPT/HCPCS: 36415; 36591; 51798; 71045; 80048; 80053; 82550; 83540; 83550; 83690; 83735; 83880; 84484; 85025; 85610; 85730; 87797; 92960; 93005; 93010; 93041; 96361; 96365; 96366; 96372; 96375; 96376; 99152; 99285; 99291; 99292; G0378; J0153; J0282; J1170; J1644

== ENCOUNTER → 2019-05-14 08:20 | Oncology outpatient (ONC) | payer MEDICARE, OTHER, SELFPAY ==
--- NOTE | 2018-05-15 13:43 | ONC.CONS ---
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 Clinically T4 N0 History of present illness: Isaac Mccarthy is a 82 year old female who is referred for further evaluation of a newly diagnosed bladder cancer. The patient had developed symptoms that she thought were related to a urinary tract infection. She also apparently had some blood in the urine. Because of that she was evaluated by a urologist. She had a CT scan done in February that showed a right bladder wall mass with apparent extra vesicular extension. There was a prominent lymph node at the iliac artery bifurcation that had been present on old scans. She also had some small pulmonary nodules that had been present previously. She underwent a cystoscopy on April 03 with pathology showing urothelial carcinoma with sarcomatoid are spindle cell features. It was demonstrated fall the muscularis propria. The patient was evaluated at the [facility] and the a good surgical or radiation candidate. Likewise she had some renal insufficiency and was not felt to be a candidate for [place] based chemotherapy. Instead, was recommended to treat her with immunotherapy. The patient has had intermittent hematuria as recently as 4 or 5 days ago. She occasionally has some discomfort in the pelvis and bladder for which she takes Tylenol. She denies any nausea or vomiting. Her appetite has been low but stable. She has not been losing any weight. Bowels have been moving normally. She has not noted any adenopathy. She is going about most of her normal activities including her own cooking and cleaning. She does walk up to about a block at a time. She goes to the [employer] occasionally. Her past medical history is notable for ovarian cancer diagnosed in 2002 followed by adjuvant chemotherapy. She also has a history of irregular heartbeat hypertension chronic renal insufficiency. 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 She also has a history of thyroid cancer and is status post a thyroidectomy. She has had a history of anxiety as well. Her medications include amlodipine atorvastatin aspirin vitamin-D levothyroxine metoprolol and diazepam. Her family history is notable for her mother and her mother's twin sister having had both ovarian and breast cancer. Two of her daughters have had breast cancer. Social history: She lives by herself. She does smoke about 6 cigarettes daily. She has occasional alcohol use. She previously worked as a retail personal banker. CC: Aayush Downs MD Patient reports pain?: No Home Medications and Allergies Home Medications Medication Instructions Recorded Confirmed Type aspirin 81 mg PO BID #0 03/20/11 03/29/18 History amlodipine [Norvasc] 5 mg PO QDAY #90 tab 10/30/17 03/29/18 Rx levothyroxine [Levoxyl] 0.088 mg PO QDAY #90 tab 10/30/17 03/29/18 Rx metoprolol tartrate 50 mg PO BID #180 tab 10/30/17 03/29/18 Rx atorvastatin 10 mg PO QPM 03/29/18 03/29/18 History calcitriol 1 cap PO MOWEFR 03/29/18 03/29/18 History diazepam 1 dose PO PRN PRN 03/29/18 03/29/18 History hydrocodone-acetaminophen [[place]] 1 tab PO Q4-6H PRN #10 tab 03/29/18 Rx nitrofurantoin monohyd/m-cryst 100 mg PO Q12H #14 cap 03/29/18 Rx [Macrobid] diazepam [Valium] 10 mg PO BID PRN 30 Days #60 tab 05/15/18 Rx Allergies Allergy/AdvReac Type Severity Reaction Status Date / Time lisinopril [LISINOPRIL] Allergy Unknown Verified 01/16/18 13:30 Sulfa (Sulfonamide Allergy Unknown Verified 01/16/18 13:30 Antibiotics) [SULFA (SULFONAMIDE ANTIBIOTICS)] sertraline AdvReac Intermediate Diarrhea Uncoded 01/30/18 12:06 Medical History - Medical, Surgical, Family History Medical History: Medical History (Last Updated 05/06/18 @ 15:43 by Tricia Forrest) CAD (coronary artery disease) Onset Date: 2013 Hypertension Drug-induced anaphylaxis Onset Date: 2013 Kidney failure Onset Date: 2014 Non-STEMI (non-ST elevated myocardial infarction) Onset Date: 2013 Ovarian cancer Onset Date: 2002 Thyroid cancer Onset Date: 1997 Surgical History: Surgical History (Last Updated 05/06/18 @ 15:43 by Tricia Forrest) History of thyroidectomy Onset Date: 1997 Status post hysterectomy with oophorectomy Onset Date: 2002 Family History: Family History Other Breast cancer Ovarian cancer - Social History Smoking Status: Current every day smoker Alcohol Intake: current Alcohol Intake Frequency: a few times a week Review of Systems Constitutional: able to conduct usual activities, no weight loss Cardiovascular: dyspnea on exertion, no chest pain, no palpitations Genitourinary: hematuria Exam - Constitutional positive no acute distress, positive average body habitus - Routine HEENT Exam Head: Present: normocephalic, atraumatic Eye: Present: EOMI, PERRL. Absent: conjunctival icterus, scleral injection ENT: Present: mucous membranes moist, oropharynx clear - Routine Neck Exam Present: supple. Absent: lymphadenopathy, thyromegaly - Routine Respiratory Exam Present: Clear to auscultation bilaterally. Absent: rales, wheezes - Routine Cardiovascular Exam Present: RRR, S1, S2. Absent: murmur - Routine Abdominal Exam Present: soft, normoactive bowel sounds. Absent: tenderness, mass - Routine Extremities Exam Absent: cyanosis, clubbing, edema - Routine Back/Spine Exam Back/Spine: Absent: paraspinal tenderness, vertebral tenderness - Routine Skin Exam Present: intact. Absent: petechiae, rash - Routine Neurological Exam Present: alert, oriented X3 - Routine Psychiatric Exam Present: normal affect, normal thought process Assessment and Plan (1) Bladder cancer Problem details: An 82-year-old woman with a locally advanced bladder cancer. She is not currently an operative candidate and not a candidate for [place] based chemotherapy. I agree with her recommendation for immunotherapy. I explained that these drugs were effective 20-25% of the time. In patients with the drugs work they can work very well. Side effects include primarily autoimmune conditions such as dermatitis colitis pneumonitis. She has had a prior thyroidectomy so would not be at risk for thyroiditis. I would anticipate re-evaluation with CT scan and possible cystoscopy in about 2-3 months of treatment. If she has a good response, she could perhaps consider TURBT or perhaps more aggressive surgical intervention. She will return to clinic in about 3 weeks or so for follow-up. Current visit: Yes Status: Acute
--- NOTE | 2018-05-15 13:51 | P.CONONC_ITS ---
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 Clinically T4 N0 History of present illness: Isaac Mccarthy is a 82 year old female who is referred for further evaluation of a newly diagnosed bladder cancer. The patient had developed symptoms that she thought were related to a urinary tract infection. She also apparently had some blood in the urine. Because of that she was evaluated by a urologist. She had a CT scan done in February that showed a right bladder wall mass with apparent extra vesicular extension. There was a prominent lymph node at the iliac artery bifurcation that had been present on old scans. She also had some small pulmonary nodules that had been present previously. She underwent a cystoscopy on April 03 with pathology showing urothelial carcinoma with sarcomatoid are spindle cell features. It was demonstrated fall the muscularis propria. The patient was evaluated at the [facility] and the a good surgical or radiation candidate. Likewise she had some renal insufficiency and was not felt to be a candidate for [place] based chemotherapy. Instead, was recommended to treat her with immunotherapy. The patient has had intermittent hematuria as recently as 4 or 5 days ago. She occasionally has some discomfort in the pelvis and bladder for which she takes Tylenol. She denies any nausea or vomiting. Her appetite has been low but stable. She has not been losing any weight. Bowels have been moving normally. She has not noted any adenopathy. She is going about most of her normal activities including her own cooking and cleaning. She does walk up to about a block at a time. She goes to the [employer] occasionally. Her past medical history is notable for ovarian cancer diagnosed in 2002 followed by adjuvant chemotherapy. She also has a history of irregular heartbeat hypertension chronic renal insufficiency. 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 She also has a history of thyroid cancer and is status post a thyroidectomy. She has had a history of anxiety as well. Her medications include amlodipine atorvastatin aspirin vitamin-D levothyroxine metoprolol and diazepam. Her family history is notable for her mother and her mother's twin sister having had both ovarian and breast cancer. Two of her daughters have had breast cancer. Social history: She lives by herself. She does smoke about 6 cigarettes daily. She has occasional alcohol use. She previously worked as a personal care aid. CC: Aayush Downs MD Patient reports pain?: No Home Medications and Allergies Home Medications Medication Instructions Recorded Confirmed Type aspirin 81 mg PO BID #0 03/20/11 03/29/18 History amlodipine [Norvasc] 5 mg PO QDAY #90 tab 10/30/17 03/29/18 Rx levothyroxine [Levoxyl] 0.088 mg PO QDAY #90 tab 10/30/17 03/29/18 Rx metoprolol tartrate 50 mg PO BID #180 tab 10/30/17 03/29/18 Rx atorvastatin 10 mg PO QPM 03/29/18 03/29/18 History calcitriol 1 cap PO MOWEFR 03/29/18 03/29/18 History diazepam 1 dose PO PRN PRN 03/29/18 03/29/18 History hydrocodone-acetaminophen [[place]] 1 tab PO Q4-6H PRN #10 tab 03/29/18 Rx nitrofurantoin monohyd/m-cryst 100 mg PO Q12H #14 cap 03/29/18 Rx [Macrobid] diazepam [Valium] 10 mg PO BID PRN 30 Days #60 tab 05/15/18 Rx Allergies Allergy/AdvReac Type Severity Reaction Status Date / Time lisinopril [LISINOPRIL] Allergy Unknown Verified 01/16/18 13:30 Sulfa (Sulfonamide Allergy Unknown Verified 01/16/18 13:30 Antibiotics) [SULFA (SULFONAMIDE ANTIBIOTICS)] sertraline AdvReac Intermediate Diarrhea Uncoded 01/30/18 12:06 Medical History - Medical, Surgical, Family History Medical History: Medical History (Last Updated 05/06/18 @ 15:43 by Tricia Forrest) CAD (coronary artery disease) Onset Date: 2013 Hypertension Drug-induced anaphylaxis Onset Date: 2013 Kidney failure Onset Date: 2014 Non-STEMI (non-ST elevated myocardial infarction) Onset Date: 2013 Ovarian cancer Onset Date: 2002 Thyroid cancer Onset Date: 1997 Surgical History: Surgical History (Last Updated 05/06/18 @ 15:43 by Tricia Forrest) History of thyroidectomy Onset Date: 1997 Status post hysterectomy with oophorectomy Onset Date: 2002 Family History: Family History Other Breast cancer Ovarian cancer - Social History Smoking Status: Current every day smoker Alcohol Intake: current Alcohol Intake Frequency: a few times a week Review of Systems Constitutional: able to conduct usual activities, no weight loss Cardiovascular: dyspnea on exertion, no chest pain, no palpitations Genitourinary: hematuria Exam - Constitutional positive no acute distress, positive average body habitus - Routine HEENT Exam Head: Present: normocephalic, atraumatic Eye: Present: EOMI, PERRL. Absent: conjunctival icterus, scleral injection ENT: Present: mucous membranes moist, oropharynx clear - Routine Neck Exam Present: supple. Absent: lymphadenopathy, thyromegaly - Routine Respiratory Exam Present: Clear to auscultation bilaterally. Absent: rales, wheezes - Routine Cardiovascular Exam Present: RRR, S1, S2. Absent: murmur - Routine Abdominal Exam Present: soft, normoactive bowel sounds. Absent: tenderness, mass - Routine Extremities Exam Absent: cyanosis, clubbing, edema - Routine Back/Spine Exam Back/Spine: Absent: paraspinal tenderness, vertebral tenderness - Routine Skin Exam Present: intact. Absent: petechiae, rash - Routine Neurological Exam Present: alert, oriented X3 - Routine Psychiatric Exam Present: normal affect, normal thought process Assessment and Plan (1) Bladder cancer Problem details: An 82-year-old woman with a locally advanced bladder cancer. She is not currently an operative candidate and not a candidate for [place] based chemotherapy. I agree with her recommendation for immunotherapy. I explained that these drugs were effective 20-25% of the time. In patients with the drugs work they can work very well. Side effects include primarily autoimmune conditions such as dermatitis colitis pneumonitis. She has had a prior thyroidectomy so would not be at risk for thyroiditis. I would anticipate re-evaluation with CT scan and possible cystoscopy in about 2-3 months of treatment. If she has a good response, she could perhaps consider TURBT or perhaps more aggressive surgical intervention. She will return to clinic in about 3 weeks or so for follow-up. Current visit: Yes Status: Acute
[2018-05-15 13:54] VITALS: BP 119/55; PULSE 49; RESP 18; TEMP 36.5; O2SAT 100
--- NOTE | 2018-05-16 13:45 | ONC.SCHED ---
Keytruda-Passes code corret with no edits. [id number] ICD10 code C67.9
[2018-05-23] MEDS: PEMBROLIZUMAB 200 MG in SODIUM CHLORIDE 0.9% (CHEMO) 100 ML 216 ML IV (11:23)
[2018-05-23] MEDS: SODIUM CHLORIDE 0.9% 100 ML 21 ML IV (11:23)
[2018-05-23 12:49] VITALS: BP 129/57; PULSE 55; RESP 18; TEMP 36.6
[2018-06-05 10:55] LABS: Add Manual Diff / Slide Review NO; Basophils Percent Auto 1.5 % (0-2); Eosinophils Percent Auto 4.4 % (2-4); Hematocrit 38.3 % (36-46); Hemoglobin 12.8 g/dL (12.0-16.0); Lymphocytes Percent Auto 17.3 % (25-40); Mean Corpuscular HGB Conc 33.5 % (30-36); Mean Corpuscular Hemoglobin 31.7 PG (26-34); Mean Corpuscular Volume 94.8 fL (80-100); Monocytes Percent Auto 12.9 % (3-14); Neutrophils Absolute Auto 5200 /uL (3000-5900); Neutrophils Percent Auto 63.9 % (50-75); Platelet Count 413 X10^3/uL (150-400); Red Blood Cell Count 4.04 X10^6/uL (4.0-5.2); Red Cell Distribution Width 15.8 % (11.6-14.8); White Blood Cell Count 8.1 X10^3/uL (4.5-11.0)
[2018-06-05 11:00] VITALS: BP 138/76; PULSE 86; RESP 18; TEMP 36.6; O2SAT 100
[2018-06-05 11:14] LABS: Alanine Aminotransferase 22 IU/L (9-52); Albumin 4.4 g/dL (3.5-5.0); Albumin Globulin Ratio 1.3 (1.0-2.8); Alkaline Phosphatase 135 U/L (38-126); Aspartate Aminotransferase 22 IU/L (14-36); Bilirubin Total 0.5 mg/dL (0.2-1.3); Blood Urea Nitrogen 17 mg/dL (7-17); Calcium 8.9 mg/dL (8.4-10.2); Carbon Dioxide 29 mmol/L (22-32); Chloride 99 mmol/L (98-107); Estimated Glomerular Filt Rate 53.2 mL/min (>60); Globulin 3.3 g/dL (1.7-4.1); Glucose 111 mg/dL (80-110); HEMOLYSIS < 15 (0-50); Potassium 4.4 mmol/L (3.4-5.1); Sodium 139 mmol/L (137-145); Total Protein 7.7 g/dL (6.3-8.2)
--- NOTE | 2018-06-05 11:15 | P.PNONC_ITS ---
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 Clinically T4 N0 Previous treatment: 1 dose of Keytruda Interval history: The patient is an 83-year-old woman who returns today for follow-up of a locally advanced bladder cancer. She had her 1st dose of immunotherapy about 2 weeks ago. She tolerated without any difficulty. She notes that she did have some tenderness in the bladder area for a couple of days after the infusion but none since then. She had 1 episode of hematuria that persisted for about an hour and has since stopped. She did not have any skin rash or itching. No diarrhea or abdominal pain. No nausea or vomiting. No shortness of breath. She has had a couple of days of congestion with a mildly productive cough that feels like a typical bronchitis for her. She usually is treated with azithromycin when these episodes occur. Her strength and energy level have been good. She has not noted any adenopathy. She denies any other changes in her health. - Patient Self-Reported Symptoms SR Constitution: Weight loss/gain, Fatigue/Malaise SR ears, nose, mouth, throat issues: Ears ringing SR Cardiovascular issues: Palpitations SR Skin issues: Dry skin SR Genitourinary issues: Frequent urination SR Endocrine issues: Excessive urination Home Medications and Allergies Home Medications Medication Instructions Recorded Confirmed Type aspirin 81 mg PO DAILY #0 03/20/11 05/15/18 History amlodipine [Norvasc] 5 mg PO QDAY #90 tab 10/30/17 05/15/18 Rx levothyroxine [Levoxyl] 0.088 mg PO QDAY #90 tab 10/30/17 05/15/18 Rx metoprolol tartrate 50 mg PO BID #180 tab 10/30/17 05/15/18 Rx atorvastatin 40 mg PO QPM 03/29/18 05/15/18 History calcitriol 1 cap PO MOWEFR 03/29/18 05/15/18 History diazepam 10 mg PO PRN PRN 03/29/18 05/15/18 History azithromycin 250 mg PO DAILY 5 Days #6 tab 06/05/18 Rx Allergies Allergy/AdvReac Type Severity Reaction Status Date / Time lisinopril [LISINOPRIL] Allergy Severe Swelling Verified 05/15/18 13:57 of Lip/Tongue/Throat Sulfa (Sulfonamide Allergy Intermediate Rash Verified 05/15/18 13:58 Antibiotics) [SULFA (SULFONAMIDE ANTIBIOTICS)] sertraline AdvReac Intermediate Diarrhea Uncoded 01/30/18 12:06 Exam - Constitutional positive no acute distress, positive average body habitus - Routine HEENT Exam Head: Present: normocephalic, atraumatic Eye: Present: EOMI, PERRL. Absent: conjunctival icterus, scleral injection ENT: Present: mucous membranes moist, oropharynx clear - Routine Neck Exam Absent: lymphadenopathy, thyromegaly - Routine Respiratory Exam Present: Clear to auscultation bilaterally. Absent: rales, wheezes - Routine Cardiovascular Exam Present: RRR, S1, S2. Absent: murmur - Routine Abdominal Exam Present: soft, normoactive bowel sounds. Absent: tenderness, organomegaly, mass - Routine Extremities Exam Absent: cyanosis, clubbing, edema - Routine Back/Spine Exam Back/Spine: Absent: paraspinal tenderness, vertebral tenderness - Routine Skin Exam Present: intact. Absent: petechiae, rash - Routine Neurological Exam Present: alert, oriented X3 - Routine Psychiatric Exam Present: normal affect, normal thought process Results - Labs Laboratory Last Values WBC 8.1 X10^3/uL (4.5-11.0) 06/05/18 10:44 RBC 4.04 X10^6/uL (4.0-5.2) 06/05/18 10:44 Hgb 12.8 g/dL (12.0-16.0) 06/05/18 10:44 Hct 38.3 % (36-46) 06/05/18 10:44 MCV 94.8 fL (80-100) 06/05/18 10:44 MCH 31.7 PG (26-34) 06/05/18 10:44 MCHC 33.5 % (30-36) 06/05/18 10:44 RDW 15.8 % (11.6-14.8) H 06/05/18 10:44 Plt Count 413 X10^3/uL (150-400) H 06/05/18 10:44 Neut % (Auto) 63.9 % (50-75) 06/05/18 10:44 Lymph % (Auto) 17.3 % (25-40) L 06/05/18 10:44 [place] % (Auto) 12.9 % (3-14) 06/05/18 10:44 Eos % (Auto) 4.4 % (2-4) H 06/05/18 10:44 Baso % (Auto) 1.5 % (0-2) 06/05/18 10:44 Neut # (Auto) 5200 /uL (7853-4902) 06/05/18 10:44 Assessment and Plan (1) Bladder cancer Problem details: An 82-year-old woman with a locally advanced bladder cancer. She is not currently an operative candidate and not a candidate for [place] based chemotherapy. She has tolerated her 1st cycle of Keytruda without any difficulty. She will go ahead with her 2nd dose next week. She will return to clinic in about 3-4 weeks for follow-up. I would anticipate repeat imaging after about 3 months of treatment. I did give her prescription for azithromycin for probable bronchitis. Current visit: Yes Status: Acute
[2018-06-12 10:54] VITALS: BP 144/76; PULSE 73; RESP 16; TEMP 36.4; O2SAT 99
[2018-06-12] MEDS: SODIUM CHLORIDE 0.9% 100 ML 21 ML IV (11:34)
[2018-06-12] MEDS: PEMBROLIZUMAB 200 MG in SODIUM CHLORIDE 0.9% (CHEMO) 100 ML 216 ML IV (11:58)
--- NOTE | 2018-06-12 12:20 | ONC.NAV ---
*Pt declined a Chemo Quilt today.
--- NOTE | 2018-07-10 10:27 | ONC.PN ---
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 Clinically T4 N0 Previous treatment: 2 doses of Keytruda Interval history: The patient is an 83-year-old woman who returns today for follow-up of a locally advanced bladder cancer. Since her last visit here, she has been tolerating her Ketruda without any significant difficulty. She has not had any diarrhea or abdominal pain. She has not noted any rash or itching. She denies any shortness of breath cough for chest pain. Appetite and energy level have been stable. She did have a fall in injured some ribs on the left side about weeks ago. She thinks that they have been slowly getting better. She denies any other new aches or pains. No adenopathy. She has not noted any hematuria and denies any other urinary complaints. - Patient Self-Reported Symptoms SR Constitution: Weight loss/gain, Fatigue/Malaise SR ears, nose, mouth, throat issues: Ears ringing SR Cardiovascular issues: Palpitations SR Skin issues: Dry skin SR Genitourinary issues: Frequent urination SR Endocrine issues: Excessive urination Home Medications and Allergies Home Medications Medication Instructions Recorded Confirmed Type aspirin 81 mg PO DAILY #0 03/20/11 05/15/18 History amlodipine [Norvasc] 5 mg PO QDAY #90 tab 10/30/17 05/15/18 Rx levothyroxine [Levoxyl] 0.088 mg PO QDAY #90 tab 10/30/17 05/15/18 Rx metoprolol tartrate 50 mg PO BID #180 tab 10/30/17 05/15/18 Rx atorvastatin 40 mg PO QPM 03/29/18 05/15/18 History calcitriol 1 cap PO MOWEFR 03/29/18 05/15/18 History diazepam 10 mg PO PRN PRN 03/29/18 05/15/18 History Allergies Allergy/AdvReac Type Severity Reaction Status Date / Time lisinopril [LISINOPRIL] Allergy Severe Swelling Verified 05/15/18 13:57 of Lip/Tongue/Throat Sulfa (Sulfonamide Allergy Intermediate Rash Verified 05/15/18 13:58 Antibiotics) [SULFA (SULFONAMIDE ANTIBIOTICS)] sertraline AdvReac Intermediate Diarrhea Verified 06/12/18 06:59 Exam - Constitutional positive no acute distress, positive average body habitus - Routine HEENT Exam Head: Present: normocephalic, atraumatic Eye: Present: EOMI, PERRL. Absent: conjunctival icterus, scleral injection ENT: Present: mucous membranes moist, oropharynx clear - Routine Neck Exam Present: supple. Absent: lymphadenopathy, thyromegaly - Routine Chest/Breast/Axilla Exam Chest wall exam standard: Absent: tenderness - Routine Respiratory Exam Present: Clear to auscultation bilaterally. Absent: rales, wheezes - Routine Cardiovascular Exam Present: RRR, S1, S2. Absent: murmur - Routine Abdominal Exam Present: soft, normoactive bowel sounds. Absent: organomegaly, mass - Routine Extremities Exam Absent: cyanosis, clubbing, edema - Routine Back/Spine Exam Back/Spine: Absent: paraspinal tenderness, vertebral tenderness - Routine Skin Exam Present: intact. Absent: petechiae, rash - Routine Neurological Exam Present: alert, oriented X3 - Routine Psychiatric Exam Present: normal affect, normal thought process Results - Labs Laboratory Last Values WBC 8.1 X10^3/uL (4.5-11.0) 06/05/18 10:44 RBC 4.04 X10^6/uL (4.0-5.2) 06/05/18 10:44 Hgb 12.8 g/dL (12.0-16.0) 06/05/18 10:44 Hct 38.3 % (36-46) 06/05/18 10:44 MCV 94.8 fL (80-100) 06/05/18 10:44 MCH 31.7 PG (26-34) 06/05/18 10:44 MCHC 33.5 % (30-36) 06/05/18 10:44 RDW 15.8 % (11.6-14.8) H 06/05/18 10:44 Plt Count 413 X10^3/uL (150-400) H 06/05/18 10:44 Neut % (Auto) 63.9 % (50-75) 06/05/18 10:44 Lymph % (Auto) 17.3 % (25-40) L 06/05/18 10:44 [place] % (Auto) 12.9 % (3-14) 06/05/18 10:44 Eos % (Auto) 4.4 % (2-4) H 06/05/18 10:44 Baso % (Auto) 1.5 % (0-2) 06/05/18 10:44 Neut # (Auto) 5200 /uL (3646-5163) 06/05/18 10:44 Sodium 139 mmol/L (137-145) 06/05/18 10:44 Potassium 4.4 mmol/L (3.4-5.1) 06/05/18 10:44 Chloride 99 mmol/L (98-107) 06/05/18 10:44 Carbon Dioxide 29 mmol/L (22-32) 06/05/18 10:44 BUN 17 mg/dL (7-17) 06/05/18 10:44 Creatinine 1.00 mg/dL (0.52-1.04) 06/05/18 10:44 Estimated GFR 53.2 mL/min (>60) L 06/05/18 10:44 BUN/Creatinine Ratio 17.0 (6-22) 06/05/18 10:44 Glucose 111 mg/dL (80-110) H 06/05/18 10:44 Calcium 8.9 mg/dL (8.4-10.2) 06/05/18 10:44 Total Bilirubin 0.5 mg/dL (0.2-1.3) 06/05/18 10:44 AST 22 IU/L (14-36) 06/05/18 10:44 ALT 22 IU/L (9-52) 06/05/18 10:44 Alkaline Phosphatase 135 U/L (38-126) H 06/05/18 10:44 Total Protein 7.7 g/dL (6.3-8.2) 06/05/18 10:44 Albumin 4.4 g/dL (3.5-5.0) 06/05/18 10:44 Globulin 3.3 g/dL (1.7-4.1) 06/05/18 10:44 Albumin/Globulin Ratio 1.3 (1.0-2.8) 06/05/18 10:44 Assessment and Plan (1) Bladder cancer Problem details: An 82-year-old woman with a locally advanced bladder cancer. She is not currently an operative candidate and not a candidate for [place] based chemotherapy. She is tolerating immunotherapy without any significant difficulty. She will go ahead with her 3rd cycle today. She return to clinic in about 3 weeks for follow-up. I would anticipate a CT scan after about 3 months of treatment. Current visit: Yes Status: Acute
[2018-07-10 10:37] VITALS: BP 150/83; PULSE 66; RESP 18; TEMP 36.9; O2SAT 97
[2018-07-10 10:56] LABS: Add Manual Diff / Slide Review NO; Basophils Percent Auto 1.1 % (0-2); Eosinophils Percent Auto 5.9 % (2-4); Hematocrit 39.4 % (36-46); Hemoglobin 13.3 g/dL (12.0-16.0); Lymphocytes Percent Auto 18.1 % (25-40); Mean Corpuscular HGB Conc 33.7 % (30-36); Mean Corpuscular Hemoglobin 31.6 PG (26-34); Mean Corpuscular Volume 93.7 fL (80-100); Monocytes Percent Auto 9.8 % (3-14); Neutrophils Absolute Auto 6200 /uL (3000-5900); Neutrophils Percent Auto 65.1 % (50-75); Platelet Count 383 X10^3/uL (150-400); Red Blood Cell Count 4.21 X10^6/uL (4.0-5.2); Red Cell Distribution Width 16.1 % (11.6-14.8); White Blood Cell Count 9.6 X10^3/uL (4.5-11.0)
[2018-07-10 11:10] LABS: Alanine Aminotransferase 20 IU/L (9-52); Albumin 4.4 g/dL (3.5-5.0); Albumin Globulin Ratio 1.4 (1.0-2.8); Alkaline Phosphatase 120 U/L (38-126); Aspartate Aminotransferase 20 IU/L (14-36); BUN Creatinine Ratio 20.9 (6-22); Bilirubin Total 0.5 mg/dL (0.2-1.3); Blood Urea Nitrogen 23 mg/dL (7-17); Calcium 9.2 mg/dL (8.4-10.2); Carbon Dioxide 25 mmol/L (22-32); Chloride 101 mmol/L (98-107); Estimated Glomerular Filt Rate 47.7 mL/min (>60); Globulin 3.2 g/dL (1.7-4.1); Glucose 104 mg/dL (80-110); HEMOLYSIS < 15 (0-50); Potassium 5.4 mmol/L (3.4-5.1); Sodium 140 mmol/L (137-145); Total Protein 7.6 g/dL (6.3-8.2)
[2018-07-10] MEDS: PEMBROLIZUMAB 200 MG in SODIUM CHLORIDE 0.9% (CHEMO) 100 ML 216 ML IV (11:40)
[2018-07-10] MEDS: SODIUM CHLORIDE 0.9% 100 ML 21 ML IV (11:40)
[2018-07-31 09:55] LABS: Add Manual Diff / Slide Review NO; Basophils Percent Auto 1.3 % (0-2); Hematocrit 38.6 % (36-46); Hemoglobin 12.9 g/dL (12.0-16.0); Lymphocytes Percent Auto 15.9 % (25-40); Mean Corpuscular HGB Conc 33.5 % (30-36); Mean Corpuscular Hemoglobin 31.9 PG (26-34); Mean Corpuscular Volume 95.1 fL (80-100); Monocytes Percent Auto 11.1 % (3-14); Neutrophils Absolute Auto 6500 /uL (1500-7000); Neutrophils Percent Auto 66.7 % (50-75); Platelet Count 387 X10^3/uL (150-400); Red Blood Cell Count 4.06 X10^6/uL (4.0-5.2); Red Cell Distribution Width 16.8 % (11.6-14.8); White Blood Cell Count 9.7 X10^3/uL (4.5-11.0)
[2018-07-31 10:07] LABS: Alanine Aminotransferase 15 IU/L (9-52); Albumin 4.4 g/dL (3.5-5.0); Albumin Globulin Ratio 1.3 (1.0-2.8); Alkaline Phosphatase 124 U/L (38-126); Aspartate Aminotransferase 19 IU/L (14-36); BUN Creatinine Ratio 24.5 (6-22); Bilirubin Total 0.5 mg/dL (0.2-1.3); Blood Urea Nitrogen 27 mg/dL (7-17); Carbon Dioxide 23 mmol/L (22-32); Chloride 102 mmol/L (98-107); Estimated Glomerular Filt Rate 47.7 mL/min (>60); Globulin 3.4 g/dL (1.7-4.1); Glucose 110 mg/dL (80-110); HEMOLYSIS < 15 (0-50); Potassium 4.2 mmol/L (3.4-5.1); Sodium 140 mmol/L (137-145); Total Protein 7.8 g/dL (6.3-8.2)
[2018-07-31 10:18] VITALS: BP 134/75; PULSE 76; RESP 18; TEMP 36.5; O2SAT 99
--- NOTE | 2018-07-31 10:31 | ONC.PN ---
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 Clinically T4 N0 Previous treatment: 3 doses of Keytruda Interval history: The patient is an 83-year-old woman who returns today for follow-up of a locally advanced bladder cancer. Since her last visit here, she has been tolerating her Ketruda without any significant difficulty. She has not had any diarrhea or abdominal pain. She has had some itching but no rash. She has been using some moisturizer which seems to help. She is not having any shortness of breath or cough. Her energy level has been a little bit low but she is able to go about all of her normal activities. She has not noted any hematuria or other urinary complaints. No fevers chills or sweats. Her appetite has been good. She denies any other changes in her health. - Patient Self-Reported Symptoms SR Constitution: Fatigue/Malaise SR ears, nose, mouth, throat issues: Ears ringing SR Cardiovascular issues: Palpitations SR Skin issues: Dry skin SR Genitourinary issues: Frequent urination SR Endocrine issues: Excessive urination Home Medications and Allergies Home Medications Medication Instructions Recorded Confirmed Type aspirin 81 mg PO DAILY #0 03/20/11 07/10/18 History amlodipine [Norvasc] 5 mg PO QDAY #90 tab 10/30/17 07/10/18 Rx levothyroxine [Levoxyl] 0.088 mg PO QDAY #90 tab 10/30/17 07/10/18 Rx metoprolol tartrate 50 mg PO BID #180 tab 10/30/17 07/10/18 Rx atorvastatin 40 mg PO QPM 03/29/18 07/10/18 History calcitriol 1 cap PO MOWEFR 03/29/18 07/10/18 History diazepam 10 mg tablet 10 mg PO PRN #30 tab 07/29/18 Rx Allergies Allergy/AdvReac Type Severity Reaction Status Date / Time lisinopril [LISINOPRIL] Allergy Severe Swelling Verified 05/15/18 13:57 of Lip/Tongue/Throat Sulfa (Sulfonamide Allergy Intermediate Rash Verified 05/15/18 13:58 Antibiotics) [SULFA (SULFONAMIDE ANTIBIOTICS)] sertraline AdvReac Intermediate Diarrhea Verified 06/12/18 06:59 Exam - Constitutional positive no acute distress, positive average body habitus - Routine HEENT Exam Head: Present: normocephalic, atraumatic Eye: Present: EOMI, PERRL. Absent: conjunctival icterus, scleral injection ENT: Present: mucous membranes moist, oropharynx clear - Routine Neck Exam Present: supple. Absent: lymphadenopathy, thyromegaly - Routine Respiratory Exam Present: Clear to auscultation bilaterally. Absent: rales, wheezes - Routine Cardiovascular Exam Present: RRR, S1, S2. Absent: murmur - Routine Abdominal Exam Present: soft, normoactive bowel sounds. Absent: organomegaly, mass - Routine Extremities Exam Absent: cyanosis, clubbing, edema - Routine Back/Spine Exam Back/Spine: Absent: vertebral tenderness - Routine Skin Exam Present: intact. Absent: petechiae, rash - Routine Neurological Exam Present: alert, oriented X3 - Routine Psychiatric Exam Present: normal affect, normal thought process Results - Labs Laboratory Last Values WBC 9.7 X10^3/uL (4.5-11.0) 07/31/18 09:48 RBC 4.06 X10^6/uL (4.0-5.2) 07/31/18 09:48 Hgb 12.9 g/dL (12.0-16.0) 07/31/18 09:48 Hct 38.6 % (36-46) 07/31/18 09:48 MCV 95.1 fL (80-100) 07/31/18 09:48 MCH 31.9 PG (26-34) 07/31/18 09:48 MCHC 33.5 % (30-36) 07/31/18 09:48 RDW 16.8 % (11.6-14.8) H 07/31/18 09:48 Plt Count 387 X10^3/uL (150-400) 07/31/18 09:48 Neut % (Auto) 66.7 % (50-75) 07/31/18 09:48 Lymph % (Auto) 15.9 % (25-40) L 07/31/18 09:48 [place] % (Auto) 11.1 % (3-14) 07/31/18 09:48 Eos % (Auto) 5.0 % (2-4) H 07/31/18 09:48 Baso % (Auto) 1.3 % (0-2) 07/31/18 09:48 Neut # (Auto) 6500 /uL (8033-1460) 07/31/18 09:48 Sodium 140 mmol/L (137-145) 07/31/18 09:48 Potassium 4.2 mmol/L (3.4-5.1) 07/31/18 09:48 Chloride 102 mmol/L (98-107) 07/31/18 09:48 Carbon Dioxide 23 mmol/L (22-32) 07/31/18 09:48 BUN 27 mg/dL (7-17) H 07/31/18 09:48 Creatinine 1.10 mg/dL (0.52-1.04) H 07/31/18 09:48 Estimated GFR 47.7 mL/min (>60) L 07/31/18 09:48 BUN/Creatinine Ratio 24.5 (6-22) H 07/31/18 09:48 Glucose 110 mg/dL (80-110) 07/31/18 09:48 Calcium 9.0 mg/dL (8.4-10.2) 07/31/18 09:48 Total Bilirubin 0.5 mg/dL (0.2-1.3) 07/31/18 09:48 AST 19 IU/L (14-36) 07/31/18 09:48 ALT 15 IU/L (9-52) 07/31/18 09:48 Alkaline Phosphatase 124 U/L (38-126) 07/31/18 09:48 Total Protein 7.8 g/dL (6.3-8.2) 07/31/18 09:48 Albumin 4.4 g/dL (3.5-5.0) 07/31/18 09:48 Globulin 3.4 g/dL (1.7-4.1) 07/31/18 09:48 Albumin/Globulin Ratio 1.3 (1.0-2.8) 07/31/18 09:48 Assessment and Plan (1) Bladder cancer Problem details: An 82-year-old woman with a locally advanced bladder cancer. She is not currently an operative candidate and not a candidate for [place] based chemotherapy. She is tolerating immunotherapy without any significant difficulty. She will go ahead with her 4th cycle today. She return to clinic in about 3 weeks for follow-up. I will need to schedule a CT scan after that next visit. Current visit: Yes Status: Acute
[2018-07-31] MEDS: INFLUENZA VACCINE 0.5 ML SYRINGE IM (11:12)
[2018-07-31] MEDS: SODIUM CHLORIDE 0.9% 100 ML 21 ML IV (11:14)
[2018-07-31] MEDS: PEMBROLIZUMAB 200 MG in SODIUM CHLORIDE 0.9% (CHEMO) 100 ML 216 ML IV (11:34)
[2018-08-21 09:28] VITALS: BP 110/60; PULSE 69; RESP 18; TEMP 37; O2SAT 100
[2018-08-21 09:36] LABS: Add Manual Diff / Slide Review NO; Eosinophils Percent Auto 6.9 % (2-4); Hematocrit 38.9 % (36-46); Hemoglobin 12.9 g/dL (12.0-16.0); Lymphocytes Percent Auto 14.5 % (25-40); Mean Corpuscular HGB Conc 33.2 % (30-36); Mean Corpuscular Hemoglobin 31.5 PG (26-34); Mean Corpuscular Volume 94.9 fL (80-100); Monocytes Percent Auto 9.9 % (3-14); Neutrophils Absolute Auto 7200 /uL (1500-7000); Neutrophils Percent Auto 67.7 % (50-75); Platelet Count 441 X10^3/uL (150-400); Red Blood Cell Count 4.11 X10^6/uL (4.0-5.2); Red Cell Distribution Width 15.6 % (11.6-14.8); White Blood Cell Count 10.7 X10^3/uL (4.5-11.0)
--- NOTE | 2018-08-21 09:39 | ONC.PN ---
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 Clinically T4 N0 Previous treatment: 4 doses of Keytruda Interval history: The patient is an 83-year-old woman who returns today for follow-up of a locally advanced bladder cancer. Since her last visit here, she has been tolerating her Ketruda without any significant difficulty. She has not noted any skin rash or itching. She denies any abdominal pain or cramping. She has not had any diarrhea. No shortness of breath or cough. Her strength and energy level have been stable. She thinks that her appetite has improved and that food is tasting a little bit better to her. She did have 1 episode of hematuria but denies any pain or burning with urination. She has not had any other episodes of bleeding. She denies any other changes in her health. Her medications are unchanged. They include amlodipine aspirin Lipitor levothyroxine metoprolol - Patient Self-Reported Symptoms SR Constitution: Fatigue/Malaise SR ears, nose, mouth, throat issues: Ears ringing SR Cardiovascular issues: Palpitations SR Skin issues: Dry skin SR Genitourinary issues: Frequent urination SR Endocrine issues: Excessive urination Home Medications and Allergies Home Medications Medication Instructions Recorded Confirmed Type aspirin 81 mg PO DAILY #0 03/20/11 07/10/18 History amlodipine [Norvasc] 5 mg PO QDAY #90 tab 10/30/17 07/10/18 Rx levothyroxine [Levoxyl] 0.088 mg PO QDAY #90 tab 10/30/17 07/10/18 Rx metoprolol tartrate 50 mg PO BID #180 tab 10/30/17 07/10/18 Rx atorvastatin 40 mg PO QPM 03/29/18 07/10/18 History calcitriol 1 cap PO MOWEFR 03/29/18 07/10/18 History diazepam 10 mg tablet 10 mg PO PRN #30 tab 07/29/18 Rx Allergies Allergy/AdvReac Type Severity Reaction Status Date / Time lisinopril [LISINOPRIL] Allergy Severe Swelling Verified 05/15/18 13:57 of Lip/Tongue/Throat Sulfa (Sulfonamide Allergy Intermediate Rash Verified 05/15/18 13:58 Antibiotics) [SULFA (SULFONAMIDE ANTIBIOTICS)] sertraline AdvReac Intermediate Diarrhea Verified 06/12/18 06:59 Exam - Constitutional positive no acute distress, positive average body habitus - Routine HEENT Exam Head: Present: normocephalic, atraumatic Eye: Present: EOMI, PERRL. Absent: conjunctival icterus, scleral injection ENT: Present: mucous membranes moist, oropharynx clear - Routine Neck Exam Present: supple. Absent: lymphadenopathy, thyromegaly - Routine Respiratory Exam Present: Clear to auscultation bilaterally. Absent: rales, wheezes - Routine Cardiovascular Exam Present: RRR, S1, S2. Absent: murmur - Routine Abdominal Exam Present: soft, normoactive bowel sounds. Absent: tenderness, organomegaly, mass - Routine Extremities Exam Absent: cyanosis, clubbing, edema - Routine Back/Spine Exam Back/Spine: Absent: vertebral tenderness - Routine Skin Exam Present: intact. Absent: petechiae, rash - Routine Neurological Exam Present: alert, oriented X3 - Routine Psychiatric Exam Present: normal affect, normal thought process Results - Labs Laboratory Last Values WBC 10.7 X10^3/uL (4.5-11.0) 08/21/18 09:15 RBC 4.11 X10^6/uL (4.0-5.2) 08/21/18 09:15 Hgb 12.9 g/dL (12.0-16.0) 08/21/18 09:15 Hct 38.9 % (36-46) 08/21/18 09:15 MCV 94.9 fL (80-100) 08/21/18 09:15 MCH 31.5 PG (26-34) 08/21/18 09:15 MCHC 33.2 % (30-36) 08/21/18 09:15 RDW 15.6 % (11.6-14.8) H 08/21/18 09:15 Plt Count 441 X10^3/uL (150-400) H 08/21/18 09:15 Neut % (Auto) 67.7 % (50-75) 08/21/18 09:15 Lymph % (Auto) 14.5 % (25-40) L 08/21/18 09:15 [place] % (Auto) 9.9 % (3-14) 08/21/18 09:15 Eos % (Auto) 6.9 % (2-4) H 08/21/18 09:15 Baso % (Auto) 1.0 % (0-2) 08/21/18 09:15 Neut # (Auto) 7200 /uL (3903-7782) H 08/21/18 09:15 Sodium 140 mmol/L (137-145) 07/31/18 09:48 Potassium 4.2 mmol/L (3.4-5.1) 07/31/18 09:48 Chloride 102 mmol/L (98-107) 07/31/18 09:48 Carbon Dioxide 23 mmol/L (22-32) 07/31/18 09:48 BUN 27 mg/dL (7-17) H 07/31/18 09:48 Creatinine 1.10 mg/dL (0.52-1.04) H 07/31/18 09:48 Estimated GFR 47.7 mL/min (>60) L 07/31/18 09:48 BUN/Creatinine Ratio 24.5 (6-22) H 07/31/18 09:48 Glucose 110 mg/dL (80-110) 07/31/18 09:48 Calcium 9.0 mg/dL (8.4-10.2) 07/31/18 09:48 Total Bilirubin 0.5 mg/dL (0.2-1.3) 07/31/18 09:48 AST 19 IU/L (14-36) 07/31/18 09:48 ALT 15 IU/L (9-52) 07/31/18 09:48 Alkaline Phosphatase 124 U/L (38-126) 07/31/18 09:48 Total Protein 7.8 g/dL (6.3-8.2) 07/31/18 09:48 Albumin 4.4 g/dL (3.5-5.0) 07/31/18 09:48 Globulin 3.4 g/dL (1.7-4.1) 07/31/18 09:48 Albumin/Globulin Ratio 1.3 (1.0-2.8) 07/31/18 09:48 Assessment and Plan (1) Bladder cancer Problem details: An 82-year-old woman with a locally advanced bladder cancer. She is not currently an operative candidate and not a candidate for [place] based chemotherapy. She is tolerating immunotherapy without any significant difficulty. She will go ahead with her 5th cycle today. She return to clinic in about 3 weeks for follow-up and will be due for CT scan at that time. Current visit: Yes Status: Acute
[2018-08-21 09:45] LABS: Alanine Aminotransferase 14 IU/L (9-52); Albumin 4.3 g/dL (3.5-5.0); Albumin Globulin Ratio 1.2 (1.0-2.8); Alkaline Phosphatase 139 U/L (38-126); Aspartate Aminotransferase 19 IU/L (14-36); BUN Creatinine Ratio 20.8 (6-22); Bilirubin Total 0.5 mg/dL (0.2-1.3); Blood Urea Nitrogen 27 mg/dL (7-17); Calcium 8.6 mg/dL (8.4-10.2); Carbon Dioxide 25 mmol/L (22-32); Chloride 100 mmol/L (98-107); Estimated Glomerular Filt Rate 39.3 mL/min (>60); Globulin 3.7 g/dL (1.7-4.1); Glucose 112 mg/dL (80-110); HEMOLYSIS < 15 (0-50); Potassium 4.2 mmol/L (3.4-5.1); Sodium 137 mmol/L (137-145)
[2018-08-21] MEDS: PEMBROLIZUMAB 200 MG in SODIUM CHLORIDE 0.9% (CHEMO) 100 ML 216 ML IV (10:11)
[2018-08-21 10:15] LABS: Thyroid Stimulating Hormone 3.15 uIU/mL (0.47-4.68)
[2018-09-11 09:59] VITALS: BP 123/67; PULSE 75; RESP 16; TEMP 36.5; O2SAT 98
[2018-09-11 09:59] LABS: Add Manual Diff / Slide Review NO; Basophils Absolute Auto 100 /uL (0-100); Basophils Percent Auto 1.5 % (0-2); Eosinophils Absolute Auto 700 /uL (0-450); Eosinophils Percent Auto 6.9 % (2-4); Hematocrit 39.7 % (36-46); Lymphocytes Absolute Auto 1300 /uL (1100-4500); Lymphocytes Percent Auto 12.4 % (25-40); Mean Corpuscular HGB Conc 32.9 % (30-36); Mean Corpuscular Hemoglobin 30.8 PG (26-34); Mean Corpuscular Volume 93.7 fL (80-100); Monocytes Absolute Auto 1100 /uL (0-900); Monocytes Percent Auto 11.2 % (3-14); Neutrophils Absolute Auto 6900 /uL (1500-7000); Platelet Count 409 X10^3/uL (150-400); Red Blood Cell Count 4.23 X10^6/uL (4.0-5.2); Red Cell Distribution Width 15.1 % (11.6-14.8); White Blood Cell Count 10.2 X10^3/uL (4.5-11.0)
[2018-09-11 10:05] LABS: Alanine Aminotransferase 16 IU/L (9-52); Albumin 4.4 g/dL (3.5-5.0); Albumin Globulin Ratio 1.1 (1.0-2.8); Alkaline Phosphatase 146 U/L (38-126); Aspartate Aminotransferase 20 IU/L (14-36); Bilirubin Total 0.5 mg/dL (0.2-1.3); Blood Urea Nitrogen 22 mg/dL (7-17); Calcium 8.7 mg/dL (8.4-10.2); Carbon Dioxide 24 mmol/L (22-32); Chloride 99 mmol/L (98-107); Estimated Glomerular Filt Rate 47.7 mL/min (>60); Globulin 3.9 g/dL (1.7-4.1); Glucose 110 mg/dL (80-110); HEMOLYSIS 31 (0-50); Sodium 134 mmol/L (137-145); Total Protein 8.3 g/dL (6.3-8.2)
--- NOTE | 2018-09-11 10:30 | P.PNONC_ITS ---
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 Clinically T4 N0 Previous treatment: 5 doses of Keytruda Interval history: The patient is an 83-year-old woman who returns today for follow-up of a locally advanced bladder cancer. Since her last visit here, she has been tolerating her Ketruda without any significant difficulty. She has had some itching but no rash. She denies any shortness of breath cough for chest pain. She is not having any abdominal pain, cramping or diarrhea. Strength and energy level have been fair. She has noted a little bit of fatigue that seems to be worse during the week prior to her infusions. She denies any fevers or chills. She has not noted any adenopathy. Her appetite has been stable. She denies any new urinary complaints and has not had any hematuria. She denies any other changes in her health. Her medications are unchanged. They include amlodipine aspirin Lipitor levothyroxine metoprolol - Patient Self-Reported Symptoms SR Constitution: Fatigue/Malaise SR ears, nose, mouth, throat issues: Ears ringing SR Cardiovascular issues: Palpitations SR Skin issues: Dry skin SR Genitourinary issues: Frequent urination SR Endocrine issues: Excessive urination Home Medications and Allergies Home Medications Medication Instructions Recorded Confirmed Type aspirin 81 mg PO DAILY #0 03/20/11 07/10/18 History amlodipine [Norvasc] 5 mg PO QDAY #90 tab 10/30/17 07/10/18 Rx levothyroxine [Levoxyl] 0.088 mg PO QDAY #90 tab 10/30/17 07/10/18 Rx metoprolol tartrate 50 mg PO BID #180 tab 10/30/17 07/10/18 Rx atorvastatin 40 mg PO QPM 03/29/18 07/10/18 History calcitriol 1 cap PO MOWEFR 03/29/18 07/10/18 History diazepam 10 mg tablet 10 mg PO PRN #30 tab 07/29/18 Rx Allergies Allergy/AdvReac Type Severity Reaction Status Date / Time lisinopril [LISINOPRIL] Allergy Severe Swelling Verified 05/15/18 13:57 of Lip/Tongue/Throat Sulfa (Sulfonamide Allergy Intermediate Rash Verified 05/15/18 13:58 Antibiotics) [SULFA (SULFONAMIDE ANTIBIOTICS)] sertraline AdvReac Intermediate Diarrhea Verified 06/12/18 06:59 Exam - Constitutional positive no acute distress, positive average body habitus - Routine HEENT Exam Head: Present: normocephalic, atraumatic Eye: Present: EOMI, PERRL. Absent: conjunctival icterus, scleral injection - Routine Neck Exam Present: supple. Absent: lymphadenopathy, thyromegaly - Routine Respiratory Exam Present: Clear to auscultation bilaterally. Absent: rales, wheezes - Routine Cardiovascular Exam Present: RRR, S1, S2. Absent: murmur - Routine Abdominal Exam Present: soft, normoactive bowel sounds. Absent: tenderness, organomegaly, mass - Routine Extremities Exam Absent: cyanosis, clubbing, edema - Routine Skin Exam Present: intact. Absent: petechiae, rash - Routine Neurological Exam Present: alert, oriented X3 - Routine Psychiatric Exam Present: normal affect, normal thought process Results - Labs Laboratory Last Values WBC 10.2 X10^3/uL (4.5-11.0) 09/11/18 09:50 RBC 4.23 X10^6/uL (4.0-5.2) 09/11/18 09:50 Hgb 13.0 g/dL (12.0-16.0) 09/11/18 09:50 Hct 39.7 % (36-46) 09/11/18 09:50 MCV 93.7 fL (80-100) 09/11/18 09:50 MCH 30.8 PG (26-34) 09/11/18 09:50 MCHC 32.9 % (30-36) 09/11/18 09:50 RDW 15.1 % (11.6-14.8) H 09/11/18 09:50 Plt Count 409 X10^3/uL (150-400) H 09/11/18 09:50 Neut % (Auto) 68.0 % (50-75) 09/11/18 09:50 Lymph % (Auto) 12.4 % (25-40) L 09/11/18 09:50 [place] % (Auto) 11.2 % (3-14) 09/11/18 09:50 Eos % (Auto) 6.9 % (2-4) H 09/11/18 09:50 Baso % (Auto) 1.5 % (0-2) 09/11/18 09:50 Neut # (Auto) 6900 /uL (5509-6199) 09/11/18 09:50 Lymph # (Auto) 1300 /uL (9401-7808) 09/11/18 09:50 [place] # (Auto) 1100 /uL (0-900) H 09/11/18 09:50 Eos # (Auto) 700 /uL (0-450) H 09/11/18 09:50 Baso # (Auto) 100 /uL (0-100) 09/11/18 09:50 Sodium 134 mmol/L (137-145) L 09/11/18 09:50 Potassium 4.0 mmol/L (3.4-5.1) 09/11/18 09:50 Chloride 99 mmol/L (98-107) 09/11/18 09:50 Carbon Dioxide 24 mmol/L (22-32) 09/11/18 09:50 BUN 22 mg/dL (7-17) H 09/11/18 09:50 Creatinine 1.10 mg/dL (0.52-1.04) H 09/11/18 09:50 Estimated GFR 47.7 mL/min (>60) L 09/11/18 09:50 BUN/Creatinine Ratio 20.0 (6-22) 09/11/18 09:50 Glucose 110 mg/dL (80-110) 09/11/18 09:50 Calcium 8.7 mg/dL (8.4-10.2) 09/11/18 09:50 Total Bilirubin 0.5 mg/dL (0.2-1.3) 09/11/18 09:50 AST 20 IU/L (14-36) 09/11/18 09:50 ALT 16 IU/L (9-52) 09/11/18 09:50 Alkaline Phosphatase 146 U/L (38-126) H 09/11/18 09:50 Total Protein 8.3 g/dL (6.3-8.2) H 09/11/18 09:50 Albumin 4.4 g/dL (3.5-5.0) 09/11/18 09:50 Globulin 3.9 g/dL (1.7-4.1) 09/11/18 09:50 Albumin/Globulin Ratio 1.1 (1.0-2.8) 09/11/18 09:50 TSH 3.15 uIU/mL (0.47-4.68) 08/21/18 09:15 - Imaging CT scan - abdomen: image reviewed CT scan - chest: image reviewed CT scan - pelvis: image reviewed (Apparent increase in the size of her bladder tumor. Her lymph node was stable. She had some stable tiny pulmonary nodules.) Assessment and Plan (1) Bladder cancer Problem details: An 82-year-old woman with a locally advanced bladder cancer. She is not currently an operative candidate and not a candidate for [place] based chemotherapy. She is tolerating immunotherapy without any significant difficulty. Her CT scan shows perhaps some slight growth in the bladder tumor. The lymph nodes and pulmonary nodules appeared to be unchanged to me. Will continue with her immunotherapy. We did talk about the potential for switching to carboplatin based chemotherapy. This would have response rate of about 35-40% but with a risk for more toxicity than she currently has. She does have a family history of BRCA mutation. The patient has never been tested. Last fall, there was a trial looking at PAR P inhibitors in patients with BRCA mutations. It might be reasonable to check foundation 1 assay to see if her tumor is deficient and see if she would be eligible for clinical trial. If her previous biopsy sample has on usable, liquid biopsy might be helpful. She will return to clinic in about 3 weeks for follow-up but sooner should the need arise. Current visit: Yes Status: Acute
[2018-09-11 10:41] LABS: Thyroid Stimulating Hormone 4.14 uIU/mL (0.47-4.68)
[2018-09-11] MEDS: PEMBROLIZUMAB 200 MG in SODIUM CHLORIDE 0.9% (CHEMO) 100 ML 216 ML IV (11:14)
--- NOTE | 2018-09-12 15:30 | PC.NURSE ---
[facility]: faxed the request for the [facility] CDx test today, per Dr. Downs's order dated 09/11/2018. Testing takes approximately 11-14 days to complete from the date of receiving the sample.
[2018-10-02 09:56] LABS: Add Manual Diff / Slide Review NO; Basophils Absolute Auto 100 /uL (0-100); Basophils Percent Auto 0.5 % (0-2); Eosinophils Absolute Auto 1100 /uL (0-450); Eosinophils Percent Auto 10.3 % (2-4); Hematocrit 38.5 % (36-46); Hemoglobin 12.5 g/dL (12.0-16.0); Lymphocytes Absolute Auto 1300 /uL (1100-4500); Lymphocytes Percent Auto 12.7 % (25-40); Mean Corpuscular HGB Conc 32.4 % (30-36); Mean Corpuscular Hemoglobin 30.1 PG (26-34); Mean Corpuscular Volume 92.9 fL (80-100); Monocytes Absolute Auto 1000 /uL (0-900); Monocytes Percent Auto 9.1 % (3-14); Neutrophils Absolute Auto 7200 /uL (1500-7000); Neutrophils Percent Auto 67.4 % (50-75); Platelet Count 459 X10^3/uL (150-400); Red Blood Cell Count 4.15 X10^6/uL (4.0-5.2); Red Cell Distribution Width 14.9 % (11.6-14.8); White Blood Cell Count 10.6 X10^3/uL (4.5-11.0)
[2018-10-02 10:07] LABS: Alanine Aminotransferase 18 IU/L (9-52); Albumin 4.1 g/dL (3.5-5.0); Albumin Globulin Ratio 1.1 (1.0-2.8); Alkaline Phosphatase 139 U/L (38-126); Aspartate Aminotransferase 16 IU/L (14-36); BUN Creatinine Ratio 18.3 (6-22); Bilirubin Total 0.4 mg/dL (0.2-1.3); Blood Urea Nitrogen 22 mg/dL (7-17); Calcium 8.6 mg/dL (8.4-10.2); Carbon Dioxide 25 mmol/L (22-32); Chloride 99 mmol/L (98-107); Estimated Glomerular Filt Rate 43.1 mL/min (>60); Globulin 3.6 g/dL (1.7-4.1); Glucose 107 mg/dL (80-110); HEMOLYSIS < 15 (0-50); Potassium 4.3 mmol/L (3.4-5.1); Sodium 134 mmol/L (137-145); Total Protein 7.7 g/dL (6.3-8.2)
--- NOTE | 2018-10-02 10:45 | ONC.PN ---
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 Clinically T4 N0 Previous treatment: 6 doses of Keytruda Interval history: The patient is an 83-year-old woman who returns today for follow-up of a locally advanced bladder cancer. Since her last visit here, she has been tolerating her Ketruda without any significant difficulty. She continues to have some mild itching on her chest and back. She has also noted some dermatitis on her hips. She has had a dermatitis often on for a couple of years. Typically it would respond to [id number] lotions but is not improving like it has in the past. She denies any shortness of breath or cough. No abdominal pain or diarrhea. Her appetite has been good. She has not noticed any adenopathy. She thinks that she has had some improvement in her urinary urgency. She has not noticed any blood in the urine or pelvic pain. She denies any other changes in her health. Her medications are unchanged. They include amlodipine aspirin Lipitor levothyroxine metoprolol - Patient Self-Reported Symptoms SR Constitution: Fatigue/Malaise SR ears, nose, mouth, throat issues: Ears ringing SR Cardiovascular issues: Palpitations SR Skin issues: Dry skin SR Genitourinary issues: Frequent urination SR Endocrine issues: Excessive urination Home Medications and Allergies Home Medications Medication Instructions Recorded Confirmed Type aspirin 81 mg PO DAILY #0 03/20/11 07/10/18 History amlodipine [Norvasc] 5 mg PO QDAY #90 tab 10/30/17 07/10/18 Rx levothyroxine [Levoxyl] 0.088 mg PO QDAY #90 tab 10/30/17 07/10/18 Rx metoprolol tartrate 50 mg PO BID #180 tab 10/30/17 07/10/18 Rx atorvastatin 40 mg PO QPM 03/29/18 07/10/18 History calcitriol 1 cap PO MOWEFR 03/29/18 07/10/18 History diazepam 10 mg tablet 10 mg PO PRN #30 tab 07/29/18 Rx Allergies Allergy/AdvReac Type Severity Reaction Status Date / Time lisinopril [LISINOPRIL] Allergy Severe Swelling Verified 05/15/18 13:57 of Lip/Tongue/Throat Sulfa (Sulfonamide Allergy Intermediate Rash Verified 05/15/18 13:58 Antibiotics) [SULFA (SULFONAMIDE ANTIBIOTICS)] sertraline AdvReac Intermediate Diarrhea Verified 06/12/18 06:59 Exam - Constitutional positive no acute distress, positive average body habitus - Routine HEENT Exam Head: Present: normocephalic, atraumatic Eye: Present: EOMI, PERRL. Absent: conjunctival icterus, scleral injection ENT: Present: mucous membranes moist, oropharynx clear - Routine Neck Exam Present: supple. Absent: lymphadenopathy - Routine Respiratory Exam Present: Clear to auscultation bilaterally. Absent: rales, wheezes - Routine Cardiovascular Exam Present: RRR, S1, S2. Absent: murmur - Routine Abdominal Exam Present: soft, normoactive bowel sounds. Absent: tenderness, organomegaly - Routine Extremities Exam Absent: cyanosis, clubbing, edema - Routine Back/Spine Exam Back/Spine: Absent: vertebral tenderness - Routine Skin Exam Present: intact, dry. Absent: petechiae, rash - Routine Neurological Exam Present: alert, oriented X3 - Routine Psychiatric Exam Present: normal affect, normal thought process Results - Labs Laboratory Last Values WBC 10.6 X10^3/uL (4.5-11.0) 10/02/18 09:42 RBC 4.15 X10^6/uL (4.0-5.2) 10/02/18 09:42 Hgb 12.5 g/dL (12.0-16.0) 10/02/18 09:42 Hct 38.5 % (36-46) 10/02/18 09:42 MCV 92.9 fL (80-100) 10/02/18 09:42 MCH 30.1 PG (26-34) 10/02/18 09:42 MCHC 32.4 % (30-36) 10/02/18 09:42 RDW 14.9 % (11.6-14.8) H 10/02/18 09:42 Plt Count 459 X10^3/uL (150-400) H 10/02/18 09:42 Neut % (Auto) 67.4 % (50-75) 10/02/18 09:42 Lymph % (Auto) 12.7 % (25-40) L 10/02/18 09:42 [place] % (Auto) 9.1 % (3-14) 10/02/18 09:42 Eos % (Auto) 10.3 % (2-4) H 10/02/18 09:42 Baso % (Auto) 0.5 % (0-2) 10/02/18 09:42 Neut # (Auto) 7200 /uL (5404-8997) H 10/02/18 09:42 Lymph # (Auto) 1300 /uL (3421-1050) 10/02/18 09:42 [place] # (Auto) 1000 /uL (0-900) H 10/02/18 09:42 Eos # (Auto) 1100 /uL (0-450) H 10/02/18 09:42 Baso # (Auto) 100 /uL (0-100) 10/02/18 09:42 Sodium 134 mmol/L (137-145) L 10/02/18 09:42 Potassium 4.3 mmol/L (3.4-5.1) 10/02/18 09:42 Chloride 99 mmol/L (98-107) 10/02/18 09:42 Carbon Dioxide 25 mmol/L (22-32) 10/02/18 09:42 BUN 22 mg/dL (7-17) H 10/02/18 09:42 Creatinine 1.20 mg/dL (0.52-1.04) H 10/02/18 09:42 Estimated GFR 43.1 mL/min (>60) L 10/02/18 09:42 BUN/Creatinine Ratio 18.3 (6-22) 10/02/18 09:42 Glucose 107 mg/dL (80-110) 10/02/18 09:42 Calcium 8.6 mg/dL (8.4-10.2) 10/02/18 09:42 Total Bilirubin 0.4 mg/dL (0.2-1.3) 10/02/18 09:42 AST 16 IU/L (14-36) 10/02/18 09:42 ALT 18 IU/L (9-52) 10/02/18 09:42 Alkaline Phosphatase 139 U/L (38-126) H 10/02/18 09:42 Total Protein 7.7 g/dL (6.3-8.2) 10/02/18 09:42 Albumin 4.1 g/dL (3.5-5.0) 10/02/18 09:42 Globulin 3.6 g/dL (1.7-4.1) 10/02/18 09:42 Albumin/Globulin Ratio 1.1 (1.0-2.8) 10/02/18 09:42 TSH 4.14 uIU/mL (0.47-4.68) 09/11/18 09:50 Assessment and Plan (1) Bladder cancer Problem details: An 82-year-old woman with a locally advanced bladder cancer. She is not currently an operative candidate and not a candidate for [place] based chemotherapy. She is tolerating immunotherapy with minor toxicity. She will continue with her current regimen and return to clinic in 3 weeks for follow-up. Will try some triamcinolone cream to see if that helps with her itching. Current visit: Yes Status: Acute
[2018-10-02] MEDS: PEMBROLIZUMAB 200 MG in SODIUM CHLORIDE 0.9% (CHEMO) 100 ML 216 ML IV (12:00)
[2018-10-02] MEDS: SODIUM CHLORIDE 0.9% 100 ML 21 ML IV (12:00)
[2018-10-23 10:03] LABS: Add Manual Diff / Slide Review NO; Basophils Absolute Auto 100 /uL (0-100); Basophils Percent Auto 1.2 % (0-2); Eosinophils Absolute Auto 800 /uL (0-450); Eosinophils Percent Auto 8.1 % (2-4); Hematocrit 35.4 % (36-46); Hemoglobin 11.7 g/dL (12.0-16.0); Lymphocytes Absolute Auto 1200 /uL (1100-4500); Mean Corpuscular Hemoglobin 30.2 PG (26-34); Mean Corpuscular Volume 91.4 fL (80-100); Monocytes Absolute Auto 1000 /uL (0-900); Monocytes Percent Auto 11.1 % (3-14); Neutrophils Absolute Auto 6300 /uL (1500-7000); Neutrophils Percent Auto 66.6 % (50-75); Platelet Count 405 X10^3/uL (150-400); Red Blood Cell Count 3.87 X10^6/uL (4.0-5.2); Red Cell Distribution Width 15.1 % (11.6-14.8); White Blood Cell Count 9.4 X10^3/uL (4.5-11.0)
[2018-10-23 10:17] LABS: Alanine Aminotransferase 18 IU/L (9-52); Albumin Globulin Ratio 1.1 (1.0-2.8); Alkaline Phosphatase 134 U/L (38-126); Aspartate Aminotransferase 17 IU/L (14-36); BUN Creatinine Ratio 19.1 (6-22); Bilirubin Total 0.5 mg/dL (0.2-1.3); Blood Urea Nitrogen 21 mg/dL (7-17); Calcium 8.3 mg/dL (8.4-10.2); Carbon Dioxide 22 mmol/L (22-32); Chloride 101 mmol/L (98-107); Estimated Glomerular Filt Rate 47.7 mL/min (>60); Globulin 3.7 g/dL (1.7-4.1); Glucose 100 mg/dL (80-110); HEMOLYSIS 28 (0-50); Potassium 3.9 mmol/L (3.4-5.1); Sodium 134 mmol/L (137-145); Total Protein 7.7 g/dL (6.3-8.2)
[2018-10-23 10:24] VITALS: BP 122/67; PULSE 72; RESP 16; TEMP 36.5; O2SAT 100
--- NOTE | 2018-10-23 10:31 | P.PNONC_ITS ---
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 Clinically T4 N0. She is BRCA positive. Previous treatment: 7 doses of Keytruda Interval history: The patient is an 83-year-old woman who returns today for follow-up of a locally advanced bladder cancer. Since her last visit here, she has been tolerating her Ketruda without any significant difficulty. She has been using some steroid cream for itching and finds it has been working quite well. She has not noticed any rash. No diarrhea or abdominal pain. No shortness of breath or cough. She did have 1 episode of hematuria about a week ago. She notes that her nocturia has been diminishing. She is not having any pain in the bladder area. Her appetite and weight have been stable. She has had some fatigue. No shortness of breath or cough. No fevers chills or sweats. She denies any other changes in her health. Her medications are unchanged. They include amlodipine aspirin Lipitor levothyroxine metoprolol - Patient Self-Reported Symptoms SR Constitution: Fatigue/Malaise SR ears, nose, mouth, throat issues: Ears ringing SR Cardiovascular issues: Palpitations SR Skin issues: Dry skin SR Genitourinary issues: Frequent urination SR Endocrine issues: Excessive urination Home Medications and Allergies Home Medications Medication Instructions Recorded Confirmed Type aspirin 81 mg PO DAILY #0 03/20/11 10/23/18 History calcitriol 1 cap PO MOWEFR 03/29/18 10/23/18 History triamcinolone acetonide 1 applic TOPICAL BID #454 g 10/02/18 10/23/18 Rx atorvastatin 10 mg tablet 10 mg PO QPM #90 tab 10/03/18 10/23/18 Rx levothyroxine 100 mcg tablet 100 mcg PO QDAY #90 tab 10/03/18 10/23/18 Rx metoprolol tartrate 75 mg tablet 75 mg PO BID #180 tab 10/03/18 10/23/18 Rx Allergies Allergy/AdvReac Type Severity Reaction Status Date / Time lisinopril [LISINOPRIL] Allergy Severe Swelling Verified 10/03/18 13:36 of Lip/Tongue/Throat Sulfa (Sulfonamide Allergy Intermediate Rash Verified 10/03/18 13:36 Antibiotics) [SULFA (SULFONAMIDE ANTIBIOTICS)] sertraline AdvReac Intermediate Diarrhea Verified 10/03/18 13:36 Exam Vital signs: Vital Signs Temp Pulse Resp BP Pulse Ox 10/23/18 10:24 97.7 F 72 16 122/67 100 Intake and Output 10/22/18 10/23/18 10/23/18 23:59 07:59 15:59 Other: Weight 53.5 kg Patient Weight 10/24/18 07:59 Weight 53.5 kg - Constitutional positive no acute distress, positive average body habitus - Routine HEENT Exam Head: Present: normocephalic, atraumatic Eye: Present: EOMI, PERRL. Absent: conjunctival icterus, scleral injection ENT: Present: mucous membranes moist, oropharynx clear - Routine Neck Exam Present: supple. Absent: lymphadenopathy, thyromegaly - Routine Respiratory Exam Present: Clear to auscultation bilaterally. Absent: rales, wheezes - Routine Cardiovascular Exam Present: RRR, S1, S2. Absent: murmur - Routine Abdominal Exam Present: soft, normoactive bowel sounds. Absent: tenderness, organomegaly - Routine Extremities Exam Absent: cyanosis, clubbing, edema - Routine Back/Spine Exam Back/Spine: Absent: paraspinal tenderness, vertebral tenderness - Routine Skin Exam Present: intact. Absent: petechiae, rash - Routine Neurological Exam Present: alert, oriented X3 - Routine Psychiatric Exam Present: normal affect, normal thought process Results - Labs Laboratory Last Values WBC 9.4 X10^3/uL (4.5-11.0) 10/23/18 09:50 RBC 3.87 X10^6/uL (4.0-5.2) L 10/23/18 09:50 Hgb 11.7 g/dL (12.0-16.0) L 10/23/18 09:50 Hct 35.4 % (36-46) L 10/23/18 09:50 MCV 91.4 fL (80-100) 10/23/18 09:50 MCH 30.2 PG (26-34) 10/23/18 09:50 MCHC 33.0 % (30-36) 10/23/18 09:50 RDW 15.1 % (11.6-14.8) H 10/23/18 09:50 Plt Count 405 X10^3/uL (150-400) H 10/23/18 09:50 Neut % (Auto) 66.6 % (50-75) 10/23/18 09:50 Lymph % (Auto) 13.0 % (25-40) L 10/23/18 09:50 Holt % (Auto) 11.1 % (3-14) 10/23/18 09:50 Eos % (Auto) 8.1 % (2-4) H 10/23/18 09:50 Baso % (Auto) 1.2 % (0-2) 10/23/18 09:50 Neut # (Auto) 6300 /uL (9238-2397) 10/23/18 09:50 Lymph # (Auto) 1200 /uL (9287-1874) 10/23/18 09:50 Holt # (Auto) 1000 /uL (0-900) H 10/23/18 09:50 Eos # (Auto) 800 /uL (0-450) H 10/23/18 09:50 Baso # (Auto) 100 /uL (0-100) 10/23/18 09:50 Sodium 134 mmol/L (137-145) L 10/23/18 09:50 Potassium 3.9 mmol/L (3.4-5.1) 10/23/18 09:50 Chloride 101 mmol/L (98-107) 10/23/18 09:50 Carbon Dioxide 22 mmol/L (22-32) 10/23/18 09:50 BUN 21 mg/dL (7-17) H 10/23/18 09:50 Creatinine 1.10 mg/dL (0.52-1.04) H 10/23/18 09:50 Estimated GFR 47.7 mL/min (>60) L 10/23/18 09:50 BUN/Creatinine Ratio 19.1 (6-22) 10/23/18 09:50 Glucose 100 mg/dL (80-110) 10/23/18 09:50 Calcium 8.3 mg/dL (8.4-10.2) L 10/23/18 09:50 Total Bilirubin 0.5 mg/dL (0.2-1.3) 10/23/18 09:50 AST 17 IU/L (14-36) 10/23/18 09:50 ALT 18 IU/L (9-52) 10/23/18 09:50 Alkaline Phosphatase 134 U/L (38-126) H 10/23/18 09:50 Total Protein 7.7 g/dL (6.3-8.2) 10/23/18 09:50 Albumin 4.0 g/dL (3.5-5.0) 10/23/18 09:50 Globulin 3.7 g/dL (1.7-4.1) 10/23/18 09:50 Albumin/Globulin Ratio 1.1 (1.0-2.8) 10/23/18 09:50 TSH 4.14 uIU/mL (0.47-4.68) 09/11/18 09:50 Assessment and Plan (1) Bladder cancer Problem details: An 82-year-old woman with a locally advanced bladder cancer. S he is not currently an operative candidate and not a candidate for [place] based chemotherapy. She is tolerating immunotherapy with minor toxicity. She will continue with her current regimen and return to clinic in 3 weeks for follow-up. She will be due for CT scan later in November to monitor for response. She did have foundation 1 testing done. The results did show a mutation in BRCA1. She also had loss of CDKN2a and CDKN2B. Her BRCA mutations suggest that she may respond to a PARP inhibitor. She will continue with her current regimen for now though. She will return to clinic here in 3 weeks for follow-up. Current visit: Yes Status: Acute
[2018-10-23 10:48] LABS: Thyroid Stimulating Hormone 7.64 uIU/mL (0.47-4.68)
[2018-10-23] MEDS: PEMBROLIZUMAB 200 MG in SODIUM CHLORIDE 0.9% (CHEMO) 100 ML 216 ML IV (11:05)
[2018-10-23] MEDS: SODIUM CHLORIDE 0.9% 100 ML 21 ML IV (11:06)
[2018-11-13 10:14] VITALS: BP 135/65; PULSE 72; RESP 18; TEMP 36.7; O2SAT 99
[2018-11-13 10:19] LABS: Basophils Absolute Auto 100 /uL (0-100); Eosinophils Absolute Auto 400 /uL (0-450); Eosinophils Percent Auto 3.7 % (2-4); Hematocrit 35.5 % (36-46); Hemoglobin 11.7 g/dL (12.0-16.0); Lymphocytes Absolute Auto 1100 /uL (1100-4500); Lymphocytes Percent Auto 9.5 % (25-40); Mean Corpuscular Hemoglobin 29.9 PG (26-34); Mean Corpuscular Volume 90.3 fL (80-100); Monocytes Absolute Auto 1100 /uL (0-900); Monocytes Percent Auto 9.4 % (3-14); Neutrophils Absolute Auto 8900 /uL (1500-7000); Neutrophils Percent Auto 76.4 % (50-75); Red Blood Cell Count 3.93 X10^6/uL (4.0-5.2); Red Cell Distribution Width 15.1 % (11.6-14.8); White Blood Cell Count 11.6 X10^3/uL (4.5-11.0)
--- NOTE | 2018-11-13 10:29 | P.PNONC_ITS ---
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 Clinically T4 N0. She is BRCA positive. Previous treatment: 8 doses of Keytruda Interval history: The patient is an 83-year-old woman who returns today for follow-up of a locally advanced bladder cancer. Since her last visit here, she has been tolerating her Ketruda without any significant difficulty. She has been using some steroid cream for itching and finds it has been working quite well. She has not noticed any rash. No diarrhea or abdominal pain. No shortness of breath or cough. She thinks that she has had some lasts nocturia. She is only getting up about 3 times a night. She does have a little bit of discomfort in the bladder in the morning but not at other times. She has not had any hematuria. No fevers or chills. No shortness of breath or cough. Her appetite has been low and she has lost about 2 or 3 lb. No diarrhea. She denies any other new aches or pains. Her medications are unchanged. They include amlodipine aspirin Lipitor levothyroxine metoprolol - Patient Self-Reported Symptoms SR Constitution: Fatigue/Malaise SR ears, nose, mouth, throat issues: Ears ringing SR Cardiovascular issues: Palpitations SR Skin issues: Dry skin SR Genitourinary issues: Frequent urination SR Endocrine issues: Excessive urination Home Medications and Allergies Home Medications Medication Instructions Recorded Confirmed Type aspirin 81 mg PO DAILY #0 03/20/11 11/13/18 History calcitriol 1 cap PO MOWEFR 03/29/18 11/13/18 History triamcinolone acetonide 1 applic TOPICAL BID #454 g 10/02/18 11/13/18 Rx atorvastatin 10 mg tablet 10 mg PO QPM #90 tab 10/03/18 11/13/18 Rx levothyroxine 100 mcg tablet 100 mcg PO QDAY #90 tab 10/03/18 11/13/18 Rx metoprolol tartrate 75 mg tablet 75 mg PO BID #180 tab 10/03/18 11/13/18 Rx Allergies Allergy/AdvReac Type Severity Reaction Status Date / Time lisinopril [LISINOPRIL] Allergy Severe Swelling Verified 10/03/18 13:36 of Lip/Tongue/Throat Sulfa (Sulfonamide Allergy Intermediate Rash Verified 02/21/19 13:36 Antibiotics) [SULFA (SULFONAMIDE ANTIBIOTICS)] sertraline AdvReac Intermediate Diarrhea Verified 10/03/18 13:36 Exam Vital signs: Vital Signs Temp Pulse Resp BP Pulse Ox 11/13/18 10:14 98.0 F 72 18 135/65 99 Intake and Output 11/12/18 11/13/18 11/13/18 23:59 07:59 15:59 Other: Weight 52.2 kg Patient Weight 11/13/18 23:59 Weight 52.2 kg - Constitutional positive no acute distress, positive average body habitus - Routine HEENT Exam Head: Present: normocephalic, atraumatic Eye: Present: EOMI, PERRL. Absent: conjunctival icterus, scleral injection ENT: Present: mucous membranes moist, oropharynx clear - Routine Neck Exam Present: supple. Absent: lymphadenopathy, thyromegaly - Routine Respiratory Exam Present: Clear to auscultation bilaterally. Absent: rales, wheezes - Routine Cardiovascular Exam Present: RRR, S1, S2. Absent: murmur - Routine Abdominal Exam Present: soft, normoactive bowel sounds. Absent: tenderness, mass - Routine Extremities Exam Absent: cyanosis, clubbing, edema - Routine Skin Exam Present: intact. Absent: petechiae, rash - Routine Neurological Exam Present: alert, oriented X3 - Routine Psychiatric Exam Present: normal affect, normal thought process Results - Labs Laboratory Last Values WBC 9.4 X10^3/uL (4.5-11.0) 10/23/18 09:50 RBC 3.87 X10^6/uL (4.0-5.2) L 10/23/18 09:50 Hgb 11.7 g/dL (12.0-16.0) L 10/23/18 09:50 Hct 35.4 % (36-46) L 10/23/18 09:50 MCV 91.4 fL (80-100) 10/23/18 09:50 MCH 30.2 PG (26-34) 10/23/18 09:50 MCHC 33.0 % (30-36) 10/23/18 09:50 RDW 15.1 % (11.6-14.8) H 10/23/18 09:50 Plt Count 405 X10^3/uL (150-400) H 10/23/18 09:50 Neut % (Auto) 66.6 % (50-75) 10/23/18 09:50 Lymph % (Auto) 13.0 % (25-40) L 10/23/18 09:50 [place] % (Auto) 11.1 % (3-14) 10/23/18 09:50 Eos % (Auto) 8.1 % (2-4) H 10/23/18 09:50 Baso % (Auto) 1.2 % (0-2) 10/23/18 09:50 Neut # (Auto) 6300 /uL (0974-0727) 10/23/18 09:50 Lymph # (Auto) 1200 /uL (1106-5103) 10/23/18 09:50 Sharp # (Auto) 1000 /uL (0-900) H 10/23/18 09:50 Eos # (Auto) 800 /uL (0-450) H 10/23/18 09:50 Baso # (Auto) 100 /uL (0-100) 10/23/18 09:50 Sodium 134 mmol/L (137-145) L 10/23/18 09:50 Potassium 3.9 mmol/L (3.4-5.1) 10/23/18 09:50 Chloride 101 mmol/L (98-107) 10/23/18 09:50 Carbon Dioxide 22 mmol/L (22-32) 10/23/18 09:50 BUN 21 mg/dL (7-17) H 10/23/18 09:50 Creatinine 1.10 mg/dL (0.52-1.04) H 10/23/18 09:50 Estimated GFR 47.7 mL/min (>60) L 10/23/18 09:50 BUN/Creatinine Ratio 19.1 (6-22) 10/23/18 09:50 Glucose 100 mg/dL (80-110) 10/23/18 09:50 Calcium 8.3 mg/dL (8.4-10.2) L 10/23/18 09:50 Total Bilirubin 0.5 mg/dL (0.2-1.3) 10/23/18 09:50 AST 17 IU/L (14-36) 10/23/18 09:50 ALT 18 IU/L (9-52) 10/23/18 09:50 Alkaline Phosphatase 134 U/L (38-126) H 10/23/18 09:50 Total Protein 7.7 g/dL (6.3-8.2) 10/23/18 09:50 Albumin 4.0 g/dL (3.5-5.0) 10/23/18 09:50 Globulin 3.7 g/dL (1.7-4.1) 10/23/18 09:50 Albumin/Globulin Ratio 1.1 (1.0-2.8) 10/23/18 09:50 TSH 7.64 uIU/mL (0.47-4.68) H 10/23/18 09:50 Assessment and Plan (1) Bladder cancer Problem details: An 82-year-old woman with a locally advanced bladder cancer. She is not currently an operative candidate and not a candidate for [place] based chemotherapy. She is tolerating immunotherapy with minor toxicity. She will continue with her current regimen and return to clinic in 3 weeks for follow-up. She will be due for CT scan then to monitor for response. She did have foundation 1 testing done. The results did show a mutation in BRCA1. She also had loss of CDKN2a and CDKN2B. Her BRCA mutations suggest that she may respond to a PARP inhibitor. She will continue with her current regimen for now though. She will return to clinic here in 3 weeks for follow-up. Current visit: Yes Status: Acute
[2018-11-13 10:38] LABS: Add Manual Diff / Slide Review SLIDE REVIEW
[2018-11-13 11:02] LABS: RBC Morphology Normal Morphology
[2018-11-13 11:03] LABS: Platelet Count 395 X10^3/uL (150-400)
[2018-11-13 11:04] LABS: Thyroid Stimulating Hormone 2.51 uIU/mL (0.47-4.68)
[2018-11-13 11:32] LABS: Alanine Aminotransferase 17 IU/L (9-52); Albumin 3.8 g/dL (3.5-5.0); Albumin Globulin Ratio 1.1 (1.0-2.8); Alkaline Phosphatase 133 U/L (38-126); Aspartate Aminotransferase 18 IU/L (14-36); BUN Creatinine Ratio 17.3 (6-22); Bilirubin Total 0.4 mg/dL (0.2-1.3); Blood Urea Nitrogen 19 mg/dL (7-17); Calcium 8.3 mg/dL (8.4-10.2); Carbon Dioxide 25 mmol/L (22-32); Chloride 100 mmol/L (98-107); Estimated Glomerular Filt Rate 47.7 mL/min (>60); Globulin 3.4 g/dL (1.7-4.1); Glucose 102 mg/dL (80-110); HEMOLYSIS < 15 (0-50); Potassium 4.3 mmol/L (3.4-5.1); Sodium 134 mmol/L (137-145); Total Protein 7.2 g/dL (6.3-8.2)
--- NOTE | 2018-11-13 11:43 | ONC.NAV ---
*Pt declined a Chemo Quilt today.
[2018-11-13] MEDS: PEMBROLIZUMAB 200 MG in SODIUM CHLORIDE 0.9% (CHEMO) 100 ML 216 ML IV (12:21)
[2018-11-20 09:39] VITALS: BP 124/76; PULSE 76; RESP 18; TEMP 36.1; O2SAT 99
--- NOTE | 2018-11-20 09:59 | ONC.PN ---
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 Clinically T4 N0. She is BRCA positive. Previous treatment: 9 doses of Keytruda Interval history: The patient is an 83-year-old woman who returns today for follow-up of a locally advanced bladder cancer. Unfortunately, after her visit here last week, she developed expressive aphasia and was hospitalized over the weekend. She was found to have a temporoparietal stroke. Her symptoms have improved. She was started on Plavix in addition to her aspirin. Her dose of Lipitor was increased. She tells me that she has had a referral to a speech therapist but has not seen them yet. She has been encouraged to quit smoking and has cut back to 2 cigarettes a day. She tells me that she is planning to cut back to 1 a day next week and then stop. She denies any new aches or pains. She is not having any urinary complaints. She has not noted any discomfort or hematuria. She does have some itching. She has been using topical steroids which have been helping. She has had some mild diarrhea but no abdominal pain or cramping. She denies any fevers chills or sweats. She denies any other changes in her health. Her medications include Plavix amlodipine aspirin Lipitor levothyroxine metoprolol - Patient Self-Reported Symptoms SR Constitution: Fatigue/Malaise SR ears, nose, mouth, throat issues: Ears ringing SR Cardiovascular issues: Palpitations SR Skin issues: Dry skin SR Genitourinary issues: Frequent urination SR Endocrine issues: Excessive urination Home Medications and Allergies Home Medications Medication Instructions Recorded Confirmed Type aspirin 81 mg PO DAILY #0 03/20/11 11/15/18 History calcitriol 1 cap PO MOWEFR 03/29/18 11/20/18 History levothyroxine 100 mcg tablet 100 mcg PO QDAY #90 tab 10/03/18 11/20/18 Rx metoprolol tartrate 75 mg tablet 75 mg PO BID #180 tab 10/03/18 11/20/18 Rx atorvastatin [Lipitor] 40 mg PO BEDTIME #30 tab 11/20/18 Rx clopidogrel 75 mg PO DAILY #30 tab 11/20/18 Rx Allergies Allergy/AdvReac Type Severity Reaction Status Date / Time lisinopril [LISINOPRIL] Allergy Severe Swelling Verified 11/15/18 13:51 of Lip/Tongue/Throat Sulfa (Sulfonamide Allergy Intermediate Rash Verified 11/15/18 13:51 Antibiotics) [SULFA (SULFONAMIDE ANTIBIOTICS)] sertraline AdvReac Intermediate Diarrhea Verified 11/15/18 13:51 Exam Vital signs: Vital Signs Temp Pulse Resp BP Pulse Ox 11/20/18 09:39 97 F L 76 18 124/76 99 Intake and Output 11/19/18 11/20/18 11/20/18 23:59 07:59 15:59 Other: Weight 52.9 kg Patient Weight 11/20/18 23:59 Weight 52.9 kg - Constitutional positive no acute distress, positive average body habitus - Routine HEENT Exam Head: Present: normocephalic, atraumatic Eye: Present: EOMI, PERRL. Absent: conjunctival icterus, scleral injection ENT: Present: mucous membranes moist, oropharynx clear - Routine Neck Exam Present: supple. Absent: lymphadenopathy, thyromegaly - Routine Respiratory Exam Present: Clear to auscultation bilaterally. Absent: rales, wheezes - Routine Cardiovascular Exam Present: RRR, S1, S2. Absent: murmur - Routine Abdominal Exam Present: soft, normoactive bowel sounds. Absent: tenderness, organomegaly, mass - Routine Extremities Exam Absent: cyanosis, clubbing, edema - Routine Back/Spine Exam Back/Spine: Absent: vertebral tenderness - Routine Skin Exam Present: intact. Absent: petechiae, rash - Routine Neurological Exam Present: alert, oriented X3 Her speech is somewhat slower than normal. It appears that she has difficulty recalling some words. - Routine Psychiatric Exam Present: normal affect, normal thought process Results - Labs Laboratory Last Values WBC 11.6 X10^3/uL (4.5-11.0) H 11/13/18 10:04 RBC 3.93 X10^6/uL (4.0-5.2) L 11/13/18 10:04 Hgb 11.7 g/dL (12.0-16.0) L 11/13/18 10:04 Hct 35.5 % (36-46) L 11/13/18 10:04 MCV 90.3 fL (80-100) 11/13/18 10:04 MCH 29.9 PG (26-34) 11/13/18 10:04 MCHC 33.0 % (30-36) 11/13/18 10:04 RDW 15.1 % (11.6-14.8) H 11/13/18 10:04 Plt Count 395 X10^3/uL (150-400) 11/13/18 10:04 Neut % (Auto) 76.4 % (50-75) H 11/13/18 10:04 Lymph % (Auto) 9.5 % (25-40) L 11/13/18 10:04 Hardy % (Auto) 9.4 % (3-14) 11/13/18 10:04 Eos % (Auto) 3.7 % (2-4) 11/13/18 10:04 Baso % (Auto) 1.0 % (0-2) 11/13/18 10:04 Neut # (Auto) 8900 /uL (8091-7950) H 11/13/18 10:04 Lymph # (Auto) 1100 /uL (7218-5317) 11/13/18 10:04 Hardy # (Auto) 1100 /uL (0-900) H 11/13/18 10:04 Eos # (Auto) 400 /uL (0-450) 11/13/18 10:04 Baso # (Auto) 100 /uL (0-100) 11/13/18 10:04 RBC Morphology Normal morphology 11/13/18 10:04 Sodium 134 mmol/L (137-145) L 11/13/18 10:04 Potassium 4.3 mmol/L (3.4-5.1) 11/13/18 10:04 Chloride 100 mmol/L (98-107) 11/13/18 10:04 Carbon Dioxide 25 mmol/L (22-32) 11/13/18 10:04 BUN 19 mg/dL (7-17) H 11/13/18 10:04 Creatinine 1.10 mg/dL (0.52-1.04) H 11/13/18 10:04 Estimated GFR 47.7 mL/min (>60) L 11/13/18 10:04 BUN/Creatinine Ratio 17.3 (6-22) 11/13/18 10:04 Glucose 102 mg/dL (80-110) 11/13/18 10:04 Calcium 8.3 mg/dL (8.4-10.2) L 11/13/18 10:04 Total Bilirubin 0.4 mg/dL (0.2-1.3) 11/13/18 10:04 AST 18 IU/L (14-36) 11/13/18 10:04 ALT 17 IU/L (9-52) 11/13/18 10:04 Alkaline Phosphatase 133 U/L (38-126) H 11/13/18 10:04 Total Protein 7.2 g/dL (6.3-8.2) 11/13/18 10:04 Albumin 3.8 g/dL (3.5-5.0) 11/13/18 10:04 Globulin 3.4 g/dL (1.7-4.1) 11/13/18 10:04 Albumin/Globulin Ratio 1.1 (1.0-2.8) 11/13/18 10:04 TSH 2.51 uIU/mL (0.47-4.68) 11/13/18 10:04 Assessment and Plan (1) Bladder cancer Problem details: An 82-year-old woman with a locally advanced bladder cancer. She has been tolerating her therapy recur reasonably well but unfortunately has had a recent stroke. Appears that she is recovering. She is due for CT scan in 2 weeks and return to clinic here after that for follow-up. Depending on results, we may want to continue her immunotherapy or perhaps consider changing to a PARP inhibitor. I do not think that her stroke was related to her immunotherapy. She did have foundation 1 testing done. The results did show a mutation in BRCA1. She also had loss of CDKN2a and CDKN2B. Her BRCA mutations suggest that she may respond to a PARP inhibitor. She will continue with her current regimen for now though. She will return to clinic here in 3 weeks for follow-up. Current visit: Yes Status: Acute
--- NOTE | 2018-11-26 09:59 | PC.NURSE ---
Pt seen by Dr. Downs Wed. November 20. Pt phones in today to reports blood in urine that started . Denies fever. Denies pain and burning w/ urination, states no burning, just dark blood. Pt has next appt with Himanshu on December 10. Will notify Dr. Downs to see if he would like a UA or anything else.
--- NOTE | 2018-11-26 13:24 | PC.NURSE ---
Dr. Downs aware of pt's recent UA results done on 11/15/18. ABX called into [facility]. Will notify Pt.
[2018-12-03 11:15] VITALS: BP 99/59; PULSE 89; RESP 18; TEMP 36.4; O2SAT 100
--- NOTE | 2018-12-03 11:51 | P.PNONC_ITS ---
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 Clinically T4 N0. She is BRCA positive. Previous treatment: 1. 9 doses of Keytruda this stopping in November 2018 Interval history: The patient is an 83-year-old woman who returns today for follow-up of a locally advanced bladder cancer. Since her last visit, she developed hematuria. She was hospitalized briefly in did have a transfusion. She was also found to have a urinary tract infection and started on an antibiotic. She then developed diarrhea. She stop taking the antibiotic yesterday. She has not noticed any further hematuria but has had some dark colored discharge. she is not having any pain. Her appetite is low. She denies any nausea or vomiting. No fevers or chills. She denies any shortness of breath or cough. She has not noted any adenopathy. Her skin rash has improved. Overall, she feels poorly. Her medications include amlodipine aspirin Lipitor levothyroxine metoprolol. Her Plavix was stopped. Dose of atorvastatin was diminished. - Patient Self-Reported Symptoms SR Constitution: Weight loss/gain, Fatigue/Malaise SR ears, nose, mouth, throat issues: Ears ringing SR Cardiovascular issues: Palpitations SR Skin issues: Dry skin SR Gastrointestinal issues: Diarrhea SR Genitourinary issues: Frequent urination SR Musculoskeletal issues: Muscle weakness SR Endocrine issues: Excessive urination Home Medications and Allergies Home Medications Medication Instructions Recorded Confirmed Type aspirin 81 mg PO DAILY #0 03/20/11 11/29/18 History calcitriol 0.25 mcg capsule 0.25 mcg PO MOWEFR #36 cap 11/21/18 11/29/18 Rx nitrofurantoin monohyd/m-cryst 100 mg PO BIDX7 11/26/18 11/29/18 History [Macrobid] levothyroxine 100 mcg PO DAILY 11/29/18 11/29/18 History metoprolol tartrate See Rx Instructions .ROUTE .COMPLEX 11/29/18 11/30/18 History ascorbic acid (vitamin C) [Vitamin 250 mg PO DAILY #30 tab 11/30/18 Rx C] ferrous sulfate 325 mg PO DAILY #30 tab 11/30/18 Rx Allergies Allergy/AdvReac Type Severity Reaction Status Date / Time lisinopril [LISINOPRIL] Allergy Severe Swelling Verified 11/15/18 13:51 of Lip/Tongue/Throat Sulfa (Sulfonamide Allergy Intermediate Rash Verified 11/15/18 13:51 Antibiotics) [SULFA (SULFONAMIDE ANTIBIOTICS)] sertraline AdvReac Intermediate Diarrhea Verified 11/15/18 13:51 Exam Vital signs: Vital Signs Temp Pulse Resp BP Pulse Ox 12/03/18 11:15 97.5 F L 89 18 99/59 L 100 Intake and Output 12/02/18 12/03/18 12/03/18 23:59 07:59 15:59 Other: Weight 51.9 kg Patient Weight 12/03/18 23:59 Weight 51.9 kg - Constitutional positive thin, positive chronically ill appearing - Routine HEENT Exam Head: Present: normocephalic, atraumatic Eye: Present: EOMI, PERRL. Absent: scleral injection ENT: Present: mucous membranes moist, oropharynx clear - Routine Neck Exam Present: supple. Absent: lymphadenopathy - Routine Respiratory Exam Present: Clear to auscultation bilaterally. Absent: rales, wheezes - Routine Cardiovascular Exam Present: RRR, S1, S2. Absent: murmur - Routine Abdominal Exam Present: soft, normoactive bowel sounds. Absent: tenderness - Routine Extremities Exam Absent: cyanosis, clubbing, edema - Routine Neurological Exam Present: alert, oriented X3 - Routine Psychiatric Exam Present: normal affect, normal thought process Results - Labs Laboratory Last Values WBC 11.6 X10^3/uL (4.5-11.0) H 11/13/18 10:04 RBC 3.93 X10^6/uL (4.0-5.2) L 11/13/18 10:04 Hgb 11.7 g/dL (12.0-16.0) L 11/13/18 10:04 Hct 35.5 % (36-46) L 11/13/18 10:04 MCV 90.3 fL (80-100) 11/13/18 10:04 MCH 29.9 PG (26-34) 11/13/18 10:04 MCHC 33.0 % (30-36) 11/13/18 10:04 RDW 15.1 % (11.6-14.8) H 11/13/18 10:04 Plt Count 395 X10^3/uL (150-400) 11/13/18 10:04 Neut % (Auto) 76.4 % (50-75) H 11/13/18 10:04 Lymph % (Auto) 9.5 % (25-40) L 11/13/18 10:04 [place] % (Auto) 9.4 % (3-14) 11/13/18 10:04 Eos % (Auto) 3.7 % (2-4) 11/13/18 10:04 Baso % (Auto) 1.0 % (0-2) 11/13/18 10:04 Neut # (Auto) 8900 /uL (0874-8495) H 11/13/18 10:04 Lymph # (Auto) 1100 /uL (3989-4412) 11/13/18 10:04 [place] # (Auto) 1100 /uL (0-900) H 11/13/18 10:04 Eos # (Auto) 400 /uL (0-450) 11/13/18 10:04 Baso # (Auto) 100 /uL (0-100) 11/13/18 10:04 RBC Morphology Normal morphology 11/13/18 10:04 Sodium 134 mmol/L (137-145) L 11/13/18 10:04 Potassium 4.3 mmol/L (3.4-5.1) 11/13/18 10:04 Chloride 100 mmol/L (98-107) 11/13/18 10:04 Carbon Dioxide 25 mmol/L (22-32) 11/13/18 10:04 BUN 19 mg/dL (7-17) H 11/13/18 10:04 Creatinine 1.10 mg/dL (0.52-1.04) H 11/13/18 10:04 Estimated GFR 47.7 mL/min (>60) L 11/13/18 10:04 BUN/Creatinine Ratio 17.3 (6-22) 11/13/18 10:04 Glucose 102 mg/dL (80-110) 11/13/18 10:04 Calcium 8.3 mg/dL (8.4-10.2) L 11/13/18 10:04 Total Bilirubin 0.4 mg/dL (0.2-1.3) 11/13/18 10:04 AST 18 IU/L (14-36) 11/13/18 10:04 ALT 17 IU/L (9-52) 11/13/18 10:04 Alkaline Phosphatase 133 U/L (38-126) H 11/13/18 10:04 Total Protein 7.2 g/dL (6.3-8.2) 11/13/18 10:04 Albumin 3.8 g/dL (3.5-5.0) 11/13/18 10:04 Globulin 3.4 g/dL (1.7-4.1) 11/13/18 10:04 Albumin/Globulin Ratio 1.1 (1.0-2.8) 11/13/18 10:04 TSH 2.51 uIU/mL (0.47-4.68) 11/13/18 10:04 Assessment and Plan (1) Bladder cancer Problem details: An 82-year-old woman with a locally advanced bladder cancer. She did have a CT scan done during her hospital stay that unfortunately showed clear progression of the tumor within her bladder. It is clear that her immunotherapy is not controlling her cancer and will stop. We discussed other options. This would include a trial of chemotherapy. She is not a good candidate for gambell based treatment but could perhaps consider single agent gemcitabine or Taxol. Side effects of Taxol including alopecia risk for neuropathy cytopenias and fatigue as well as risk for allergic reactions reviewed. With the gemcitabine side effects would include primarily cytopenias and fatigue and rash. We did discuss the possibility of a PAR P inhibitor with olaparib. Case reports have shown responses in patients who have either acquired or germ line BRCA mutations. This would be given orally twice a day. It is main side effects would be cytopenias, diarrhea and fatigue. The response rate is unknown. With chemotherapy the response rate is probably in the order about 30%. We did also discuss the possibility of supportive care without active chemotherapy but the patient does wish to proceed with weekly Taxol. We will plan on having a port placed in beginning as soon as can be practically arranged. In the meantime, we will plan on giving her some IV fluids today as well as checking a C diff. She did have foundation 1 testing done. The results did show a mutation in BRCA1. She also had loss of CDKN2a and CDKN2B. Her daughter is concerned that the patient is having trouble caring for herself at home and is planning to stay with her. 40 minutes was spent with the patient and her daughter today the majority in counseling. Current visit: Yes Status: Acute
[2018-12-03] MEDS: SODIUM CHLORIDE 0.9% 1,000 ML 500 ML IV (12:50)
--- NOTE | 2018-12-04 11:12 | ONC.SCHED ---
SCHEDULED FOR CT ON 12/06/18, SURGERY CONSULT ON 12/09/ FOLLOW UP WITH DR. ALCANTAR ON 12/10
[2018-12-05 11:05] LABS: Clostridium Difficile Tox PCR Negative for C. diff
--- NOTE | 2018-12-05 11:50 | ONC.NAV ---
Description: T/C re: Caregiving Resources Activity: Pt's dtr, Toya, called to discuss resources for hiring in-home care. [employer] provided information about hiring private vs. agency caregivers, as well as discussed the process and what to expect. [employer] followed up this conversation with emailing Toya an in-home caregiving list and handout on Hiring In-Home Care, from [facility] [employer]. Encouraged her to call again should she need more assistance or resources.
[2018-12-10 14:01] VITALS: BP 114/66; PULSE 98; RESP 16; TEMP 36.7; O2SAT 98
--- NOTE | 2018-12-10 14:19 | P.PNONC_ITS ---
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 Clinically T4 N0. She is BRCA positive. Previous treatment: 1. 9 doses of Keytruda this stopping in November 2018 Interval history: The patient is an 83-year-old woman who returns today for follow-up of a locally advanced bladder cancer. Since her last visit, she has been feeling about the same. She has not had any recurrence of hematuria. She is not having any pain or discomfort when she urinates. She has been having some diarrhea. She has also had a little bit of abdominal cramping. She has not had any nausea or vomiting. No fevers or chills. No skin rash but she does have a little bit of itching. She denies any shortness of breath cough for chest pain. She has not noticed any adenopathy. She denies any other changes in her health. She did meet with a surgeon and is scheduled to have a port placed on December 24. Her medications include amlodipine aspirin Lipitor levothyroxine metoprolol. Her Plavix was stopped. Dose of atorvastatin was diminished. - Patient Self-Reported Symptoms SR Constitution: Weight loss/gain, Fatigue/Malaise SR ears, nose, mouth, throat issues: Ears ringing SR Cardiovascular issues: Palpitations SR Skin issues: Dry skin SR Gastrointestinal issues: Diarrhea SR Genitourinary issues: Frequent urination SR Musculoskeletal issues: Muscle weakness SR Endocrine issues: Excessive urination Home Medications and Allergies Home Medications Medication Instructions Recorded Confirmed Type aspirin 81 mg PO DAILY #0 03/20/11 12/09/18 History calcitriol 0.25 mcg capsule 0.25 mcg PO MOWEFR #36 cap 11/21/18 12/09/18 Rx levothyroxine 100 mcg PO DAILY 11/29/18 12/09/18 History metoprolol tartrate See Rx Instructions .ROUTE .COMPLEX 11/29/18 11/30/18 History ascorbic acid (vitamin C) [Vitamin 250 mg PO DAILY #30 tab 11/30/18 12/09/18 Rx C] ferrous sulfate 325 mg PO DAILY #30 tab 11/30/18 12/09/18 Rx Allergies Allergy/AdvReac Type Severity Reaction Status Date / Time lisinopril [LISINOPRIL] Allergy Severe Swelling Verified 12/09/18 14:05 of Lip/Tongue/Throat Sulfa (Sulfonamide Allergy Intermediate Rash Verified 12/09/18 14:05 Antibiotics) [SULFA (SULFONAMIDE ANTIBIOTICS)] sertraline AdvReac Intermediate Diarrhea Verified 12/09/18 14:05 Exam Vital signs: Vital Signs Temp Pulse Resp BP Pulse Ox 12/10/18 14:01 98.0 F 98 H 16 114/66 98 Intake and Output 12/09/18 12/10/18 12/10/18 23:59 07:59 15:59 Other: Weight 51.4 kg Patient Weight 12/10/18 23:59 Weight 51.4 kg - Constitutional positive no acute distress, positive average body habitus Comments: She is not further examined. Results - Labs Laboratory Last Values WBC 11.6 X10^3/uL (4.5-11.0) H 11/13/18 10:04 RBC 3.93 X10^6/uL (4.0-5.2) L 11/13/18 10:04 Hgb 11.7 g/dL (12.0-16.0) L 11/13/18 10:04 Hct 35.5 % (36-46) L 11/13/18 10:04 MCV 90.3 fL (80-100) 11/13/18 10:04 MCH 29.9 PG (26-34) 11/13/18 10:04 MCHC 33.0 % (30-36) 11/13/18 10:04 RDW 15.1 % (11.6-14.8) H 11/13/18 10:04 Plt Count 395 X10^3/uL (150-400) 11/13/18 10:04 Neut % (Auto) 76.4 % (50-75) H 11/13/18 10:04 Lymph % (Auto) 9.5 % (25-40) L 11/13/18 10:04 [place] % (Auto) 9.4 % (3-14) 11/13/18 10:04 Eos % (Auto) 3.7 % (2-4) 11/13/18 10:04 Baso % (Auto) 1.0 % (0-2) 11/13/18 10:04 Neut # (Auto) 8900 /uL (5254-4287) H 11/13/18 10:04 Lymph # (Auto) 1100 /uL (8362-3354) 11/13/18 10:04 [place] # (Auto) 1100 /uL (0-900) H 11/13/18 10:04 Eos # (Auto) 400 /uL (0-450) 11/13/18 10:04 Baso # (Auto) 100 /uL (0-100) 11/13/18 10:04 RBC Morphology Normal morphology 11/13/18 10:04 Sodium 134 mmol/L (137-145) L 11/13/18 10:04 Potassium 4.3 mmol/L (3.4-5.1) 11/13/18 10:04 Chloride 100 mmol/L (98-107) 11/13/18 10:04 Carbon Dioxide 25 mmol/L (22-32) 11/13/18 10:04 BUN 19 mg/dL (7-17) H 11/13/18 10:04 Creatinine 1.10 mg/dL (0.52-1.04) H 11/13/18 10:04 Estimated GFR 47.7 mL/min (>60) L 11/13/18 10:04 BUN/Creatinine Ratio 17.3 (6-22) 11/13/18 10:04 Glucose 102 mg/dL (80-110) 11/13/18 10:04 Calcium 8.3 mg/dL (8.4-10.2) L 11/13/18 10:04 Total Bilirubin 0.4 mg/dL (0.2-1.3) 11/13/18 10:04 AST 18 IU/L (14-36) 11/13/18 10:04 ALT 17 IU/L (9-52) 11/13/18 10:04 Alkaline Phosphatase 133 U/L (38-126) H 11/13/18 10:04 Total Protein 7.2 g/dL (6.3-8.2) 11/13/18 10:04 Albumin 3.8 g/dL (3.5-5.0) 11/13/18 10:04 Globulin 3.4 g/dL (1.7-4.1) 11/13/18 10:04 Albumin/Globulin Ratio 1.1 (1.0-2.8) 11/13/18 10:04 TSH 2.51 uIU/mL (0.47-4.68) 11/13/18 10:04 Urine Color Cancelled 12/05/18 09:44 Urine Appearance Cancelled 12/05/18 09:44 Urine pH Cancelled 12/05/18 09:44 Ur Specific [place] Cancelled 12/05/18 09:44 Urine Protein Cancelled 12/05/18 09:44 Urine Glucose (UA) Cancelled 12/05/18 09:44 Urine Ketones Cancelled 12/05/18 09:44 Urine Occult Blood Cancelled 12/05/18 09:44 Urine Nitrate Cancelled 12/05/18 09:44 Urine Bilirubin Cancelled 12/05/18 09:44 Urine Urobilinogen Cancelled 12/05/18 09:44 Ur Leukocyte Esterase Cancelled 12/05/18 09:44 Urine RBC Cancelled 12/05/18 09:44 Urine WBC Cancelled 12/05/18 09:44 Ur Squamous Epith Cells Cancelled 12/05/18 09:44 Ur Transition Epith Cell Cancelled 12/05/18 09:44 Ur Renal Epithelial Cell Cancelled 12/05/18 09:44 Calcium Oxalate Crystal Cancelled 12/05/18 09:44 Uric Acid Crystals Cancelled 12/05/18 09:44 Triple Phos Crystals Cancelled 12/05/18 09:44 Other Crystals Cancelled 12/05/18 09:44 Amorphous Sediment Cancelled 12/05/18 09:44 Urine Bacteria Cancelled 12/05/18 09:44 Hyaline Casts Cancelled 12/05/18 09:44 Granular Casts Cancelled 12/05/18 09:44 RBC Casts Cancelled 12/05/18 09:44 WBC Casts Cancelled 12/05/18 09:44 Other Casts Cancelled 12/05/18 09:44 Urine Mucus Cancelled 12/05/18 09:44 Urine Trichomonas Cancelled 12/05/18 09:44 Urine Yeast Cancelled 12/05/18 09:44 Urine Sperm Cancelled 12/05/18 09:44 Ur Culture Indicated? Cancelled 12/05/18 09:44 Micro UA Comment Cancelled 12/05/18 09:44 C. difficile Tox (PCR) Negative for c. diff 12/05/18 09:45 Assessment and Plan (1) Bladder cancer Problem details: An 82-year-old woman with a locally advanced bladder cancer. She did have a CT scan done during her hospital stay that unfortunately showed clear progression of the tumor within her bladder. CT scan of the chest abdomen pelvis from last week did not show any other new areas or areas of progression. She had a stable 5 mm pulmonary nodule but no adenopathy and no other lesions. she will have her port placed in about 2 weeks and be ready to start Taxol after that. She does understand that the goal of therapy is prolongation of survival in to try and shrink her cancer but is not a cure. She will return to clinic in about 2-3 weeks for follow-up. Current visit: Yes Status: Acute
--- NOTE | 2018-12-18 10:30 | ONC.SCHED ---
Spoke iwth patient and she's had chemo before and doesn't feel she needs a full chemo teaching as I offered her. I checked with Zofia in triage first before calling her to find a time they could do the chemo teaching and Zofia wanted me to ask her if she has had one before and if so, they could just do a chair side teach on the new Taxol medication she will be starting on 12/25/18. Patient is totally fine with having the chair side teaching on this new medication.
--- NOTE | 2018-12-19 12:53 | PC.NURSE ---
Patient called stating she is concerned to have a recheck of her urine after taking her antibiotic treating the Ecoli infection because she states she for the first few days took less than directed (she states 1 per day instead of 2 per day). On questioning she reports plenty of clear yellow non stinky urine with no pain or other symptoms. The nurse advised her to call her PCP and request a UA/UC and to call us back if she has problems through this route.
[2018-12-25 09:39] LABS: Add Manual Diff / Slide Review NO; Basophils Absolute Auto 100 /uL (0-100); Basophils Percent Auto 1.2 % (0-2); Eosinophils Absolute Auto 900 /uL (0-450); Eosinophils Percent Auto 9.5 % (2-4); Hematocrit 34.8 % (36-46); Hemoglobin 11.6 g/dL (12.0-16.0); Lymphocytes Absolute Auto 1300 /uL (1100-4500); Lymphocytes Percent Auto 13.9 % (25-40); Mean Corpuscular HGB Conc 33.3 % (30-36); Mean Corpuscular Hemoglobin 30.2 PG (26-34); Mean Corpuscular Volume 90.7 fL (80-100); Monocytes Absolute Auto 1100 /uL (0-900); Monocytes Percent Auto 11.5 % (3-14); Neutrophils Absolute Auto 6100 /uL (1500-7000); Neutrophils Percent Auto 63.9 % (50-75); Platelet Count 507 X10^3/uL (150-400); Red Blood Cell Count 3.84 X10^6/uL (4.0-5.2); Red Cell Distribution Width 18.7 % (11.6-14.8); White Blood Cell Count 9.5 X10^3/uL (4.5-11.0)
[2018-12-25 09:49] LABS: Alanine Aminotransferase 12 IU/L (9-52); Albumin 3.6 g/dL (3.5-5.0); Albumin Globulin Ratio 1.1 (1.0-2.8); Alkaline Phosphatase 155 U/L (38-126); Aspartate Aminotransferase 18 IU/L (14-36); BUN Creatinine Ratio 11.8 (6-22); Bilirubin Total 0.5 mg/dL (0.2-1.3); Blood Urea Nitrogen 13 mg/dL (7-17); Calcium 8.5 mg/dL (8.4-10.2); Carbon Dioxide 25 mmol/L (22-32); Chloride 99 mmol/L (98-107); Estimated Glomerular Filt Rate 47.7 mL/min (>60); Globulin 3.4 g/dL (1.7-4.1); Glucose 98 mg/dL (80-110); HEMOLYSIS < 15 (0-50); Potassium 3.9 mmol/L (3.4-5.1); Sodium 134 mmol/L (137-145)
[2018-12-25] MEDS: DEXAMETHASONE 10 MG/ML VIAL IV (10:23)
[2018-12-25] MEDS: diphenhydrAMINE 25 MG TABLET PO (10:23)
[2018-12-25] MEDS: ACETAMINOPHEN 325 MG TABLET 650 MG PO (10:23)
[2018-12-25 10:36] LABS: Bilirubin Urine UA NEGATIVE (NEGATIVE); Color Urine UA YELLOW; Glucose Urine UA NEGATIVE (Negative); Ketones Urine UA NEGATIVE (NEGATIVE); Leukocyte Esterase Urine UA 3+ (NEGATIVE); Nitrite Urine UA NEGATIVE (Negative); Occult Blood Urine UA 3+ (Negative); Protein Urine UA TRACE (Negative); Urobilinogen Urine UA 0.2 E.U./dL (0.2)
[2018-12-25 10:39] LABS: Appearance Urine UA Slightly Cloudy
[2018-12-25] MEDS: ONDANSETRON 16 MG in SODIUM CHLORIDE 0.9% 50 ML 232 ML IV (10:39)
[2018-12-25 10:52] LABS: Bacteria Urine Few (2-10); Culture Indicated Urine Specimen Cultured; RBC Urine 30-100/HPF (0-5/HPF); Squamous Epithelial Cell Urine 1-5 /HPF (0-5/HPF); Transitional Epi Cells Urine 1-5/HPF (0-5/HPF); WBC Urine >100/HPF (0-5/HPF)
[2018-12-25] MEDS: FAMOTIDINE 20 MG/50 ML PIGGYBACK 200 MG IV (11:22)
[2018-12-25] MEDS: PACLITAXEL IV (11:56)
[2018-12-25] MEDS: DEXTROSE 5% IV (11:56)
[2018-12-25] MEDS: SODIUM CHLORIDE 0.9% 100 ML 21 ML IV (11:56)
[2018-12-31 10:37] LABS: Add Manual Diff / Slide Review NO; Basophils Absolute Auto 100 /uL (0-100); Eosinophils Absolute Auto 700 /uL (0-450); Eosinophils Percent Auto 8.3 % (2-4); Hematocrit 33.1 % (36-46); Hemoglobin 10.9 g/dL (12.0-16.0); Lymphocytes Absolute Auto 500 /uL (1100-4500); Lymphocytes Percent Auto 6.8 % (25-40); Mean Corpuscular HGB Conc 32.8 % (30-36); Mean Corpuscular Hemoglobin 29.8 PG (26-34); Mean Corpuscular Volume 90.9 fL (80-100); Monocytes Absolute Auto 700 /uL (0-900); Monocytes Percent Auto 9.1 % (3-14); Neutrophils Absolute Auto 6000 /uL (1500-7000); Neutrophils Percent Auto 74.8 % (50-75); Platelet Count 354 X10^3/uL (150-400); Red Blood Cell Count 3.65 X10^6/uL (4.0-5.2); Red Cell Distribution Width 18.2 % (11.6-14.8)
[2018-12-31 10:57] LABS: Alanine Aminotransferase 15 IU/L (9-52); Albumin 3.4 g/dL (3.5-5.0); Alkaline Phosphatase 139 U/L (38-126); Aspartate Aminotransferase 24 IU/L (14-36); BUN Creatinine Ratio 20.9 (6-22); Bilirubin Total 0.6 mg/dL (0.2-1.3); Blood Urea Nitrogen 23 mg/dL (7-17); Calcium 8.3 mg/dL (8.4-10.2); Carbon Dioxide 24 mmol/L (22-32); Chloride 95 mmol/L (98-107); Estimated Glomerular Filt Rate 47.7 mL/min (>60); Globulin 3.3 g/dL (1.7-4.1); Glucose 101 mg/dL (80-110); HEMOLYSIS < 15 (0-50); Sodium 129 mmol/L (137-145); Total Protein 6.7 g/dL (6.3-8.2)
[2018-12-31] MEDS: diphenhydrAMINE 25 MG TABLET PO (11:28)
[2018-12-31] MEDS: ACETAMINOPHEN 325 MG TABLET 650 MG PO (11:28)
[2018-12-31] MEDS: DEXAMETHASONE 10 MG/ML VIAL IV (11:28)
[2018-12-31] MEDS: ONDANSETRON 16 MG in SODIUM CHLORIDE 0.9% 50 ML 232 ML IV (12:15)
[2018-12-31] MEDS: FAMOTIDINE 20 MG/50 ML PIGGYBACK 200 MG IV (12:37)
[2018-12-31] MEDS: SODIUM CHLORIDE 0.9% 100 ML 21 ML IV (12:38)
[2018-12-31] MEDS: PACLITAXEL IV (13:15)
[2018-12-31] MEDS: DEXTROSE 5% IV (13:15)
--- NOTE | 2019-01-07 09:35 | P.PNONC_ITS ---
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 Clinically T4 N0. She is BRCA positive. Previous treatment: 1. 9 doses of Keytruda this stopping in November 2018 2. Paclitaxel weeky x 2 now. Interval history: The patient is an 83-year-old woman who returns today for follow-up of a locally advanced bladder cancer. Since her last visit, patient has received 2 weekly treatments with paclitaxel. Patient said that the first week paclitaxel was without any problems. However after the second treatment with paclitaxel, patient developed explosive serious watery diarrhea on day 3. She took Imodium 2 pills in the morning and 2 pills in the evening. However the diarrhea persisted. Eventually she went to the emergency room and received intravenous fluids. Patient said that she was dehydrated. She has not been able to eat for the last couple of days. Yesterday she tried something but it went right through with diarrhea. Patient denies any fever or chills. Patient reports some blood in the urine. Patient reports no pelvic pain. Her medications include amlodipine aspirin Lipitor levothyroxine metoprolol. Her Plavix was stopped. Dose of atorvastatin was diminished. - Patient Self-Reported Symptoms SR Constitution: Weight loss/gain, Fatigue/Malaise SR ears, nose, mouth, throat issues: Ears ringing SR Cardiovascular issues: Palpitations SR Skin issues: Dry skin SR Gastrointestinal issues: Diarrhea SR Genitourinary issues: Frequent urination SR Musculoskeletal issues: Muscle weakness SR Endocrine issues: Excessive urination - Additional ROS All systems PM: reviewed and no additional remarkable complaints except as stated Home Medications and Allergies Home Medications Medication Instructions Recorded Confirmed Type aspirin 81 mg PO DAILY #0 03/20/11 01/07/19 History calcitriol 0.25 mcg capsule 0.25 mcg PO MOWEFR #36 cap 11/21/18 01/07/19 Rx levothyroxine 100 mcg PO DAILY 11/29/18 01/07/19 History ascorbic acid (vitamin C) [Vitamin 250 mg PO DAILY #30 tab 11/30/18 01/07/19 Rx C] ferrous sulfate 325 mg PO DAILY #30 tab 11/30/18 01/07/19 Rx Allergies Allergy/AdvReac Type Severity Reaction Status Date / Time lisinopril [LISINOPRIL] Allergy Severe Swelling Verified 01/04/19 10:21 of Lip/Tongue/Throat Sulfa (Sulfonamide Allergy Intermediate Rash Verified 01/04/19 10:21 Antibiotics) [SULFA (SULFONAMIDE ANTIBIOTICS)] sertraline AdvReac Intermediate Diarrhea Verified 01/04/19 10:21 Exam Vital signs: Last Vital Signs Temp 97.7 F 01/07/19 09:39 Pulse 123 H 01/07/19 09:39 Resp 18 01/07/19 09:39 BP 142/83 H 01/07/19 09:39 Pulse Ox 100 01/07/19 09:39 ECOG 1 Narrative: Gen: WD, thin, NAD, pleasant and cooperative. accompanied by her daughter HEENT: NCAT, EOMI, PERRLA, anicteric sclera. Neck: Supple, No palpable thyromegaly or lymphadenopathy. Respiratory: CTAB, no wheezes audible. No JVD Cardiovascular: tachyardia noted. S1 and S2 normal, no M/G/R. Abdomen: Soft, NTND, BS normal, no palpable organomegaly Extremities: No LE pitting edema. Lymphatic: no palpable lymph nodes in the neck, axillae, or groins. Neurological: AOx3, CN II-XII grossly intact. No focal motor or sensory deficit. Psychiatric: anxious. Results - Labs Laboratory Last Values WBC 4.4 X10^3/uL (4.5-11.0) L 01/07/19 10:50 RBC 3.47 X10^6/uL (4.0-5.2) L 01/07/19 10:50 Hgb 10.5 g/dL (12.0-16.0) L 01/07/19 10:50 Hct 31.4 % (36-46) L 01/07/19 10:50 MCV 90.3 fL (80-100) 01/07/19 10:50 MCH 30.2 PG (26-34) 01/07/19 10:50 MCHC 33.4 % (30-36) 01/07/19 10:50 RDW 18.5 % (11.6-14.8) H 01/07/19 10:50 Plt Count 531 X10^3/uL (150-400) H 01/07/19 10:50 Neut % (Auto) 64.6 % (50-75) 01/07/19 10:50 Lymph % (Auto) 20.2 % (25-40) L 01/07/19 10:50 [place] % (Auto) 9.5 % (3-14) 01/07/19 10:50 Eos % (Auto) 4.7 % (2-4) H 01/07/19 10:50 Baso % (Auto) 1.0 % (0-2) 01/07/19 10:50 Neut # (Auto) 2900 /uL (8809-7854) 01/07/19 10:50 Lymph # (Auto) 900 /uL (3310-6144) L 01/07/19 10:50 [place] # (Auto) 400 /uL (0-900) 01/07/19 10:50 Eos # (Auto) 200 /uL (0-450) 01/07/19 10:50 Baso # (Auto) 0 /uL (0-100) 01/07/19 10:50 RBC Morphology Normal morphology 11/13/18 10:04 Sodium 129 mmol/L (137-145) L 12/31/18 10:25 Potassium 4.0 mmol/L (3.4-5.1) 12/31/18 10:25 Chloride 95 mmol/L (98-107) L 12/31/18 10:25 Carbon Dioxide 24 mmol/L (22-32) 12/31/18 10:25 BUN 23 mg/dL (7-17) H 12/31/18 10:25 Creatinine 1.10 mg/dL (0.52-1.04) H 12/31/18 10:25 Estimated GFR 47.7 mL/min (>60) L 12/31/18 10:25 BUN/Creatinine Ratio 20.9 (6-22) 12/31/18 10:25 Glucose 101 mg/dL (80-110) 12/31/18 10:25 Calcium 8.3 mg/dL (8.4-10.2) L 12/31/18 10:25 Total Bilirubin 0.6 mg/dL (0.2-1.3) 12/31/18 10:25 AST 24 IU/L (14-36) 12/31/18 10:25 ALT 15 IU/L (9-52) 12/31/18 10:25 Alkaline Phosphatase 139 U/L (38-126) H 12/31/18 10:25 Total Protein 6.7 g/dL (6.3-8.2) 12/31/18 10:25 Albumin 3.4 g/dL (3.5-5.0) L 12/31/18 10:25 Globulin 3.3 g/dL (1.7-4.1) 12/31/18 10:25 Albumin/Globulin Ratio 1.0 (1.0-2.8) 12/31/18 10:25 TSH 2.51 uIU/mL (0.47-4.68) 11/13/18 10:04 Urine Color Yellow 12/25/18 Unknown Urine Appearance Slightly cloudy 12/25/18 Unknown Urine pH 6.0 (4.5-8.0) 12/25/18 Unknown Ur Specific [place] 1.010 (1.000-1.035) 12/25/18 Unknown Urine Protein Trace (Negative) H 12/25/18 Unknown Urine Glucose (UA) Negative g/dL (Negative) 12/25/18 Unknown Urine Ketones Negative (NEGATIVE) 12/25/18 Unknown Urine Occult Blood 3+ (Negative) H 12/25/18 Unknown Urine Nitrate Negative (Negative) 12/25/18 Unknown Urine Bilirubin Negative (NEGATIVE) 12/25/18 Unknown Urine Urobilinogen 0.2 E.U./dL (0.2) 12/25/18 Unknown Ur Leukocyte Esterase 3+ (NEGATIVE) H 12/25/18 Unknown Urine RBC 30-100/hpf (0-5/HPF) H 12/25/18 Unknown Urine WBC >100/hpf (0-5/HPF) H 12/25/18 Unknown Ur Squamous Epith Cells 1-5 /hpf (0-5/HPF) 12/25/18 Unknown Ur Transition Epith Cell 1-5/hpf (0-5/HPF) 12/25/18 Unknown Ur Renal Epithelial Cell Cancelled 12/05/18 09:44 Calcium Oxalate Crystal Cancelled 12/05/18 09:44 Uric Acid Crystals Cancelled 12/05/18 09:44 Triple Phos Crystals Cancelled 12/05/18 09:44 Other Crystals Cancelled 12/05/18 09:44 Amorphous Sediment Cancelled 12/05/18 09:44 Urine Bacteria Few (2-10) (None) H 12/25/18 Unknown Hyaline Casts Cancelled 12/05/18 09:44 Granular Casts Cancelled 12/05/18 09:44 RBC Casts Cancelled 12/05/18 09:44 WBC Casts Cancelled 12/05/18 09:44 Other Casts Cancelled 12/05/18 09:44 Urine Mucus Cancelled 12/05/18 09:44 Urine Trichomonas Cancelled 12/05/18 09:44 Urine Yeast Cancelled 12/05/18 09:44 Urine Sperm Cancelled 12/05/18 09:44 Ur Culture Indicated? Specimen cultured 12/25/18 Unknown Micro UA Comment Cancelled 12/05/18 09:44 C. difficile Tox (PCR) Negative for c. 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 Patient has received 9 cycles of Keytruda without response. Therefore, she was started on palliative weekly paclitaxel. Patient has received 2 treatments. Patient came in here today accompanied by her daughter. Jerrica was complaining of severe diarrhea requiring ER visits and intravenous fluids replacement. She and her daughter were wondering if the chemotherapy can be delayed. I talked with the patient that given her severe diarrhea (grade 2), and her age, I would hold the chemotherapy today. I will give the patient normal saline 1 L. I have asked the patient to come back next week to discuss with Dr. Downs for follow up visit. Patient voiced understanding.
[2019-01-07 09:39] VITALS: BP 142/83; PULSE 123; RESP 18; TEMP 36.5; O2SAT 100
[2019-01-07] MEDS: SODIUM CHLORIDE 0.9% 1,000 ML 500 ML IV (10:31)
--- NOTE | 2019-01-07 10:49 | ONC.MSW ---
Description: Dtr's FMLA forms Activity: Completed pt's dtr's FMLA forms. Called her to let her know that they are ready for pick-up.
[2019-01-07 11:01] LABS: Add Manual Diff / Slide Review NO; Basophils Absolute Auto 0 /uL (0-100); Eosinophils Absolute Auto 200 /uL (0-450); Eosinophils Percent Auto 4.7 % (2-4); Hematocrit 31.4 % (36-46); Hemoglobin 10.5 g/dL (12.0-16.0); Lymphocytes Absolute Auto 900 /uL (1100-4500); Lymphocytes Percent Auto 20.2 % (25-40); Mean Corpuscular HGB Conc 33.4 % (30-36); Mean Corpuscular Hemoglobin 30.2 PG (26-34); Mean Corpuscular Volume 90.3 fL (80-100); Monocytes Absolute Auto 400 /uL (0-900); Monocytes Percent Auto 9.5 % (3-14); Neutrophils Absolute Auto 2900 /uL (1500-7000); Neutrophils Percent Auto 64.6 % (50-75); Platelet Count 531 X10^3/uL (150-400); Red Blood Cell Count 3.47 X10^6/uL (4.0-5.2); Red Cell Distribution Width 18.5 % (11.6-14.8); White Blood Cell Count 4.4 X10^3/uL (4.5-11.0)
--- NOTE | 2019-01-07 11:01 | ONC.SCHED ---
Patient is not feeling well and scheduled her follow up per what they thought Dr. Downs said which was January 21. Her daughter wanted to give her time to regain some of her strength before her next treatment. This is why I did not schedule her for next week.
[2019-01-07 11:12] LABS: Alanine Aminotransferase 15 IU/L (9-52); Albumin 3.5 g/dL (3.5-5.0); Albumin Globulin Ratio 1.1 (1.0-2.8); Alkaline Phosphatase 120 U/L (38-126); Aspartate Aminotransferase 26 IU/L (14-36); BUN Creatinine Ratio 12.7 (6-22); Bilirubin Total 0.5 mg/dL (0.2-1.3); Blood Urea Nitrogen 14 mg/dL (7-17); Calcium 8.3 mg/dL (8.4-10.2); Carbon Dioxide 22 mmol/L (22-32); Chloride 100 mmol/L (98-107); Estimated Glomerular Filt Rate 47.7 mL/min (>60); Globulin 3.2 g/dL (1.7-4.1); Glucose 110 mg/dL (80-110); HEMOLYSIS 17 (0-50); Potassium 4.2 mmol/L (3.4-5.1); Sodium 132 mmol/L (137-145); Total Protein 6.7 g/dL (6.3-8.2)
[2019-01-21 09:55] VITALS: BP 57/49; PULSE 215; RESP 22; O2SAT 98
--- NOTE | 2019-01-21 10:30 | PC.NURSE ---
Heart Palpitations 0950 Patient arrived on Oncology for treatment. Patient looking very distressed in waiting room. Patient feeling weak and needed to be in wheelchair. Patient stated that she was having heart palpitations. Patient taken into PORT room for assessment. Gunjan Pappas RN in room with this RN for assessment. Patient MD on monitor 215. blood pressure unable to capture. 98% on room air. Patient states that she is anxious about seeing MD. Patient stated that she had taken tranquilizer at home referring to her Diazepam 10mg home medication per patient's daughter Funmilayo. Patient states that she took one 10mg tab at 0915 and then another one at 0930. Patient pulse rate at radius very fast and hard to count. Dr. Downs brought to patient for assessment. EKG ordered and RT responded to call. EKG preformed and results given to Dr. Downs. Patient PORT also accessed at this time and labs drawn. Patient transported to ER via stretcher at 1015 by this RN and Gunjan Pappas RN. Patient's daughter Funmilayo with patient during this time.
[2019-01-21 10:32] LABS: Alanine Aminotransferase 9 IU/L (9-52); Albumin 3.3 g/dL (3.5-5.0); Albumin Globulin Ratio 1.1 (1.0-2.8); Alkaline Phosphatase 165 U/L (38-126); Aspartate Aminotransferase 15 IU/L (14-36); Bilirubin Total 0.4 mg/dL (0.2-1.3); Blood Urea Nitrogen 23 mg/dL (7-17); Calcium 8.3 mg/dL (8.4-10.2); Carbon Dioxide 21 mmol/L (22-32); Chloride 100 mmol/L (98-107); Estimated Glomerular Filt Rate 53.2 mL/min (>60); Globulin 3.1 g/dL (1.7-4.1); Glucose 162 mg/dL (80-110); HEMOLYSIS < 15 (0-50); Potassium 4.1 mmol/L (3.4-5.1); Sodium 133 mmol/L (137-145); Total Protein 6.4 g/dL (6.3-8.2)
[2019-01-22 14:53] VITALS: BP 129/79; PULSE 101; RESP 18; TEMP 36.7; O2SAT 99
--- NOTE | 2019-01-22 15:24 | P.PNONC_ITS ---
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 Clinically T4 N0. She is BRCA positive. Previous treatment: 1. 9 doses of Keytruda this stopping in November 2018 2. Paclitaxel weeky x 2 now. Interval history: The patient is an 83-year-old woman who returns today for follow-up of a locally advanced bladder cancer. Since her last visit, patient has received 2 weekly treatments with paclitaxel. After the 2nd dose of Taxol, she developed explosive diarrhea that was occurring several times a day. She required at extra hydration on 2 days and was seen in the emergency room. She was taking Imodium but does not feel like it helped very much. Over the last couple of weeks, her diarrhea has gradually improved. She did miss her chemotherapy last week. She was having her blood drawn for treatment yesterday and was noted to have a heart rate of about 200. She was transferred to the emergency room and treated with diltiazem and did refer to sinus rhythm. Today, she is feeling a little bit better. She has not had any further palpitations. No chest pain or pressure. No dizziness or lightheadedness. She is eating and drinking better. Her diarrhea seems to have improved but she still has some generalized weakness and fatigue. She would like another week before she resumes her chemotherapy. Her medications include amlodipine Lipitor levothyroxine metoprolol. Her Plavix was stopped. Dose of atorvastatin was diminished. She stopped her dose of as pirin recently because of of hematuria. - Patient Self-Reported Symptoms SR Constitution: Weight loss/gain, Fatigue/Malaise SR ears, nose, mouth, throat issues: Ears ringing SR Cardiovascular issues: Palpitations SR Skin issues: Dry skin SR Gastrointestinal issues: Diarrhea SR Genitourinary issues: Frequent urination SR Musculoskeletal issues: Muscle weakness SR Endocrine issues: Excessive urination Home Medications and Allergies Home Medications Medication Instructions Recorded Confirmed Type calcitriol 0.25 mcg capsule 0.25 mcg PO MOWEFR #36 cap 11/21/18 01/21/19 Rx levothyroxine 100 mcg PO DAILY 11/29/18 01/21/19 History ascorbic acid (vitamin C) [Vitamin 250 mg PO DAILY #30 tab 11/30/18 01/21/19 Rx C] diazepam 10 mg PO BEDTIME PRN #30 tab 01/22/19 Rx Allergies Allergy/AdvReac Type Severity Reaction Status Date / Time lisinopril [LISINOPRIL] Allergy Severe Swelling Verified 01/21/19 10:27 of Lip/Tongue/Throat Sulfa (Sulfonamide Allergy Intermediate Rash Verified 01/21/19 10:27 Antibiotics) [SULFA (SULFONAMIDE ANTIBIOTICS)] sertraline AdvReac Intermediate Diarrhea Verified 01/21/19 10:27 Exam Vital signs: Vital Signs Temp Pulse Resp BP Pulse Ox 01/22/19 14:53 98.1 F 101 H 18 129/79 99 Intake and Output 01/21/19 01/22/19 01/22/19 23:59 07:59 15:59 Other: Weight 50.3 kg Patient Weight 01/22/19 23:59 Weight 50.3 kg - Constitutional positive no acute distress, positive average body habitus - Routine HEENT Exam Head: Present: normocephalic, atraumatic Eye: Present: EOMI, PERRL. Absent: conjunctival icterus, scleral injection ENT: Present: mucous membranes moist, oropharynx clear - Routine Neck Exam Present: supple. Absent: lymphadenopathy, thyromegaly - Routine Respiratory Exam Present: Clear to auscultation bilaterally. Absent: rales, wheezes - Routine Cardiovascular Exam Present: RRR, S1, S2. Absent: murmur - Routine Abdominal Exam Present: soft, normoactive bowel sounds. Absent: tenderness, organomegaly, mass - Routine Extremities Exam Absent: cyanosis, clubbing, edema - Routine Back/Spine Exam Back/Spine: Absent: vertebral tenderness - Routine Skin Exam Present: intact, petechiae. Absent: rash - Routine Neurological Exam Present: alert, oriented X3 - Routine Psychiatric Exam Present: normal affect, normal thought process Results - Labs Laboratory Last Values WBC 4.4 X10^3/uL (4.5-11.0) L 01/07/19 10:50 RBC 3.47 X10^6/uL (4.0-5.2) L 01/07/19 10:50 Hgb 10.5 g/dL (12.0-16.0) L 01/07/19 10:50 Hct 31.4 % (36-46) L 01/07/19 10:50 MCV 90.3 fL (80-100) 01/07/19 10:50 MCH 30.2 PG (26-34) 01/07/19 10:50 MCHC 33.4 % (30-36) 01/07/19 10:50 RDW 18.5 % (11.6-14.8) H 01/07/19 10:50 Plt Count 531 X10^3/uL (150-400) H 01/07/19 10:50 Neut % (Auto) 64.6 % (50-75) 01/07/19 10:50 Lymph % (Auto) 20.2 % (25-40) L 01/07/19 10:50 [place] % (Auto) 9.5 % (3-14) 01/07/19 10:50 Eos % (Auto) 4.7 % (2-4) H 01/07/19 10:50 Baso % (Auto) 1.0 % (0-2) 01/07/19 10:50 Neut # (Auto) 2900 /uL (0190-7568) 01/07/19 10:50 Lymph # (Auto) 900 /uL (4462-0865) L 01/07/19 10:50 [place] # (Auto) 400 /uL (0-900) 01/07/19 10:50 Eos # (Auto) 200 /uL (0-450) 01/07/19 10:50 Baso # (Auto) 0 /uL (0-100) 01/07/19 10:50 RBC Morphology Normal morphology 11/13/18 10:04 Sodium 133 mmol/L (137-145) L 01/21/19 10:05 Potassium 4.1 mmol/L (3.4-5.1) 01/21/19 10:05 Chloride 100 mmol/L (98-107) 01/21/19 10:05 Carbon Dioxide 21 mmol/L (22-32) L 01/21/19 10:05 BUN 23 mg/dL (7-17) H 01/21/19 10:05 Creatinine 1.00 mg/dL (0.52-1.04) 01/21/19 10:05 Estimated GFR 53.2 mL/min (>60) L 01/21/19 10:05 BUN/Creatinine Ratio 23.0 (6-22) H 01/21/19 10:05 Glucose 162 mg/dL (80-110) H 01/21/19 10:05 Calcium 8.3 mg/dL (8.4-10.2) L 01/21/19 10:05 Total Bilirubin 0.4 mg/dL (0.2-1.3) 01/21/19 10:05 AST 15 IU/L (14-36) 01/21/19 10:05 ALT 9 IU/L (9-52) 01/21/19 10:05 Alkaline Phosphatase 165 U/L (38-126) H 01/21/19 10:05 Total Protein 6.4 g/dL (6.3-8.2) 01/21/19 10:05 Albumin 3.3 g/dL (3.5-5.0) L 01/21/19 10:05 Globulin 3.1 g/dL (1.7-4.1) 01/21/19 10:05 Albumin/Globulin Ratio 1.1 (1.0-2.8) 01/21/19 10:05 TSH 2.51 uIU/mL (0.47-4.68) 11/13/18 10:04 Urine Color Yellow 12/25/18 Unknown Urine Appearance Slightly cloudy 12/25/18 Unknown Urine pH 6.0 (4.5-8.0) 12/25/18 Unknown Ur Specific [place] 1.010 (1.000-1.035) 12/25/18 Unknown Urine Protein Trace (Negative) H 12/25/18 Unknown Urine Glucose (UA) Negative g/dL (Negative) 12/25/18 Unknown Urine Ketones Negative (NEGATIVE) 12/25/18 Unknown Urine Occult Blood 3+ (Negative) H 12/25/18 Unknown Urine Nitrate Negative (Negative) 12/25/18 Unknown Urine Bilirubin Negative (NEGATIVE) 12/25/18 Unknown Urine Urobilinogen 0.2 E.U./dL (0.2) 12/25/18 Unknown Ur Leukocyte Esterase 3+ (NEGATIVE) H 12/25/18 Unknown Urine RBC 30-100/hpf (0-5/HPF) H 12/25/18 Unknown Urine WBC >100/hpf (0-5/HPF) H 12/25/18 Unknown Ur Squamous Epith Cells 1-5 /hpf (0-5/HPF) 12/25/18 Unknown Ur Transition Epith Cell 1-5/hpf (0-5/HPF) 12/25/18 Unknown Ur Renal Epithelial Cell Cancelled 12/05/18 09:44 Calcium Oxalate Crystal Cancelled 12/05/18 09:44 Uric Acid Crystals Cancelled 12/05/18 09:44 Triple Phos Crystals Cancelled 12/05/18 09:44 Other Crystals Cancelled 12/05/18 09:44 Amorphous Sediment Cancelled 12/05/18 09:44 Urine Bacteria Few (2-10) (None) H 12/25/18 Unknown Hyaline Casts Cancelled 12/05/18 09:44 Granular Casts Cancelled 12/05/18 09:44 RBC Casts Cancelled 12/05/18 09:44 WBC Casts Cancelled 12/05/18 09:44 Other Casts Cancelled 12/05/18 09:44 Urine Mucus Cancelled 12/05/18 09:44 Urine Trichomonas Cancelled 12/05/18 09:44 Urine Yeast Cancelled 12/05/18 09:44 Urine Sperm Cancelled 12/05/18 09:44 Ur Culture Indicated? Specimen cultured 12/25/18 Unknown Micro UA Comment Cancelled 12/05/18 09:44 C. difficile Tox (PCR) Negative for c. 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 Patient has received 9 cycles of Keytruda without response. Therefore, she was started on palliative weekly paclitaxel. Patient has received 2 treatments. Patient came in here today accompanied by her daughter. Jerrica was complaining of severe diarrhea requiring ER visits and intravenous fluids replacement. She and her daughter were wondering if the chemotherapy can be delayed. I talked with the patient that given her severe diarrhea (grade 2), and her age, I would hold the chemotherapy today. I will give the patient normal saline 1 L. I have asked the patient to come back next week to discuss with Dr. Downs for follow up visit. Patient voiced understanding.
[2019-01-28 08:44] VITALS: BP 169/89; PULSE 103; RESP 16; TEMP 36.6; O2SAT 100
--- NOTE | 2019-01-28 08:54 | ONC.PN ---
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 Clinically T4 N0. She is BRCA positive. Previous treatment: 1. 9 doses of Keytruda this stopping in November 2018 2. Paclitaxel weeky x 2 now. Interval history: The patient is an 83-year-old woman who returns today for follow-up of a locally advanced bladder cancer. Since her last visit here, she has been feeling better. Her diarrhea has resolved. Her strength and energy level are improved. She is eating and drinking well. No nausea or vomiting. No fevers chills or sweats. She denies any shortness of breath or cough. She has not noticed any numbness or tingling in her hands or feet. She has not had any hematuria but did have a little bit of pain in her bladder yesterday that she attributes to eating chocolate. She is ready to begin her 2nd cycle of Taxol today after a delay and with a dose reduction. Her medications include amlodipine Lipitor levothyroxine metoprolol. Her Plavix was stopped. Dose of atorvastatin was diminished. She stopped her dose of aspirin recently because of of hematuria. - Patient Self-Reported Symptoms SR Constitution: Weight loss/gain, Fatigue/Malaise SR ears, nose, mouth, throat issues: Ears ringing SR Cardiovascular issues: Palpitations SR Skin issues: Dry skin SR Gastrointestinal issues: Diarrhea SR Genitourinary issues: Frequent urination SR Musculoskeletal issues: Muscle weakness SR Endocrine issues: Excessive urination Home Medications and Allergies Home Medications Medication Instructions Recorded Confirmed Type calcitriol 0.25 mcg capsule 0.25 mcg PO MOWEFR #36 cap 11/21/18 01/28/19 Rx levothyroxine 100 mcg PO DAILY 11/29/18 01/28/19 History ascorbic acid (vitamin C) [Vitamin 250 mg PO DAILY #30 tab 11/30/18 01/28/19 Rx C] diazepam 10 mg PO BEDTIME PRN #30 tab 01/22/19 01/28/19 Rx Allergies Allergy/AdvReac Type Severity Reaction Status Date / Time lisinopril [LISINOPRIL] Allergy Severe Swelling Verified 01/21/19 10:27 of Lip/Tongue/Throat Sulfa (Sulfonamide Allergy Intermediate Rash Verified 01/21/19 10:27 Antibiotics) [SULFA (SULFONAMIDE ANTIBIOTICS)] sertraline AdvReac Intermediate Diarrhea Verified 01/21/19 10:27 Exam Vital signs: Vital Signs Temp Pulse Resp BP Pulse Ox 01/28/19 08:44 97.8 F 103 H 16 169/89 H 100 Intake and Output 01/27/19 01/28/19 01/28/19 23:59 07:59 15:59 Other: Weight 50.3 kg Patient Weight 01/28/19 23:59 Weight 50.3 kg - Constitutional positive no acute distress, positive average body habitus - Routine HEENT Exam Head: Present: normocephalic, atraumatic Eye: Present: EOMI, PERRL. Absent: conjunctival icterus, scleral injection ENT: Present: mucous membranes moist, oropharynx clear - Routine Neck Exam Present: supple. Absent: lymphadenopathy - Routine Respiratory Exam Present: Clear to auscultation bilaterally. Absent: rales, wheezes - Routine Cardiovascular Exam Present: RRR, S1, S2. Absent: murmur - Routine Abdominal Exam Present: soft, normoactive bowel sounds. Absent: tenderness, organomegaly, mass - Routine Extremities Exam Absent: cyanosis, clubbing, edema - Routine Skin Exam Present: intact. Absent: petechiae, rash - Routine Neurological Exam Present: alert, oriented X3 - Routine Psychiatric Exam Present: normal affect, normal thought process Results - Labs Laboratory Last Values WBC 4.4 X10^3/uL (4.5-11.0) L 01/07/19 10:50 RBC 3.47 X10^6/uL (4.0-5.2) L 01/07/19 10:50 Hgb 10.5 g/dL (12.0-16.0) L 01/07/19 10:50 Hct 31.4 % (36-46) L 01/07/19 10:50 MCV 90.3 fL (80-100) 01/07/19 10:50 MCH 30.2 PG (26-34) 01/07/19 10:50 MCHC 33.4 % (30-36) 01/07/19 10:50 RDW 18.5 % (11.6-14.8) H 01/07/19 10:50 Plt Count 531 X10^3/uL (150-400) H 01/07/19 10:50 Neut % (Auto) 64.6 % (50-75) 01/07/19 10:50 Lymph % (Auto) 20.2 % (25-40) L 01/07/19 10:50 [place] % (Auto) 9.5 % (3-14) 01/07/19 10:50 Eos % (Auto) 4.7 % (2-4) H 01/07/19 10:50 Baso % (Auto) 1.0 % (0-2) 01/07/19 10:50 Neut # (Auto) 2900 /uL (4474-4785) 01/07/19 10:50 Lymph # (Auto) 900 /uL (0171-3962) L 01/07/19 10:50 [place] # (Auto) 400 /uL (0-900) 01/07/19 10:50 Eos # (Auto) 200 /uL (0-450) 01/07/19 10:50 Baso # (Auto) 0 /uL (0-100) 01/07/19 10:50 RBC Morphology Normal morphology 11/13/18 10:04 Sodium 133 mmol/L (137-145) L 01/21/19 10:05 Potassium 4.1 mmol/L (3.4-5.1) 01/21/19 10:05 Chloride 100 mmol/L (98-107) 01/21/19 10:05 Carbon Dioxide 21 mmol/L (22-32) L 01/21/19 10:05 BUN 23 mg/dL (7-17) H 01/21/19 10:05 Creatinine 1.00 mg/dL (0.52-1.04) 01/21/19 10:05 Estimated GFR 53.2 mL/min (>60) L 01/21/19 10:05 BUN/Creatinine Ratio 23.0 (6-22) H 01/21/19 10:05 Glucose 162 mg/dL (80-110) H 01/21/19 10:05 Calcium 8.3 mg/dL (8.4-10.2) L 01/21/19 10:05 Total Bilirubin 0.4 mg/dL (0.2-1.3) 01/21/19 10:05 AST 15 IU/L (14-36) 01/21/19 10:05 ALT 9 IU/L (9-52) 01/21/19 10:05 Alkaline Phosphatase 165 U/L (38-126) H 01/21/19 10:05 Total Protein 6.4 g/dL (6.3-8.2) 01/21/19 10:05 Albumin 3.3 g/dL (3.5-5.0) L 01/21/19 10:05 Globulin 3.1 g/dL (1.7-4.1) 01/21/19 10:05 Albumin/Globulin Ratio 1.1 (1.0-2.8) 01/21/19 10:05 TSH 2.51 uIU/mL (0.47-4.68) 11/13/18 10:04 Urine Color Yellow 12/25/18 Unknown Urine Appearance Slightly cloudy 12/25/18 Unknown Urine pH 6.0 (4.5-8.0) 12/25/18 Unknown Ur Specific [place] 1.010 (1.000-1.035) 12/25/18 Unknown Urine Protein Trace (Negative) H 12/25/18 Unknown Urine Glucose (UA) Negative g/dL (Negative) 12/25/18 Unknown Urine Ketones Negative (NEGATIVE) 12/25/18 Unknown Urine Occult Blood 3+ (Negative) H 12/25/18 Unknown Urine Nitrate Negative (Negative) 12/25/18 Unknown Urine Bilirubin Negative (NEGATIVE) 12/25/18 Unknown Urine Urobilinogen 0.2 E.U./dL (0.2) 12/25/18 Unknown Ur Leukocyte Esterase 3+ (NEGATIVE) H 12/25/18 Unknown Urine RBC 30-100/hpf (0-5/HPF) H 12/25/18 Unknown Urine WBC >100/hpf (0-5/HPF) H 12/25/18 Unknown Ur Squamous Epith Cells 1-5 /hpf (0-5/HPF) 12/25/18 Unknown Ur Transition Epith Cell 1-5/hpf (0-5/HPF) 12/25/18 Unknown Ur Renal Epithelial Cell Cancelled 12/05/18 09:44 Calcium Oxalate Crystal Cancelled 12/05/18 09:44 Uric Acid Crystals Cancelled 12/05/18 09:44 Triple Phos Crystals Cancelled 12/05/18 09:44 Other Crystals Cancelled 12/05/18 09:44 Amorphous Sediment Cancelled 12/05/18 09:44 Urine Bacteria Few (2-10) (None) H 12/25/18 Unknown Hyaline Casts Cancelled 12/05/18 09:44 Granular Casts Cancelled 12/05/18 09:44 RBC Casts Cancelled 12/05/18 09:44 WBC Casts Cancelled 12/05/18 09:44 Other Casts Cancelled 12/05/18 09:44 Urine Mucus Cancelled 12/05/18 09:44 Urine Trichomonas Cancelled 12/05/18 09:44 Urine Yeast Cancelled 12/05/18 09:44 Urine Sperm Cancelled 12/05/18 09:44 Ur Culture Indicated? Specimen cultured 12/25/18 Unknown Micro UA Comment Cancelled 12/05/18 09:44 C. difficile Tox (PCR) Negative for c. diff 12/05/18 09:45 Assessment and Plan (1) Bladder cancer
[2019-01-28 09:31] LABS: Add Manual Diff / Slide Review NO; Basophils Absolute Auto 200 /uL (0-100); Basophils Percent Auto 1.2 % (0-2); Eosinophils Absolute Auto 1400 /uL (0-450); Eosinophils Percent Auto 10.8 % (2-4); Hematocrit 31.3 % (36-46); Hemoglobin 10.3 g/dL (12.0-16.0); Lymphocytes Absolute Auto 1000 /uL (1100-4500); Lymphocytes Percent Auto 8.1 % (25-40); Mean Corpuscular HGB Conc 32.9 % (30-36); Mean Corpuscular Hemoglobin 30.7 PG (26-34); Mean Corpuscular Volume 93.4 fL (80-100); Monocytes Absolute Auto 1400 /uL (0-900); Monocytes Percent Auto 11.1 % (3-14); Neutrophils Absolute Auto 8700 /uL (1500-7000); Neutrophils Percent Auto 68.8 % (50-75); Platelet Count 489 X10^3/uL (150-400); Red Blood Cell Count 3.36 X10^6/uL (4.0-5.2); White Blood Cell Count 12.7 X10^3/uL (4.5-11.0)
[2019-01-28 09:54] LABS: Alanine Aminotransferase 9 IU/L (9-52); Albumin 3.4 g/dL (3.5-5.0); Alkaline Phosphatase 149 U/L (38-126); Aspartate Aminotransferase 21 IU/L (14-36); Bilirubin Total 0.3 mg/dL (0.2-1.3); Blood Urea Nitrogen 17 mg/dL (7-17); Calcium 8.5 mg/dL (8.4-10.2); Carbon Dioxide 28 mmol/L (22-32); Chloride 101 mmol/L (98-107); Estimated Glomerular Filt Rate 53.2 mL/min (>60); Globulin 3.3 g/dL (1.7-4.1); Glucose 101 mg/dL (80-110); HEMOLYSIS < 15 (0-50); Potassium 4.1 mmol/L (3.4-5.1); Sodium 136 mmol/L (137-145); Total Protein 6.7 g/dL (6.3-8.2)
--- NOTE | 2019-01-28 09:55 | PC.NURSE ---
SBP 160's, HR 103. Notified Dr. Downs. No new orders. Pt asymptomatic
[2019-01-28] MEDS: diphenhydrAMINE 25 MG TABLET PO (10:37)
[2019-01-28] MEDS: ACETAMINOPHEN 325 MG TABLET 650 MG PO (10:37)
[2019-01-28] MEDS: SODIUM CHLORIDE 0.9% 100 ML 21 ML IV (10:40)
[2019-01-28] MEDS: DEXAMETHASONE 10 MG/ML VIAL IV (10:57)
[2019-01-28] MEDS: ONDANSETRON 16 MG in SODIUM CHLORIDE 0.9% 50 ML 232 ML IV (11:13)
[2019-01-28] MEDS: FAMOTIDINE 20 MG/50 ML PIGGYBACK 200 MG IV (11:34)
[2019-01-28] MEDS: PACLITAXEL IV (12:52)
[2019-01-28] MEDS: DEXTROSE 5% IV (12:52)
[2019-01-28 14:22] VITALS: BP 142/72; PULSE 72; TEMP 36.4
[2019-01-28 14:43] LABS: Free T4, Direct Thyroxine 1.55 ng/dL (0.78-2.19)
[2019-02-04 10:08] LABS: Add Manual Diff / Slide Review NO; Basophils Absolute Auto 100 /uL (0-100); Basophils Percent Auto 1.4 % (0-2); Eosinophils Absolute Auto 800 /uL (0-450); Hematocrit 31.2 % (36-46); Hemoglobin 10.4 g/dL (12.0-16.0); Lymphocytes Absolute Auto 1100 /uL (1100-4500); Lymphocytes Percent Auto 11.2 % (25-40); Mean Corpuscular HGB Conc 33.2 % (30-36); Mean Corpuscular Volume 93.3 fL (80-100); Monocytes Absolute Auto 1100 /uL (0-900); Monocytes Percent Auto 11.4 % (3-14); Neutrophils Absolute Auto 6500 /uL (1500-7000); Platelet Count 551 X10^3/uL (150-400); Red Blood Cell Count 3.35 X10^6/uL (4.0-5.2); Red Cell Distribution Width 19.8 % (11.6-14.8); White Blood Cell Count 9.5 X10^3/uL (4.5-11.0)
[2019-02-04 10:14] LABS: Alanine Aminotransferase 10 IU/L (9-52); Albumin 3.9 g/dL (3.5-5.0); Albumin Globulin Ratio 1.2 (1.0-2.8); Alkaline Phosphatase 133 U/L (38-126); Aspartate Aminotransferase 16 IU/L (14-36); Bilirubin Total 0.5 mg/dL (0.2-1.3); Blood Urea Nitrogen 21 mg/dL (7-17); Calcium 8.2 mg/dL (8.4-10.2); Carbon Dioxide 26 mmol/L (22-32); Chloride 100 mmol/L (98-107); Estimated Glomerular Filt Rate 53.2 mL/min (>60); Globulin 3.3 g/dL (1.7-4.1); Glucose 124 mg/dL (80-110); HEMOLYSIS < 15 (0-50); Potassium 4.4 mmol/L (3.4-5.1); Sodium 135 mmol/L (137-145); Total Protein 7.2 g/dL (6.3-8.2)
[2019-02-04] MEDS: DEXAMETHASONE 10 MG/ML VIAL IV (10:45)
[2019-02-04] MEDS: ACETAMINOPHEN 325 MG TABLET 650 MG PO (10:45)
[2019-02-04] MEDS: diphenhydrAMINE 25 MG TABLET PO (10:45)
[2019-02-04] MEDS: SODIUM CHLORIDE 0.9% 100 ML 21 ML IV (10:45)
[2019-02-04 11:02] LABS: Free T4, Direct Thyroxine 1.61 ng/dL (0.78-2.19)
[2019-02-04] MEDS: FAMOTIDINE 20 MG/50 ML PIGGYBACK 200 MG IV (11:14)
[2019-02-04] MEDS: ONDANSETRON 16 MG in SODIUM CHLORIDE 0.9% 50 ML 232 ML IV (11:40)
[2019-02-04] MEDS: PACLITAXEL IV (12:43)
[2019-02-04] MEDS: DEXTROSE 5% IV (12:43)
[2019-02-18 08:31] VITALS: BP 137/86; PULSE 98; RESP 18; TEMP 36.4; O2SAT 100
[2019-02-18 08:31] LABS: Add Manual Diff / Slide Review NO; Basophils Absolute Auto 100 /uL (0-100); Basophils Percent Auto 0.7 % (0-2); Eosinophils Absolute Auto 500 /uL (0-450); Eosinophils Percent Auto 4.6 % (2-4); Hematocrit 30.6 % (36-46); Hemoglobin 10.3 g/dL (12.0-16.0); Lymphocytes Absolute Auto 1200 /uL (1100-4500); Lymphocytes Percent Auto 10.7 % (25-40); Mean Corpuscular HGB Conc 33.8 % (30-36); Mean Corpuscular Hemoglobin 31.5 PG (26-34); Mean Corpuscular Volume 93.4 fL (80-100); Monocytes Absolute Auto 1300 /uL (0-900); Monocytes Percent Auto 12.4 % (3-14); Neutrophils Absolute Auto 7800 /uL (1500-7000); Neutrophils Percent Auto 71.6 % (50-75); Platelet Count 543 X10^3/uL (150-400); Red Blood Cell Count 3.28 X10^6/uL (4.0-5.2); Red Cell Distribution Width 18.3 % (11.6-14.8); White Blood Cell Count 10.8 X10^3/uL (4.5-11.0)
--- NOTE | 2019-02-18 08:41 | ONC.PN ---
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 Clinically T4 N0. She is BRCA positive. Previous treatment: 1. 9 doses of Keytruda this stopping in November 2018 2. Paclitaxel weeky for 2 cycles with a dose reduction. Interval history: The patient is an 83-year-old woman who returns today for follow-up of a locally advanced bladder cancer. Since her last visit here, she has been feeling reasonably well. She notes that with the lower dose of Taxol, she has not had any further diarrhea and in fact has been tending towards constipation. She has been using a stool softener which has been helping. She does note some occasional gas pain and reflux symptoms. She takes occasional antacid. She has not had any nausea or vomiting. She denies any fevers chills or sweats. She has not noticed any numbness or tingling in the hands or feet. No shortness of breath or cough. She continues to have occasional hematuria. She thinks it may be related to things that she is eating like strawberries. She denies any other changes in her health. Her medications include amlodipine Lipitor levothyroxine metoprolol. Her Plavix was stopped. Dose of atorvastatin was diminished. She stopped her dose of aspirin recently because of of hematuria. - Patient Self-Reported Symptoms SR Constitution: Weight loss/gain, Fatigue/Malaise SR ears, nose, mouth, throat issues: Ears ringing SR Cardiovascular issues: Palpitations SR Skin issues: Dry skin SR Gastrointestinal issues: Diarrhea SR Genitourinary issues: Frequent urination SR Musculoskeletal issues: Muscle weakness SR Endocrine issues: Excessive urination Home Medications and Allergies Home Medications Medication Instructions Recorded Confirmed Type calcitriol 0.25 mcg capsule 0.25 mcg PO MOWEFR #36 cap 11/21/18 01/30/19 Rx levothyroxine 100 mcg PO DAILY 11/29/18 01/30/19 History diazepam 10 mg PO BEDTIME PRN #30 tab 01/22/19 01/30/19 Rx Allergies Allergy/AdvReac Type Severity Reaction Status Date / Time lisinopril [LISINOPRIL] Allergy Severe Swelling Verified 01/30/19 15:29 of Lip/Tongue/Throat Sulfa (Sulfonamide Allergy Intermediate Rash Verified 01/30/19 15:29 Antibiotics) [SULFA (SULFONAMIDE ANTIBIOTICS)] sertraline AdvReac Intermediate Diarrhea Verified 01/30/19 15:29 Exam Vital signs: Vital Signs Temp Pulse Resp BP Pulse Ox 02/18/19 08:31 97.5 F L 98 H 18 137/86 100 Intake and Output 02/17/19 02/18/19 02/18/19 23:59 07:59 15:59 Other: Weight 49.4 kg Patient Weight 02/18/19 23:59 Weight 49.4 kg - Constitutional positive no acute distress, positive average body habitus - Routine HEENT Exam Head: Present: normocephalic, atraumatic Eye: Present: EOMI, PERRL. Absent: conjunctival icterus, scleral injection ENT: Present: mucous membranes moist, oropharynx clear - Routine Neck Exam Present: supple. Absent: lymphadenopathy, thyromegaly - Routine Respiratory Exam Present: Clear to auscultation bilaterally. Absent: rales, wheezes - Routine Cardiovascular Exam Present: RRR, S1, S2. Absent: murmur - Routine Abdominal Exam Present: soft, normoactive bowel sounds. Absent: tenderness, organomegaly, mass - Routine Extremities Exam Absent: cyanosis, clubbing, edema - Routine Back/Spine Exam Back/Spine: Absent: vertebral tenderness - Routine Skin Exam Present: intact. Absent: petechiae, rash - Routine Neurological Exam Present: alert, oriented X3 - Routine Psychiatric Exam Present: normal affect, normal thought process Results - Labs Laboratory Last Values WBC 10.8 X10^3/uL (4.5-11.0) 02/18/19 08:10 RBC 3.28 X10^6/uL (4.0-5.2) L 02/18/19 08:10 Hgb 10.3 g/dL (12.0-16.0) L 02/18/19 08:10 Hct 30.6 % (36-46) L 02/18/19 08:10 MCV 93.4 fL (80-100) 02/18/19 08:10 MCH 31.5 PG (26-34) 02/18/19 08:10 MCHC 33.8 % (30-36) 02/18/19 08:10 RDW 18.3 % (11.6-14.8) H 02/18/19 08:10 Plt Count 543 X10^3/uL (150-400) H 02/18/19 08:10 Neut % (Auto) 71.6 % (50-75) 02/18/19 08:10 Lymph % (Auto) 10.7 % (25-40) L 02/18/19 08:10 [place] % (Auto) 12.4 % (3-14) 02/18/19 08:10 Eos % (Auto) 4.6 % (2-4) H 02/18/19 08:10 Baso % (Auto) 0.7 % (0-2) 02/18/19 08:10 Neut # (Auto) 7800 /uL (5284-6074) H 02/18/19 08:10 Lymph # (Auto) 1200 /uL (4842-0482) 02/18/19 08:10 [place] # (Auto) 1300 /uL (0-900) H 02/18/19 08:10 Eos # (Auto) 500 /uL (0-450) H 02/18/19 08:10 Baso # (Auto) 100 /uL (0-100) 02/18/19 08:10 RBC Morphology Normal morphology 11/13/18 10:04 Sodium 135 mmol/L (137-145) L 02/04/19 09:50 Potassium 4.4 mmol/L (3.4-5.1) 02/04/19 09:50 Chloride 100 mmol/L (98-107) 02/04/19 09:50 Carbon Dioxide 26 mmol/L (22-32) 02/04/19 09:50 BUN 21 mg/dL (7-17) H 02/04/19 09:50 Creatinine 1.00 mg/dL (0.52-1.04) 02/04/19 09:50 Estimated GFR 53.2 mL/min (>60) L 02/04/19 09:50 BUN/Creatinine Ratio 21.0 (6-22) 02/04/19 09:50 Glucose 124 mg/dL (80-110) H 02/04/19 09:50 Calcium 8.2 mg/dL (8.4-10.2) L 02/04/19 09:50 Total Bilirubin 0.5 mg/dL (0.2-1.3) 02/04/19 09:50 AST 16 IU/L (14-36) 02/04/19 09:50 ALT 10 IU/L (9-52) 02/04/19 09:50 Alkaline Phosphatase 133 U/L (38-126) H 02/04/19 09:50 Total Protein 7.2 g/dL (6.3-8.2) 02/04/19 09:50 Albumin 3.9 g/dL (3.5-5.0) 02/04/19 09:50 Globulin 3.3 g/dL (1.7-4.1) 02/04/19 09:50 Albumin/Globulin Ratio 1.2 (1.0-2.8) 02/04/19 09:50 TSH 20.40 uIU/mL (0.47-4.68) H 02/04/19 09:50 Free T4 1.61 ng/dL (0.78-2.19) 02/04/19 09:50 Urine Color Yellow 12/25/18 Unknown Urine Appearance Slightly cloudy 12/25/18 Unknown Urine pH 6.0 (4.5-8.0) 12/25/18 Unknown Ur Specific [place] 1.010 (1.000-1.035) 12/25/18 Unknown Urine Protein Trace (Negative) H 12/25/18 Unknown Urine Glucose (UA) Negative g/dL (Negative) 12/25/18 Unknown Urine Ketones Negative (NEGATIVE) 12/25/18 Unknown Urine Occult Blood 3+ (Negative) H 12/25/18 Unknown Urine Nitrate Negative (Negative) 12/25/18 Unknown Urine Bilirubin Negative (NEGATIVE) 12/25/18 Unknown Urine Urobilinogen 0.2 E.U./dL (0.2) 12/25/18 Unknown Ur Leukocyte Esterase 3+ (NEGATIVE) H 12/25/18 Unknown Urine RBC 30-100/hpf (0-5/HPF) H 12/25/18 Unknown Urine WBC >100/hpf (0-5/HPF) H 12/25/18 Unknown Ur Squamous Epith Cells 1-5 /hpf (0-5/HPF) 12/25/18 Unknown Ur Transition Epith Cell 1-5/hpf (0-5/HPF) 12/25/18 Unknown Ur Renal Epithelial Cell Cancelled 12/05/18 09:44 Calcium Oxalate Crystal Cancelled 12/05/18 09:44 Uric Acid Crystals Cancelled 12/05/18 09:44 Triple Phos Crystals Cancelled 12/05/18 09:44 Other Crystals Cancelled 12/05/18 09:44 Amorphous Sediment Cancelled 12/05/18 09:44 Urine Bacteria Few (2-10) (None) H 12/25/18 Unknown Hyaline Casts Cancelled 12/05/18 09:44 Granular Casts Cancelled 12/05/18 09:44 RBC Casts Cancelled 12/05/18 09:44 WBC Casts Cancelled 12/05/18 09:44 Other Casts Cancelled 12/05/18 09:44 Urine Mucus Cancelled 12/05/18 09:44 Urine Trichomonas Cancelled 12/05/18 09:44 Urine Yeast Cancelled 12/05/18 09:44 Urine Sperm Cancelled 12/05/18 09:44 Ur Culture Indicated? Specimen cultured 12/25/18 Unknown Micro UA Comment Cancelled 12/05/18 09:44 C. difficile Tox (PCR) Negative for c. diff 12/05/18 09:45 Assessment and Plan (1) Bladder cancer An 82-year-old woman with a locally advanced bladder cancer. She has been tolerating her Taxol better with a dose reduction. She will proceed with her 3rd cycle today assuming that her counts have recovered sufficiently. She will return to clinic in 3 weeks for follow-up. She will be due for CT scan at that time to assess response. She does have a known mutation in BRCA. A PARP inhibitor may be an option for her later.
[2019-02-18 08:58] LABS: Alanine Aminotransferase 10 IU/L (9-52); Albumin 3.7 g/dL (3.5-5.0); Albumin Globulin Ratio 1.1 (1.0-2.8); Alkaline Phosphatase 152 U/L (38-126); Aspartate Aminotransferase 17 IU/L (14-36); Bilirubin Total 0.3 mg/dL (0.2-1.3); Blood Urea Nitrogen 22 mg/dL (7-17); Calcium 8.5 mg/dL (8.4-10.2); Carbon Dioxide 23 mmol/L (22-32); Chloride 103 mmol/L (98-107); Estimated Glomerular Filt Rate 47.7 mL/min (>60); Globulin 3.4 g/dL (1.7-4.1); Glucose 103 mg/dL (80-110); HEMOLYSIS < 15 (0-50); Sodium 136 mmol/L (137-145); Total Protein 7.1 g/dL (6.3-8.2)
[2019-02-18] MEDS: ACETAMINOPHEN 325 MG TABLET 650 MG PO (09:14)
[2019-02-18] MEDS: diphenhydrAMINE 25 MG TABLET PO (09:15)
[2019-02-18] MEDS: SODIUM CHLORIDE 0.9% 100 ML 21 ML IV (09:15)
[2019-02-18] MEDS: DEXAMETHASONE 10 MG/ML VIAL IV (09:22)
[2019-02-18] MEDS: ONDANSETRON 16 MG in SODIUM CHLORIDE 0.9% 50 ML 232 ML IV (09:32)
[2019-02-18] MEDS: FAMOTIDINE 20 MG/50 ML PIGGYBACK 200 MG IV (10:02)
[2019-02-18] MEDS: DEXTROSE 5% IV (10:50)
[2019-02-18] MEDS: PACLITAXEL IV (10:50)
[2019-02-25 09:17] LABS: Add Manual Diff / Slide Review NO; Basophils Absolute Auto 100 /uL (0-100); Basophils Percent Auto 1.4 % (0-2); Eosinophils Absolute Auto 500 /uL (0-450); Eosinophils Percent Auto 4.7 % (2-4); Hematocrit 31.1 % (36-46); Lymphocytes Absolute Auto 1200 /uL (1100-4500); Lymphocytes Percent Auto 11.6 % (25-40); Mean Corpuscular HGB Conc 32.2 % (30-36); Mean Corpuscular Hemoglobin 30.4 PG (26-34); Mean Corpuscular Volume 94.6 fL (80-100); Monocytes Absolute Auto 1400 /uL (0-900); Monocytes Percent Auto 13.3 % (3-14); Neutrophils Absolute Auto 7200 /uL (1500-7000); Platelet Count 523 X10^3/uL (150-400); Red Blood Cell Count 3.29 X10^6/uL (4.0-5.2); Red Cell Distribution Width 18.4 % (11.6-14.8); White Blood Cell Count 10.4 X10^3/uL (4.5-11.0)
[2019-02-25 09:19] VITALS: BP 112/75; PULSE 89; RESP 16; TEMP 36.7; O2SAT 100
[2019-02-25 09:30] LABS: Alanine Aminotransferase 12 IU/L (9-52); Albumin 3.8 g/dL (3.5-5.0); Albumin Globulin Ratio 1.1 (1.0-2.8); Alkaline Phosphatase 154 U/L (38-126); Aspartate Aminotransferase 17 IU/L (14-36); BUN Creatinine Ratio 20.9 (6-22); Bilirubin Total 0.3 mg/dL (0.2-1.3); Blood Urea Nitrogen 23 mg/dL (7-17); Calcium 8.6 mg/dL (8.4-10.2); Carbon Dioxide 22 mmol/L (22-32); Chloride 102 mmol/L (98-107); Estimated Glomerular Filt Rate 47.7 mL/min (>60); Globulin 3.4 g/dL (1.7-4.1); Glucose 128 mg/dL (80-110); HEMOLYSIS < 15 (0-50); Potassium 4.3 mmol/L (3.4-5.1); Sodium 135 mmol/L (137-145); Total Protein 7.2 g/dL (6.3-8.2)
[2019-02-25] MEDS: DEXAMETHASONE 10 MG/ML VIAL IV (10:43)
[2019-02-25] MEDS: diphenhydrAMINE 25 MG TABLET PO (10:43)
[2019-02-25] MEDS: ACETAMINOPHEN 325 MG TABLET 650 MG PO (10:43)
[2019-02-25] MEDS: SODIUM CHLORIDE 0.9% 100 ML 21 ML IV (10:44)
[2019-02-25] MEDS: ONDANSETRON 16 MG in SODIUM CHLORIDE 0.9% 50 ML 232 ML IV (10:59)
[2019-02-25] MEDS: FAMOTIDINE 20 MG/50 ML PIGGYBACK 200 MG IV (11:27)
[2019-02-25] MEDS: DEXTROSE 5% IV (12:05)
[2019-02-25] MEDS: PACLITAXEL IV (12:05)
[2019-03-11 10:01] LABS: Add Manual Diff / Slide Review NO; Basophils Absolute Auto 200 /uL (0-100); Basophils Percent Auto 1.2 % (0-2); Eosinophils Absolute Auto 600 /uL (0-450); Eosinophils Percent Auto 4.8 % (2-4); Hematocrit 30.4 % (36-46); Hemoglobin 9.8 g/dL (12.0-16.0); Lymphocytes Absolute Auto 1500 /uL (1100-4500); Lymphocytes Percent Auto 11.2 % (25-40); Mean Corpuscular HGB Conc 32.4 % (30-36); Mean Corpuscular Hemoglobin 30.1 PG (26-34); Mean Corpuscular Volume 92.9 fL (80-100); Monocytes Absolute Auto 1700 /uL (0-900); Monocytes Percent Auto 12.4 % (3-14); Neutrophils Absolute Auto 9600 /uL (1500-7000); Neutrophils Percent Auto 70.4 % (50-75); Platelet Count 649 X10^3/uL (150-400); Red Blood Cell Count 3.27 X10^6/uL (4.0-5.2); Red Cell Distribution Width 18.1 % (11.6-14.8); White Blood Cell Count 13.6 X10^3/uL (4.5-11.0)
[2019-03-11 10:02] VITALS: BP 140/81; PULSE 111; RESP 16; TEMP 36.5; O2SAT 99
[2019-03-11 10:11] LABS: Alanine Aminotransferase 11 IU/L (9-52); Albumin 3.7 g/dL (3.5-5.0); Albumin Globulin Ratio 1.1 (1.0-2.8); Alkaline Phosphatase 166 U/L (38-126); Aspartate Aminotransferase 17 IU/L (14-36); BUN Creatinine Ratio 21.8 (6-22); Bilirubin Total 0.3 mg/dL (0.2-1.3); Blood Urea Nitrogen 24 mg/dL (7-17); Calcium 8.7 mg/dL (8.4-10.2); Carbon Dioxide 25 mmol/L (22-32); Chloride 102 mmol/L (98-107); Estimated Glomerular Filt Rate 47.7 mL/min (>60); Globulin 3.4 g/dL (1.7-4.1); Glucose 109 mg/dL (80-110); HEMOLYSIS < 15 (0-50); Potassium 4.3 mmol/L (3.4-5.1); Sodium 135 mmol/L (137-145); Total Protein 7.1 g/dL (6.3-8.2)
--- NOTE | 2019-03-11 10:27 | P.PNONC_ITS ---
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 Clinically T4 N0. She is BRCA positive. Previous treatment: 1. 9 doses of Keytruda this stopping in November 2018 2. Paclitaxel weeky for 3 cycles with a dose reduction. Interval history: The patient is an 83-year-old woman who returns today for follow-up of a locally advanced bladder cancer. Since her last visit here, she has been feeling reasonably well. She has had a little bit of fatigue and also has been having a little bit of constipation. She has not had any nausea or vomiting. Her appetite has been good and her weight is up a couple of lb. She denies any fevers or chills. She has had a cough over the last week it has been productive of yellow to greenish sputum. She denies any shortness of breath or pain in the chest. No fevers or chills. She has not noted any adenopathy. She has not noticed any increased numbness in the hands or feet. She is not having any blood in the urine and denies any dysuria. She denies any other changes in her health. - Patient Self-Reported Symptoms SR Constitution: Fatigue/Malaise SR ears, nose, mouth, throat issues: Congestion SR respiratory issues: Cough, Mucous SR Cardiovascular issues: Palpitations SR Skin issues: Dry skin SR Gastrointestinal issues: Diarrhea SR Genitourinary issues: Frequent urination SR Musculoskeletal issues: Muscle weakness SR Endocrine issues: Excessive urination Home Medications and Allergies Home Medications Medication Instructions Recorded Confirmed Type calcitriol 0.25 mcg capsule 0.25 mcg PO MOWEFR #36 cap 11/21/18 01/30/19 Rx levothyroxine 100 mcg PO DAILY 11/29/18 01/30/19 History diazepam 10 mg PO BEDTIME PRN #30 tab 01/22/19 01/30/19 Rx amoxicillin-pot clavulanate 1 tab PO Q12H 7 Days #14 tab 03/11/19 Rx [Augmentin] cholecalciferol (vitamin D3) 3XW 03/11/19 History [Vitamin D3] Allergies Allergy/AdvReac Type Severity Reaction Status Date / Time lisinopril [LISINOPRIL] Allergy Severe Swelling Verified 01/30/19 15:29 of Lip/Tongue/Throat Sulfa (Sulfonamide Allergy Intermediate Rash Verified 06/20/19 15:29 Antibiotics) [SULFA (SULFONAMIDE ANTIBIOTICS)] sertraline AdvReac Intermediate Diarrhea Verified 01/30/19 15:29 Exam Vital signs: Vital Signs Temp Pulse Resp BP Pulse Ox 03/11/19 10:02 97.7 F 111 H 16 140/81 99 Intake and Output 03/10/19 03/11/19 03/11/19 23:59 07:59 15:59 Other: Weight 50.2 kg Patient Weight 03/11/19 23:59 Weight 50.2 kg - Constitutional positive no acute distress, positive average body habitus - Routine HEENT Exam Head: Present: normocephalic, atraumatic Eye: Present: EOMI, PERRL. Absent: conjunctival icterus, scleral injection ENT: Present: mucous membranes moist, oropharynx clear - Routine Neck Exam Present: supple. Absent: lymphadenopathy, thyromegaly - Routine Respiratory Exam Present: Clear to auscultation bilaterally. Absent: rales, wheezes - Routine Cardiovascular Exam Present: RRR, S1, S2. Absent: murmur - Routine Abdominal Exam Present: soft, normoactive bowel sounds. Absent: tenderness, organomegaly, mass - Routine Extremities Exam Absent: cyanosis, clubbing, edema - Routine Back/Spine Exam Back/Spine: Absent: vertebral tenderness - Routine Skin Exam Present: intact. Absent: petechiae, rash - Routine Neurological Exam Present: alert, oriented X3 - Routine Psychiatric Exam Present: normal affect, normal thought process Results - Labs Laboratory Last Values WBC 13.6 X10^3/uL (4.5-11.0) H 03/11/19 09:50 RBC 3.27 X10^6/uL (4.0-5.2) L 03/11/19 09:50 Hgb 9.8 g/dL (12.0-16.0) L 03/11/19 09:50 Hct 30.4 % (36-46) L 03/11/19 09:50 MCV 92.9 fL (80-100) 03/11/19 09:50 MCH 30.1 PG (26-34) 03/11/19 09:50 MCHC 32.4 % (30-36) 03/11/19 09:50 RDW 18.1 % (11.6-14.8) H 03/11/19 09:50 Plt Count 649 X10^3/uL (150-400) H 03/11/19 09:50 Neut % (Auto) 70.4 % (50-75) 03/11/19 09:50 Lymph % (Auto) 11.2 % (25-40) L 03/11/19 09:50 [place] % (Auto) 12.4 % (3-14) 03/11/19 09:50 Eos % (Auto) 4.8 % (2-4) H 03/11/19 09:50 Baso % (Auto) 1.2 % (0-2) 03/11/19 09:50 Neut # (Auto) 9600 /uL (3510-1350) H 03/11/19 09:50 Lymph # (Auto) 1500 /uL (2189-4203) 03/11/19 09:50 [place] # (Auto) 1700 /uL (0-900) H 03/11/19 09:50 Eos # (Auto) 600 /uL (0-450) H 03/11/19 09:50 Baso # (Auto) 200 /uL (0-100) H 03/11/19 09:50 RBC Morphology Normal morphology 11/13/18 10:04 Sodium 135 mmol/L (137-145) L 03/11/19 09:50 Potassium 4.3 mmol/L (3.4-5.1) 03/11/19 09:50 Chloride 102 mmol/L (98-107) 03/11/19 09:50 Carbon Dioxide 25 mmol/L (22-32) 03/11/19 09:50 BUN 24 mg/dL (7-17) H 03/11/19 09:50 Creatinine 1.10 mg/dL (0.52-1.04) H 03/11/19 09:50 Estimated GFR 47.7 mL/min (>60) L 03/11/19 09:50 BUN/Creatinine Ratio 21.8 (6-22) 03/11/19 09:50 Glucose 109 mg/dL (80-110) 03/11/19 09:50 Calcium 8.7 mg/dL (8.4-10.2) 03/11/19 09:50 Total Bilirubin 0.3 mg/dL (0.2-1.3) 03/11/19 09:50 AST 17 IU/L (14-36) 03/11/19 09:50 ALT 11 IU/L (9-52) 03/11/19 09:50 Alkaline Phosphatase 166 U/L (38-126) H 03/11/19 09:50 Total Protein 7.1 g/dL (6.3-8.2) 03/11/19 09:50 Albumin 3.7 g/dL (3.5-5.0) 03/11/19 09:50 Globulin 3.4 g/dL (1.7-4.1) 03/11/19 09:50 Albumin/Globulin Ratio 1.1 (1.0-2.8) 03/11/19 09:50 TSH 20.40 uIU/mL (0.47-4.68) H 02/04/19 09:50 Free T4 1.61 ng/dL (0.78-2.19) 02/04/19 09:50 Urine Color Yellow 12/25/18 Unknown Urine Appearance Slightly cloudy 12/25/18 Unknown Urine pH 6.0 (4.5-8.0) 12/25/18 Unknown Ur Specific [place] 1.010 (1.000-1.035) 12/25/18 Unknown Urine Protein Trace (Negative) H 12/25/18 Unknown Urine Glucose (UA) Negative g/dL (Negative) 12/25/18 Unknown Urine Ketones Negative (NEGATIVE) 12/25/18 Unknown Urine Occult Blood 3+ (Negative) H 12/25/18 Unknown Urine Nitrate Negative (Negative) 12/25/18 Unknown Urine Bilirubin Negative (NEGATIVE) 12/25/18 Unknown Urine Urobilinogen 0.2 E.U./dL (0.2) 12/25/18 Unknown Ur Leukocyte Esterase 3+ (NEGATIVE) H 12/25/18 Unknown Urine RBC 30-100/hpf (0-5/HPF) H 12/25/18 Unknown Urine WBC >100/hpf (0-5/HPF) H 12/25/18 Unknown Ur Squamous Epith Cells 1-5 /hpf (0-5/HPF) 12/25/18 Unknown Ur Transition Epith Cell 1-5/hpf (0-5/HPF) 12/25/18 Unknown Ur Renal Epithelial Cell Cancelled 12/05/18 09:44 Calcium Oxalate Crystal Cancelled 12/05/18 09:44 Uric Acid Crystals Cancelled 12/05/18 09:44 Triple Phos Crystals Cancelled 12/05/18 09:44 Other Crystals Cancelled 12/05/18 09:44 Amorphous Sediment Cancelled 12/05/18 09:44 Urine Bacteria Few (2-10) (None) H 12/25/18 Unknown Hyaline Casts Cancelled 12/05/18 09:44 Granular Casts Cancelled 12/05/18 09:44 RBC Casts Cancelled 12/05/18 09:44 WBC Casts Cancelled 12/05/18 09:44 Other Casts Cancelled 12/05/18 09:44 Urine Mucus Cancelled 12/05/18 09:44 Urine Trichomonas Cancelled 12/05/18 09:44 Urine Yeast Cancelled 12/05/18 09:44 Urine Sperm Cancelled 12/05/18 09:44 Ur Culture Indicated? Specimen cultured 12/25/18 Unknown Micro UA Comment Cancelled 12/05/18 09:44 C. difficile Tox (PCR) Negative for c. diff 12/05/18 09:45 - Imaging CT scan - abdomen: image reviewed CT scan - chest: image reviewed CT scan - pelvis: image reviewed (Stable bladder mass. She has a small focus of increased density in the lung that is indeterminate.) Assessment and Plan (1) Bladder cancer An 82-year-old woman with a locally advanced bladder cancer. She has been tolerating her Taxol adequately with a dose reduction. She will delay her next cycle of chemotherapy for 1 week. I did give her prescription for Augmentin.
[2019-03-18 11:12] VITALS: BP 135/74; PULSE 78; RESP 16; TEMP 36.3; O2SAT 100
[2019-03-18] MEDS: diphenhydrAMINE 25 MG TABLET PO (11:47)
[2019-03-18] MEDS: SODIUM CHLORIDE 0.9% 100 ML 21 ML IV (11:47)
[2019-03-18] MEDS: ACETAMINOPHEN 325 MG TABLET 650 MG PO (11:47)
[2019-03-18] MEDS: DEXAMETHASONE 10 MG/ML VIAL IV (11:47)
[2019-03-18] MEDS: ONDANSETRON 16 MG in SODIUM CHLORIDE 0.9% 50 ML 232 ML IV (11:55)
[2019-03-18] MEDS: FAMOTIDINE 20 MG/50 ML PIGGYBACK 200 MG IV (12:27)
[2019-03-18] MEDS: PACLITAXEL IV (13:23)
[2019-03-18] MEDS: DEXTROSE 5% IV (13:23)
[2019-03-18 14:26] LABS: Appearance Urine UA TURBID; Bilirubin Urine UA NEGATIVE (NEGATIVE); Color Urine UA YELLOW; Glucose Urine UA NEGATIVE (Negative); Ketones Urine UA NEGATIVE (NEGATIVE); Leukocyte Esterase Urine UA 2+ (NEGATIVE); Nitrite Urine UA NEGATIVE (Negative); Occult Blood Urine UA 3+ (Negative); Protein Urine UA 1+ (Negative); Specific Gravity Urine UA <=1.005 (1.000-1.035); Urobilinogen Urine UA 0.2 E.U./dL (0.2); pH Urine UA 5.5 (4.5-8.0)
[2019-03-18 14:39] LABS: RBC Urine 10-30/HPF (0-5/HPF); Squamous Epithelial Cell Urine 1-5 /HPF (0-5/HPF); WBC Urine >100/HPF (0-5/HPF)
[2019-03-18 14:40] LABS: Bacteria Urine Moderate (10-30); Culture Indicated Urine Specimen Cultured
--- NOTE | 2019-03-18 16:13 | PC.NURSE ---
UTI: Patient informed that Dr. Downs has put in a Rx for an antibiotic as her UA showed an infection. Patient voiced understanding.
[2019-03-25 08:50] LABS: Add Manual Diff / Slide Review NO; Basophils Absolute Auto 100 /uL (0-100); Basophils Percent Auto 1.3 % (0-2); Eosinophils Absolute Auto 900 /uL (0-450); Eosinophils Percent Auto 10.1 % (2-4); Hematocrit 28.9 % (36-46); Hemoglobin 9.4 g/dL (12.0-16.0); Lymphocytes Absolute Auto 1300 /uL (1100-4500); Lymphocytes Percent Auto 14.8 % (25-40); Mean Corpuscular HGB Conc 32.6 % (30-36); Mean Corpuscular Hemoglobin 30.1 PG (26-34); Mean Corpuscular Volume 92.5 fL (80-100); Monocytes Absolute Auto 1200 /uL (0-900); Monocytes Percent Auto 13.8 % (3-14); Neutrophils Absolute Auto 5400 /uL (1500-7000); Platelet Count 648 X10^3/uL (150-400); Red Blood Cell Count 3.12 X10^6/uL (4.0-5.2); Red Cell Distribution Width 17.9 % (11.6-14.8); White Blood Cell Count 8.9 X10^3/uL (4.5-11.0)
[2019-03-25 09:00] LABS: Chloride 98 mmol/L (98-107); HEMOLYSIS < 15 (0-50)
[2019-03-25 09:02] LABS: Alanine Aminotransferase 10 IU/L (9-52); Albumin 3.8 g/dL (3.5-5.0); Albumin Globulin Ratio 1.1 (1.0-2.8); Alkaline Phosphatase 143 U/L (38-126); Aspartate Aminotransferase 18 IU/L (14-36); Bilirubin Total 0.4 mg/dL (0.2-1.3); Blood Urea Nitrogen 26 mg/dL (7-17); Calcium 8.6 mg/dL (8.4-10.2); Carbon Dioxide 26 mmol/L (22-32); Estimated Glomerular Filt Rate 53.2 mL/min (>60); Globulin 3.5 g/dL (1.7-4.1); Glucose 104 mg/dL (80-110); Potassium 4.7 mmol/L (3.4-5.1); Sodium 135 mmol/L (137-145); Total Protein 7.3 g/dL (6.3-8.2)
[2019-03-25 09:17] VITALS: BP 113/58; PULSE 68; RESP 14; TEMP 36.7; O2SAT 98
[2019-03-25] MEDS: ACETAMINOPHEN 325 MG TABLET 650 MG PO (09:29)
[2019-03-25] MEDS: diphenhydrAMINE 25 MG TABLET PO (09:29)
[2019-03-25] MEDS: DEXAMETHASONE 10 MG/ML VIAL IV (09:30)
[2019-03-25] MEDS: SODIUM CHLORIDE 0.9% 100 ML 21 ML IV (09:30)
[2019-03-25] MEDS: ONDANSETRON 16 MG in SODIUM CHLORIDE 0.9% 50 ML 232 ML IV (09:38)
[2019-03-25] MEDS: FAMOTIDINE 20 MG/50 ML PIGGYBACK 200 MG IV (09:57)
[2019-03-25] MEDS: DEXTROSE 5% IV (10:30)
[2019-03-25] MEDS: PACLITAXEL IV (10:30)
[2019-04-08 10:02] LABS: Add Manual Diff / Slide Review NO; Basophils Absolute Auto 100 /uL (0-100); Basophils Percent Auto 1.4 % (0-2); Eosinophils Absolute Auto 600 /uL (0-450); Eosinophils Percent Auto 5.2 % (2-4); Hematocrit 29.9 % (36-46); Hemoglobin 9.9 g/dL (12.0-16.0); Lymphocytes Absolute Auto 1000 /uL (1100-4500); Lymphocytes Percent Auto 9.6 % (25-40); Mean Corpuscular Hemoglobin 30.2 PG (26-34); Mean Corpuscular Volume 91.4 fL (80-100); Monocytes Absolute Auto 1100 /uL (0-900); Monocytes Percent Auto 10.3 % (3-14); Neutrophils Absolute Auto 7700 /uL (1500-7000); Neutrophils Percent Auto 73.5 % (50-75); Platelet Count 625 X10^3/uL (150-400); Red Blood Cell Count 3.27 X10^6/uL (4.0-5.2); Red Cell Distribution Width 17.7 % (11.6-14.8); White Blood Cell Count 10.5 X10^3/uL (4.5-11.0)
[2019-04-08 10:10] VITALS: BP 130/77; PULSE 104; RESP 16; TEMP 36.8; O2SAT 99
[2019-04-08 10:15] LABS: Alanine Aminotransferase 8 IU/L (9-52); Albumin 3.8 g/dL (3.5-5.0); Albumin Globulin Ratio 1.1 (1.0-2.8); Alkaline Phosphatase 167 U/L (38-126); Aspartate Aminotransferase 18 IU/L (14-36); BUN Creatinine Ratio 24.2 (6-22); Bilirubin Total 0.6 mg/dL (0.2-1.3); Blood Urea Nitrogen 29 mg/dL (7-17); Calcium 8.5 mg/dL (8.4-10.2); Carbon Dioxide 20 mmol/L (22-32); Chloride 101 mmol/L (98-107); Estimated Glomerular Filt Rate 43.1 mL/min (>60); Globulin 3.4 g/dL (1.7-4.1); Glucose 99 mg/dL (80-110); HEMOLYSIS < 15 (0-50); Potassium 4.2 mmol/L (3.4-5.1); Sodium 135 mmol/L (137-145); Total Protein 7.2 g/dL (6.3-8.2)
--- NOTE | 2019-04-08 10:29 | ONC.PN ---
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 Clinically T4 N0. She is BRCA positive. Previous treatment: 1. 9 doses of Keytruda this stopping in November 2018 2. Paclitaxel weeky for 4 cycles with a dose reduction. Interval history: The patient is an 83-year-old woman who returns today for follow-up of a locally advanced bladder cancer. Since her last visit here, she has been feeling reasonably well. Over the last 2 or 3 days however, she has noted some low abdominal and pelvic pain. It is fairly constant and sharp. She has not noticed any blood in the urine. No fevers or chills. Bowels have been moving normally. Appetite has been a little bit low. She has been using some Aleve which has been helpful. She denies any other new aches or pains. No shortness of breath or cough. She has not noted any adenopathy. She has had some fatigue that is been stable. She denies any other changes in her health. - Patient Self-Reported Symptoms SR Constitution: Fatigue/Malaise SR ears, nose, mouth, throat issues: Congestion SR respiratory issues: Cough, Mucous SR Cardiovascular issues: Palpitations SR Skin issues: Dry skin SR Gastrointestinal issues: Diarrhea SR Genitourinary issues: Frequent urination SR Musculoskeletal issues: Muscle weakness SR Endocrine issues: Excessive urination Home Medications and Allergies Home Medications Medication Instructions Recorded Confirmed Type calcitriol 0.25 mcg capsule 0.25 mcg PO MOWEFR #36 cap 11/21/18 01/30/19 Rx levothyroxine 100 mcg PO DAILY 11/29/18 01/30/19 History diazepam 10 mg PO BEDTIME PRN #30 tab 01/22/19 01/30/19 Rx cholecalciferol (vitamin D3) 3XW 03/11/19 History [Vitamin D3] hydrocodone-acetaminophen 1 tab PO Q4H #40 tab 04/08/19 Rx naproxen sodium [Aleve] 220 mg PO Q12H 04/08/19 04/08/19 History Allergies Allergy/AdvReac Type Severity Reaction Status Date / Time lisinopril [LISINOPRIL] Allergy Severe Swelling Verified 01/30/19 15:29 of Lip/Tongue/Throat Sulfa (Sulfonamide Allergy Intermediate Rash Verified 01/30/19 15:29 Antibiotics) [SULFA (SULFONAMIDE ANTIBIOTICS)] sertraline AdvReac Intermediate Diarrhea Verified 01/30/19 15:29 Exam Vital signs: Vital Signs Temp Pulse Resp BP Pulse Ox 04/08/19 10:10 98.3 F 104 H 16 130/77 99 Intake and Output 04/07/19 04/08/19 04/08/19 23:59 07:59 15:59 Other: Weight 49.7 kg Patient Weight 04/08/19 23:59 Weight 49.7 kg - Constitutional positive no acute distress, positive thin - Routine HEENT Exam Head: Present: normocephalic, atraumatic Eye: Present: EOMI, PERRL. Absent: conjunctival icterus, scleral injection ENT: Present: mucous membranes moist, oropharynx clear - Routine Neck Exam Present: supple. Absent: lymphadenopathy, thyromegaly - Routine Respiratory Exam Present: Clear to auscultation bilaterally. Absent: rales, wheezes - Routine Cardiovascular Exam Present: RRR, S1, S2. Absent: murmur - Routine Abdominal Exam Present: soft, normoactive bowel sounds. Absent: tenderness, organomegaly, mass - Routine Extremities Exam Absent: cyanosis, clubbing, edema - Routine Back/Spine Exam Back/Spine: Absent: CVA tenderness, vertebral tenderness - Routine Skin Exam Present: intact. Absent: petechiae, rash - Routine Neurological Exam Present: alert, oriented X3 - Routine Psychiatric Exam Present: normal affect, normal thought process Results - Labs Laboratory Last Values WBC 10.5 X10^3/uL (4.5-11.0) 04/08/19 09:40 RBC 3.27 X10^6/uL (4.0-5.2) L 04/08/19 09:40 Hgb 9.9 g/dL (12.0-16.0) L 04/08/19 09:40 Hct 29.9 % (36-46) L 04/08/19 09:40 MCV 91.4 fL (80-100) 04/08/19 09:40 MCH 30.2 PG (26-34) 04/08/19 09:40 MCHC 33.0 % (30-36) 04/08/19 09:40 RDW 17.7 % (11.6-14.8) H 04/08/19 09:40 Plt Count 625 X10^3/uL (150-400) H 04/08/19 09:40 Neut % (Auto) 73.5 % (50-75) 04/08/19 09:40 Lymph % (Auto) 9.6 % (25-40) L 04/08/19 09:40 [place] % (Auto) 10.3 % (3-14) 04/08/19 09:40 Eos % (Auto) 5.2 % (2-4) H 04/08/19 09:40 Baso % (Auto) 1.4 % (0-2) 04/08/19 09:40 Neut # (Auto) 7700 /uL (3243-1858) H 04/08/19 09:40 Lymph # (Auto) 1000 /uL (9006-0147) L 04/08/19 09:40 [place] # (Auto) 1100 /uL (0-900) H 04/08/19 09:40 Eos # (Auto) 600 /uL (0-450) H 04/08/19 09:40 Baso # (Auto) 100 /uL (0-100) 04/08/19 09:40 RBC Morphology Normal morphology 11/13/18 10:04 Sodium 135 mmol/L (137-145) L 04/08/19 09:40 Potassium 4.2 mmol/L (3.4-5.1) 04/08/19 09:40 Chloride 101 mmol/L (98-107) 04/08/19 09:40 Carbon Dioxide 20 mmol/L (22-32) L 04/08/19 09:40 BUN 29 mg/dL (7-17) H 04/08/19 09:40 Creatinine 1.20 mg/dL (0.52-1.04) H 04/08/19 09:40 Estimated GFR 43.1 mL/min (>60) L 04/08/19 09:40 BUN/Creatinine Ratio 24.2 (6-22) H 04/08/19 09:40 Glucose 99 mg/dL (80-110) 04/08/19 09:40 Calcium 8.5 mg/dL (8.4-10.2) 04/08/19 09:40 Total Bilirubin 0.6 mg/dL (0.2-1.3) 04/08/19 09:40 AST 18 IU/L (14-36) 04/08/19 09:40 ALT 8 IU/L (9-52) L 04/08/19 09:40 Alkaline Phosphatase 167 U/L (38-126) H 04/08/19 09:40 Total Protein 7.2 g/dL (6.3-8.2) 04/08/19 09:40 Albumin 3.8 g/dL (3.5-5.0) 04/08/19 09:40 Globulin 3.4 g/dL (1.7-4.1) 04/08/19 09:40 Albumin/Globulin Ratio 1.1 (1.0-2.8) 04/08/19 09:40 TSH 20.40 uIU/mL (0.47-4.68) H 02/04/19 09:50 Free T4 1.61 ng/dL (0.78-2.19) 02/04/19 09:50 Urine Color Yellow 03/18/19 13:45 Urine Appearance Turbid 03/18/19 13:45 Urine pH 5.5 (4.5-8.0) 03/18/19 13:45 Ur Specific [place] <=1.005 (1.000-1.035) 03/18/19 13:45 Urine Protein 1+ (Negative) H 03/18/19 13:45 Urine Glucose (UA) Negative g/dL (Negative) 03/18/19 13:45 Urine Ketones Negative (NEGATIVE) 03/18/19 13:45 Urine Occult Blood 3+ (Negative) H 03/18/19 13:45 Urine Nitrate Negative (Negative) 03/18/19 13:45 Urine Bilirubin Negative (NEGATIVE) 03/18/19 13:45 Urine Urobilinogen 0.2 E.U./dL (0.2) 03/18/19 13:45 Ur Leukocyte Esterase 2+ (NEGATIVE) H 03/18/19 13:45 Urine RBC 10-30/hpf (0-5/HPF) H 03/18/19 13:45 Urine WBC >100/hpf (0-5/HPF) H 03/18/19 13:45 Ur Squamous Epith Cells 1-5 /hpf (0-5/HPF) 03/18/19 13:45 Ur Transition Epith Cell 1-5/hpf (0-5/HPF) 12/25/18 Unknown Ur Renal Epithelial Cell Cancelled 12/05/18 09:44 Calcium Oxalate Crystal Cancelled 12/05/18 09:44 Uric Acid Crystals Cancelled 12/05/18 09:44 Triple Phos Crystals Cancelled 12/05/18 09:44 Other Crystals Cancelled 12/05/18 09:44 Amorphous Sediment Cancelled 12/05/18 09:44 Urine Bacteria Moderate (10-30) (None) H 03/18/19 13:45 Hyaline Casts Cancelled 12/05/18 09:44 Granular Casts Cancelled 12/05/18 09:44 RBC Casts Cancelled 12/05/18 09:44 WBC Casts Cancelled 12/05/18 09:44 Other Casts Cancelled 12/05/18 09:44 Urine Mucus Cancelled 12/05/18 09:44 Urine Trichomonas Cancelled 12/05/18 09:44 Urine Yeast Cancelled 12/05/18 09:44 Urine Sperm Cancelled 12/05/18 09:44 Ur Culture Indicated? Specimen cultured 03/18/19 13:45 Micro UA Comment Cancelled 12/05/18 09:44 C. difficile Tox (PCR) Negative for c. diff 12/05/18 09:45 Assessment and Plan (1) Bladder cancer
[2019-04-08] MEDS: diphenhydrAMINE 25 MG TABLET PO (10:56)
[2019-04-08] MEDS: DEXAMETHASONE 10 MG/ML VIAL IV (10:56)
[2019-04-08] MEDS: ACETAMINOPHEN 325 MG TABLET 650 MG PO (10:56)
[2019-04-08] MEDS: ONDANSETRON 16 MG in SODIUM CHLORIDE 0.9% 50 ML 232 ML IV (11:10)
[2019-04-08] MEDS: SODIUM CHLORIDE 0.9% 100 ML 21 ML IV (11:11)
[2019-04-08] MEDS: FAMOTIDINE 20 MG/50 ML PIGGYBACK 200 MG IV (11:32)
[2019-04-08] MEDS: PACLITAXEL IV (12:06)
[2019-04-08] MEDS: DEXTROSE 5% IV (12:06)
[2019-04-15 11:13] LABS: Add Manual Diff / Slide Review NO; Basophils Absolute Auto 200 /uL (0-100); Basophils Percent Auto 2.1 % (0-2); Eosinophils Absolute Auto 300 /uL (0-450); Eosinophils Percent Auto 3.5 % (2-4); Hematocrit 27.7 % (36-46); Hemoglobin 9.2 g/dL (12.0-16.0); Lymphocytes Absolute Auto 900 /uL (1100-4500); Lymphocytes Percent Auto 11.8 % (25-40); Mean Corpuscular HGB Conc 33.4 % (30-36); Mean Corpuscular Hemoglobin 29.9 PG (26-34); Mean Corpuscular Volume 89.6 fL (80-100); Monocytes Absolute Auto 1300 /uL (0-900); Monocytes Percent Auto 17.6 % (3-14); Neutrophils Absolute Auto 4800 /uL (1500-7000); Platelet Count 580 X10^3/uL (150-400); Red Blood Cell Count 3.09 X10^6/uL (4.0-5.2); Red Cell Distribution Width 18.1 % (11.6-14.8); White Blood Cell Count 7.5 X10^3/uL (4.5-11.0)
[2019-04-15 11:14] LABS: Appearance Urine UA SL CLOUDY; Bilirubin Urine UA NEGATIVE (NEGATIVE); Color Urine UA YELLOW; Glucose Urine UA NEGATIVE (Negative); Ketones Urine UA NEGATIVE (NEGATIVE); Leukocyte Esterase Urine UA 2+ (NEGATIVE); Nitrite Urine UA NEGATIVE (Negative); Occult Blood Urine UA 3+ (Negative); Protein Urine UA TRACE (Negative); Urobilinogen Urine UA 0.2 E.U./dL (0.2)
[2019-04-15] MEDS: diphenhydrAMINE 25 MG TABLET PO (11:15)
[2019-04-15] MEDS: ACETAMINOPHEN 325 MG TABLET 650 MG PO (11:15)
[2019-04-15] MEDS: SODIUM CHLORIDE 0.9% 100 ML 21 ML IV (11:16)
[2019-04-15] MEDS: DEXAMETHASONE 10 MG/ML VIAL IV (11:17)
[2019-04-15] MEDS: FAMOTIDINE 20 MG/50 ML PIGGYBACK 200 MG IV (11:17)
[2019-04-15 11:32] LABS: Alanine Aminotransferase 6 IU/L (9-52); Albumin 3.8 g/dL (3.5-5.0); Albumin Globulin Ratio 1.1 (1.0-2.8); Alkaline Phosphatase 158 U/L (38-126); Aspartate Aminotransferase 14 IU/L (14-36); BUN Creatinine Ratio 19.2 (6-22); Bilirubin Total 0.4 mg/dL (0.2-1.3); Blood Urea Nitrogen 25 mg/dL (7-17); Calcium 8.8 mg/dL (8.4-10.2); Carbon Dioxide 25 mmol/L (22-32); Chloride 98 mmol/L (98-107); Estimated Glomerular Filt Rate 39.3 mL/min (>60); Globulin 3.5 g/dL (1.7-4.1); Glucose 118 mg/dL (80-110); HEMOLYSIS < 15 (0-50); Potassium 4.6 mmol/L (3.4-5.1); Sodium 133 mmol/L (137-145); Total Protein 7.3 g/dL (6.3-8.2)
[2019-04-15 11:50] LABS: Bacteria Urine Moderate (10-30); RBC Urine 30-100/HPF (0-5/HPF); Squamous Epithelial Cell Urine 1-5 /HPF (0-5/HPF); WBC Urine 30-100/HPF (0-5/HPF)
[2019-04-15 11:51] LABS: Culture Indicated Urine Specimen Cultured
[2019-04-15] MEDS: ONDANSETRON 16 MG in SODIUM CHLORIDE 0.9% 50 ML 232 ML IV (11:51)
[2019-04-15] MEDS: DEXTROSE 5% IV (12:18)
[2019-04-15] MEDS: PACLITAXEL IV (12:18)
--- NOTE | 2019-04-28 16:28 | PC.NURSE ---
Patient called to clarify her appts thinking she would be in for infusion this week. This nurse stated to her that per Orders panel from Dr. Downs she is presently receiving Tx weekly for two weeks and then off 3 weeks. This means her next treatment is 05/06 for which she is scheduled as well as a FU with Dr. Downs. As physician notes and NCCN guidelines do not all match with schedule this nurse offered to check with Dr. Acosta and get back to patient if scheduling advised this week. She stated she would rather just wait until her visit with Dr. Downs on the and have her treatment on that day.
[2019-05-14 08:21] VITALS: BP 107/73; PULSE 92; RESP 18; TEMP 36.5; O2SAT 98
--- NOTE | 2019-05-14 08:44 | ONC.PN ---
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 Clinically T4 N0. She is BRCA positive. Previous treatment: 1. 9 doses of Keytruda this stopping in November 2018 2. Paclitaxel weeky for 4 cycles with a dose reduction. Interval history: The patient is an 83-year-old woman who returns today for follow-up of a locally advanced bladder cancer. Since her last visit here, she has had a couple of episodes of supraventricular tachycardia for which she was hospitalized. In both cases, her heart rate reverted to sinus rhythm quickly with amiodarone and then metoprolol. Since her most recent hospital discharge, she has not had any further episodes of tachycardia. She is not having any chest pain or pressure. She has not noticed any worsening shortness of breath but has had a mild cough. She denies any pain. She has noted some increasing weakness in her right knee and hip. She has been spending more of her time in bed. She denies any pelvic pain. She has not had any hematuria. Bowels have been moving well. Her appetite has been low. But she is not having any nausea or vomiting. Overall, she feels like she is moving lasts and feeling worse than she did 2 or 3 months ago. She did have a CT scan done during her hospital stay. It showed a couple of small but enlarging pulmonary nodules suspicious for metastasis. In addition it appeared that her bladder tumor had enlarged slightly with a new satellite lesion and further spread towards the pelvic sidewall. - Patient Self-Reported Symptoms SR Constitution: Fatigue/Malaise SR ears, nose, mouth, throat issues: Congestion SR respiratory issues: Cough, Mucous SR Cardiovascular issues: Palpitations SR Skin issues: Dry skin SR Gastrointestinal issues: Diarrhea SR Genitourinary issues: Frequent urination SR Musculoskeletal issues: Muscle weakness SR Endocrine issues: Excessive urination Home Medications and Allergies Home Medications Medication Instructions Recorded Confirmed Type levothyroxine 100 mcg PO DAILY 11/29/18 05/14/19 History cholecalciferol (vitamin D3) 0 unit PO 3XW 03/11/19 05/14/19 History [Vitamin D3] acetaminophen [Tylenol Extra 500 mg PO BEDTIME PRN 05/04/19 05/14/19 History Strength] diazepam 10 mg PO BEDTIME PRN 05/04/19 05/14/19 History hydrocodone-acetaminophen 1 tab PO Q4HR PRN 7 Days #40 tab 05/05/19 05/14/19 Rx polyethylene glycol 3350 17 gm PO DAILY 30 Days #30 each 05/05/19 05/14/19 Rx sennosides [senna] 17.2 mg PO BEDTIME 30 Days #60 tab 05/05/19 05/14/19 Rx amiodarone [Pacerone] 50 mg PO DAILY #30 tab 05/08/19 05/14/19 Rx ascorbic acid (vitamin C) 500 mg PO DAILY #30 tab 05/08/19 05/14/19 Rx ferrous gluconate 324 mg PO DAILY #30 tab 05/08/19 05/14/19 Rx calcitriol 0.25 mcg capsule 0.25 mcg PO MOWEFR #36 cap 05/12/19 05/14/19 Rx Allergies Allergy/AdvReac Type Severity Reaction Status Date / Time lisinopril [LISINOPRIL] Allergy Severe Swelling Verified 05/13/19 09:15 of Lip/Tongue/Throat Sulfa (Sulfonamide Allergy Intermediate Rash Verified 05/13/19 09:15 Antibiotics) [SULFA (SULFONAMIDE ANTIBIOTICS)] sertraline AdvReac Intermediate Diarrhea Verified 05/13/19 09:15 Exam Vital signs: Vital Signs Temp Pulse Resp BP Pulse Ox 05/14/19 08:21 97.7 F 92 H 18 107/73 98 Intake and Output 05/13/19 05/14/19 05/14/19 23:59 07:59 15:59 Other: Weight 50.7 kg Patient Weight 05/14/19 23:59 Weight 50.7 kg - Constitutional positive no acute distress, positive average body habitus Comments: She is not further examined. Results - Labs Laboratory Last Values WBC 7.5 X10^3/uL (4.5-11.0) 04/15/19 10:56 RBC 3.09 X10^6/uL (4.0-5.2) L 04/15/19 10:56 Hgb 9.2 g/dL (12.0-16.0) L 04/15/19 10:56 Hct 27.7 % (36-46) L 04/15/19 10:56 MCV 89.6 fL (80-100) 04/15/19 10:56 MCH 29.9 PG (26-34) 04/15/19 10:56 MCHC 33.4 % (30-36) 04/15/19 10:56 RDW 18.1 % (11.6-14.8) H 04/15/19 10:56 Plt Count 580 X10^3/uL (150-400) H 04/15/19 10:56 Neut % (Auto) 65.0 % (50-75) 04/15/19 10:56 Lymph % (Auto) 11.8 % (25-40) L 04/15/19 10:56 Lucas % (Auto) 17.6 % (3-14) H 04/15/19 10:56 Eos % (Auto) 3.5 % (2-4) 04/15/19 10:56 Baso % (Auto) 2.1 % (0-2) H 04/15/19 10:56 Neut # (Auto) 4800 /uL (7353-8302) 04/15/19 10:56 Lymph # (Auto) 900 /uL (6007-5299) L 04/15/19 10:56 Lucas # (Auto) 1300 /uL (0-900) H 04/15/19 10:56 Eos # (Auto) 300 /uL (0-450) 04/15/19 10:56 Baso # (Auto) 200 /uL (0-100) H 04/15/19 10:56 RBC Morphology Normal morphology 11/13/18 10:04 Sodium 133 mmol/L (137-145) L 04/15/19 10:56 Potassium 4.6 mmol/L (3.4-5.1) 04/15/19 10:56 Chloride 98 mmol/L (98-107) 04/15/19 10:56 Carbon Dioxide 25 mmol/L (22-32) 04/15/19 10:56 BUN 25 mg/dL (7-17) H 04/15/19 10:56 Creatinine 1.30 mg/dL (0.52-1.04) H 04/15/19 10:56 Estimated GFR 39.3 mL/min (>60) L 04/15/19 10:56 BUN/Creatinine Ratio 19.2 (6-22) 04/15/19 10:56 Glucose 118 mg/dL (80-110) H 04/15/19 10:56 Calcium 8.8 mg/dL (8.4-10.2) 04/15/19 10:56 Total Bilirubin 0.4 mg/dL (0.2-1.3) 04/15/19 10:56 AST 14 IU/L (14-36) 04/15/19 10:56 ALT 6 IU/L (9-52) L 04/15/19 10:56 Alkaline Phosphatase 158 U/L (38-126) H 04/15/19 10:56 Total Protein 7.3 g/dL (6.3-8.2) 04/15/19 10:56 Albumin 3.8 g/dL (3.5-5.0) 04/15/19 10:56 Globulin 3.5 g/dL (1.7-4.1) 04/15/19 10:56 Albumin/Globulin Ratio 1.1 (1.0-2.8) 04/15/19 10:56 TSH 20.40 uIU/mL (0.47-4.68) H 02/04/19 09:50 Free T4 1.61 ng/dL (0.78-2.19) 02/04/19 09:50 Urine Color Yellow 04/15/19 10:56 Urine Appearance Sl cloudy 04/15/19 10:56 Urine pH 6.0 (4.5-8.0) 04/15/19 10:56 Ur Specific [place] 1.010 (1.000-1.035) 04/15/19 10:56 Urine Protein Trace (Negative) H 04/15/19 10:56 Urine Glucose (UA) Negative g/dL (Negative) 04/15/19 10:56 Urine Ketones Negative (NEGATIVE) 04/15/19 10:56 Urine Occult Blood 3+ (Negative) H 04/15/19 10:56 Urine Nitrate Negative (Negative) 04/15/19 10:56 Urine Bilirubin Negative (NEGATIVE) 04/15/19 10:56 Urine Urobilinogen 0.2 E.U./dL (0.2) 04/15/19 10:56 Ur Leukocyte Esterase 2+ (NEGATIVE) H 04/15/19 10:56 Urine RBC 30-100/hpf (0-5/HPF) H 04/15/19 10:56 Urine WBC 30-100/hpf (0-5/HPF) H 04/15/19 10:56 Ur Squamous Epith Cells 1-5 /hpf (0-5/HPF) 04/15/19 10:56 Ur Transition Epith Cell 1-5/hpf (0-5/HPF) 12/25/18 Unknown Ur Renal Epithelial Cell Cancelled 12/05/18 09:44 Calcium Oxalate Crystal Cancelled 12/05/18 09:44 Uric Acid Crystals Cancelled 12/05/18 09:44 Triple Phos Crystals Cancelled 12/05/18 09:44 Other Crystals Cancelled 12/05/18 09:44 Amorphous Sediment Cancelled 12/05/18 09:44 Urine Bacteria Moderate (10-30) (None) H 04/15/19 10:56 Hyaline Casts Cancelled 12/05/18 09:44 Granular Casts Cancelled 12/05/18 09:44 RBC Casts Cancelled 12/05/18 09:44 WBC Casts Cancelled 12/05/18 09:44 Other Casts Cancelled 12/05/18 09:44 Urine Mucus Cancelled 12/05/18 09:44 Urine Trichomonas Cancelled 12/05/18 09:44 Urine Yeast 30-100/hpf (None) H 04/15/19 10:56 Urine Sperm Cancelled 12/05/18 09:44 Ur Culture Indicated? Specimen cultured 04/15/19 10:56 Micro UA Comment Cancelled 12/05/18 09:44 C. difficile Tox (PCR) Negative for c. diff 12/05/18 09:45 - Imaging CT scan - abdomen: image reviewed CT scan - chest: image reviewed CT scan - pelvis: image reviewed (Small pulmonary nodules. These are not definitive for metastasis but suspicious. She has extensive tumor involving the bladder and pelvis with extension outside the bladder.) Assessment and Plan (1) Bladder cancer An 82-year-old woman with a locally advanced bladder cancer. Her recent CT showed probable pulmonary metastasis as well as enlargement with a new satellite lesion in the bladder. It appears that she really is not getting much of a palliative benefit from her gemcitabine. We talked about additional treatment options. Despite her declining performance status, I think she could potentially tolerate further single agent chemotherapy. We talked about the possibility of Taxol given on a weekly schedule. Side effects including alopecia, nausea vomiting, myelosuppression and risk for infection, her risk for allergic reactions and neuropathy were reviewed. We also discussed the possibility of carboplatin she has initially been quite leery of any [place]-based therapy and is not willing to consider that. We also talked the possibility of supportive care or hospice. I explained that this med could potentially provide a lot of support for her and her family in terms of symptom management, medications and supplies. The focus of hospice was to keep patient's home with her level once in out of doctors offices as much as possible. The patient does not wish to pursue any further chemotherapy. We will plan on making informational referral to hospice. I have not scheduled a follow-up appointment for her but would be happy to see her again in the future should the need arise.
--- NOTE | 2019-05-14 09:14 | ONC.MSW ---
Description: Hospice Referral Activity: Per Dr. Downs, faxed pt's clinicals to hospice for info/referral.
--- NOTE | 2019-07-14 11:09 | ONC.MSW ---
*Sent bereavement card.
== END ==
PROVIDERS: Internal Medicine Hematology & Oncology; PCP Internal Medicine
DX: C67.9 Malignant neoplasm of bladder, unspecified (principal); R91.8 Other nonspecific abnormal finding of lung field
CPT/HCPCS: 36415; 36591; 36592; 80053; 81001; 84439; 84443; 85025; 87086; 87493; 90471; 90472; 90656; 96360; 96361; 96365; 96366; 96375; 96413; 96415; 99205; 99213; 99214; 99215; J1100; J2405; J7060; J9267; J9271; Q2038